=== PATIENT | male | born 1945 | race Caucasian/White ===

== ENCOUNTER 2020-03-20 17:19 | Inpatient (IN) ==
[2020-03-20] MEDS ORDERED: PIPERACILL/TAZOBAC CONSULT ACTIVE PRN (17:46)
[2020-03-20] MEDS ORDERED: PIPERACILLIN/TAZOBACTAM 4.5 GM/120 ML BAG IV ONE (17:46)
[2020-03-20 18:42] LABS: Basophils # (auto) 0.02 K/uL (0-0.2); Basophils % (auto) 0.3 %; Eosinophils # (auto) 0.02 K/uL (0-0.5); Eosinophils % (auto) 0.3 %; Hematocrit (blood only) 30.3 % (42-52); Hemoglobin 10.7 g/dL (14.0-18.0); Immature Granulocytes # (auto) 0.01 K/uL (0.00-0.02); Immature Granulocytes % (auto) 0.1 %; Lymphocytes # (auto) 1.26 K/uL (1.2-3.4); Lymphocytes % (auto) 17.4 %; Mean Corpuscular Hemoglobin 31.7 pg (25-34); Mean Corpuscular Hgb Conc 35.3 g/dL (32-36); Mean Corpuscular Volume 89.6 fL (80-100); Mean Platelet Volume 9.3 fL (7.4-10.4); Monocytes # (auto) 0.83 K/uL (0.11-0.59); Monocytes % (auto) 11.5 %; Neutrophils # (auto) 5.09 K/uL (1.4-6.5); Neutrophils % (auto) 70.4 %; Platelet Count 297 K/uL (130-400); RDW Coefficient of Variation 11.9 % (11.5-14.5); RDW Standard Deviation 38.7 fL (36.4-46.3); Red Blood Count 3.38 M/uL (4.7-6.1); White Blood Count 7.23 K/uL (4.8-10.8)
[2020-03-20 18:47] LABS: Appearance Urine Clear (Clear); Bacteria Urine Automated Negative (Negative); Bilirubin Urine Negative (Negative); Blood Urine 3+ (Negative); Color Urine Dark Yellow; Epithelial Cell Urine Auto 0-5 /lpf (0-5); Glucose Urine UA Negative (Negative); Ketones Urine Trace (Negative); Leukocyte Esterase Urine Trace (Negative); Nitrite Urine Negative (Negative); Protein Urine 3+ (Negative); RBC Urine Automated >30 /hpf (0-4); Specific Gravity Urine 1.029 (1.000-1.030); Urobilinogen Urine Negative (Negative); WBC Urine Automated >30 /hpf (0-5); pH Urine 5.5 (4.5-7.5)
[2020-03-20 19:02] LABS: Alanine Aminotransferase 32 U/L (12-78); Albumin Level 2.9 gm/dl (3.4-5.0); Aspartate Aminotransferase 18 U/L (15-37); BUN Creatinine Ratio 18.5 (10-20); Blood Urea Nitrogen 16 mg/dl (7-18); Calcium 8.4 mg/dl (8.5-10.1); Carbon Dioxide 24 mmol/L (21-32); Chloride 103 mmol/L (98-107); Creatinine Clr Calc Pharmacy 81.6 ml/min; Est GFR (African American) 98.5; Glucose 129 mg/dl (70-99); Magnesium 1.8 mg/dl (1.8-2.4); Potassium 4.2 mmol/L (3.5-5.1); Sodium 136 mmol/L (136-145)
[2020-03-20 19:07] LABS: Albumin Globulin Ratio 0.7 (0.9-2); Alkaline Phosphatase 100 U/L (45-117); Bilirubin,Total 0.4 mg/dl (0.2-1); Globulin 3.9 gm/dl (2.5-4.0); Total Protein 6.8 gm/dl (6.4-8.2); Troponin I < 0.015 ng/ml (0-0.045)
[2020-03-20 19:14] LABS: INR 1.2 (0.9-1.1); Partial Thromboplastin Ratio 1.2; Partial Thromboplastin Time 32.3 Seconds (21.0-31.0); Prothrombin Time 12.3 Seconds (9.0-12.0)
--- NOTE | 2020-03-20 19:30 | XRay Report ---
XR chest 1V portable CLINICAL HISTORY: SEPSIS COMPARISON STUDY: Chest radiograph March 01, 2020. FINDINGS: There are median sternotomy wires and a prosthetic cardiac valve. Cardiomediastinal silhoue tte is stable. There is no pneumothorax or pleural effusion. There is no consolidation or evidence fo r pulmonary edema. Appearance of the chest is unchanged. IMPRESSION: No acute cardiopulmonary findings. ACT 112: Negative or not required by law. Electronically signed by: Luigi Garcia M.D. 03/20/2020 7:28 PM
[2020-03-20 19:52] LABS: Adenovirus PCR Not Detected (NotDetected); Bordetella parapertussis PCR Not Detected (NotDetected); Bordetella pertussis PCR Not Detected (NotDetected); Chlamydia pneumoniae PCR Not Detected (NotDetected); Coronavirus 229E PCR Not Detected (NotDetected); Coronavirus CoV-2 (COVID19)PCR Not Detected (NotDetected); Coronavirus HKU1 PCR Not Detected (NotDetected); Coronavirus NL63 PCR Not Detected (NotDetected); Coronavirus OC43PCR Not Detected (NotDetected); Human Metapneumovirus PCR Not Detected (NotDetected); Influenza A PCR Not Detected (NotDetected); Influenza B PCR Not Detected (NotDetected); Mycoplasma pneumoniae PCR Not Detected (NotDetected); Parainfluenza Virus 1 PCR Not Detected (NotDetected); Parainfluenza Virus 2 PCR Not Detected (NotDetected); Parainfluenza Virus 3 PCR Not Detected (NotDetected); Parainfluenza Virus 4 PCR Not Detected (NotDetected); Respiratory Syncytial VirusPCR Not Detected (NotDetected); Rhinovirus/Enterovirus PCR Not Detected (NotDetected)
[2020-03-20] MEDS ORDERED: ACETAMINOPHEN 325 MG TAB PO STA (20:08)
[2020-03-20] MEDS ORDERED: NICOTINE 14 MG/24 HR PATCH TD STA (22:22)
--- NOTE | 2020-03-20 23:08 | Emergency Department Note ---
History of Present Illness General Chief complaint: Fever Source: patient, EMS, RN notes reviewed and old records reviewed ([facility]) Mode of arrival: ambulatory Limitations: no limitations History of Present Illness Provider complaint: Fever, discharged from [place] yesterday This patient is a 74-year-old male who presents emergency department from [facility] where he is at inpatient rehab. Patient was recently hospitalized for subdural hematoma and was found to have an acute bleed. He was transferred to [facility] where no further intervention was performed. The patient was discharged yesterday back to [facility] for further rehab. Today he was found to have a temperature of 39 degrees. The patient denies any specific symptoms although he does have an indwelling Curtis catheter. He denies any chest pain, shortness of breath, vomiting or diarrhea. Home Medications Home Medications Medication Instructions Recorded Confirmed Type aspirin [Aspir-81] 81 mg PO QAM 11/11/18 03/21/20 History atorvastatin 20 mg PO QAM 11/11/18 03/21/20 History omega 9-wen-ccv-fish oil [Fish Oil] 1 cap PO QAM 11/11/18 03/21/20 History finasteride 5 mg PO QAM 03/01/20 03/21/20 History lisinopril 10 mg PO QAM 03/01/20 03/21/20 History tamsulosin 0.4 mg PO QAM 03/01/20 03/21/20 History cefdinir 300 mg PO BID 10 Days #20 cap 03/20/20 Rx docusate sodium 100 mg PO BID 03/21/20 03/21/20 History levetiracetam 1,000 mg PO Q12H 03/21/20 03/21/20 History sennosides [senna] 8.6 mg PO BID 03/21/20 03/21/20 History sodium chloride 3,000 mg PO TID 03/21/20 03/21/20 History Allergies Allergy/AdvReac Type Severity Reaction Status Date / Time No Known Drug Allergies Allergy Unknown Unknown Verified 03/21/20 00:52 Past Med/Surg History Medical History Anemia Basal cell carcinoma (02/09/19) Left preauricular region: 02/09/2019 Basal cell carcinoma of face removed in office BPH loc w urin obs/LUTS Coronary artery disease Hearing deficit History of rheumatic fever as a child Hypercholesterolemia Hyperlipidemia Hypertension Myocardial Infarction ? pt not sure, but in primary care docs note Osteoarthritis Poor historian Sensorineural hearing loss of both ears Tobacco user Urinary retention Surgical History H/O vasectomy History of colonoscopy with polypectomy History of open heart surgery 15+yrs ago @ [facility] "valve replacement and bypass surgery" History of testicular surgery left History of tooth extraction all teeth Family History Mother Breast cancer Family history of diabetes mellitus Other H/O vasectomy History of open heart surgery Hypercholesterolemia No family history of adverse response to anesthesia Denies family history of Ovarian cancer Prostate cancer Diabetes Coronary heart disease Heart disease Myocardial infarction Lung cancer Colorectal cancer Social History Smoking Status: Former smoker Tobacco Type: Smokeless Tobacco (Dip or Chew) Second Hand Exposure: No; Do You Dip or Chew Tobacco: No; Hx Alcohol Use: Yes Alcohol type: beer Hx Substance Use: No Preferred Language: Syriac Communication Ability: Impaired Visual Impairment: No Limitations Hearing Ability: Normal Social Work Coordinator Required: No Beliefs That Will Affect Care: None marital status: Current Living Situation: Spouse current occupational status: retired Other Information That Helps Us Care for You: No Feels Safe at Home: Yes Safety Concerns: Feels Safe At This Time Childhood Exposure to Second-Hand Smoke: No Dental Care, Regularly: No Physical Activity Frequency: Daily Seatbelt Use: always Sunscreen Use: No Assistive Devices: Denture - Upper, Denture - Lower and Glasses Review of Systems See HPI for pertinent positives & negatives. and A total of 10 systems reviewed and were otherwise negative Physical Exam Vital Signs Vital Signs - 24 hr 03/20/20 17:20 03/20/20 17:31 03/20/20 18:15 Temperature 38.5 C H Temperature Source Oral Pulse Rate 100 H Pulse Rate [Apical] 92 H Respiratory Rate 20 18 Respiratory Effort / Characteristics Non-Labored Blood Pressure 139/76 Blood Pressure [Right Arm] 145/91 H Blood Pressure Mean 97 Blood Pressure Mean [Right Arm] 109 Blood Pressure Position Sitting Pulse Oximetry 98 94 96 Oxygen Delivery Method Room Air Room Air Sepsis Recent Fever Within 48 Hours Yes Sepsis New/Unexplained Change in Mental Status No Sepsis Action Taken by Nursing No Action Required 03/20/20 18:30 03/20/20 18:50 03/20/20 19:30 Temperature Temperature Source Pulse Rate Pulse Rate [Apical] 90 90 Respiratory Rate 17 14 Respiratory Effort / Characteristics Blood Pressure Blood Pressure [Right Arm] 135/87 145/85 H Blood Pressure Mean Blood Pressure Mean [Right Arm] 103 105 Blood Pressure Position Pulse Oximetry 96 95 Oxygen Delivery Method Room Air Sepsis Recent Fever Within 48 Hours Sepsis New/Unexplained Change in Mental Status Sepsis Action Taken by Nursing 03/20/20 20:00 03/20/20 20:30 03/20/20 21:00 Temperature 37.2 C Temperature Source Oral Pulse Rate Pulse Rate [Apical] 73 72 68 Respiratory Rate 17 16 20 Respiratory Effort / Characteristics Blood Pressure Blood Pressure [Right Arm] 130/69 128/94 124/74 Blood Pressure Mean Blood Pressure Mean [Right Arm] 89 105 90 Blood Pressure Position Pulse Oximetry 96 97 96 Oxygen Delivery Method Room Air Room Air Room Air Sepsis Recent Fever Within 48 Hours Sepsis New/Unexplained Change in Mental Status Sepsis Action Taken by Nursing 03/20/20 21:30 Temperature Temperature Source Pulse Rate Pulse Rate [Apical] 73 Respiratory Rate 21 Respiratory Effort / Characteristics Blood Pressure Blood Pressure [Right Arm] 155/82 H Blood Pressure Mean Blood Pressure Mean [Right Arm] 106 Blood Pressure Position Pulse Oximetry 97 Oxygen Delivery Method Room Air Sepsis Recent Fever Within 48 Hours Sepsis New/Unexplained Change in Mental Status Sepsis Action Taken by Nursing Vital signs reviewed. Noted to be febrile General: Chronically ill-appearing 74-year-old male, in no significant distress HEENT: No scleral icterus, PERRLA, neck supple. Atraumatic. Cardiovascular: Regular rate and rhythm, no extra sounds. Pulmonary: Clear to auscultation bilaterally, normal work of breathing. Abdomen: Soft, nontender, nondistended, positive bowel sounds. Musculoskeletal: Atraumatic, no peripheral edema. : Indwelling Curtis catheter, normal external male genitals. Neurologic: Patient awake alert and pleasantly confused but able to follow commands.. Skin: Warm, dry, no rash Course Administered Medications Aspirin (Aspirin 81 Mg Ectab) [facility] [place]: 04/20/20 08:59 Last Admin: 09/29/20 08:23 Dose: 81 mg Documented by: [id number] Admin: 03/21/20 07:59 Dose: 81 mg Documented by: [id number] Atorvastatin Calcium (Atorvastatin 20 Mg Tab) [facility] [place]: 04/20/20 08:59 Last Admin: 03/22/20 08:23 Dose: 20 mg Documented by: [id number] Admin: 03/21/20 07:59 Dose: 20 mg Documented by: [id number] Docusate Sodium (Docusate Sodium 100 Mg Cap) 100 mg PO BID [facility] Stop: 04/20/20 08:59 Last Admin: 03/22/20 08:32 Dose: 100 mg Documented by: [id number] Admin: 03/21/20 21:00 Dose: 100 mg Documented by: [id number] Admin: 03/21/20 07:57 Dose: 100 mg Documented by: [id number] Finasteride (Finasteride 5 Mg Tab) [facility] [place]: 04/20/20 08:59 Last Admin: 03/22/20 08:28 Dose: 5 mg Documented by: [id number] Admin: 03/21/20 07:59 Dose: 5 mg Documented by: [id number] Fish Oil (Sparks-3 (Purified Fish Oil) 1 Gm Cap) 1 gm PO [facility] Stop: 04/20/20 08:59 Last Admin: 03/22/20 08:23 Dose: 1 gm Documented by: [id number] Admin: 03/21/20 07:59 Dose: 1 gm Documented by: [id number] Ceftriaxone Sodium 2,000 mg/ (Dextrose) 70 mls @ 100 mls/hr IV Q24H [facility]; Protocol Stop: 03/31/20 03:59 Last Infusion: 03/22/20 05:34 Dose: 0 mls/hr Documented by: [id number] Admin: 03/22/20 04:52 Dose: 100 mls/hr Documented by: [id number] Infusion: 03/21/20 06:04 Dose: 0 mls/hr Documented by: [id number] Admin: 03/21/20 04:53 Dose: 100 mls/hr Documented by: [id number] Vancomycin HCl 1,000 mg/ (Sodium Chloride) 270 mls @ 125 mls/hr IV Q12@0600,1800 [facility]; Protocol Stop: 03/31/20 17:59 Last Admin: 03/22/20 18:18 Dose: 125 mls/hr Documented by: [id number] Infusion: 03/22/20 08:15 Dose: 0 mls/hr Documented by: [id number] Admin: 03/22/20 05:59 Dose: 125 mls/hr Documented by: [id number] Infusion: 03/21/20 20:18 Dose: 0 mls/hr Documented by: [id number] Admin: 03/21/20 18:08 Dose: 125 mls/hr Documented by: [id number] Levetiracetam (Levetiracetam 500 Mg Tab) 1,000 mg PO Q12H [facility] Stop: 04/20/20 08:59 Last Admin: 03/22/20 08:24 Dose: 1,000 mg Documented by: [id number] Admin: 03/21/20 21:00 Dose: 1,000 mg Documented by: [id number] Admin: 03/21/20 07:59 Dose: 1,000 mg Documented by: [id number] Lidocaine (Lidocaine 5% 1 Patch) 1 patch TD QAM [facility] Stop: 04/21/20 09:44 Last Admin: 03/22/20 10:36 Dose: 1 patch Documented by: [id number] Miscellaneous (Remove Nicoderm Patch) 1 ea N/A DAILY@0859 [facility] Stop: 04/20/20 08:58 Last Admin: 03/22/20 08:28 Dose: 1 ea Documented by: [id number] Admin: 03/21/20 07:56 Dose: 1 ea Documented by: [id number] Nicotine (Nicotine 14 Mg/24 Hr Patch) 14 mg TD QAM [facility] Stop: 04/20/20 08:59 Last Admin: 03/22/20 08:24 Dose: 14 mg Documented by: [id number] Admin: 03/21/20 07:59 Dose: 14 mg Documented by: [id number] Ondansetron HCl (Ondansetron Inj 2 Mg/Ml 2 Ml Vial) 4 mg IV Q6H PRN PRN Reason: Nausea Stop: 04/20/20 03:59 Last Admin: 03/21/20 21:36 Dose: 4 mg Documented by: [id number] Sennosides (Senna 8.6 Mg Tab) 8.6 mg PO BID [facility] Stop: 04/20/20 08:59 Last Admin: 03/22/20 08:23 Dose: 8.6 mg Documented by: [id number] Admin: 03/21/20 21:00 Dose: 8.6 mg Documented by: [id number] Admin: 03/21/20 07:59 Dose: 8.6 mg Documented by: [id number] Sodium Chloride (Sodium Chloride 1 Gm Tablet) 3 gm PO TID [facility] Stop: 04/20/20 08:59 Last Admin: 03/22/20 14:51 Dose: 3 gm Documented by: [id number] Admin: 03/22/20 08:22 Dose: 3 gm Documented by: [id number] Admin: 03/21/20 21:00 Dose: 3 gm Documented by: [id number] Admin: 03/21/20 13:59 Dose: 3 gm Documented by: [id number] Admin: 03/21/20 07:57 Dose: 3 gm Documented by: [id number] Discontinued Medications Acetaminophen (Acetaminophen 325 Mg Tab) 325 mg PO NOW STA Stop: 03/20/20 20:09 Last Admin: 03/20/20 20:17 Dose: Not Given Documented by: [id number] Acetaminophen (Acetaminophen 325 Mg Tab) 650 mg PO Q4H PRN PRN Reason: Pain or Fever Stop: 04/20/20 03:59 Last Admin: 03/22/20 03:18 Dose: 650 mg Documented by: [id number] Admin: 03/21/20 20:59 Dose: 650 mg Documented by: [id number] Admin: 03/21/20 14:01 Dose: 650 mg Documented by: [id number] Piperacillin Sod/Tazobactam Sod (Zosyn) 4.5 gm in 120 mls @ 240 mls/hr IV NOW ONE Stop: 03/20/20 18:15 Last Infusion: 03/20/20 20:07 Dose: 0 mls/hr Documented by: [id number] Admin: 03/20/20 18:53 Dose: 240 mls/hr Documented by: [id number] Acetaminophen (Ofirmev) 1,000 mg in 100 mls @ 400 mls/hr IV NOW STA Stop: 03/21/20 00:25 Last Infusion: 03/21/20 00:44 Dose: 0 mls/hr Documented by: [id number] Admin: 03/21/20 00:20 Dose: 400 mls/hr Documented by: [id number] Levetiracetam 1,000 mg/ Sodium (Chloride) 110 mls @ 440 mls/hr IV NOW STA Stop: 03/21/20 00:26 Last Infusion: 03/21/20 01:04 Dose: 0 mls/hr Documented by: [id number] Admin: 03/21/20 00:44 Dose: 440 mls/hr Documented by: [id number] Vancomycin HCl 2,250 mg/ (Sodium Chloride) 545 mls @ 200 mls/hr IV ONE ONE; Protocol Stop: 03/21/20 07:13 Last Infusion: 03/21/20 07:34 Dose: 0 mls/hr Documented by: [id number] Admin: 03/21/20 04:50 Dose: 200 mls/hr Documented by: [id number] Miscellaneous (Patient's Height And/Or Weight Needed) 1 ea N/A TODAY@0930 ONE Stop: 03/21/20 09:31 Last Admin: 03/21/20 09:35 Dose: 1 ea Documented by: [id number] Nicotine (Nicotine 14 Mg/24 Hr Patch) 14 mg TD NOW STA Stop: 03/20/20 22:23 Last Admin: 03/20/20 22:27 Dose: 14 mg Documented by: [id number] Ondansetron HCl (Ondansetron Inj 2 Mg/Ml 2 Ml Vial) 4 mg IV NOW STA Stop: 03/21/20 00:51 Last Admin: 03/21/20 01:00 Dose: 4 mg Documented by: [id number] Critical Care Time Critical Care Time: Yes Total Critical Care Time: 31 The high probability of a clinically significant, sudden or life threatening deterioration that required my full and direct attention, intervention and personal management. The aggregate critical care time was 31 minutes. This time includes data review, pt assessment, VS monitoring, documentation, medication ordering and management. Medical Decision Making Differential Diagnosis Differential diagnosis: Etiologies such as viral syndrome, otitis, pharyngitis, pneumonia, COVID, influenza, meningitis, urinary tract infection, septic arthritis, soft tissue infectious process, intra-abdominal process, sepsis, bacteremia, as well as others were entertained. Medical Records Attestation: I reviewed the patient's medical records. Home Medications Current Medication List: was personally reviewed by me Laboratory Data Attestation: I reviewed the patient's lab results. Result diagrams: 03/22/20 06:08 03/22/20 06:08 Lab Results 03/20/20 03/20/20 03/20/20 Range/Units 17:33 17:33 17:33 WBC 7.23 (4.8-10.8) K/uL RBC 3.38 L (4.7-6.1) M/uL Hgb 10.7 L (14.0-18.0) g/dL Hct 30.3 L (42-52) % MCV 89.6 (80-100) fL MCH 31.7 (25-34) pg MCHC 35.3 (32-36) g/dL RDW Std Deviation 38.7 (36.4-46.3) fL RDW Coeff of Harmony 11.9 (11.5-14.5) % Plt Count 297 (130-400) K/uL MPV 9.3 (7.4-10.4) fL Immature Gran % (Auto) 0.1 % Neut % (Auto) 70.4 % Lymph % (Auto) 17.4 % [place] % (Auto) 11.5 % Eos % (Auto) 0.3 % Baso % (Auto) 0.3 % Neut # (Auto) 5.09 (1.4-6.5) K/uL Lymph # (Auto) 1.26 (1.2-3.4) K/uL [place] # (Auto) 0.83 H (0.11-0.59) K/uL Eos # (Auto) 0.02 (0-0.5) K/uL Baso # (Auto) 0.02 (0-0.2) K/uL Immature Gran # (Auto) 0.01 (0.00-0.02) K/uL PT Cancelled INR Cancelled APTT Cancelled PTT Ratio Cancelled Sodium 136 (136-145) mmol/L Potassium 4.2 (3.5-5.1) mmol/L Chloride 103 (98-107) mmol/L Carbon Dioxide 24 (21-32) mmol/L Anion Gap 9.0 (3-11) BUN 16 (7-18) mg/dl Creatinine 0.87 (0.6-1.4) mg/dl Est Cr Clr Drug Dosing 81.6 ml/min Est GFR ( Amer) 98.5 Est GFR (Non-Af Amer) 85.0 BUN/Creatinine Ratio 18.5 (10-20) Glucose 129 H (70-99) mg/dl Lactate (0.4-2.0) mmol/L Calcium 8.4 L (8.5-10.1) mg/dl Magnesium 1.8 (1.8-2.4) mg/dl Total Bilirubin 0.4 (0.2-1) mg/dl AST 18 (15-37) U/L ALT 32 (12-78) U/L Alkaline Phosphatase 100 (45-117) U/L Troponin I < 0.015 (0-0.045) ng/ml Total Protein 6.8 (6.4-8.2) gm/dl Albumin 2.9 L (3.4-5.0) gm/dl Globulin 3.9 (2.5-4.0) gm/dl Albumin/Globulin Ratio 0.7 L (0.9-2) Procalcitonin (0-0.5) ng/ml Urine Color Urine Appearance (Clear) Urine pH (4.5-7.5) Ur Specific [place] (1.000-1.030) Urine Protein (Negative) Urine Glucose (UA) (Negative) Urine Ketones (Negative) Urine Blood (Negative) Urine Nitrite (Negative) Urine Bilirubin (Negative) Urine Urobilinogen (Negative) Ur Leukocyte Esterase (Negative) Urine WBC (Auto) (0-5) /hpf Urine RBC (Auto) (0-4) /hpf U Hyaline Cast (Auto) (0-5) /lpf U Epithel Cells (Auto) (0-5) /lpf Urine Bacteria (Auto) (Negative) Adenovirus (PCR) (NotDetected) B. pertussis DNA (PCR) (NotDetected) B.parapertussis DNA PCR (NotDetected) C. pneumoniae DNA (PCR) (NotDetected) Coronavirus OC43 (PCR) (NotDetected) Coronavirus HKU1 (PCR) (NotDetected) Coronavirus 229E (PCR) (NotDetected) COVID-19 PCR (NotDetected) Coronavirus NL63 (PCR) (NotDetected) Human Metapneumovir PCR (NotDetected) Influenza Type A (PCR) (NotDetected) Influenza Type B (PCR) (NotDetected) M. pneumoniae (PCR) (NotDetected) Parainfluenza 1 (PCR) (NotDetected) Parainfluenza 2 (PCR) (NotDetected) Parainfluenza 3 (PCR) (NotDetected) Parainfluenza 4 (PCR) (NotDetected) RSV (PCR) (NotDetected) Entero/Rhino (PCR) (NotDetected) 03/20/20 03/20/20 03/20/20 Range/Units 17:33 17:33 17:33 WBC (4.8-10.8) K/uL RBC (4.7-6.1) M/uL Hgb (14.0-18.0) g/dL Hct (42-52) % MCV (80-100) fL MCH (25-34) pg MCHC (32-36) g/dL RDW Std Deviation (36.4-46.3) fL RDW Coeff of Harmony (11.5-14.5) % Plt Count (130-400) K/uL MPV (7.4-10.4) fL Immature Gran % (Auto) % Neut % (Auto) % Lymph % (Auto) % [place] % (Auto) % Eos % (Auto) % Baso % (Auto) % Neut # (Auto) (1.4-6.5) K/uL Lymph # (Auto) (1.2-3.4) K/uL [place] # (Auto) (0.11-0.59) K/uL Eos # (Auto) (0-0.5) K/uL Baso # (Auto) (0-0.2) K/uL Immature Gran # (Auto) (0.00-0.02) K/uL PT INR APTT PTT Ratio Sodium (136-145) mmol/L Potassium (3.5-5.1) mmol/L Chloride (98-107) mmol/L Carbon Dioxide (21-32) mmol/L Anion Gap (3-11) BUN (7-18) mg/dl Creatinine (0.6-1.4) mg/dl Est Cr Clr Drug Dosing ml/min Est GFR ( Amer) Est GFR (Non-Af Amer) BUN/Creatinine Ratio (10-20) Glucose (70-99) mg/dl Lactate (0.4-2.0) mmol/L Calcium (8.5-10.1) mg/dl Magnesium (1.8-2.4) mg/dl Total Bilirubin (0.2-1) mg/dl AST (15-37) U/L ALT (12-78) U/L Alkaline Phosphatase (45-117) U/L Troponin I (0-0.045) ng/ml Total Protein (6.4-8.2) gm/dl Albumin (3.4-5.0) gm/dl Globulin (2.5-4.0) gm/dl Albumin/Globulin Ratio (0.9-2) Procalcitonin < 0.05 (0-0.5) ng/ml Urine Color Dark Yellow Urine Appearance Clear (Clear) Urine pH 5.5 (4.5-7.5) Ur Specific [place] 1.029 (1.000-1.030) Urine Protein 3+ H (Negative) Urine Glucose (UA) Negative (Negative) Urine Ketones Trace H (Negative) Urine Blood 3+ H (Negative) Urine Nitrite Negative (Negative) Urine Bilirubin Negative (Negative) Urine Urobilinogen Negative (Negative) Ur Leukocyte Esterase Trace H (Negative) Urine WBC (Auto) >30 H (0-5) /hpf Urine RBC (Auto) >30 H (0-4) /hpf U Hyaline Cast (Auto) 10-30 H (0-5) /lpf U Epithel Cells (Auto) 0-5 (0-5) /lpf Urine Bacteria (Auto) Negative (Negative) Adenovirus (PCR) Not Detected (NotDetected) B. pertussis DNA (PCR) Not Detected (NotDetected) B.parapertussis DNA PCR Not Detected (NotDetected) C. pneumoniae DNA (PCR) Not Detected (NotDetected) Coronavirus OC43 (PCR) Not Detected (NotDetected) Coronavirus HKU1 (PCR) Not Detected (NotDetected) Coronavirus 229E (PCR) Not Detected (NotDetected) COVID-19 PCR Not Detected (NotDetected) Coronavirus NL63 (PCR) Not Detected (NotDetected) Human Metapneumovir PCR Not Detected (NotDetected) Influenza Type A (PCR) Not Detected (NotDetected) Influenza Type B (PCR) Not Detected (NotDetected) M. pneumoniae (PCR) Not Detected (NotDetected) Parainfluenza 1 (PCR) Not Detected (NotDetected) Parainfluenza 2 (PCR) Not Detected (NotDetected) Parainfluenza 3 (PCR) Not Detected (NotDetected) Parainfluenza 4 (PCR) Not Detected (NotDetected) RSV (PCR) Not Detected (NotDetected) Entero/Rhino (PCR) Not Detected (NotDetected) 03/20/20 03/20/20 Range/Units 18:45 19:38 WBC (4.8-10.8) K/uL RBC (4.7-6.1) M/uL Hgb (14.0-18.0) g/dL Hct (42-52) % MCV (80-100) fL MCH (25-34) pg MCHC (32-36) g/dL RDW Std Deviation (36.4-46.3) fL RDW Coeff of Harmony (11.5-14.5) % Plt Count (130-400) K/uL MPV (7.4-10.4) fL Immature Gran % (Auto) % Neut % (Auto) % Lymph % (Auto) % [place] % (Auto) % Eos % (Auto) % Baso % (Auto) % Neut # (Auto) (1.4-6.5) K/uL Lymph # (Auto) (1.2-3.4) K/uL [place] # (Auto) (0.11-0.59) K/uL Eos # (Auto) (0-0.5) K/uL Baso # (Auto) (0-0.2) K/uL Immature Gran # (Auto) (0.00-0.02) K/uL PT 12.3 H INR 1.2 H APTT 32.3 H PTT Ratio 1.2 Sodium (136-145) mmol/L Potassium (3.5-5.1) mmol/L Chloride (98-107) mmol/L Carbon Dioxide (21-32) mmol/L Anion Gap (3-11) BUN (7-18) mg/dl Creatinine (0.6-1.4) mg/dl Est Cr Clr Drug Dosing ml/min Est GFR ( Amer) Est GFR (Non-Af Amer) BUN/Creatinine Ratio (10-20) Glucose (70-99) mg/dl Lactate 0.9 (0.4-2.0) mmol/L Calcium (8.5-10.1) mg/dl Magnesium (1.8-2.4) mg/dl Total Bilirubin (0.2-1) mg/dl AST (15-37) U/L ALT (12-78) U/L Alkaline Phosphatase (45-117) U/L Troponin I (0-0.045) ng/ml Total Protein (6.4-8.2) gm/dl Albumin (3.4-5.0) gm/dl Globulin (2.5-4.0) gm/dl Albumin/Globulin Ratio (0.9-2) Procalcitonin (0-0.5) ng/ml Urine Color Urine Appearance (Clear) Urine pH (4.5-7.5) Ur Specific [place] (1.000-1.030) Urine Protein (Negative) Urine Glucose (UA) (Negative) Urine Ketones (Negative) Urine Blood (Negative) Urine Nitrite (Negative) Urine Bilirubin (Negative) Urine Urobilinogen (Negative) Ur Leukocyte Esterase (Negative) Urine WBC (Auto) (0-5) /hpf Urine RBC (Auto) (0-4) /hpf U Hyaline Cast (Auto) (0-5) /lpf U Epithel Cells (Auto) (0-5) /lpf Urine Bacteria (Auto) (Negative) Adenovirus (PCR) (NotDetected) B. pertussis DNA (PCR) (NotDetected) B.parapertussis DNA PCR (NotDetected) C. pneumoniae DNA (PCR) (NotDetected) Coronavirus OC43 (PCR) (NotDetected) Coronavirus HKU1 (PCR) (NotDetected) Coronavirus 229E (PCR) (NotDetected) COVID-19 PCR (NotDetected) Coronavirus NL63 (PCR) (NotDetected) Human Metapneumovir PCR (NotDetected) Influenza Type A (PCR) (NotDetected) Influenza Type B (PCR) (NotDetected) M. pneumoniae (PCR) (NotDetected) Parainfluenza 1 (PCR) (NotDetected) Parainfluenza 2 (PCR) (NotDetected) Parainfluenza 3 (PCR) (NotDetected) Parainfluenza 4 (PCR) (NotDetected) RSV (PCR) (NotDetected) Entero/Rhino (PCR) (NotDetected) Imaging Data Radiologist's Impression: XR chest 1V portable CLINICAL HISTORY: SEPSIS COMPARISON STUDY: Chest radiograph March 01, 2020. FINDINGS: There are median sternotomy wires and a prosthetic cardiac valve. Cardiomediastinal silhouette is stable. There is no pneumothorax or pleural effusion. There is no consolidation or evidence for pulmonary edema. Appearance of the chest is unchanged. IMPRESSION: No acute cardiopulmonary findings. ACT 112: Negative or not required by law. Electronically signed by: Luigi Garcia M.D. 03/20/2020 7:28 PM Dictated: 03/20/201926 Transcribed: 03/20/201926 CT OF THE HEAD WITHOUT CONTRAST CLINICAL HISTORY: seizure, fever, SDH COMPARISON STUDY: Head CT March 15, 2020. CT DOSE: 614.27 mGy.cm TECHNIQUE: Helical axial images of the head were obtained without IV contrast. Automated exposure control was utilized for the study. A dose lowering technique was utilized adhering to the principles of ALARA. FINDINGS: Right sided craniotomy is noted. There are 2 left matilde holes. Small amount of pneumocephalus within the right craniotomy site is slightly decreased. Subjacent intra-axial hemorrhage measuring 2.7 cm has decreased. It previously measured 3.2 cm. Mixed attenuation left subdural hematoma or prior exam, measuring 1.6 cm in thickness. A hypodense right subdural hematoma measuring 1.1 cm in short axis diameter is unchanged. 5 mm of rightward midline shift is unchanged. Ventricular system is stable. Basilar cisterns are patent. There are no findings to suggest acute dural sinus thrombosis or acute territorial infarct. There is no calvarial fracture. Mild right maxillary sinus mucosal thickening is noted. IMPRESSION: Status post right craniotomy and left sided matilde hole placement. Mild interval decrease in extra axial hemorrhage deep to the right craniotomy site since prior exam. No significant change in bilateral subdural hematomas with 5 mm of rightward midline shift. ACT 112: Negative or not required by law. Electronically signed by: Luigi Garcia M.D. 03/21/2020 8:01 AM Dictated: 03/21/20 075 Transcribed: 03/21/20754 Blood Pressure Blood Pressure Findings: Normal blood pressure Blood Pressure Disposition: did not require urgent referral MDM Narrative This patient was evaluated and appeared to be in no significant distress. He is awake and answers questions although is pleasantly confused. Patient follows commands without difficulty. He is noted to be febrile although has no complaints. IV access was obtained and laboratory work was drawn. An order for cardiac monitoring was placed and the patient is noted to be in a sinus rhythm a t 90 bpm. Patient was given 650 mg of Tylenol prior to arrival and his temperature has improved. Blood cultures were obtained. A respiratory panel/bio fire was performed including flu and COVID testing which is negative. Urinalysis indicates infection. Curtis catheter was changed. Patient was m edicated with IV Zosyn 4.5 g. He was hydrated with normal saline solution. Chest x-ray is negative for acute infiltrate. Patient seemed to have significant improvement. His did arrive. I explained my findings and the plan for transfer back to the inpatient rehabilitation facility. I did speak with Dr. Perez. After several hours of waiting for transport, the patient apparently seized upon getting into the wheelchair. He is noted to have a temperature of 38.5 degrees. IV Tylenol 1 g was ordered as well as a head CT. Patient's medication list includes Keppra. Patient was given a 1 g IV load. Head CT reveals chronic changes and no significant changes to SDH from previous. I suspect pt seizure is secondary to fever. Case was d/w Dr Davila of the hospitalist service who has agreed to evaluate the pt for further management. Impression & Plan Acute UTI, Chronic indwelling Curtis catheter, Fever, Seizure Discharge Plan Visit Data Chief Complaint: Fever ED Provider: Cathy Navarro Discharge Problem: Acute UTI, Chronic indwelling Curtis catheter, Fever, Seizure Patient Disposition: Admitted As Inpatient Condition: Fair Discharge Instructions Interventions: ED Discharge Assessment Last Done: 03/21/20 03:14 Discharge Problem: Fever Qualifiers: Fever type: unspecified Qualified Code(s): R50.9 - Fever, unspecified
[2020-03-21] MEDS ORDERED: ACETAMINOPHEN 1,000 MG/100 ML VIAL IV STA (00:11)
[2020-03-21] MEDS ORDERED: levETIRAcetam 1,000 MG in 0.9 % SODIUM CHLORIDE 100 ML IV STA (00:12)
[2020-03-21] MEDS ORDERED: ONDANSETRON INJ 2 MG/ML 2 ML VIAL IV STA (00:50)
--- NOTE | 2020-03-21 01:36 | History & Physical Report ---
Date of Service March 21, 2020 Assessment & Plan (1) Fever: 74-year-old male with past medical history coronary artery disease, hypertension, BPH, status post evacuation of bilateral subdurals acute on chronic on 03/01 at [facility] presents from [facility] rehab with concerns of fever and noted to have a seizure while in ED. Fever Temp 38.5 C on admission. Continue to trend fever curve Likely secondary to UTI from indwelling Curtis. Curtis was changed in ED UA not all that impressive: Negative nitrite, trace LE, >30 WBC, >30 RBC, urine bacteria negative Respiratory panel/bio fire negative including influenza and COVID testing Chest x-ray: No acute cardiopulmonary findings P.o. acetaminophen as needed for fever Urine culture from July 2019 growing coag negative Staphylococcus, sensitivities reviewed IV Vancomycin and Rocephin for antibiotic coverage, can narrow moving forward Blood and urine cultures pending Seizures Likely secondary to lowered seizure threshold in the setting of infection as above and history of recent subdural hematoma. This is patient's second seizure in the last week Patient received IV levetiracetam 1 g in ED. We will continue p.o. 1000 mg every 12 hours Seizure precautions ordered Defer neurology consult at present History of subdural hematoma status post evacuation of bilateral subdurals acute on chronic on 03/01 at [facility] Head CT ([facility]): Comparison 03/15/20. Status post right craniectomy and left craniotomies. Mild interval decrease in size of a focal extra-axial hemorrhage deep to the right craniectomy measuring 2.4 x 1.7 cm. No significant change in the low-density subacute subdural hematoma in the right frontoparietal convexity measuring 8 mm. No significant change in the mixed density left holohemispheric acute/subacute subdural hematoma measuring 9 mm. No change in the right to left midline shift measuring 4 mm. PT/OT ordered to continue therapy while inpatient. Patient coming from [facility] rehab Fall precautions ordered for ongoing left-sided weakness CAD/HTN Hold lisinopril 10 mg given low pressures, continue ASA 81 mg daily BPH Continue finasteride 5 mg. Holding tamsulosin 0.4 mg Tobacco use NicoDerm patch ordered FEN/GI: Regular diet DVT prophylaxis: Chemoprophylaxis deferred. SCDs Full code Dispo: Med telemetry. Patient coming from [facility] rehab History of Present Illness Chief Complaint: Fever, seizure Primary Care Provider: PETEY Gavin 74-year-old male with past medical history coronary artery disease, hypertension, BPH, tobacco abuse, status post evacuation of bilateral subdurals acute on chronic on 03/01 at [facility] after which was eventually discharged to [facility]. Patient is pleasantly confused and history is obtained by who is at bedside. ER visit March 15, 2020 after patient was found to be more confused at rehab and CT head showed acute on subacute as well as chronic subdurals for which patient was transferred back to [facility]. During the second visit at [facility] [place] [place] no further intervention was performed and patient was discharged back to [facility] for further rehab. Today patient was found to have a temperature of 39 degrees. Patient is noted to have an indwelling Curtis catheter. Patient additionally notes some nausea, vomiting, loose stools, but this has been present since last week. Patient otherwise denies any chills, sweats, cough, rhinorrhea, shortness of breath, chest pain, skin changes, known sick contacts or recent travel anywhere outside of hosp ital/rehab visits. Patient with no other acute concerns or complaints. Patient is seen to have significant improvement and plan was to transfer back to inpatient rehab facility, however patient apparently had a seizure while getting into the wheelchair when getting ready for discharge. This is a patient's second history of seizure last one occurring this previous Saturday at [facility] [place] [place]. Patient notes that he believes seizure was caused by turning his head too rapidly. Decision was made to admit patient for further observation. Pertinent labs: Hemoglobin 10.7, otherwise unremarkable CBC CMP. Pro-Ramakrishna negative. Respiratory panel/bio fire negative including influenza and COVID testing. UA: Negative nitrite, trace LE, >30 WBC, >30 RBC, urine bacteria negative Chest x-ray: No acute cardiopulmonary findings. Head CT ([facility]): Comparison 03/15/20. Status post right craniectomy and left craniotomies. Mild interval decrease in size of a focal extra-axial hemorrhage deep to the right craniectomy measuring 2.4 x 1.7 cm. No significant change in the low-density subacute subdural hematoma in the right frontoparietal convexity measuring 8 mm. No significant change in the mixed density left holohemispheric acute/subacute subdural hematoma measuring 9 mm. No change in the right to left midline shift measuring 4 mm. ER course: IV acetaminophen 1000 mg, p.o. acetaminophen 325 mg, IV levetiracetam 1000 g, IV Zofran 4 mg, IV Zosyn 4.5 mg, Curtis catheter changed Allergies Allergy/AdvReac Type Severity Reaction Status Date / Time No Known Drug Allergies Allergy Unknown Unknown Verified 03/21/20 00:52 Home Medications Home Medications Medication Instructions Recorded Confirmed Type aspirin [Aspir-81] 81 mg PO QAM 11/11/18 03/21/20 History atorvastatin 20 mg PO QAM 11/11/18 03/21/20 History omega [id number]-fish oil [Fish Oil] 1 cap PO QAM 11/11/18 03/21/20 History finasteride 5 mg PO QAM 03/01/20 03/21/20 History lisinopril 10 mg PO QAM 03/01/20 03/21/20 History tamsulosin 0.4 mg PO QAM 03/01/20 03/21/20 History cefdinir 300 mg PO BID 10 Days #20 cap 03/20/20 Rx docusate sodium 100 mg PO BID 03/21/20 03/21/20 History levetiracetam 1,000 mg PO Q12H 03/21/20 03/21/20 History sennosides [senna] 8.6 mg PO BID 03/21/20 03/21/20 History sodium chloride 3,000 mg PO TID 03/21/20 03/21/20 History Past Med/Surg History Medical History Anemia Basal cell carcinoma (02/09/19) Left preauricular region: 02/09/2019 Basal cell carcinoma of face removed in office BPH loc w urin obs/LUTS Coronary artery disease Hearing deficit History of rheumatic fever as a child Hypercholesterolemia Hyperlipidemia Hypertension Myocardial Infarction ? pt not sure, but in primary care docs note Osteoarthritis Poor historian Sensorineural hearing loss of both ears Tobacco user Urinary retention Surgical History H/O vasectomy History of colonoscopy with polypectomy History of open heart surgery 15+yrs ago @ [facility] "valve replacement and bypass surgery" History of testicular surgery left History of tooth extraction all teeth Family History Mother Breast cancer Family history of diabetes mellitus Other H/O vasectomy History of open heart surgery Hypercholesterolemia No family history of adverse response to anesthesia Denies family history of Ovarian cancer Prostate cancer Diabetes Coronary heart disease Heart disease Myocardial infarction Lung cancer Colorectal cancer Social History Smoking Status: Former smoker Tobacco Type: Smokeless Tobacco (Dip or Chew) Second Hand Exposure: No; Do You Dip or Chew Tobacco: No; Hx Alcohol Use: Yes Alcohol type: beer Hx Substance Use: No Preferred Language: Hebrew Communication Ability: Impaired Visual Impairment: No Limitations Hearing Ability: Normal Transfer Worker Required: No Beliefs That Will Affect Care: None marital status: Current Living Situation: Spouse current occupational status: retired Other Information That Helps Us Care for You: No Feels Safe at Home: Yes Safety Concerns: Feels Safe At This Time Childhood Exposure to Second-Hand Smoke: No Dental Care, Regularly: No Physical Activity Frequency: Daily Seatbelt Use: always Sunscreen Use: No Assistive Devices: Glasses and Walker Review of Systems Review of Systems: All systems reviewed & are unremarkable except as noted in HPI & below Physical Exam Constitutional: + ill appearing Eyes: Strabismus ENMT: external ear and nose normal, oropharynx normal Respiratory: normal respiratory effort, lungs clear to auscultation Cardiovascular: RRR, no murmur, no edema Gastrointestinal (Abdomen): normal bowel sounds, soft, nontender, no hepatosplenomegaly Skin: no rashes, warm and dry Psychiatric: Pleasantly confused Genitourinary: Curtis catheter in place Results & Data Results & Data ([facility]) Vital Signs (Past 12 Hours) Vital Signs Temp Pulse Pulse Resp BP BP Pulse Ox 03/21/20 01:00 65 16 103/65 95 03/21/20 00:45 67 24 113/70 96 03/21/20 00:11 67 21 145/84 H 95 03/21/20 00:00 38.5 C H 03/20/20 23:30 73 18 133/83 96 03/20/20 21:30 73 21 155/82 H 97 03/20/20 21:00 68 20 124/74 96 03/20/20 20:30 72 16 128/94 97 03/20/20 20:00 37.2 C 73 17 130/69 96 03/20/20 19:30 90 14 145/85 H 95 03/20/20 18:30 90 17 135/87 96 03/20/20 18:15 96 03/20/20 17:31 92 H 18 145/91 H 94 03/20/20 17:20 38.5 C H 100 H 20 139/76 98 Laboratory Results Laboratory Results - last 24 hr 03/20/20 03/20/20 03/20/20 17:33 17:33 17:33 WBC 7.23 RBC 3.38 L Hgb 10.7 L Hct 30.3 L MCV 89.6 MCH 31.7 MCHC 35.3 RDW Std Deviation 38.7 RDW Coeff of Harmony 11.9 Plt Count 297 MPV 9.3 Immature Gran % (Auto) 0.1 Neut % (Auto) 70.4 Lymph % (Auto) 17.4 Gilmer % (Auto) 11.5 Eos % (Auto) 0.3 Baso % (Auto) 0.3 Neut # (Auto) 5.09 Lymph # (Auto) 1.26 Gilmer # (Auto) 0.83 H Eos # (Auto) 0.02 Baso # (Auto) 0.02 Immature Gran # (Auto) 0.01 PT Cancelled INR Cancelled APTT Cancelled PTT Ratio Cancelled Sodium 136 Potassium 4.2 Chloride 103 Carbon Dioxide 24 Anion Gap 9.0 BUN 16 Creatinine 0.87 Est Cr Clr Drug Dosing 81.6 Est GFR ( Amer) 98.5 Est GFR (Non-Af Amer) 85.0 BUN/Creatinine Ratio 18.5 Glucose 129 H Lactate Calcium 8.4 L Magnesium 1.8 Total Bilirubin 0.4 AST 18 ALT 32 Alkaline Phosphatase 100 Troponin I < 0.015 Total Protein 6.8 Albumin 2.9 L Globulin 3.9 Albumin/Globulin Ratio 0.7 L Procalcitonin Urine Color Urine Appearance Urine pH Ur Specific [place] Urine Protein Urine Glucose (UA) Urine Ketones Urine Blood Urine Nitrite Urine Bilirubin Urine Urobilinogen Ur Leukocyte Esterase Urine WBC (Auto) Urine RBC (Auto) U Hyaline Cast (Auto) U Epithel Cells (Auto) Urine Bacteria (Auto) Adenovirus (PCR) B. pertussis DNA (PCR) B.parapertussis DNA PCR C. pneumoniae DNA (PCR) Coronavirus OC43 (PCR) Coronavirus HKU1 (PCR) Coronavirus 229E (PCR) COVID-19 PCR Coronavirus NL63 (PCR) Human Metapneumovir PCR Influenza Type A (PCR) Influenza Type B (PCR) M. pneumoniae (PCR) Parainfluenza 1 (PCR) Parainfluenza 2 (PCR) Parainfluenza 3 (PCR) Parainfluenza 4 (PCR) RSV (PCR) Entero/Rhino (PCR) 03/20/20 03/20/20 03/20/20 17:33 17:33 17:33 WBC RBC Hgb Hct MCV MCH MCHC RDW Std Deviation RDW Coeff of Harmony Plt Count MPV Immature Gran % (Auto) Neut % (Auto) Lymph % (Auto) Gilmer % (Auto) Eos % (Auto) Baso % (Auto) Neut # (Auto) Lymph # (Auto) Gilmer # (Auto) Eos # (Auto) Baso # (Auto) Immature Gran # (Auto) PT INR APTT PTT Ratio Sodium Potassium Chloride Carbon Dioxide Anion Gap BUN Creatinine Est Cr Clr Drug Dosing Est GFR ( Amer) Est GFR (Non-Af Amer) BUN/Creatinine Ratio Glucose Lactate Calcium Magnesium Total Bilirubin AST ALT Alkaline Phosphatase Troponin I Total Protein Albumin Globulin Albumin/Globulin Ratio Procalcitonin < 0.05 Urine Color Dark Yellow Urine Appearance Clear Urine pH 5.5 Ur Specific [place] 1.029 Urine Protein 3+ H Urine Glucose (UA) Negative Urine Ketones Trace H Urine Blood 3+ H Urine Nitrite Negative Urine Bilirubin Negative Urine Urobilinogen Negative Ur Leukocyte Esterase Trace H Urine WBC (Auto) >30 H Urine RBC (Auto) >30 H U Hyaline Cast (Auto) 10-30 H U Epithel Cells (Auto) 0-5 Urine Bacteria (Auto) Negative Adenovirus (PCR) Not Detected B. pertussis DNA (PCR) Not Detected B.parapertussis DNA PCR Not Detected C. pneumoniae DNA (PCR) Not Detected Coronavirus OC43 (PCR) Not Detected Coronavirus HKU1 (PCR) Not Detected Coronavirus 229E (PCR) Not Detected COVID-19 PCR Not Detected Coronavirus NL63 (PCR) Not Detected Human Metapneumovir PCR Not Detected Influenza Type A (PCR) Not Detected Influenza Type B (PCR) Not Detected M. pneumoniae (PCR) Not Detected Parainfluenza 1 (PCR) Not Detected Parainfluenza 2 (PCR) Not Detected Parainfluenza 3 (PCR) Not Detected Parainfluenza 4 (PCR) Not Detected RSV (PCR) Not Detected Entero/Rhino (PCR) Not Detected 03/20/20 03/20/20 18:45 19:38 WBC RBC Hgb Hct MCV MCH MCHC RDW Std Deviation RDW Coeff of Harmony Plt Count MPV Immature Gran % (Auto) Neut % (Auto) Lymph % (Auto) Gilmer % (Auto) Eos % (Auto) Baso % (Auto) Neut # (Auto) Lymph # (Auto) Gilmer # (Auto) Eos # (Auto) Baso # (Auto) Immature Gran # (Auto) PT 12.3 H INR 1.2 H APTT 32.3 H PTT Ratio 1.2 Sodium Potassium Chloride Carbon Dioxide Anion Gap BUN Creatinine Est Cr Clr Drug Dosing Est GFR ( Amer) Est GFR (Non-Af Amer) BUN/Creatinine Ratio Glucose Lactate 0.9 Calcium Magnesium Total Bilirubin AST ALT Alkaline Phosphatase Troponin I Total Protein Albumin Globulin Albumin/Globulin Ratio Procalcitonin Urine Color Urine Appearance Urine pH Ur Specific [place] Urine Protein Urine Glucose (UA) Urine Ketones Urine Blood Urine Nitrite Urine Bilirubin Urine Urobilinogen Ur Leukocyte Esterase Urine WBC (Auto) Urine RBC (Auto) U Hyaline Cast (Auto) U Epithel Cells (Auto) Urine Bacteria (Auto) Adenovirus (PCR) B. pertussis DNA (PCR) B.parapertussis DNA PCR C. pneumoniae DNA (PCR) Coronavirus OC43 (PCR) Coronavirus HKU1 (PCR) Coronavirus 229E (PCR) COVID-19 PCR Coronavirus NL63 (PCR) Human Metapneumovir PCR Influenza Type A (PCR) Influenza Type B (PCR) M. pneumoniae (PCR) Parainfluenza 1 (PCR) Parainfluenza 2 (PCR) Parainfluenza 3 (PCR) Parainfluenza 4 (PCR) RSV (PCR) Entero/Rhino (PCR) Medications Administered Current Inpatient Medications Miscellaneous (Remove Nicoderm Patch) 1 ea N/A [id number] [facility] Stop: 04/20/20 08:58 Miscellaneous Information (Piperacill/Tazobac Consult Active) 1 ea N/A UD PRN PRN Reason: Consult Stop: 04/19/20 17:45 Code Status & VTE Plan Code Status Full Supervising Physician Co-Signing Physician Notes Patient seen and examined, chart reviewed, case discussed with Dr. Lu and I agree with his assessment and plan as documented above Resident Activity Tracking Resident Involvement: Resident Care Provided Care Provided: Adult Hospital Medicine (1) Fever Fever type: unspecified Qualified Code(s): R50.9 - Fever, unspecified
[2020-03-21] MEDS ORDERED: VANCOMYCIN CONSULT ACTIVE PRN (04:00)
[2020-03-21] MEDS ORDERED: ALUMINUM/MAGNESIUM SUSP 30 ML UDC PO PRN (04:00)
[2020-03-21] MEDS ORDERED: ONDANSETRON INJ 2 MG/ML 2 ML VIAL IV PRN (04:00)
[2020-03-21] MEDS ORDERED: VANCOMYCIN HCL 2,250 MG in SODIUM CHLORIDE 0.9% 500 ML IV ONE (04:30)
[2020-03-21] MEDS: cefTRIAXone SODIUM 2,000 MG in DEXTROSE 5% 50 ML IV SCH (04:53)
[2020-03-21 07:02] LABS: Basophils # (auto) 0.02 K/uL (0-0.2); Basophils % (auto) 0.3 %; Eosinophils # (auto) 0.02 K/uL (0-0.5); Eosinophils % (auto) 0.3 %; Hematocrit (blood only) 29.9 % (42-52); Hemoglobin 10.1 g/dL (14.0-18.0); Immature Granulocytes # (auto) 0.01 K/uL (0.00-0.02); Immature Granulocytes % (auto) 0.1 %; Lymphocytes # (auto) 1.75 K/uL (1.2-3.4); Lymphocytes % (auto) 25.6 %; Mean Corpuscular Hemoglobin 30.9 pg (25-34); Mean Corpuscular Hgb Conc 33.8 g/dL (32-36); Mean Corpuscular Volume 91.4 fL (80-100); Mean Platelet Volume 9.1 fL (7.4-10.4); Monocytes # (auto) 0.86 K/uL (0.11-0.59); Monocytes % (auto) 12.6 %; Neutrophils # (auto) 4.17 K/uL (1.4-6.5); Neutrophils % (auto) 61.1 %; Platelet Count 263 K/uL (130-400); Red Blood Count 3.27 M/uL (4.7-6.1); White Blood Count 6.83 K/uL (4.8-10.8)
[2020-03-21 07:38] LABS: BUN Creatinine Ratio 16.7 (10-20); Calcium 8.4 mg/dl (8.5-10.1); Creatinine Clr Calc Pharmacy 69.6 ml/min; Est GFR (Non-African American) 86.3; Potassium 3.9 mmol/L (3.5-5.1)
[2020-03-21] MEDS: SODIUM CHLORIDE 1 GM TABLET PO SCH ×3 (07:57→21:00)
[2020-03-21] MEDS: DOCUSATE SODIUM 100 MG CAP PO SCH ×2 (07:57→21:00)
[2020-03-21] MEDS: FINASTERIDE 5 MG TAB PO SCH (07:59)
[2020-03-21] MEDS: OMEGA-3 (PURIFIED FISH OIL) 1 GM CAP PO SCH (07:59)
[2020-03-21] MEDS: SENNA 8.6 MG TAB PO SCH ×2 (07:59→21:00)
[2020-03-21] MEDS: ATORVASTATIN 20 MG TAB PO SCH (07:59)
[2020-03-21] MEDS: NICOTINE 14 MG/24 HR PATCH TD SCH (07:59)
[2020-03-21] MEDS: ASPIRIN 81 MG ECTAB PO SCH (07:59)
[2020-03-21] MEDS: levETIRAcetam 500 MG TAB PO SCH ×2 (07:59→21:00)
--- NOTE | 2020-03-21 08:02 | CT Scan Report ---
CT OF THE HEAD WITHOUT CONTRAST CLINICAL HISTORY: seizure, fever, SDH COMPARISON STUDY: Head CT March 15, 2020. CT DOSE: 614.27 mGy.cm TECHNIQUE: Helical axial images of the head were obtained without IV contrast. Automated exposure con trol was utilized for the study. A dose lowering technique was utilized adhering to the principles o f ALARA. FINDINGS: Right sided craniotomy is noted. There are 2 left matilde holes. Small amount of pneumocephalu s within the right craniotomy site is slightly decreased. Subjacent intra-axial hemorrhage measuring 2.7 cm has decreased. It previously measured 3.2 cm. Mixed attenuation left subdural hematoma or prio r exam, measuring 1.6 cm in thickness. A hypodense right subdural hematoma measuring 1.1 cm in short axis diameter is unchanged. 5 mm of rightward midline shift is unchanged. Ventricular system is stabl e. Basilar cisterns are patent. There are no findings to suggest acute dural sinus thrombosis or acut e territorial infarct. There is no calvarial fracture. Mild right maxillary sinus mucosal thickening is noted. IMPRESSION: Status post right craniotomy and left sided matilde hole placement. Mild interval decrease in extra axia l hemorrhage deep to the right craniotomy site since prior exam. No significant change in bilateral s ubdural hematomas with 5 mm of rightward midline shift. ACT 112: Negative or not required by law. Electronically signed by: Luigi Garcia M.D. 03/21/2020 8:01 AM
[2020-03-21] MEDS ORDERED: PATIENT'S HEIGHT AND/OR WEIGHT NEEDED ONE (09:30)
--- NOTE | 2020-03-21 10:03 | Pharmacy Report ---
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 Anticiapte ability to de-escalate in the next 24-48 hours Vancomycin * Loading dose of 25 mg/kg administered * Will continue with dosing based on AUC * Of note - weight with ~20 kg discrepancy from initial to repeat weight obtained overnight. Discussed w current RN who repeated weight and updated. Initial weight of of 94.5 kg not likely accurate * Trough prior to 4th overall dose Plan * Vancomycin 1000 mg IV q12h * Trough 03/22 @ 1730 Pharmacy will continue to follow and will adjust dose/frequency as necessary. Thank you.
[2020-03-21] MEDS: ACETAMINOPHEN 325 MG TAB PO PRN ×2 (14:01→20:59)
--- NOTE | 2020-03-21 17:30 | Hospitalist Progress Note ---
Date of Service March 21, 2020 Assessment & Plan (1) Fever: 74-year-old male with past medical history coronary artery disease, hypertension, BPH, status post evacuation of bilateral subdurals acute on chronic on 03/01 at [facility] presents from [facility] rehab with concerns of fever and noted to have a seizure while in ED. Fever Temp 38.5 C on admission. Continue to trend fever curve Likely secondary to UTI from indwelling Curtis. Curtis was changed in ED UA not all that impressive: Negative nitrite, trace LE, >30 WBC, >30 RBC, urine bacteria negative Respiratory panel/bio fire negative including influenza and COVID testing Chest x-ray: No acute cardiopulmonary findings P.o. acetaminophen as needed for fever IV Vancomycin and Rocephin for antibiotic coverage Urine Culture demonstrating streptococcus species speciation pending Blood cultures pending Seizures Likely secondary to lowered seizure threshold in the setting of infection as above and history of recent subdural hematoma. This is patient's second seizure in the last week Patient received IV levetiracetam 1 g in ED. We will continue p.o. 1000 mg every 12 hours Seizure precautions ordered Defer neurology consult at present History of subdural hematoma status post evacuation of bilateral subdurals acute on chronic on 03/01 at [facility] Head CT ([facility]): Comparison 03/15/20. Status post right craniectomy and left craniotomies. Mild interval decrease in size of a focal extra-axial hemorrhage deep to the right craniectomy measuring 2.4 x 1.7 cm. No significant change in the low-density subacute subdural hematoma in the right frontoparietal convexity measuring 8 mm. No significant change in the mixed density left holohemispheric acute/subacute subdural hematoma measuring 9 mm. No change in the right to left midline shift measuring 4 mm. PT/OT ordered to continue therapy while inpatient. Patient coming from [facility] rehab Fall precautions ordered for ongoing left-sided weakness CAD/HTN Hold lisinopril 10 mg given low pressures, continue ASA 81 mg daily BPH Continue finasteride 5 mg. Holding tamsulosin 0.4 mg Tobacco use NicoDerm patch ordered Admission and Anticipated Discharge Date Admission Date: March 21, 2020 Supervising Physician Co-Signing Physician Notes I personally examined the patient and verified all white points of history and exam, discussed case, and agree with decision making with Dr Pinon. hard to really discern any HPI. pt repeatedly wondering when his will be here. vitals noted nad heent nc at mmm cardio reg no r/m/g lungs cta abd soft nd nt fever - most likely viral GE. UTI possible - follow urine. follow blood cultures. serial exams. fortunately nothing appearing DRIVER GUIDE. subdurals - stable per CT. follow neuro exam. hopefully can glean baseline mentation from seizures - from fever and altered brain architecture. currently appearing stable in that regard DVT proph - pharmacologic contraindicated due to subdurals Subjective Patient states that he is feeling much better this morning, and feels like he is back to his normal self. He reported this between two bouts of emesis, and followed the episodes of emesis up by saying that they were from something he ate the other day but is not able to discern what particularly he ate that caused him to vomit today. Review of Systems Review of Systems: Unobtainable due to cognitive status Physical Exam Constitutional: WD/WN, vitals as above Eyes: strabismus of L eye Respiratory: normal respiratory effort, lungs clear to auscultation Cardiovascular: RRR, no murmur, no edema Gastrointestinal (Abdomen): normal bowel sounds, soft, nontender, no hepatosplenomegaly Musculoskeletal: no cyanosis or clubbing, extremities motor strength 5/5 Skin: no rashes, warm and dry Neurologic: patellar DTR's 2+ bilat, sensation intact Psychiatric: Orientation: alert and oriented to person; + not oriented to place and + not oriented to time responds to orientation questions in predetermined order, does not answer appropriately when order is changed Lymphatic: no cervical or axillary lymphadenopathy Results & Data Results & Data ([facility]) Vital Signs (Past 12 Hours) Vital Signs Temp Pulse Pulse Resp BP Pulse Ox 03/21/20 15:14 37.5 C 78 18 134/56 L 96 03/21/20 12:14 37.8 C H 76 123/77 96 03/21/20 09:23 37.1 C 103 H 18 118/79 98 03/21/20 07:54 36.9 C 62 17 120/73 99 03/21/20 07:12 62 Laboratory Results 03/21/20 03/21/20 03/20/20 Range/Units 06:40 06:40 19:38 WBC 6.83 (4.8-10.8) K/uL RBC 3.27 L (4.7-6.1) M/uL Hgb 10.1 L (14.0-18.0) g/dL Hct 29.9 L (42-52) % MCV 91.4 (80-100) fL MCH 30.9 (25-34) pg MCHC 33.8 (32-36) g/dL RDW Std Deviation 40.0 (36.4-46.3) fL RDW Coeff of Harmony 12.0 (11.5-14.5) % Plt Count 263 (130-400) K/uL MPV 9.1 (7.4-10.4) fL Immature Gran % (Auto) 0.1 % Neut % (Auto) 61.1 % Lymph % (Auto) 25.6 % Dixon % (Auto) 12.6 % Eos % (Auto) 0.3 % Baso % (Auto) 0.3 % Neut # (Auto) 4.17 (1.4-6.5) K/uL Lymph # (Auto) 1.75 (1.2-3.4) K/uL Dixon # (Auto) 0.86 H (0.11-0.59) K/uL Eos # (Auto) 0.02 (0-0.5) K/uL Baso # (Auto) 0.02 (0-0.2) K/uL Immature Gran # (Auto) 0.01 (0.00-0.02) K/uL PT (9.0-12.0) Seconds INR (0.9-1.1) APTT (21.0-31.0) Seconds PTT Ratio Sodium 138 (136-145) mmol/L Potassium 3.9 (3.5-5.1) mmol/L Chloride 104 (98-107) mmol/L Carbon Dioxide 26 (21-32) mmol/L Anion Gap 8.0 (3-11) BUN 14 (7-18) mg/dl Creatinine 0.84 (0.6-1.4) mg/dl Est Cr Clr Drug Dosing 69.6 ml/min Est GFR ( Amer) 100.0 Est GFR (Non-Af Amer) 86.3 BUN/Creatinine Ratio 16.7 (10-20) Glucose 117 H (70-99) mg/dl Lactate 0.9 (0.4-2.0) mmol/L Calcium 8.4 L (8.5-10.1) mg/dl Magnesium (1.8-2.4) mg/dl Total Bilirubin (0.2-1) mg/dl AST (15-37) U/L ALT (12-78) U/L Alkaline Phosphatase (45-117) U/L Troponin I (0-0.045) ng/ml Total Protein (6.4-8.2) gm/dl Albumin (3.4-5.0) gm/dl Globulin (2.5-4.0) gm/dl Albumin/Globulin Ratio (0.9-2) Procalcitonin (0-0.5) ng/ml Urine Color Urine Appearance (Clear) Urine pH (4.5-7.5) Ur Specific Liberty (1.000-1.030) Urine Protein (Negative) Urine Glucose (UA) (Negative) Urine Ketones (Negative) Urine Blood (Negative) Urine Nitrite (Negative) Urine Bilirubin (Negative) Urine Urobilinogen (Negative) Ur Leukocyte Esterase (Negative) Urine WBC (Auto) (0-5) /hpf Urine RBC (Auto) (0-4) /hpf U Hyaline Cast (Auto) (0-5) /lpf U Epithel Cells (Auto) (0-5) /lpf Urine Bacteria (Auto) (Negative) Adenovirus (PCR) (NotDetected) B. pertussis DNA (PCR) (NotDetected) B.parapertussis DNA PCR (NotDetected) C. pneumoniae DNA (PCR) (NotDetected) Coronavirus OC43 (PCR) (NotDetected) Coronavirus HKU1 (PCR) (NotDetected) Coronavirus 229E (PCR) (NotDetected) COVID-19 PCR (NotDetected) Coronavirus NL63 (PCR) (NotDetected) Human Metapneumovir PCR (NotDetected) Influenza Type A (PCR) (NotDetected) Influenza Type B (PCR) (NotDetected) M. pneumoniae (PCR) (NotDetected) Parainfluenza 1 (PCR) (NotDetected) Parainfluenza 2 (PCR) (NotDetected) Parainfluenza 3 (PCR) (NotDetected) Parainfluenza 4 (PCR) (NotDetected) RSV (PCR) (NotDetected) Entero/Rhino (PCR) (NotDetected) 03/20/20 03/20/20 03/20/20 Range/Units 18:45 17:33 17:33 WBC (4.8-10.8) K/uL RBC (4.7-6.1) M/uL Hgb (14.0-18.0) g/dL Hct (42-52) % MCV (80-100) fL MCH (25-34) pg MCHC (32-36) g/dL RDW Std Deviation (36.4-46.3) fL RDW Coeff of Harmony (11.5-14.5) % Plt Count (130-400) K/uL MPV (7.4-10.4) fL Immature Gran % (Auto) % Neut % (Auto) % Lymph % (Auto) % Dixon % (Auto) % Eos % (Auto) % Baso % (Auto) % Neut # (Auto) (1.4-6.5) K/uL Lymph # (Auto) (1.2-3.4) K/uL Dixon # (Auto) (0.11-0.59) K/uL Eos # (Auto) (0-0.5) K/uL Baso # (Auto) (0-0.2) K/uL Immature Gran # (Auto) (0.00-0.02) K/uL PT 12.3 H (9.0-12.0) Seconds INR 1.2 H (0.9-1.1) APTT 32.3 H (21.0-31.0) Seconds PTT Ratio 1.2 Sodium (136-145) mmol/L Potassium (3.5-5.1) mmol/L Chloride (98-107) mmol/L Carbon Dioxide (21-32) mmol/L Anion Gap (3-11) BUN (7-18) mg/dl Creatinine (0.6-1.4) mg/dl Est Cr Clr Drug Dosing ml/min Est GFR ( Amer) Est GFR (Non-Af Amer) BUN/Creatinine Ratio (10-20) Glucose (70-99) mg/dl Lactate (0.4-2.0) mmol/L Calcium (8.5-10.1) mg/dl Magnesium (1.8-2.4) mg/dl Total Bilirubin (0.2-1) mg/dl AST (15-37) U/L ALT (12-78) U/L Alkaline Phosphatase (45-117) U/L Troponin I (0-0.045) ng/ml Total Protein (6.4-8.2) gm/dl Albumin (3.4-5.0) gm/dl Globulin (2.5-4.0) gm/dl Albumin/Globulin Ratio (0.9-2) Procalcitonin (0-0.5) ng/ml Urine Color Dark Yellow Urine Appearance Clear (Clear) Urine pH 5.5 (4.5-7.5) Ur Specific Liberty 1.029 (1.000-1.030) Urine Protein 3+ H (Negative) Urine Glucose (UA) Negative (Negative) Urine Ketones Trace H (Negative) Urine Blood 3+ H (Negative) Urine Nitrite Negative (Negative) Urine Bilirubin Negative (Negative) Urine Urobilinogen Negative (Negative) Ur Leukocyte Esterase Trace H (Negative) Urine WBC (Auto) >30 H (0-5) /hpf Urine RBC (Auto) >30 H (0-4) /hpf U Hyaline Cast (Auto) 10-30 H (0-5) /lpf U Epithel Cells (Auto) 0-5 (0-5) /lpf Urine Bacteria (Auto) Negative (Negative) Adenovirus (PCR) Not Detected (NotDetected) B. pertussis DNA (PCR) Not Detected (NotDetected) B.parapertussis DNA PCR Not Detected (NotDetected) C. pneumoniae DNA (PCR) Not Detected (NotDetected) Coronavirus OC43 (PCR) Not Detected (NotDetected) Coronavirus HKU1 (PCR) Not Detected (NotDetected) Coronavirus 229E (PCR) Not Detected (NotDetected) COVID-19 PCR Not Detected (NotDetected) Coronavirus NL63 (PCR) Not Detected (NotDetected) Human Metapneumovir PCR Not Detected (NotDetected) Influenza Type A (PCR) Not Detected (NotDetected) Influenza Type B (PCR) Not Detected (NotDetected) M. pneumoniae (PCR) Not Detected (NotDetected) Parainfluenza 1 (PCR) Not Detected (NotDetected) Parainfluenza 2 (PCR) Not Detected (NotDetected) Parainfluenza 3 (PCR) Not Detected (NotDetected) Parainfluenza 4 (PCR) Not Detected (NotDetected) RSV (PCR) Not Detected (NotDetected) Entero/Rhino (PCR) Not Detected (NotDetected) 03/20/20 03/20/20 Range/Units 17:33 17:33 WBC (4.8-10.8) K/uL RBC (4.7-6.1) M/uL Hgb (14.0-18.0) g/dL Hct (42-52) % MCV (80-100) fL MCH (25-34) pg MCHC (32-36) g/dL RDW Std Deviation (36.4-46.3) fL RDW Coeff of Harmony (11.5-14.5) % Plt Count (130-400) K/uL MPV (7.4-10.4) fL Immature Gran % (Auto) % Neut % (Auto) % Lymph % (Auto) % Dixon % (Auto) % Eos % (Auto) % Baso % (Auto) % Neut # (Auto) (1.4-6.5) K/uL Lymph # (Auto) (1.2-3.4) K/uL Dixon # (Auto) (0.11-0.59) K/uL Eos # (Auto) (0-0.5) K/uL Baso # (Auto) (0-0.2) K/uL Immature Gran # (Auto) (0.00-0.02) K/uL PT (9.0-12.0) Seconds INR (0.9-1.1) APTT (21.0-31.0) Seconds PTT Ratio Sodium 136 (136-145) mmol/L Potassium 4.2 (3.5-5.1) mmol/L Chloride 103 (98-107) mmol/L Carbon Dioxide 24 (21-32) mmol/L Anion Gap 9.0 (3-11) BUN 16 (7-18) mg/dl Creatinine 0.87 (0.6-1.4) mg/dl Est Cr Clr Drug Dosing 81.6 ml/min Est GFR ( Amer) 98.5 Est GFR (Non-Af Amer) 85.0 BUN/Creatinine Ratio 18.5 (10-20) Glucose 129 H (70-99) mg/dl Lactate (0.4-2.0) mmol/L Calcium 8.4 L (8.5-10.1) mg/dl Magnesium 1.8 (1.8-2.4) mg/dl Total Bilirubin 0.4 (0.2-1) mg/dl AST 18 (15-37) U/L ALT 32 (12-78) U/L Alkaline Phosphatase 100 (45-117) U/L Troponin I < 0.015 (0-0.045) ng/ml Total Protein 6.8 (6.4-8.2) gm/dl Albumin 2.9 L (3.4-5.0) gm/dl Globulin 3.9 (2.5-4.0) gm/dl Albumin/Globulin Ratio 0.7 L (0.9-2) Procalcitonin < 0.05 (0-0.5) ng/ml Urine Color Urine Appearance (Clear) Urine pH (4.5-7.5) Ur Specific Liberty (1.000-1.030) Urine Protein (Negative) Urine Glucose (UA) (Negative) Urine Ketones (Negative) Urine Blood (Negative) Urine Nitrite (Negative) Urine Bilirubin (Negative) Urine Urobilinogen (Negative) Ur Leukocyte Esterase (Negative) Urine WBC (Auto) (0-5) /hpf Urine RBC (Auto) (0-4) /hpf U Hyaline Cast (Auto) (0-5) /lpf U Epithel Cells (Auto) (0-5) /lpf Urine Bacteria (Auto) (Negative) Adenovirus (PCR) (NotDetected) B. pertussis DNA (PCR) (NotDetected) B.parapertussis DNA PCR (NotDetected) C. pneumoniae DNA (PCR) (NotDetected) Coronavirus OC43 (PCR) (NotDetected) Coronavirus HKU1 (PCR) (NotDetected) Coronavirus 229E (PCR) (NotDetected) COVID-19 PCR (NotDetected) Coronavirus NL63 (PCR) (NotDetected) Human Metapneumovir PCR (NotDetected) Influenza Type A (PCR) (NotDetected) Influenza Type B (PCR) (NotDetected) M. pneumoniae (PCR) (NotDetected) Parainfluenza 1 (PCR) (NotDetected) Parainfluenza 2 (PCR) (NotDetected) Parainfluenza 3 (PCR) (NotDetected) Parainfluenza 4 (PCR) (NotDetected) RSV (PCR) (NotDetected) Entero/Rhino (PCR) (NotDetected) Medications Administered Current Inpatient Medications Acetaminophen (Acetaminophen 325 Mg Tab) 650 mg PO Q4H PRN PRN Reason: Pain or Fever Stop: 04/20/20 03:59 Last Admin: 03/21/20 14:01 Dose: 650 mg Documented by: Al Hydrox/Mg Hydrox/Simethicone (Aluminum/Magnesium Susp 30 Ml Udc) 15 ml PO Q4H PRN PRN Reason: Dyspepsia Stop: 04/20/20 03:59 Aspirin (Aspirin 81 Mg Ectab) 81 mg PO [facility] Stop: 04/20/20 08:59 Last Admin: 03/21/20 07:59 Dose: 81 mg Documented by: Atorvastatin Calcium (Atorvastatin 20 Mg Tab) 20 mg PO [facility] Stop: 04/20/20 08:59 Last Admin: 03/21/20 07:59 Dose: 20 mg Documented by: Docusate Sodium (Docusate Sodium 100 Mg Cap) 100 mg PO BID [facility] Stop: 04/20/20 08:59 Last Admin: 03/21/20 07:57 Dose: 100 mg Documented by: Finasteride (Finasteride 5 Mg Tab) 5 mg PO [facility] Stop: 04/20/20 08:59 Last Admin: 03/21/20 07:59 Dose: 5 mg Documented by: Fish Oil ([place]-3 (Purified Fish Oil) 1 Gm Cap) [facility] Stop: 04/20/20 08:59 Last Admin: 03/21/20 07:59 Dose: 1 gm Documented by: Ceftriaxone Sodium 2,000 mg/ (Dextrose) 70 mls @ 100 mls/hr IV Q24H [facility]; Protocol Stop: 03/31/20 03:59 Last Infusion: 03/21/20 06:04 Dose: Infused Documented by: Vancomycin HCl 1,000 mg/ (Sodium Chloride) 270 mls @ 125 mls/hr IV Q12@0600,1800 [facility]; Protocol Stop: 03/31/20 17:59 Last Admin: 03/21/20 18:08 Dose: 125 mls/hr Documented by: Levetiracetam (Levetiracetam 500 Mg Tab) 1,000 mg PO Q12H [facility] Stop: 04/20/20 08:59 Last Admin: 03/21/20 07:59 Dose: 1,000 mg Documented by: Miscellaneous (Remove Nicoderm Patch) 1 ea N/A DAILY@0859 [facility] Stop: 04/20/20 08:58 Last Admin: 03/21/20 07:56 Dose: 1 ea Documented by: Miscellaneous Information (Vancomycin Consult Active) 1 ea N/A UD PRN PRN Reason: Consult Stop: 04/20/20 03:59 Nicotine (Nicotine 14 Mg/24 Hr Patch) 14 mg TD QAM [facility] Stop: 04/20/20 08:59 Last Admin: 03/21/20 07:59 Dose: 14 mg Documented by: Ondansetron HCl (Ondansetron Inj 2 Mg/Ml 2 Ml Vial) 4 mg IV Q6H PRN PRN Reason: Nausea Stop: 04/20/20 03:59 Sennosides (Senna 8.6 Mg Tab) 8.6 mg PO BID [facility] Stop: 04/20/20 08:59 Last Admin: 03/21/20 07:59 Dose: 8.6 mg Documented by: Sodium Chloride (Sodium Chloride 1 Gm Tablet) 3 gm PO TID [facility] Stop: 04/20/20 08:59 Last Admin: 03/21/20 13:59 Dose: 3 gm Documented by: Resident Activity Tracking Resident Involvement: Resident Care Provided Care Provided: Adult Hospital Medicine (1) Fever Fever type: unspecified Qualified Code(s): R50.9 - Fever, unspecified
[2020-03-21] MEDS: VANCOMYCIN HCL 1,000 MG in SODIUM CHLORIDE 0.9% 250 ML IV SCH (18:08)
--- NOTE | 2020-03-21 18:35 | Billing Data ---
Date of Service March 21, 2020 Coding Level of Care Code 44191 Subseq Hosp Care Lvl 3
[2020-03-22] MEDS: ACETAMINOPHEN 325 MG TAB PO PRN (03:18)
[2020-03-22] MEDS: cefTRIAXone SODIUM 2,000 MG in DEXTROSE 5% 50 ML IV SCH (04:52)
--- NOTE | 2020-03-22 05:37 | Electrocardiogram Report ---
Test Reason : Blood Pressure : / mmHG Vent. Rate : 101 BPM Atrial Rate : 147 BPM P-R Int : 154 ms QRS Dur : 078 ms QT Int : 366 ms P-R-T Axes : 061 052 050 degrees QTc Int : 474 ms Poor data quality, interpretation may be adversely affected Sinus tachycardia with frequent Premature ventricular complexes Otherwise normal ECG When compared with ECG of 01-MAR-2020 11:42, Premature ventricular complexes are now Present Vent. rate has increased BY 48 BPM Confirmed by Jose Medina ([id number]) on 03/22/2020 5:37:40 AM Referred By: [facility] Confirmed By:Jose Medina
[2020-03-22] MEDS: VANCOMYCIN HCL 1,000 MG in SODIUM CHLORIDE 0.9% 250 ML IV SCH ×2 (05:59→18:18)
[2020-03-22 06:36] LABS: Basophils # (auto) 0.01 K/uL (0-0.2); Basophils % (auto) 0.2 %; Eosinophils # (auto) 0.09 K/uL (0-0.5); Eosinophils % (auto) 1.6 %; Hematocrit (blood only) 27.1 % (42-52); Hemoglobin 9.3 g/dL (14.0-18.0); Lymphocytes % (auto) 30.7 %; Mean Corpuscular Hemoglobin 31.2 pg (25-34); Mean Corpuscular Hgb Conc 34.3 g/dL (32-36); Mean Corpuscular Volume 90.9 fL (80-100); Mean Platelet Volume 9.1 fL (7.4-10.4); Monocytes # (auto) 0.69 K/uL (0.11-0.59); Monocytes % (auto) 12.5 %; Neutrophils # (auto) 3.04 K/uL (1.4-6.5); Platelet Count 228 K/uL (130-400); RDW Standard Deviation 40.1 fL (36.4-46.3); Red Blood Count 2.98 M/uL (4.7-6.1); White Blood Count 5.53 K/uL (4.8-10.8)
[2020-03-22 07:05] LABS: Calcium 8.8 mg/dl (8.5-10.1); Est GFR (African American) 104.7; Est GFR (Non-African American) 90.4; Potassium 3.6 mmol/L (3.5-5.1)
[2020-03-22] MEDS: SODIUM CHLORIDE 1 GM TABLET PO SCH ×3 (08:22→20:12)
[2020-03-22] MEDS: SENNA 8.6 MG TAB PO SCH ×2 (08:23→20:13)
[2020-03-22] MEDS: ATORVASTATIN 20 MG TAB PO SCH (08:23)
[2020-03-22] MEDS: ASPIRIN 81 MG ECTAB PO SCH (08:23)
[2020-03-22] MEDS: OMEGA-3 (PURIFIED FISH OIL) 1 GM CAP PO SCH (08:23)
[2020-03-22] MEDS: NICOTINE 14 MG/24 HR PATCH TD SCH (08:24)
[2020-03-22] MEDS: levETIRAcetam 500 MG TAB PO SCH ×2 (08:24→20:12)
[2020-03-22] MEDS: FINASTERIDE 5 MG TAB PO SCH (08:28)
[2020-03-22] MEDS: DOCUSATE SODIUM 100 MG CAP PO SCH ×2 (08:32→20:12)
[2020-03-22] MEDS: LIDOCAINE 5% 1 PATCH TD SCH (10:36)
--- NOTE | 2020-03-22 12:35 | Medical Student Progress Note ---
Date of Service March 22, 2020 Assessment & Plan (1) Subdural [age]-year-old male with past medical history coronary artery disease, hypertension, BPH, status post evacuation of bilateral subdurals acute on chronic on 03/01 at [facility] presents from [facility] rehab with concerns of fever and noted to have a seizure while in ED. 1) Fever Temp 38.5 C on admission. Cycling fevers with peaks at 37.8 while on acetaminophen. -Hold acetaminophen to further assess fever Likely secondary to UTI from indwelling Curtis. Curtis was changed in ED UA not all that impressive: Negative nitrite, trace LE, >30 WBC, >30 RBC, urine bacteria negative Respiratory panel/bio fire negative including influenza and COVID testing Chest x-ray: No acute cardiopulmonary findings PO acetaminophen as needed for fever Continue IV Vancomycin and Rocephin for antibiotic coverage Urine Culture demonstrating streptococcus, e. Faecalis, pansensitive except tetracycline. Blood cultures pending 2) Seizures Likely secondary to lowered seizure threshold in the setting of infection as above and history of recent subdural hematoma. This is patient's second seizure in the last week Patient received IV levetiracetam 1 g in ED. We will continue p.o. 1000 mg every 12 hours Seizure precautions ordered Defer neurology consult at present 3) History of subdural hematoma status post evacuation of bilateral subdurals acute on chronic on 03/01 at [facility] Head CT ([facility]): Comparison 03/15/20. Status post right craniectomy and left craniotomies. Mild interval decrease in size of a focal extra-axial hemorrhage deep to the right craniectomy measuring 2.4 x 1.7 cm. No significant change in the low-density subacute subdural hematoma in the right frontoparietal convexity measuring 8 mm. No significant change in the mixed density left holohemispheric acute/subacute subdural hematoma measuring 9 mm. No change in the right to left midline shift measuring 4 mm. PT/OT ordered to continue therapy while inpatient. Patient coming from [facility] re[facility] Fall precautions ordered for ongoing left-sided weakness 4) CAD/HTN Hold lisinopril 10 mg given low pressures, continue ASA 81 mg daily 5) BPH Continue finasteride 5 mg. Holding tamsulosin 0.4 mg 6) Tobacco use NicoDerm patch ordered Admission and Anticipated Discharge Date Admission Date: March 21, 2020 Admission and Anticipated Discharge Date Admission Date: March 21, 2020 Supervising Attestation I personally examined the patient and verified all white points of history and exam, discussed case, and agree with decision making with Jono Kennedy MS4 feels ok - still very wandering historian of questionable veracity but denies any and all complaints to me - even notes back pain better thinks that he needed to move around more vitals noted nad heent nc at mmm breathing unlabored no accessory muscles good effort abd soft nd nt no tenderness low back/buttock region fever - ongoing. lack of other sx making viral less likely at this point. UTI still possible, although w nontoxic appearance and still spiking temps - starting to wonder about non-infectious causes (?related to subdurals, atelectasis, etc) - trend procal, conitnue abx for possible UTI, serial exams subdurals - stable per CT. seems to be at baseline mentation seizures - from fever and altered brain architecture. currently appearing stable in that regard - no further seizures DVT proph - pharmacologic contraindicated due to subdurals Subjective States that he feels better this morning. No concerns per nursing overnight. He denies any vomiting this morning. His only concern is lower back pain that he attributes to being in bed. Spoke with who feels he is closer to his baseline. Review of Systems Constitutional: no fever, no chills, no body aches and no weakness Respiratory: no cough, no dyspnea, no hemoptysis and no wheezing Cardiovascular: no chest pain, no orthopnea, no palpitations and no lightheadedness Gastrointestinal: no abdominal pain, no nausea, no vomiting and no change in stools Musculoskeletal: + back pain Physical Exam Eyes: L eye strabismus ENMT: external ear and nose normal, oropharynx normal Respiratory: Lungs clear to auscultation bilaterally, no wheezes, rales or rhonchi. Normal work of breathing Gastrointestinal (Abdomen): BS x4, nontender to palpation, no organomegaly appreciated Skin: no rashes, warm and dry Neurologic: patellar DTR's 2+ bilat, sensation intact Psychiatric: alert and oriented to name, not oriented to location or day. He stated that the day of the week was February. Results & Data ([facility]) Vital Signs (Past 12 Hours) Vital Signs Temp Pulse Resp BP Pulse Ox Pulse Ox 03/22/20 07:49 36.9 C 81 20 117/75 94 03/22/20 04:36 37.8 C H 74 16 137/78 94 03/22/20 04:00 94
[2020-03-22] MEDS ORDERED: VANCOMYCIN TROUGH ONE (17:30)
[2020-03-22] MEDS ORDERED: ACETAMINOPHEN 325 MG TAB PO PRN (18:49)
--- NOTE | 2020-03-22 19:44 | Billing Data ---
Date of Service March 22, 2020 Coding Level of Care Code 24862 Subseq Hosp Care Lvl 3
[2020-03-22] MEDS: AMPICILLIN 1,000 MG in SODIUM CHLOR 0.9% AD-VAN 50 ML IV SCH (20:20)
--- NOTE | 2020-03-22 23:03 | Billing Data ---
Date of Service March 21, 2020 Coding Level of Care Code 02158 Initial Inpt Care Lvl 3
[2020-03-23] MEDS ORDERED: HALOPERIDOL LACTATE 5 MG/ML 1 ML VIAL IM STA (00:55)
[2020-03-23] MEDS: AMPICILLIN 1,000 MG in SODIUM CHLOR 0.9% AD-VAN 50 ML IV SCH ×4 (01:44→20:47)
[2020-03-23 06:54] LABS: Basophils # (auto) 0.01 K/uL (0-0.2); Basophils % (auto) 0.2 %; Immature Granulocytes # (auto) 0.01 K/uL (0.00-0.02); Immature Granulocytes % (auto) 0.2 %; Lymphocytes # (auto) 1.53 K/uL (1.2-3.4); Lymphocytes % (auto) 30.1 %; Mean Corpuscular Hemoglobin 31.6 pg (25-34); Mean Corpuscular Hgb Conc 34.6 g/dL (32-36); Mean Corpuscular Volume 91.2 fL (80-100); Mean Platelet Volume 9.3 fL (7.4-10.4); Monocytes # (auto) 0.63 K/uL (0.11-0.59); Monocytes % (auto) 12.4 %; Neutrophils % (auto) 55.1 %; Platelet Count 204 K/uL (130-400); RDW Standard Deviation 40.8 fL (36.4-46.3); Red Blood Count 2.85 M/uL (4.7-6.1); White Blood Count 5.08 K/uL (4.8-10.8)
[2020-03-23 07:27] LABS: BUN Creatinine Ratio 17.7 (10-20); Calcium 8.2 mg/dl (8.5-10.1); Creatinine Clr Calc Pharmacy 88.6 ml/min; Est GFR (African American) 110.4; Est GFR (Non-African American) 95.2; Potassium 3.5 mmol/L (3.5-5.1)
[2020-03-23] MEDS: FINASTERIDE 5 MG TAB PO SCH (09:08)
[2020-03-23] MEDS: levETIRAcetam 500 MG TAB PO SCH ×2 (09:09→20:50)
[2020-03-23] MEDS: SENNA 8.6 MG TAB PO SCH ×2 (09:09→20:51)
[2020-03-23] MEDS: ASPIRIN 81 MG ECTAB PO SCH (09:10)
[2020-03-23] MEDS: OMEGA-3 (PURIFIED FISH OIL) 1 GM CAP PO SCH (09:10)
[2020-03-23] MEDS: ATORVASTATIN 20 MG TAB PO SCH (09:10)
[2020-03-23] MEDS: SODIUM CHLORIDE 1 GM TABLET PO SCH ×3 (09:11→20:49)
[2020-03-23] MEDS: NICOTINE 14 MG/24 HR PATCH TD SCH (09:13)
[2020-03-23] MEDS: LIDOCAINE 5% 1 PATCH TD SCH (09:14)
--- NOTE | 2020-03-23 11:41 | Medical Student Progress Note ---
Date of Service March 23, 2020 Assessment & Plan (1) Subdural [age]-year-old male with past medical history coronary artery disease, hypertension, BPH, status post evacuation of bilateral subdurals acute on chronic on 03/01 at [facility] presents from [facility] rehab with concerns of fever and noted to have a seizure while in ED. 1) Fever -Has been afebrile today with high of 37.6, continue to monitor for 24 hr afebrile state -Cause secondary to bacteriocidal effect of antibiotics vs drug reaction vs infection -Clinically not showing increased signs of infection w/ low pro-melody Temp 38.5 C on admission w/ cyclical fevers during stay Urine Culture demonstrating streptococcus, e. Faecalis, pansensitive except tetracycline. Treating w/ ampicillin 1000mg IV q6hr Blood cultures show no growth at 48hrs PO acetaminophen as needed for fever Respiratory panel/bio fire negative including influenza and COVID testing Chest x-ray: No acute cardiopulmonary findings 2) Seizures -Stable Likely secondary to lowered seizure threshold in the setting of infection as above and history of recent subdural hematoma. -No repeat seizures since first at presentation. Patient received IV levetiracetam 1 g in ED. We will continue p.o. 1000 mg every 12 hours Seizure precautions ordered Defer neurology consult at present 3) History of subdural hematoma - Stable status post evacuation of bilateral subdurals acute on chronic on 03/01 at [facility] Head CT ([facility]): Comparison 03/15/20. Status post right craniectomy and left craniotomies. Mild interval decrease in size of a focal extra-axial hemorrhage deep to the right craniectomy measuring 2.4 x 1.7 cm. No significant change in the low-density subacute subdural hematoma in the right frontoparietal convexity measuring 8 mm. No significant change in the mixed density left holohemispheric acute/subacute subdural hematoma measuring 9 mm. No change in the right to left midline shift measuring 4 mm. PT/OT ordered to continue therapy while inpatient. Patient coming from [facility] Fall precautions ordered for ongoing left-sided weakness 4) CAD/HTN Hold lisinopril 10 mg given low pressures, continue ASA 81 mg daily 5) BPH Continue finasteride 5 mg. Holding tamsulosin 0.4 mg 6) Tobacco use NicoDerm patch ordered DVT proph - pharmacologic contraindicated due to subdurals Admission and Anticipated Discharge Date Admission Date: March 21, 2020 Supervising Attestation I personally examined the patient and verified all white points of history and exam, discussed case, and agree with decision making with Jono Kennedy MS4. feeling good no new complaints temps improving vitals noted nad heent nc at mmm breathing unlabored no accessory muscles good effort no new focal neuro deficits fever - ongoing. lack of other sx making viral less likely at this point. UTI still possible, although w nontoxic appearance and still spiking temps - starting to wonder about non-infectious causes (?related to subdurals, atelectasis, etc) - but either way ipmroving and no other worrisome features noted. treat UTI w ampicillin; follow - stable for transfer to medical. look towards rehab once 24hrs fever free subdurals - stable per CT. seems to be at baseline mentation seizures - from fever and altered brain architecture. currently appearing stable in that regard - no further seizures DVT proph - pharmacologic contraindicated due to subdurals Subjective Mr. Bruce states that he feels well and has no acute concerns. He stated that his back pain is resolving and improved with using a Lidoderm patch. He states that he isn't nauseous and hasn't had any episodes of vomiting. Overnight there was concern per nursing regarding nocturnal agitation requiring 5mg Hadol. Review of Systems Constitutional: no fever, no chills, no fatigue and no weakness Respiratory: no cough, no chest congestion, no hemoptysis and no wheezing Cardiovascular: no chest pain, no dyspnea, no palpitations and no edema Gastrointestinal: no abdominal pain, no nausea, no vomiting and no diarrhea/loose stools Physical Exam Eyes: L eye strabismus ENMT: external ear and nose normal, oropharynx normal Respiratory: Lungs clear to auscultation bilaterally, no wheezes, rales or rhonchi Cardiovascular: Regular rate and rhythm, 2/6 systolic ejection murmur, no rubs or gallops, no peripheral edema Gastrointestinal (Abdomen): Normoactive bowel sounds x4, nontender abdomen to palpation, no organomegaly appreciated. Skin: no rashes, warm and dry Psychiatric: Alert and oriented to name, state, building, year, month, not day or day of the week. Results & Data ([facility]) Vital Signs (Past 12 Hours) Vital Signs Temp Pulse Pulse Resp BP Pulse Ox 03/23/20 11:35 37.4 C 56 L 16 130/70 96 03/23/20 07:32 37.6 C H 96 H 16 127/53 L 96 03/23/20 03:21 36.8 C 65 20 99/49 L 95
[2020-03-23] MEDS: DOCUSATE SODIUM 100 MG CAP PO SCH ×2 (12:13→21:34)
--- NOTE | 2020-03-23 18:59 | Billing Data ---
Date of Service March 23, 2020 Coding Level of Care Code 47886 Subseq Hosp Care Lvl 3
[2020-03-24] MEDS: AMPICILLIN 1,000 MG in SODIUM CHLOR 0.9% AD-VAN 50 ML IV SCH ×2 (02:04→09:15)
[2020-03-24 08:36] LABS: Basophils # (auto) 0.03 K/uL (0-0.2); Basophils % (auto) 0.6 %; Eosinophils # (auto) 0.15 K/uL (0-0.5); Eosinophils % (auto) 3.1 %; Hematocrit (blood only) 31.4 % (42-52); Hemoglobin 10.5 g/dL (14.0-18.0); Immature Granulocytes # (auto) 0.01 K/uL (0.00-0.02); Immature Granulocytes % (auto) 0.2 %; Lymphocytes # (auto) 1.33 K/uL (1.2-3.4); Lymphocytes % (auto) 27.1 %; Mean Corpuscular Hemoglobin 30.5 pg (25-34); Mean Corpuscular Hgb Conc 33.4 g/dL (32-36); Mean Corpuscular Volume 91.3 fL (80-100); Mean Platelet Volume 9.1 fL (7.4-10.4); Monocytes # (auto) 0.31 K/uL (0.11-0.59); Monocytes % (auto) 6.3 %; Neutrophils # (auto) 3.07 K/uL (1.4-6.5); Neutrophils % (auto) 62.7 %; Platelet Count 232 K/uL (130-400); RDW Coefficient of Variation 12.1 % (11.5-14.5); RDW Standard Deviation 40.5 fL (36.4-46.3); Red Blood Count 3.44 M/uL (4.7-6.1)
[2020-03-24 09:10] LABS: BUN Creatinine Ratio 16.2 (10-20); Creatinine Clr Calc Pharmacy 82.4 ml/min; Est GFR (African American) 107.1; Est GFR (Non-African American) 92.4; Potassium 3.2 mmol/L (3.5-5.1)
[2020-03-24] MEDS: SENNA 8.6 MG TAB PO SCH (09:19)
[2020-03-24] MEDS: ATORVASTATIN 20 MG TAB PO SCH (09:19)
[2020-03-24] MEDS: FINASTERIDE 5 MG TAB PO SCH (09:19)
[2020-03-24] MEDS: levETIRAcetam 500 MG TAB PO SCH (09:19)
[2020-03-24] MEDS: OMEGA-3 (PURIFIED FISH OIL) 1 GM CAP PO SCH (09:19)
[2020-03-24] MEDS: SODIUM CHLORIDE 1 GM TABLET PO SCH (09:20)
[2020-03-24] MEDS: ASPIRIN 81 MG ECTAB PO SCH (09:20)
[2020-03-24] MEDS: LIDOCAINE 5% 1 PATCH TD SCH (09:21)
[2020-03-24] MEDS: DOCUSATE SODIUM 100 MG CAP PO SCH (09:21)
[2020-03-24] MEDS: NICOTINE 14 MG/24 HR PATCH TD SCH (09:21)
[2020-03-24] MEDS ORDERED: POTASSIUM CHLORIDE 20 MEQ TABCR PO STA (09:23)
[2020-03-24] MEDS ORDERED: AMOXICILLIN 500 MG CAP PO SCH (14:00)
--- NOTE | 2020-03-24 16:19 | Discharge Summary ---
Date of Service March 24, 2020 Admission HPI Per Admitting Provider 74-year-old male with past medical history coronary artery disease, hypertension, BPH, tobacco abuse, status post evacuation of bilateral subdurals acute on chronic on 03/01 at [facility] after which was eventually discharged to [facility]. Patient is pleasantly confused and history is obtained by who is at bedside. ER visit March 15, 2020 after patient was found to be more confused at rehab and CT head showed acute on subacute as well as chronic subdurals for which patient was transferred back to [place] [facility]. During the second visit at [facility] [place] no further intervention was perfor med and patient was discharged back to [facility] for further rehab. Today patient was found to have a temperature of 39 degrees. Patient is noted to have an indwelling Curtis catheter. Patient additionally notes some nausea, vomiting, loose stools, but this has been present since last week. Patient otherwise denies any chills, sweats, cough, rhinorrhea, shortness of breath, chest pain, skin changes, known sick contacts or recent travel anywhere outside of hospital/rehab visits. Patient with no other acute concerns or complaints. Patient is seen to have significant improvement and plan was to transfer back to inpatient rehab facility, however patient apparently had a seizure while getting into the wheelchair when getting ready for discharge. This is a patient's second history of seizure last one occurring this previous Saturday at [facility] [place]. Patient notes that he believes seizure was caused by turning his head too rapidly. Decision was made to admit patient for further observation. Pertinent labs: Hemoglobin 10.7, otherwise unremarkable CBC CMP. Pro-Ramakrishna negative. Respiratory panel/bio fire negative including influenza and COVID testing. UA: Negative nitrite, trace LE, >30 WBC, >30 RBC, urine bacteria negative Chest x-ray: No acute cardiopulmonary findings. Head CT ([facility]): Comparison 03/15/20. Status post right craniectomy and left craniotomies. Mild interval decrease in size of a focal extra-axial hemorrhage deep to the right craniectomy measuring 2.4 x 1.7 cm. No significant change in the low-density subacute subdural hematoma in the right frontoparietal convexity measuring 8 mm. No significant change in the mixed density left holohemispheric acute/subacute subdural hematoma measuring 9 mm. No change in the right to left midline shift measuring 4 mm. ER course: IV acetaminophen 1000 mg, p.o. acetaminophen 325 mg, IV levetiracetam 1000 g, IV Zofran 4 mg, IV Zosyn 4.5 mg, Curtis catheter changed Admission Exam Per Admitting Provider Physical Exam Constitutional: + ill appearing Eyes: Strabismus ENMT: external ear and nose normal, oropharynx normal Respiratory: normal respiratory effort, lungs clear to auscultation Cardiovascular: RRR, no murmur, no edema Gastrointestinal (Abdomen): normal bowel sounds, soft, nontender, no hepatosplenomegaly Skin: no rashes, warm and dry Psychiatric: Pleasantly confused Genitourinary: Curtis catheter in place Principal Diagnosis Urinary tract infection, seizure, bilateral subdural hematomas Discharge Exam Constitutional Elderly gentleman appearing stated age, resting comfortably in bed in no acute distress Eyes strabismus of L eye Respiratory Lungs clear to auscultation bilaterally, no wheezes, rales or rhonchi Cardiovascular regular rate and rhythm, 3/6 systolic ejection murmur, no rubs or extra heart sounds Gastrointestinal (Abdomen) normoactive bowel sounds, nontender to palpation throughout, no hepatosplenomegaly noted Skin no rashes, warm and dry Psychiatric Alert and oriented to name, state, building, year, month and day Genitourinary Curtis catheter in place. Discharge Data Allergies Allergy/AdvReac Type Severity Reaction Status Date / Time No Known Drug Allergies Allergy Unknown Unknown Verified 03/21/20 00:52 Consultations 03/21/20 02:40 ED Decision to Admit Stat 03/21/20 04:00 Consult Case Management - Discharge Planning Routine 03/24/20 09:10 Consult Case Management - Discharge Planning Routine Ordered Studies 03/21/20 00:08 CT head/brain wo con Urgent Hospital Course (1) Fever: 74-year-old male with past medical history coronary artery disease, hypertension, BPH, status post evacuation of bilateral subdurals acute on chronic on 03/01 at [facility] who presented from [facility] with concerns of fever, nausea, vomiting and noted to have a seizure while in ED. 1) Fever Temp 38.5 C on admission w/ cyclical fevers during stay, afebrile >24 hrs before discharge Urine Culture demonstrating streptococcus, e. Faecalis, pansensitive. Began treatment with ceftriaxone on 03/21, later narrowed to ampicillin. Blood cultures did not show growth -GI sx of nausea and vomiting resolved - likely secondary to viral illness. Respiratory panel/bio fire negative including influenza and COVID testing Chest x-ray: No acute cardiopulmonary findings -Continue amoxicillin 500mg TID PO for three days 2) Seizures Second known seizure occurred in the ED prior to admission. Patient continued on levetiracetam 1000mg q12 PO and did not seize throughout hospitalization. -Likely secondary to lowered seizure threshold in the setting of infection as above and history of recent subdural hematoma. 3) History of subdural hematoma status post evacuation of bilateral subdurals acute on chronic on 03/01 at [facility] -No significant changes from 03/[address] on admission. -PT/OT were continued in hospital for ongoing left sided weakness. 4) Chronic conditions - CAD/HTN - lisinopril 10 mg held for low pressures but restarted on discharge, continue ASA 81 mg daily -BPH - continue finasteride 5 mg. Hold tamsulosin 0.4 mg until deemed appropriate for Curtis removal Total Time Total Time Spent Total Time Spent (In Minutes): <30 Discharge Plan Discharge Items Patient Disposition: Transfer [facility] Fac Reason For Visit: FEVER, SEIZURE Discharge Diagnosis: UTI Condition on Discharge: Fair Activity: Per Instructions section Non-emergency contact: Primary Care Provider, Surgeon and Neurologist Call non-emergency contact if: you have any medication questions, your symptoms worsen and you have a fever Follow-up/Referrals: Jonathan Altamirano CRNP [Primary Care Provider] - Diet: Regular Addtl Attending Provider Instructions: Emigdio Bruce is a 74y/o M with past medical history significant for coronary artery disease, hypertension, BPH, status post evacuation of bilateral subdurals acute on chronic on 03/01 at [facility] presents from [facility] with concerns of fever and noted to have a seizure while in ED. Being transferred to [facility] following treatment of a UTI with resolution of fevers and a seizure. To be continued on Amoxicillin 500mg three times a day for an additional three days. Pending Studies at Discharge: No Stand-Alone Forms: [facility] Skilled Items Patient informed of condition?: Yes DNR: No Discharge Level of Care: Skilled Communicable Disease: No Discharge Prognosis: Improving Lines: None Urinary Catheter: Yes Medications and DC Order Prescriptions: New amoxicillin 500 mg Capsule 500 mg PO TID 3 Days Qty: 9 RF: 0 Continued aspirin [Aspir-81] 81 mg Tablet,Delayed Release (Dr/Ec) 81 mg PO QAM RF: 0 omega 6-feh-tca-fish oil [Fish Oil] 1,000 mg (120 mg-180 mg) Capsule 1 cap PO QAM RF: 0 atorvastatin 20 mg Tablet 20 mg PO QAM RF: 0 sennosides [senna] 8.6 mg Tablet 8.6 mg PO BID RF: 0 docusate sodium 100 mg Capsule 100 mg PO BID RF: 0 sodium chloride 1 gram Tablet 3,000 mg PO TID RF: 0 levetiracetam 1,000 mg Tablet 1,000 mg PO Q12H RF: 0 tamsulosin 0.4 mg capsule 0.4 mg PO QAM RF: 0 lisinopril 10 mg tablet 10 mg PO QAM RF: 0 finasteride 5 mg tablet 5 mg PO QAM RF: 0 Discharge Orders: Discharge Order (Routine); Ordered 03/24/20 Ordered By: Venancio Pinon Admission Data Admit Date/Time: 03/21/20 02:27 Attending Provider: Arik Boggs Admit Provider: Gary Lu Primary Care Provider: Jonathan Altamirano Other Providers: [facility] ; Dulce Davila Other Interventions: Discharge Summary Assessment (RN) Last Done: 03/24/20 13:12 Supervising Physician Co-Signing Physician Notes I personally examined the patient and verified all white points of history and exam, discussed case, and agree with decision making with Jono Kennedy MS4 and Dr Pinon. feeling good no new complaints notes he's at his current baseline. vitals noted nad heent nc at mmm breathing unlabored no accessory muscles good effort no new focal neuro deficits fever - ongoing. lack of other sx making viral less likely at this point. UTI quite possible, although w nontoxic appearance and still spiking temps -also wonder about non-infectious causes (?related to subdurals, atelectasis, etc) - but either way improving and no other worrisome features noted. finish treatment for UTI w amoxicillin. stable for rehab subdurals - stable per CT. seems to be at baseline mentation seizures - from fever and altered brain architecture. currently appearing stable in that regard - no further seizures DVT proph - pharmacologic contraindicated due to subdurals
--- NOTE | 2020-03-24 19:49 | Billing Data ---
Date of Service March 24, 2020 Coding Level of Care Code D/C Day Management <30 mins
== END 2020-03-24 14:08 | DRG 698 ==
LOC: ED 17:19 → SUATTDRO 03-21 02:27 → 2N 03-21 02:27 → 2S 03-21 09:08

== ENCOUNTER 2020-09-11 20:23 | Inpatient (IN) ==
[2020-09-11] MEDS ORDERED: SODIUM CHLORIDE 0.9% 1000ML 1,000 ML IV SCH (20:45)
[2020-09-11 20:53] LABS: Basophils # (auto) 0.04 K/uL (0-0.2); Basophils % (auto) 0.6 %; Eosinophils # (auto) 0.15 K/uL (0-0.5); Eosinophils % (auto) 2.3 %; Hematocrit (blood only) 36.9 % (42-52); Hemoglobin 12.5 g/dL (14.0-18.0); Immature Granulocytes # (auto) 0.02 K/uL (0.00-0.02); Immature Granulocytes % (auto) 0.3 %; Lymphocytes # (auto) 1.15 K/uL (1.2-3.4); Lymphocytes % (auto) 17.3 %; Mean Corpuscular Hemoglobin 30.4 pg (25-34); Mean Corpuscular Hgb Conc 33.9 g/dL (32-36); Mean Corpuscular Volume 89.8 fL (80-100); Mean Platelet Volume 10.1 fL (7.4-10.4); Monocytes # (auto) 0.68 K/uL (0.11-0.59); Monocytes % (auto) 10.3 %; Neutrophils # (auto) 4.59 K/uL (1.4-6.5); Neutrophils % (auto) 69.2 %; Platelet Count 117 K/uL (130-400); RDW Coefficient of Variation 13.3 % (11.5-14.5); RDW Standard Deviation 43.8 fL (36.4-46.3); Red Blood Count 4.11 M/uL (4.7-6.1); White Blood Count 6.63 K/uL (4.8-10.8)
[2020-09-11 21:01] LABS: INR 1.1 (0.9-1.1); Prothrombin Time 11.1 Seconds (9.0-12.0)
[2020-09-11 21:03] LABS: Albumin Level 3.5 gm/dl (3.4-5.0); BUN Creatinine Ratio 12.6 (10-20); Calcium 8.4 mg/dl (8.5-10.1); Est GFR (African American) 58.6; Est GFR (Non-African American) 50.5; Magnesium 1.9 mg/dl (1.8-2.4)
--- NOTE | 2020-09-11 21:07 | Emergency Department Note ---
History of Present Illness General Chief complaint: Weakness Stated complaint: unable to ambulate Time Seen by Provider: 09/11/20 20:29 Source: patient and EMS Mode of arrival: EMS Limitations: no limitations History of Present Illness Provider complaint: Weakness Onset (ago): day(s) 1 Relieved By: + none Exacerbated By: + movement Associated symptoms: + denies other symptoms Treatments prior to arrival: none This is a 75-year-old male who presents via EMS from home due to concern for persistent weakness. Patient states yesterday he felt weak, had a difficult time standing and had to have his help him. He states today the weakness was persistent and he could not get out of bed. Patient denies any overt pain, trouble breathing, vomiting, diarrhea, or difficulty urinating. He denies any recent illness or known sick contacts. He denies any change in medications. Patient states he has had a similar episode previously which required hospitalization however he does not recall the etiology of his symptoms ultimately. Pt seen during a time of high acuity and national emergency pandemic while wearing PPE. Home Medications Medication Instructions Recorded Confirmed Type atorvastatin 20 mg PO QAM 11/11/18 09/11/20 History omega 0-ujp-zsy-fish oil [Fish Oil] 1 cap PO QAM 11/11/18 09/11/20 History finasteride 5 mg PO QAM 03/01/20 09/11/20 History tamsulosin 0.4 mg PO QAM 03/01/20 09/11/20 History docusate sodium 100 mg PO BID PRN 03/21/20 09/11/20 History aspirin [Aspirin Low Dose] 81 mg PO QAM 04/09/20 09/11/20 History levetiracetam 1,000 mg tablet 2,000 mg PO Q12H tab 04/19/20 09/11/20 History lisinopril 10 mg tablet 10 mg PO QAM #90 tab 05/03/20 09/11/20 Rx Allergies Allergy/AdvReac Type Severity Reaction Status Date / Time No Known Allergies Allergy Verified 09/11/20 21:31 Past Med/Surg History Medical History Anemia Basal cell carcinoma (02/09/19) Left preauricular region: 02/09/2019 BPH loc w urin obs/LUTS Coronary artery disease Generalized tonic-clonic seizure (~03/2020) Hearing deficit History of basal cell carcinoma (BCC) of skin History of rheumatic fever as a child History of subdural hematoma (03/01/20) Hypercholesterolemia Hypertension Mild cognitive impairment Osteoarthritis Sensorineural hearing loss of both ears Tobacco user Urinary retention Surgical History H/O vasectomy History of colonoscopy with polypectomy History of craniotomy (03/01/20) left-sided matilde hole craniotomy and evacuation as well as a right-sided mini craniotomy for subdural evacuation History of open heart surgery (~2006) @ [facility] "valve replacement and bypass surgery" History of testicular surgery left History of tooth extraction all teeth S/P Mohs surgery for basal cell carcinoma Family History Mother Breast cancer Family history of diabetes mellitus Other H/O vasectomy History of open heart surgery Hypercholesterolemia No family history of adverse response to anesthesia Denies family history of Ovarian cancer Prostate cancer Diabetes Coronary heart disease Heart disease Myocardial infarction Lung cancer Colorectal cancer Social History Smoking Status: Former smoker Tobacco Type: Smokeless Tobacco (Dip or Chew) Second Hand Exposure: No; Hx Alcohol Use: No Hx Substance Use: No Preferred Language: Andorran Communication Ability: Effective Visual Impairment: Limited Hearing Ability: Normal Spa Assistant Manager Required: No Beliefs That Will Affect Care: None marital status: Current Living Situation: Spouse Current Living Situation Comment: Homw with current occupational status: retired How many Children do You have: 1 Feels Safe at Home: Yes Childhood Exposure to Second-Hand Smoke: No caffeine: No during the past year weight has: remained stable Dental Care, Regularly: No Physical Activity Frequency: Daily Seatbelt Use: always Sunscreen Use: No Assistive Devices: Glasses Review of Systems See HPI for pertinent positives & negatives. and A total of 10 systems reviewed and were otherwise negative Physical Exam Vital Signs Vital Signs - 24 hr 09/11/20 20:32 09/11/20 20:34 09/11/20 20:40 Temperature 37.4 C Temperature Source Oral Pulse Rate 79 79 73 Pulse Rate [Left Finger] Pulse Rate from SpO2 Sensor 61 Respiratory Rate 24 20 22 Respiratory Effort / Characteristics Blood Pressure 127/63 127/63 Blood Pressure Mean 84 84 Pulse Oximetry 96 96 Oxygen Delivery Method Room Air Sepsis Recent Fever Within 48 Hours No Sepsis New/Unexplained Change in Mental Status No Sepsis Action Taken by Nursing No Action Required 09/11/20 20:53 09/11/20 20:54 09/11/20 21:00 Temperature Temperature Source Pulse Rate 83 86 88 Pulse Rate [Left Finger] Pulse Rate from SpO2 Sensor 61 66 Respiratory Rate Respiratory Effort / Characteristics Blood Pressure 121/84 Blood Pressure Mean 96 Pulse Oximetry 96 96 Oxygen Delivery Method Sepsis Recent Fever Within 48 Hours Sepsis New/Unexplained Change in Mental Status Sepsis Action Taken by Nursing 09/11/20 21:01 09/11/20 21:10 09/11/20 21:20 Temperature Temperature Source Pulse Rate 77 66 77 Pulse Rate [Left Finger] Pulse Rate from SpO2 Sensor 60 57 L 59 L Respiratory Rate 23 18 Respiratory Effort / Characteristics Blood Pressure 134/65 Blood Pressure Mean 88 Pulse Oximetry 97 99 97 Oxygen Delivery Method Sepsis Recent Fever Within 48 Hours Sepsis New/Unexplained Change in Mental Status Sepsis Action Taken by Nursing 09/11/20 21:30 09/11/20 21:40 09/11/20 21:50 Temperature Temperature Source Pulse Rate 56 L 67 73 Pulse Rate [Left Finger] Pulse Rate from SpO2 Sensor 57 L 58 L 55 L Respiratory Rate 24 Respiratory Effort / Characteristics Blood Pressure Blood Pressure Mean Pulse Oximetry 99 98 96 Oxygen Delivery Method Sepsis Recent Fever Within 48 Hours Sepsis New/Unexplained Change in Mental Status Sepsis Action Taken by Nursing 09/11/20 22:00 09/11/20 22:01 09/11/20 22:10 Temperature Temperature Source Pulse Rate 66 65 69 Pulse Rate [Left Finger] Pulse Rate from SpO2 Sensor 59 L 58 L 57 L Respiratory Rate 20 21 Respiratory Effort / Characteristics Blood Pressure 134/54 L Blood Pressure Mean 80 Pulse Oximetry 97 96 96 Oxygen Delivery Method Sepsis Recent Fever Within 48 Hours Sepsis New/Unexplained Change in Mental Status Sepsis Action Taken by Nursing 09/11/20 22:20 09/11/20 23:08 09/12/20 00:01 Temperature Temperature Source Pulse Rate 70 77 64 Pulse Rate [Left Finger] Pulse Rate from SpO2 Sensor 59 L Respiratory Rate 23 24 20 Respiratory Effort / Characteristics Blood Pressure 132/80 126/62 Blood Pressure Mean 97 83 Pulse Oximetry 95 96 94 Oxygen Delivery Method Sepsis Recent Fever Within 48 Hours Sepsis New/Unexplained Change in Mental Status Sepsis Action Taken by Nursing 09/12/20 00:31 09/12/20 00:33 09/12/20 01:02 Temperature Temperature Source Pulse Rate 77 80 Pulse Rate [Left Finger] 72 Pulse Rate from SpO2 Sensor Respiratory Rate 20 20 18 Respiratory Effort / Characteristics Spontaneous Blood Pressure 123/56 L 131/55 L Blood Pressure Mean 78 80 Pulse Oximetry 96 96 95 Oxygen Delivery Method Room Air Sepsis Recent Fever Within 48 Hours Sepsis New/Unexplained Change in Mental Status Sepsis Action Taken by Nursing 09/12/20 01:31 09/12/20 02:00 Temperature Temperature Source Pulse Rate 85 76 Pulse Rate [Left Finger] Pulse Rate from SpO2 Sensor Respiratory Rate 18 16 Respiratory Effort / Characteristics Blood Pressure 129/73 116/78 Blood Pressure Mean 91 90 Pulse Oximetry 94 94 Oxygen Delivery Method Sepsis Recent Fever Within 48 Hours Sepsis New/Unexplained Change in Mental Status Sepsis Action Taken by Nursing GENERAL: alert, well appearing, well nourished, no distress, non-toxic EYE EXAM: normal conjunctiva, PERRL and EOM's grossly intact OROPHARYNX: no exudate, no erythema, lips, buccal mucosa, and tongue normal and mucous membranes are moist NECK: supple, no nuchal rigidity, no adenopathy, non-tender LUNGS: Clear to auscultation. Normal chest wall mechanics, no w/r/r HEART: no murmurs, S1 normal and S2 normal ABDOMEN: abdomen soft, non-tender, normo-active bowel sounds, no masses, no rebound or guarding. BACK: Back is symmetrical on inspection and there is no deformity, no midline tenderness, no CVA tenderness. SKIN: no rashes and no bruising UPPER EXTREMITIES: upper extremities are grossly normal. FROM, nml pulses b/l. LOWER EXTREMITIES: No pitting edema. FROM, nml pulses b/l. NEURO EXAM: Normal sensorium, cranial nerves II-XII grossly intact, normal speech, no gross weakness of arms, no gross weakness of legs. Gross sensation intact. Course Course 2104: not bedside states she was concerned for persistent weakness as well as a coarse cough last evening. She states they both received the first of their 2 coronavirus vaccines a little over a week ago. She states while I have to go to doctors appointments I have not otherwise been around anyone who was sick to their knowledge. also confirms no recent change in his medications otherwise. She is also concerned that perhaps he is dehydrated and states that he does not drink enough water. 0010: Patient updated on all results. 0105: Patient reports feeling improved after neb tx. IVF finished. With nurse, we attempted ambulatory trial at bedside. Patient unsteady even with a walker and states he typically can just use a cane. She states this is a definite departure from his normal strength and ambulatory status 3-4 days ago. 0120: Discussed with Dr. Davila. Administered Medications Albuterol (Albut/Ipratrop 3mg/0.5mg Neb 3 Ml Vial) 3 ml NEB Q4R [facility] Stop: 10/12/20 02:59 Last Admin: 09/14/20 03:16 Dose: 3 ml Documented by: [id number] Admin: 09/13/20 23:06 Dose: 3 ml Documented by: [id number] Admin: 09/13/20 19:21 Dose: 3 ml Documented by: [id number] Admin: 09/13/20 15:13 Dose: 3 ml Documented by: [id number] Admin: 09/13/20 11:16 Dose: 3 ml Documented by: [id number] Admin: 09/13/20 07:47 Dose: 3 ml Documented by: [id number] Admin: 09/13/20 03:40 Dose: 3 ml Documented by: [id number] Admin: 09/12/20 23:07 Dose: 3 ml Documented by: [id number] Admin: 09/12/20 19:26 Dose: 3 ml Documented by: [id number] Admin: 09/12/20 15:29 Dose: 3 ml Documented by: [id number] Admin: 09/12/20 10:54 Dose: 3 ml Documented by: [id number] Admin: 09/12/20 07:19 Dose: 3 ml Documented by: [id number] Admin: 09/12/20 03:10 Dose: 3 ml Documented by: [id number] Aspirin (Aspirin 81 Mg Ectab) [facility] [place]: 10/12/20 08:59 Last Admin: 09/13/20 09:55 Dose: 81 mg Documented by: [id number] Admin: 09/12/20 08:46 Dose: 81 mg Documented by: [id number] Atorvastatin Calcium (Atorvastatin 20 Mg Tab) [facility] [place] Stop: 10/12/20 08:59 Last Admin: 09/13/20 09:55 Dose: 20 mg Documented by: [id number] Admin: 09/12/20 08:46 Dose: 20 mg Documented by: [id number] Finasteride (Finasteride 5 Mg Tab) 5 mg PO QAM [facility] Stop: 10/12/20 08:59 Last Admin: 09/13/20 09:55 Dose: 5 mg Documented by: [id number] Admin: 09/12/20 08:46 Dose: 5 mg Documented by: [id number] Azithromycin 250 mg/ Dextrose 252.5 mls @ 125 mls/hr IV DAILY [facility] Stop: 09/20/20 08:59 Last Infusion: 09/13/20 12:36 Dose: 0 mls/hr Documented by: [id number] Admin: 09/13/20 10:15 Dose: 125 mls/hr Documented by: [id number] Ceftriaxone Sodium 2,000 mg/ (Dextrose) 70 mls @ 140 mls/hr IV DAILY@1230 [facility]; Protocol Stop: 09/20/20 12:29 Last Infusion: 09/13/20 13:10 Dose: 0 mls/hr Documented by: [id number] Infusion: 09/13/20 13:00 Dose: 140 mls/hr Documented by: [id number] Infusion: 09/13/20 13:00 Dose: 0 mls/hr Documented by: [id number] Admin: 09/13/20 12:36 Dose: 140 mls/hr Documented by: [id number] Levetiracetam (Levetiracetam 500 Mg Tab) 2,000 mg PO Q12 [facility] Stop: 10/12/20 02:45 Last Admin: 09/13/20 20:10 Dose: 2,000 mg Documented by: [id number] Admin: 09/13/20 09:54 Dose: 2,000 mg Documented by: [id number] Admin: 09/12/20 21:05 Dose: 2,000 mg Documented by: [id number] Admin: 09/12/20 08:46 Dose: 2,000 mg Documented by: [id number] Admin: 09/12/20 03:25 Dose: 2,000 mg Documented by: [id number] Lisinopril (Lisinopril 10 Mg Tab) 10 mg PO QAM [facility] Stop: 10/12/20 08:59 Last Admin: 09/13/20 09:54 Dose: 10 mg Documented by: [id number] Admin: 09/12/20 08:46 Dose: Not Given Documented by: [id number] Tamsulosin HCl (Tamsulosin Hcl 0.4 Mg Cap) 0.4 mg PO QAM [facility] Stop: 10/12/20 08:59 Last Admin: 09/13/20 09:55 Dose: 0.4 mg Documented by: [id number] Admin: 09/12/20 08:46 Dose: 0.4 mg Documented by: [id number] Discontinued Medications Albuterol (Albut/Ipratrop 3mg/0.5mg Neb 3 Ml Vial) 3 ml NEB NOW STA Stop: 09/12/20 00:14 Last Admin: 09/12/20 00:33 Dose: 3 ml Documented by: [id number] Sodium Chloride (Nss 1000ml) 1,000 mls @ 125 mls/hr IV .Q8H [facility] Stop: 10/11/20 20:44 Last Infusion: 09/12/20 03:35 Dose: 0 mls/hr Documented by: [id number] Admin: 09/11/20 20:55 Dose: 125 mls/hr Documented by: [id number] Azithromycin 500 mg/ Dextrose 255 mls @ 127.5 mls/hr IV NOW STA Stop: 09/12/20 04:45 Last Infusion: 09/12/20 05:50 Dose: 0 mls/hr Documented by: [id number] Admin: 09/12/20 03:26 Dose: 127.5 mls/hr Documented by: [id number] Lactated Ringer's (Lr) 1,000 mls @ 80 mls/hr IV .[id number] [facility] Stop: 09/13/20 03:45 Last Infusion: 09/13/20 01:01 Dose: 0 mls/hr Documented by: [id number] Admin: 09/12/20 15:29 Dose: 80 mls/hr Documented by: [id number] Infusion: 09/12/20 15:29 Dose: 80 mls/hr Documented by: [id number] Admin: 09/12/20 03:05 Dose: 80 mls/hr Documented by: [id number] Ceftriaxone Sodium 2,000 mg/ (Dextrose) 70 mls @ 140 mls/hr IV DAILY [facility]; Protocol Stop: 09/20/20 08:59 Last Admin: 09/13/20 11:55 Dose: Not Given Documented by: [id number] Olanzapine (Olanzapine Zydis 5 Mg Orally Dis. Tab) 5 mg PO NOW ONE Stop: 09/13/20 03:21 Last Admin: 09/13/20 03:51 Dose: 5 mg Documented by: [id number] Medical Decision Making Differential Diagnosis Differential Diagnosis includes but is not limited to dehydration, stroke, anemia, hypoglycemia, hyponatremia, hypernatremia, urinary tract infection, pneumonia, bronchitis, sepsis, gastroenteritis, additional abdominal pathology, metabolic abnormalities and infections. Medical Records Attestation: I reviewed the patient's medical records. Home Medications Current Medication List: was personally reviewed by me Laboratory Data Attestation: I reviewed the patient's lab results. Result diagrams: 09/13/20 06:21 09/13/20 06:21 Lab Results 09/11/20 09/11/20 09/11/20 Range/Units 20:10 20:10 20:10 WBC 6.63 (4.8-10.8) K/uL RBC 4.11 L (4.7-6.1) M/uL Hgb 12.5 L (14.0-18.0) g/dL Hct 36.9 L (42-52) % MCV 89.8 (80-100) fL MCH 30.4 (25-34) pg MCHC 33.9 (32-36) g/dL RDW Std Deviation 43.8 (36.4-46.3) fL RDW Coeff of Harmony 13.3 (11.5-14.5) % Plt Count 117 L (130-400) K/uL MPV 10.1 (7.4-10.4) fL Immature Gran % (Auto) 0.3 % Neut % (Auto) 69.2 % Lymph % (Auto) 17.3 % [place] % (Auto) 10.3 % Eos % (Auto) 2.3 % Baso % (Auto) 0.6 % Neut # (Auto) 4.59 (1.4-6.5) K/uL Lymph # (Auto) 1.15 L (1.2-3.4) K/uL [place] # (Auto) 0.68 H (0.11-0.59) K/uL Eos # (Auto) 0.15 (0-0.5) K/uL Baso # (Auto) 0.04 (0-0.2) K/uL Immature Gran # (Auto) 0.02 (0.00-0.02) K/uL PT 11.1 (9.0-12.0) Seconds INR 1.1 (0.9-1.1) Sodium 141 (136-145) mmol/L Potassium 4.0 (3.5-5.1) mmol/L Chloride 109 H (98-107) mmol/L Carbon Dioxide 24 (21-32) mmol/L Anion Gap 9.0 (3-11) BUN 17 (7-18) mg/dl Creatinine 1.36 (0.6-1.4) mg/dl Est Cr Clr Drug Dosing 50.0 ml/min Est GFR ( Amer) 58.6 Est GFR (Non-Af Amer) 50.5 BUN/Creatinine Ratio 12.6 (10-20) Glucose 102 H (70-99) mg/dl Calcium 8.4 L (8.5-10.1) mg/dl Phosphorus 3.3 (2.5-4.9) mg/dl Magnesium 1.9 (1.8-2.4) mg/dl Total Bilirubin 1.0 (0.2-1) mg/dl AST 13 L (15-37) U/L ALT 17 (12-78) U/L Alkaline Phosphatase 93 (45-117) U/L Troponin I 0.043 (0-0.045) ng/ml NT-Pro-B Natriuret Pep 1201 H (0-900) pg/ml Total Protein 6.8 (6.4-8.2) gm/dl Albumin 3.5 (3.4-5.0) gm/dl Globulin 3.3 (2.5-4.0) gm/dl Albumin/Globulin Ratio 1.1 (0.9-2) Lipase 104 (73-393) U/L TSH 0.478 (0.300-4.500) uIu/ml Urine Color Urine Appearance (Clear) Urine pH (4.5-7.5) Ur Specific Jeffrey (1.000-1.030) Urine Protein (Negative) Urine Glucose (UA) (Negative) Urine Ketones (Negative) Urine Blood (Negative) Urine Nitrite (Negative) Urine Bilirubin (Negative) Urine Urobilinogen (Negative) Ur Leukocyte Esterase (Negative) Urine WBC (Auto) (0-5) /hpf Urine RBC (Auto) (0-4) /hpf U Hyaline Cast (Auto) (0-5) /lpf U Epithel Cells (Auto) (0-5) /lpf Urine Bacteria (Auto) (Negative) Urine Yeast COVID-19 Eval Order SARS-CoV-2 (PCR) (Negative) Influenza Type A (PCR) (Neg) Influenza Type B (PCR) (Neg) RSV (RT-PCR) (Neg) 09/11/20 09/11/20 09/11/20 Range/Units 20:53 22:00 22:00 WBC (4.8-10.8) K/uL RBC (4.7-6.1) M/uL Hgb (14.0-18.0) g/dL Hct (42-52) % MCV (80-100) fL MCH (25-34) pg MCHC (32-36) g/dL RDW Std Deviation (36.4-46.3) fL RDW Coeff of Harmony (11.5-14.5) % Plt Count (130-400) K/uL MPV (7.4-10.4) fL Immature Gran % (Auto) % Neut % (Auto) % Lymph % (Auto) % [place] % (Auto) % Eos % (Auto) % Baso % (Auto) % Neut # (Auto) (1.4-6.5) K/uL Lymph # (Auto) (1.2-3.4) K/uL [place] # (Auto) (0.11-0.59) K/uL Eos # (Auto) (0-0.5) K/uL Baso # (Auto) (0-0.2) K/uL Immature Gran # (Auto) (0.00-0.02) K/uL PT (9.0-12.0) Seconds INR (0.9-1.1) Sodium (136-145) mmol/L Potassium (3.5-5.1) mmol/L Chloride (98-107) mmol/L Carbon Dioxide (21-32) mmol/L Anion Gap (3-11) BUN (7-18) mg/dl Creatinine (0.6-1.4) mg/dl Est Cr Clr Drug Dosing ml/min Est GFR ( Amer) Est GFR (Non-Af Amer) BUN/Creatinine Ratio (10-20) Glucose (70-99) mg/dl Calcium (8.5-10.1) mg/dl Phosphorus (2.5-4.9) mg/dl Magnesium (1.8-2.4) mg/dl Total Bilirubin (0.2-1) mg/dl AST (15-37) U/L ALT (12-78) U/L Alkaline Phosphatase (45-117) U/L Troponin I (0-0.045) ng/ml NT-Pro-B Natriuret Pep (0-900) pg/ml Total Protein (6.4-8.2) gm/dl Albumin (3.4-5.0) gm/dl Globulin (2.5-4.0) gm/dl Albumin/Globulin Ratio (0.9-2) Lipase (73-393) U/L TSH (0.300-4.500) uIu/ml Urine Color Dark Yellow Urine Appearance Clear (Clear) Urine pH 5.5 (4.5-7.5) Ur Specific Jeffrey 1.022 (1.000-1.030) Urine Protein Negative (Negative) Urine Glucose (UA) Negative (Negative) Urine Ketones Trace H (Negative) Urine Blood 3+ H (Negative) Urine Nitrite Negative (Negative) Urine Bilirubin Negative (Negative) Urine Urobilinogen Negative (Negative) Ur Leukocyte Esterase Negative (Negative) Urine WBC (Auto) 1-5 (0-5) /hpf Urine RBC (Auto) 10-30 H (0-4) /hpf U Hyaline Cast (Auto) 1-5 (0-5) /lpf U Epithel Cells (Auto) 5-10 H (0-5) /lpf Urine Bacteria (Auto) Negative (Negative) Urine Yeast Not Reportable COVID-19 Eval Order CovFluRsv at [facility] SARS-CoV-2 (PCR) NEGATIVE (Negative) Influenza Type A (PCR) Negative (Neg) Influenza Type B (PCR) Negative (Neg) RSV (RT-PCR) Negative (Neg) Imaging Data My Impression: X-ray: I interpreted the following studies. Chest: A single view study of the chest was reviewed and was negative for cardiomegaly, focal infiltrate, effusion, pulmonary edema, or wide mediastinum. Radiologist's Impression: CT abdomen and pelvis without contrast: No renal ureteral stones. No grossly evident suspicious renal lesion. Trabeculated bladder with the superior bladder diverticulum. No stones in the bladder inflammatory changes. No acute abnormality along the GI tract. Normal appendix. Remainder of solid organs are unremarkable. No free fluid, fluid collection, or free air. Radiologist: Kartik Ni MD ECG Data Attestation: I personally reviewed and interpreted this ECG as follows: Indication: + weakness Rate (beats per minute): 82 Rhythm: + normal sinus ECG Intervals/blocks: + Normal QRS and + Normal QT ECG [place]: + Normal ECG ST segments: + T-wave inversions (III, V3) ECG Findings: + PVCs MDM Narrative This is a 75-year-old male who presents today increased weakness that began yesterday. does accompany him to bedside and helps provide additional information. Patient does have a complicated past medical history. Patient had no other focal complaints. did note a recent increased cough and patient does have a history of COPD but does not wear home oxygen. Labs are drawn and sent here, chest x-ray performed, Covid test performed. Labs and imaging reassuring. Mild thrombocytopenia noted of unclear etiology. Patient with a nonfocal neuro exam and no acute neurologic symptoms to suggest need for repeat neuroimaging despite patient's prior history of intracranial hemorrhage. Patient takes aspirin no other anticoagulation. Patient denied any recent change in medications and denied any recent seizures despite his seizure h istory. No evidence for evolving infectious etiology. Patient was given a nebulizer treatment and felt his breathing was improved and was able to expectorate additional sputum at bedside. Patient was cautiously hydrated as thought perhaps this was the etiology of his weakness stating that he rarely drinks water and she was concerned for dehydration. Despite all this as well as multiple checks while he was here, when nursing staff and myself attempted to perform an ambulatory trial, patient was markedly unsteady even with a walker which is a distinct departure per the 's description of recent ease of ambulation with just the use of a cane. Due to concern for his ambulatory status and unsafe discharge plan, case discussed with hospitalist for additional evaluation and management. An order was placed for continuous cardiac monitoring. The monitor shows a rate of _66_ with _normal sinus_ rhythm. Impression & Plan Generalized weakness, Ambulatory dysfunction, Thrombocytopenia, Hematuria, Acute dehydration, COPD (chronic obstructive pulmonary disease) Discharge Plan Visit Data Chief Complaint: Weakness Stated Complaint: unable to ambulate ED Provider: Vanessa Hamm Discharge Problem: Generalized weakness, Ambulatory dysfunction, Thrombocytopenia, Hematuria, Acute dehydration, COPD (chronic obstructive pulmonary disease) Patient Disposition: Admitted As Inpatient Discharge Instructions Interventions: ED Discharge Assessment Last Done: 09/12/20 02:33 Discharge Problem: Hematuria Qualifiers: Hematuria type: other microscopic Qualified Code(s): R31.29 - Other microscopic hematuria COPD (chronic obstructive pulmonary disease) Qualifiers: COPD type: unspecified COPD Qualified Code(s): J44.9 - Chronic obstructive pulmonary disease, unspecified
[2020-09-11 21:14] LABS: Albumin Globulin Ratio 1.1 (0.9-2); Globulin 3.3 gm/dl (2.5-4.0); Thyroid Stimulating Hormone 0.478 uIu/ml (0.300-4.500); Total Protein 6.8 gm/dl (6.4-8.2); Troponin I 0.043 ng/ml (0-0.045)
[2020-09-11 21:18] LABS: Appearance Urine Clear (Clear); Bacteria Urine Automated Negative (Negative); Bilirubin Urine Negative (Negative); Blood Urine 3+ (Negative); Color Urine Dark Yellow; Glucose Urine UA Negative (Negative); Ketones Urine Trace (Negative); Leukocyte Esterase Urine Negative (Negative); Nitrite Urine Negative (Negative); Protein Urine Negative (Negative); Specific Gravity Urine 1.022 (1.000-1.030); Urobilinogen Urine Negative (Negative); pH Urine 5.5 (4.5-7.5)
[2020-09-11 23:09] LABS: Influenza A virus by PCR Negative (Neg); Influenza B virus by PCR Negative (Neg); RSV by PCR Negative (Neg); SARS CoV2 RNA(COVID-19) InHosp NEGATIVE (Negative)
[2020-09-12] MEDS ORDERED: ALBUT/IPRATROP 3MG/0.5MG NEB 3 ML VIAL NEB STA (00:13)
--- NOTE | 2020-09-12 02:21 | History & Physical Report ---
Date of Service September 12, 2020 Assessment & Plan (1) Generalized weakness: Etiology unclear. Suspect pulmonary infection. Patient does not carry a diagnosis of COPD, however, he is a former smoker. He has diffuse wheezing as well as purulent sputum. -Admit to medical -DuoNeb q 4 hours -Albuterol q 2 hours -Azithromycin -Check CK, PO4 -PT/OT evaluation -Fall precautions -Gentle IVF -Consider repeat CXR after IVF to assess for consolidation Present on Admission?: Yes (2) Ambulatory dysfunction: As above, patient unable to ambulate while in the ER. 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 Stable. S/p matilde hole evacuation 03/01/20 at [facility] [place]. Patient still follows with them. No focal deficits. MS is at baseline. -Outpatient followup as directed -Continue Keppra 2gm BID Present on Admission?: Yes (4) Hypertension: Blood pressure stable (5) Mild cognitive impairment: Noted. Patient appears to be at baseline mental status -Frequent orientation, ambulation, delirium prevention strategies Present on Admission?: Yes (6) Anemia: Near baseline. No active bleeding -Monitor Present on Admission?: Yes (7) Generalized tonic-clonic seizure: Chronic -Continue Keppra (8) Hypercholesterolemia: Chronic. Stable -Continue Atorvastatin Present on Admission?: Yes (9) Coronary artery disease: Chronic. Stable. -Continue ASA 81mg po daily -Continue Lisinopril 10mg po qAM -Continue Atorvastatin 20mg po qAM Present on Admission?: Yes (10) BPH loc w urin obs/LUTS: Chronic. Stable. Follows with [facility] -Monitor UOP -Continue Flomax 0.4mg po qAM -Continue Finasteride 5mg po q daily F/e/N - LR at 80mL/hr x 2 liters, electrolytes WNL, Heart healthy diet as tolerated Ppx - Low risk - continue ASA Code - DNR/DNI per discussion with at bedside Dispo - Admit to medical Present on Admission?: Yes History of Present Illness Chief Complaint: weakness Primary Care Provider: PETEY Gavin Emigdio Bruce is a 75yo male presenting with weakness and fatigue. Patient was in his usual state of health on 4 days ago. He traveled to [facility] for followup with Neurosurgery, was ambulating without difficulty. He developed a slight cough 3 days ago and also sustained a mechanical fall at home resulting in a left elbow abrasion. He developed worsening cough productive for thick sputum as well as subjective fever two days ago and has had progressive shortness of breath at rest and with ambulation. He is also quite weak and having difficulty getting himself up and ambulating. Poor sleep due to shortness of breath, no PO x 2 days. He denies chest pain/palpitations/nausea/vomiting/diarrhea or constipation. Denies rashes/dysuria/focal numbness/weakness/edema/orthopnea. No sick contacts. No recent travel aside from [place]. He received his first Covid-19 vaccine on 09/06/20 ER Course: ALbuterol neb, NSS Allergies Allergy/AdvReac Type Severity Reaction Status Date / Time No Known Allergies Allergy Verified 09/11/20 21:31 Home Medications Medication Instructions Recorded Confirmed Type atorvastatin 20 mg PO QAM 11/11/18 09/11/20 History omega 3-xxp-mra-fish oil [Fish Oil] 1 cap PO QAM 11/11/18 09/11/20 History finasteride 5 mg PO QAM 03/01/20 09/11/20 History tamsulosin 0.4 mg PO QAM 03/01/20 09/11/20 History docusate sodium 100 mg PO BID PRN 03/21/20 09/11/20 History aspirin [Aspirin Low Dose] 81 mg PO QAM 04/09/20 09/11/20 History levetiracetam 1,000 mg tablet 2,000 mg PO Q12H tab 04/19/20 09/11/20 History lisinopril 10 mg tablet 10 mg PO QAM #90 tab 05/03/20 09/11/20 Rx Past Med/Surg History Medical History Anemia Basal cell carcinoma (02/09/19) Left preauricular region: 02/09/2019 BPH loc w urin obs/LUTS Coronary artery disease Generalized tonic-clonic seizure (~03/2020) Hearing deficit History of basal cell carcinoma (BCC) of skin History of rheumatic fever as a child History of subdural hematoma (03/01/20) Hypercholesterolemia Hypertension Mild cognitive impairment Osteoarthritis Sensorineural hearing loss of both ears Tobacco user Urinary retention Surgical History H/O vasectomy History of colonoscopy with polypectomy History of craniotomy (03/01/20) left-sided matilde hole craniotomy and evacuation as well as a right-sided mini craniotomy for subdural evacuation History of open heart surgery (~2006) @ [facility] "valve replacement and bypass surgery" History of testicular surgery left History of tooth extraction all teeth S/P Mohs surgery for basal cell carcinoma Family History Mother Breast cancer Family history of diabetes mellitus Other H/O vasectomy History of open heart surgery Hypercholesterolemia No family history of adverse response to anesthesia Denies family history of Ovarian cancer Prostate cancer Diabetes Coronary heart disease Heart disease Myocardial infarction Lung cancer Colorectal cancer Social History Smoking Status: Never smoker Tobacco Type: Smokeless Tobacco (Dip or Chew) Second Hand Exposure: No; Hx Alcohol Use: No Hx Substance Use: No Preferred Language: Belarusian Communication Ability: Impaired Visual Impairment: Limited Hearing Ability: Normal Manager Animation Required: No Beliefs That Will Affect Care: None marital status: Current Living Situation: Spouse current occupational status: retired How many Children do You have: 1 Feels Safe at Home: Yes Childhood Exposure to Second-Hand Smoke: No caffeine: No during the past year weight has: remained stable Dental Care, Regularly: No Physical Activity Frequency: Daily Seatbelt Use: always Sunscreen Use: No Assistive Devices: Glasses Review of Systems Review of Systems: All systems reviewed & are unremarkable except as noted in HPI & below Physical Exam Physical Exam: General: elderly male patient resting comfortably, NAD, non- toxic in appearance, pleasantly demented, oriented to self and location Skin: warm, dry, intact, no rashes or lesions HEENT: NC/AT, PERRL, EOMI, anicteric sclera, conjunctiva without injection, external ear normal to inspection and nontender, nares patent, dry mucus membranes, dentition intact, no oropharyngeal lesions, neck supple, trachea midline, no LAD, no thyromegaly, no JVD Heart: +S1/S2, regular, no m/r/g Lungs: equal air entry bilaterally, scattered end-expiratory wheezing in bilateral lung [place], no rhonchi/rales Abd: +BS, soft, NT/ND, no masses/organomegaly/ascites Ext: warm, 2+ pulses in UE/LE bilaterally, no clubbing/cyanosis or edema Neuro: nonfocal, patient AA&O x 2, speech intact, no facial droop, moving all extremities on command with equal strength 5/5 Results & Data Results & Data ([facility]) Vital Signs (Past 12 Hours) Vital Signs Temp Pulse Pulse Resp BP Pulse Ox 09/12/20 01:31 85 18 129/73 94 09/12/20 01:02 80 18 131/55 L 95 09/12/20 00:33 72 20 96 09/12/20 00:31 77 20 123/56 L 96 09/12/20 00:01 64 20 126/62 94 09/11/20 23:08 77 24 132/80 96 09/11/20 22:20 70 23 95 09/11/20 22:10 69 21 96 09/11/20 22:01 65 134/54 L 96 09/11/20 22:00 66 20 97 09/11/20 21:50 73 24 96 09/11/20 21:40 67 98 09/11/20 21:30 56 L 99 09/11/20 21:20 77 18 97 09/11/20 21:10 66 99 09/11/20 21:01 77 23 134/65 97 09/11/20 21:00 88 96 09/11/20 20:54 86 121/84 96 09/11/20 20:53 83 09/11/20 20:40 73 22 96 09/11/20 20:34 37.4 C 79 20 127/63 96 09/11/20 20:32 79 24 127/63 Laboratory Results Lab Results 09/11/20 09/11/20 09/11/20 Range/Units 20:10 20:10 20:10 WBC 6.63 (4.8-10.8) K/uL RBC 4.11 L (4.7-6.1) M/uL Hgb 12.5 L (14.0-18.0) g/dL Hct 36.9 L (42-52) % MCV 89.8 (80-100) fL MCH 30.4 (25-34) pg MCHC 33.9 (32-36) g/dL RDW Std Deviation 43.8 (36.4-46.3) fL RDW Coeff of Harmony 13.3 (11.5-14.5) % Plt Count 117 L (130-400) K/uL MPV 10.1 (7.4-10.4) fL Immature Gran % (Auto) 0.3 % Neut % (Auto) 69.2 % Lymph % (Auto) 17.3 % Dewitt % (Auto) 10.3 % Eos % (Auto) 2.3 % Baso % (Auto) 0.6 % Neut # (Auto) 4.59 (1.4-6.5) K/uL Lymph # (Auto) 1.15 L (1.2-3.4) K/uL Dewitt # (Auto) 0.68 H (0.11-0.59) K/uL Eos # (Auto) 0.15 (0-0.5) K/uL Baso # (Auto) 0.04 (0-0.2) K/uL Immature Gran # (Auto) 0.02 (0.00-0.02) K/uL PT 11.1 (9.0-12.0) Seconds INR 1.1 (0.9-1.1) Sodium 141 (136-145) mmol/L Potassium 4.0 (3.5-5.1) mmol/L Chloride 109 H (98-107) mmol/L Carbon Dioxide 24 (21-32) mmol/L Anion Gap 9.0 (3-11) BUN 17 (7-18) mg/dl Creatinine 1.36 (0.6-1.4) mg/dl Est Cr Clr Drug Dosing 50.0 ml/min Est GFR ( Amer) 58.6 Est GFR (Non-Af Amer) 50.5 BUN/Creatinine Ratio 12.6 (10-20) Glucose 102 H (70-99) mg/dl Calcium 8.4 L (8.5-10.1) mg/dl Magnesium 1.9 (1.8-2.4) mg/dl Total Bilirubin 1.0 (0.2-1) mg/dl AST 13 L (15-37) U/L ALT 17 (12-78) U/L Alkaline Phosphatase 93 (45-117) U/L Troponin I 0.043 (0-0.045) ng/ml NT-Pro-B Natriuret Pep 1201 H (0-900) pg/ml Total Protein 6.8 (6.4-8.2) gm/dl Albumin 3.5 (3.4-5.0) gm/dl Globulin 3.3 (2.5-4.0) gm/dl Albumin/Globulin Ratio 1.1 (0.9-2) Lipase 104 (73-393) U/L TSH 0.478 (0.300-4.500) uIu/ml Urine Color Urine Appearance (Clear) Urine pH (4.5-7.5) Ur Specific [place] (1.000-1.030) Urine Protein (Negative) Urine Glucose (UA) (Negative) Urine Ketones (Negative) Urine Blood (Negative) Urine Nitrite (Negative) Urine Bilirubin (Negative) Urine Urobilinogen (Negative) Ur Leukocyte Esterase (Negative) Urine WBC (Auto) (0-5) /hpf Urine RBC (Auto) (0-4) /hpf U Hyaline Cast (Auto) (0-5) /lpf U Epithel Cells (Auto) (0-5) /lpf Urine Bacteria (Auto) (Negative) Urine Yeast COVID-19 Eval Order SARS-CoV-2 (PCR) (Negative) Influenza Type A (PCR) (Neg) Influenza Type B (PCR) (Neg) RSV (RT-PCR) (Neg) 09/11/20 09/11/20 09/11/20 Range/Units 20:53 22:00 22:00 WBC (4.8-10.8) K/uL RBC (4.7-6.1) M/uL Hgb (14.0-18.0) g/dL Hct (42-52) % MCV (80-100) fL MCH (25-34) pg MCHC (32-36) g/dL RDW Std Deviation (36.4-46.3) fL RDW Coeff of Harmony (11.5-14.5) % Plt Count (130-400) K/uL MPV (7.4-10.4) fL Immature Gran % (Auto) % Neut % (Auto) % Lymph % (Auto) % Dewitt % (Auto) % Eos % (Auto) % Baso % (Auto) % Neut # (Auto) (1.4-6.5) K/uL Lymph # (Auto) (1.2-3.4) K/uL [place]itt # (Auto) (0.11-0.59) K/uL Eos # (Auto) (0-0.5) K/uL Baso # (Auto) (0-0.2) K/uL Immature Gran # (Auto) (0.00-0.02) K/uL PT (9.0-12.0) Seconds INR (0.9-1.1) Sodium (136-145) mmol/L Potassium (3.5-5.1) mmol/L Chloride (98-107) mmol/L Carbon Dioxide (21-32) mmol/L Anion Gap (3-11) BUN (7-18) mg/dl Creatinine (0.6-1.4) mg/dl Est Cr Clr Drug Dosing ml/min Est GFR ( Amer) Est GFR (Non-Af Amer) BUN/Creatinine Ratio (10-20) Glucose (70-99) mg/dl Calcium (8.5-10.1) mg/dl Magnesium (1.8-2.4) mg/dl Total Bilirubin (0.2-1) mg/dl AST (15-37) U/L ALT (12-78) U/L Alkaline Phosphatase (45-117) U/L Troponin I (0-0.045) ng/ml NT-Pro-B Natriuret Pep (0-900) pg/ml Total Protein (6.4-8.2) gm/dl Albumin (3.4-5.0) gm/dl Globulin (2.5-4.0) gm/dl Albumin/Globulin Ratio (0.9-2) Lipase (73-393) U/L TSH (0.300-4.500) uIu/ml Urine Color Dark Yellow Urine Appearance Clear (Clear) Urine pH 5.5 (4.5-7.5) Ur Specific [place] 1.022 (1.000-1.030) Urine Protein Negative (Negative) Urine Glucose (UA) Negative (Negative) Urine Ketones Trace H (Negative) Urine Blood 3+ H (Negative) Urine Nitrite Negative (Negative) Urine Bilirubin Negative (Negative) Urine Urobilinogen Negative (Negative) Ur Leukocyte Esterase Negative (Negative) Urine WBC (Auto) 1-5 (0-5) /hpf Urine RBC (Auto) 10-30 H (0-4) /hpf U Hyaline Cast (Auto) 1-5 (0-5) /lpf U Epithel Cells (Auto) 5-10 H (0-5) /lpf Urine Bacteria (Auto) Negative (Negative) Urine Yeast Not Reportable COVID-19 Eval Order CovFluRsv at [facility] SARS-CoV-2 (PCR) NEGATIVE (Negative) Influenza Type A (PCR) Negative (Neg) Influenza Type B (PCR) Negative (Neg) RSV (RT-PCR) Negative (Neg) Diagnostic Findings CT Abdomen - Per STAT rad: No renal or ureteral stones. No grossly evident suspicious renal lesion. Trabeculated bladder with a superior bladder diverticulum. No stones in the bladder or inflammatory changes. No acute abnormality along the GI tract. Normal appendix. Remainder of the solid organs are unremarkable. No free fluid, fluid collection or free air CXR - by my interpretation - sternotomy wires in place, no acute process, similar to prior imaging PG Care Time/CCT Total # of Minutes Spent Total Time Spent with Patient: Total time spent is greater than 50% in coordination of care (as documented) at patient's floor/unit and/or counseling patient: Coding Level of Care Code 60570 OBS Care - Level 3 Diagnoses Generalized weakness R53.1 Ambulatory dysfunction R26.2 History of subdural hematoma Z86.79 Hypertension I10 Hypertension type: essential hypertension Mild cognitive impairment G31.84 Anemia D64.9 Anemia type: unspecified type Generalized tonic-clonic seizure G40.409 Hypercholesterolemia E78.00 Coronary artery disease I25.10 BPH loc w urin obs/LUTS N40.1 (1) Hypertension Hypertension type: essential hypertension Qualified Code(s): I10 - Essential (primary) hypertension (2) Anemia Anemia type: unspecified type Qualified Code(s): D64.9 - Anemia, unspecified
[2020-09-12] MEDS ORDERED: AZITHROMYCIN 500 MG in DEXTROSE 5% 250 ML IV STA (02:46)
[2020-09-12] MEDS ORDERED: ALBUTEROL 0.5% NEB SOLN 2.5 MG/0.5 ML VIAL NEB PRN (02:46)
[2020-09-12] MEDS ORDERED: DOCUSATE SODIUM 100 MG CAP PO PRN (02:46)
[2020-09-12] MEDS ORDERED: ACETAMINOPHEN 325 MG TAB PO PRN (02:46)
[2020-09-12 02:59] LABS: Phosphorus 3.3 mg/dl (2.5-4.9)
[2020-09-12] MEDS: LACTATED RINGER'S 1,000 ML IV SCH ×2 (03:05→15:29)
[2020-09-12] MEDS: ALBUT/IPRATROP 3MG/0.5MG NEB 3 ML VIAL NEB SCH ×6 (03:10→23:07)
[2020-09-12] MEDS: levETIRAcetam 500 MG TAB PO SCH ×3 (03:25→21:05)
--- NOTE | 2020-09-12 08:04 | CT Scan Report ---
CT OF THE ABDOMEN AND PELVIS WITHOUT CONTRAST CLINICAL HISTORY: hematuria, weakness COMPARISON STUDY: CT of the abdomen and pelvis July 09, 2019. TECHNIQUE: Axial images of the abdomen and pelvis were obtained without IV contrast. Images were revi ewed in the axial, sagittal, and coronal planes. Automated exposure control was utilized for the greg dy. A dose lowering technique was utilized adhering to the principles of ALARA. FINDINGS: Bases are unremarkable. This exam is mildly compromised by motion artifact. No renal, urete ral or bladder calculi are present. There is no hydronephrosis or hydroureter. Water attenuation righ t renal lesion is suboptimally assessed on this unenhanced exam but favors a cyst. The liver, spleen, adrenal glands and pancreas are unremarkable. There is no evidence for a bowel obstruction. The blad trung is mildly distended. Bladder wall irregularity is noted. There is a diverticulum of the superior aspect of the bladder. Smaller bladder diverticula are noted. Bladder wall is mildly trabeculated. No acute fracture or suspicious lesion is identified within visualized skeletal structures. Sensitivity for detection of urothelial lesions is diminished on this unenhanced exam. IMPRESSION: 1. No urinary calculi or hydronephrosis. 2. Mildly distended bladder. Bladder wall trabeculation with multiple bladder diverticula. Decreased sensitivity for detection of urothelial lesions on this unenhanced exam but none identified. 3. No bowel obstruction. ACT 112: Negative or not required by law. Electronically signed by: Luigi Garcia M.D. 09/12/2020 8:03 AM
--- NOTE | 2020-09-12 08:05 | XRay Report ---
XR chest 1V portable CLINICAL HISTORY: weakness COMPARISON STUDY: 03/20/2020 FINDINGS: There are postsurgical changes of midline sternotomy and aortic valve replacement. There is no failure. There is no focal pulmonary consolidation. There are no pleural effusions.[ IMPRESSION: No active disease in the chest. ACT 112: Negative or not required by law. Electronically signed by: Suman Bedolla M.D. 09/12/2020 8:04 AM
[2020-09-12] MEDS: TAMSULOSIN HCL 0.4 MG CAP PO SCH (08:46)
[2020-09-12] MEDS: ATORVASTATIN 20 MG TAB PO SCH (08:46)
[2020-09-12] MEDS: ASPIRIN 81 MG ECTAB PO SCH (08:46)
[2020-09-12] MEDS: FINASTERIDE 5 MG TAB PO SCH (08:46)
[2020-09-12] MEDS: lisinopril 10 MG TAB PO SCH (08:46)
--- NOTE | 2020-09-12 13:04 | Medical Student Progress Note ---
Date of Service September 12, 2020 Assessment & Plan (1) Pneumonia: Mr. Bruce is a 75-year-old man with PMHx of HTN, HLD, CAD, MCI, tobacco use, seizure on Keppra, and chronic subdural hematoma who presented to the ED this morning with weakness and fatigue. He was in his usual state of health un til 4 days ago, when a cough developed alongside subjective fevers. He also fell while reaching from the edge of his bed with a grabbing device, although he states this was not due to weakness or fatigue. Symptomatic history not entirely clear, likely secondary to baseline MCI. Pt minimized his symptoms when talking today relative to his ED note which mentions productive cough and MOY. U/A showed no signs of infection. CXR showed no acute process. CT A/P similarly found no acute process. Covid and flu -. -Etiology of Sx unclear, with pneumonia vs. possible COPD exacerbation being the most likely underlying causes of his cough and possible recent weakness. Pt has not been diagnosed with COPD, but does have a smoking history--of unclear duration likely secondary to baseline MCI. Wheezing on exam but no rales, no cough heard. -Afebrile, WBC 6.63 WNL, eating and drinking PO, ambulatory without weakness, denies respiratory symptoms today aside from a mild, nonproductive cough. CURB65 score of 2 (for hypotension and age). -Continue azithromycin IV Abx for suspicion of PNA. Can transition to PO prior to discharge. -Likely underlying COPD given smoking history and potential occupational exposure at [facility]. Recommend pt pursue outpatient PFTs with PCP in [place] to assess. -Recheck CXR tomorrow to check for consolidation. -Continue Duoneb q4hr. FEN: LR@80/hr x2L, electrolytes WNL, heart healthy diet DVT PPx: low risk, ASA and ambulation as tolerated Code Status: DNR/DNI Disposition: Continue inpatient for Abx and PT/OT, repeat CXR tomorrow, likely D/C tomorrow (2) Generalized weakness: -Likely secondary to pneumonia which is being treated with Abx. -Subjectively weakness is not a concern of pt today, objectively able to walk w ith PT but they recommend continued therapy to increase strength. -Continue PT/OT, fall precautions (3) History of subdural hematoma: History of stable, chronic subdural hematoma 02/2020. S/p left matilde hole craniotomy and evacuation and right mini craniotomy for subdural evacuation. -Continue outpatient followup at [facility] [place]. -Continue Keppra 2g BID (4) Hypertension: BP hypotensive this morning at 100/50, otherwise has been WNL. Given LR 80/hr x 2L. Continue to monitor. Hypertension type: essential hypertension Qualified Code(s): I10 - Essential (primary) hypertension (5) Mild cognitive impairment: -Mentation appears near baseline, oriented to person and place, partially oriented to time and situation. -Delirium precautions including frequent orientation, recommend lights and windows during the day. (6) Anemia: Hbg 12.5 today near baseline Anemia type: unspecified type Qualified Code(s): D64.9 - Anemia, unspecified (7) Generalized tonic-clonic seizure: Chronic concern, continue Keppra 2g BID (8) Hypercholesterolemia: Chronic condition, stable. Continue atorvastatin. (9) Coronary artery disease: Chronic condition, stable. Continue ASA, lisinopril, atorvastatin. (10) BPH loc w urin obs/LUTS: Chronic condition, stable. CT A/P found mildly distended bladder with multiple diverticula and no lesions identified. Pt denies urinary Sx and states he can ambulate to restroom appropriately. Follows with [facility] urology and they can monitor outpatient. Continue tamsulosin and finasteride. Admission and Anticipated Discharge Date Admission Date: September 12, 2020 Supervising Attestation I also saw the patient and performed a history and exam. I reviewed the documentation of the medical student in this note, with my note below. Upon our midmorning exam, the patient is in bed without complaints. He tells us that he feels better than admission, though he is not able to specifically say what is better. He denies cough, fever, chills. He denies abdominal pain. He denies difficulty with urination. 100/50, 61, 18, 36.7, 95% on room air Pleasant alert. No acute distress. Lungs with end expiratory wheezing, left greater than right, but present bilaterally. Heart regular rate and rhythm. Abdomen is soft and nontender. Data White blood cell count 6.63, hemoglobin 12.5, platelet count 117. BUN 17, creatinine 1.36. BNP 1201. Chest x-ray shows no active disease in the chest. CT scan of the abdomen and pelvis shows a mildly distended bladder, otherwise unremarkable. A urine culture shows no growth. IMPRESSION AND PLAN Generalized weakness with amatory dysfunction. Community-acquired pneumonia Continue azithromycin and gentle IV fluids. Continue albuterol. Physical therapy/Occupational Therapy evaluation The patient does not have a previous noted history of obstructive pulmonary disease -it is difficult to pin him down today with regards to [place] [facility] [place] [place] -but it sounds as if he was a smoker in the past and also has occupational exposures (sawmill). He may benefit from outpatient pulmonary function testing. Subjective Mr. Bruce states that he is feeling better this morning, and that he is having no symptoms. We discussed how he had been feeling ill the past few days with weakness, fatigue, productive cough, and MOY, and he says he is currently feeling almost completely better. He does not recall feeling weak or fatigued, and instead says that he fell off the edge of his bed when he was reaching for an object on Saturday, and that he hit his left elbow but was otherwise fine. He states he had mild cough with some clear sputum and his told him he felt warm. He does endorse a mild, nonproductive cough today. He says he has been eating well--including an egg sandwich this morning--drinking water, and sleeping okay. While we were talking he walked around the hallway with PT and said he did not feel short of breath, weak, or dizzy. He says he is a former smoker, although in several conversations today it was unclear if the duration was "a year" or "a few decades." Pt received his first Covid vaccine last Saturday. He says he is feeling well enough to return home and wants to D/C when possible. Review of Systems Review of Systems: All systems reviewed & are unremarkable except as noted in HPI & below Constitutional: no fever, no fatigue, no weakness and no anorexia Respiratory: + cough (mild, nonproductive); no dyspnea, no dyspnea on exertion, no pain on inspiration and no pain with cough Cardiovascular: no chest pain, no dyspnea, no palpitations and no syncope Gastrointestinal: no abdominal pain, no nausea, no vomiting, no dysphagia, no constipation and no diarrhea/loose stools Neurologic: no seizure-like activity, no dizziness, no headache(s) and no confusion Physical Exam Constitutional: WD/WN, vitals as above cooperative and comfortable (walking and sitting up in bed, eating a breakfast sandwich); no acute distress ENMT: external ear and nose normal, oropharynx normal Respiratory: normal respiratory effort; no respiratory distress, does not use accessory muscles and no cough (not heard during visit) Auscultation: + wheezes (diffuse wheezing); no rales and no rhonchi Cardiovascular: RRR, no murmur, no edema Heart Sounds: normal S1 and normal S2; no gallop, no murmur and no cardiac rub Gastrointestinal (Abdomen): normal bowel sounds, soft, nontender, no hepatosplenomegaly Percussion/Palpation: abdomen nontender, no guarding and abdomen not rigid Musculoskeletal: no cyanosis or clubbing, extremities motor strength 5/5 Skin: no rashes, warm and dry Neurologic: CN's II-XI intact bilaterally Psychiatric: Orientation: alert, oriented to person, oriented to place, oriented to time (knew August, thought 2019, then 2009, then unsure) and cooperative Apperance: appropriately dressed and appropriately groomed Eye Contact: good eye contact Results & Data ([facility]) Vital Signs (Past 12 Hours) Vital Signs Temp Pulse Pulse Resp BP BP Pulse Ox 09/12/20 11:38 95 09/12/20 10:54 61 18 97 09/12/20 07:20 52 L 16 96 09/12/20 06:58 36.7 C 55 L 16 100/50 L 93 09/12/20 03:10 56 L 16 94 09/12/20 02:50 37.8 C H 63 18 122/76 94 09/12/20 02:00 76 16 116/78 94 09/12/20 01:31 85 18 129/73 94 09/12/20 01:02 80 18 131/55 L 95 Pulse Ox 09/12/20 11:38 09/12/20 10:54 94 09/12/20 07:20 09/12/20 06:58 09/12/20 03:10 09/12/20 02:50 09/12/20 02:00 09/12/20 01:31 09/12/20 01:02
--- NOTE | 2020-09-12 16:08 | Electrocardiogram Report ---
Test Reason : Blood Pressure : / mmHG Vent. Rate : 082 BPM Atrial Rate : 063 BPM P-R Int : 142 ms QRS Dur : 084 ms QT Int : 350 ms P-R-T Axes : 000 070 -33 degrees QTc Int : 408 ms Sinus rhythm with frequent Premature ventricular complexes Abnormal ECG When compared with ECG of 09-APR-2020 15:38, Premature ventricular complexes are now Present T wave inversion now evident in Inferior leads T wave inversion now evident in Anterolateral leads QT has shortened Confirmed by Yinka Minaya ([id number]) on 09/12/2020 4:07:34 PM Referred By: REFERRED SELF Confirmed By:Remy Minaya
[2020-09-13] MEDS ORDERED: OLANZapine ZYDIS 5 MG ORALLY DIS. TAB PO ONE (03:20)
[2020-09-13] MEDS: ALBUT/IPRATROP 3MG/0.5MG NEB 3 ML VIAL NEB SCH ×6 (03:40→23:06)
[2020-09-13 07:14] LABS: Basophils # (auto) 0.01 K/uL (0-0.2); Basophils % (auto) 0.1 %; Eosinophils # (auto) 0.11 K/uL (0-0.5); Eosinophils % (auto) 1.6 %; Hematocrit (blood only) 33.9 % (42-52); Hemoglobin 12.1 g/dL (14.0-18.0); Immature Granulocytes # (auto) 0.01 K/uL (0.00-0.02); Immature Granulocytes % (auto) 0.1 %; Lymphocytes # (auto) 1.06 K/uL (1.2-3.4); Lymphocytes % (auto) 15.5 %; Mean Corpuscular Hemoglobin 30.9 pg (25-34); Mean Corpuscular Hgb Conc 35.7 g/dL (32-36); Mean Corpuscular Volume 86.7 fL (80-100); Mean Platelet Volume 10.3 fL (7.4-10.4); Monocytes # (auto) 0.99 K/uL (0.11-0.59); Monocytes % (auto) 14.5 %; Neutrophils # (auto) 4.67 K/uL (1.4-6.5); Neutrophils % (auto) 68.2 %; Platelet Count 118 K/uL (130-400); RDW Coefficient of Variation 13.1 % (11.5-14.5); RDW Standard Deviation 41.9 fL (36.4-46.3); Red Blood Count 3.91 M/uL (4.7-6.1); White Blood Count 6.85 K/uL (4.8-10.8)
--- NOTE | 2020-09-13 07:36 | XRay Report ---
XR chest 1V portable CLINICAL HISTORY: worsening mental status COMPARISON STUDY: 09/11/2020 FINDINGS: The heart is borderline enlarged. There is aortic tortuosity/ectasia. There are postsurgica l changes of midline sternotomy. There is aortic valve prosthesis. There is no failure. There are lef t basilar airspace opacities atelectasis versus pneumonia. A small left pleural effusion cannot be ex cluded.[ IMPRESSION: 1. Minor left basilar airspace opacities, atelectatic versus infectious/inflammatory. ACT 112: Negative or not required by law. Electronically signed by: Suman Bedolla M.D. 09/13/2020 7:34 AM
[2020-09-13 07:51] LABS: BUN Creatinine Ratio 15.3 (10-20); Calcium 8.5 mg/dl (8.5-10.1); Creatinine Clr Calc Pharmacy 63.5 ml/min; Est GFR (African American) 79.2; Est GFR (Non-African American) 68.3; Potassium 3.5 mmol/L (3.5-5.1)
[2020-09-13] MEDS: lisinopril 10 MG TAB PO SCH (09:54)
[2020-09-13] MEDS: levETIRAcetam 500 MG TAB PO SCH ×2 (09:54→20:10)
[2020-09-13] MEDS: ASPIRIN 81 MG ECTAB PO SCH (09:55)
[2020-09-13] MEDS: ATORVASTATIN 20 MG TAB PO SCH (09:55)
[2020-09-13] MEDS: TAMSULOSIN HCL 0.4 MG CAP PO SCH (09:55)
[2020-09-13] MEDS: FINASTERIDE 5 MG TAB PO SCH (09:55)
[2020-09-13] MEDS: AZITHROMYCIN 250 MG in DEXTROSE 5% 250 ML IV SCH (10:15)
[2020-09-13] MEDS ORDERED: cefTRIAXone SODIUM 2,000 MG in DEXTROSE 5% 50 ML IV SCH (10:15)
[2020-09-13] MEDS ORDERED: Nursing to Pharmacy Communication SCH ×2 (12:00→14:15)
[2020-09-13] MEDS: cefTRIAXone SODIUM 2,000 MG in DEXTROSE 5% 50 ML IV SCH (12:36)
--- NOTE | 2020-09-13 13:00 | Medical Student Progress Note ---
Date of Service September 13, 2020 Assessment & Plan (1) Pneumonia: Mr. Bruce is a 75-year-old man with PMHx of HTN, HLD, CAD, MCI, tobacco use, seizure on Keppra, and chronic subdural hematoma who presented to the ED Saturday with weakness and fatigue. He was in his usual state of health until 4 days ago, when a cough developed alongside subjective fevers. He also fell while reaching from the edge of his bed with a grabbing device, although he states this was not due to weakness or fatigue. Symptomatic history not entirely clear, likely secondary to baseline MCI. Pt minimized his symptoms relative to his ED note which mentions productive cough and MOY. U/A showed no signs of infection. CXR showed no acute process. CT A/P similarly found no acute process. Covid and flu -. -Repeat CXR today showed minor left basilar airspace opacities, atelectasis vs. inflammation/infection. -Etiology of Sx unclear, with pneumonia vs. possible COPD exacerbation being the most likely underlying causes of his cough and possible recent weakness. Pt has not been diagnosed with COPD, but does have a smoking history--of unclear duration likely secondary to baseline MCI. Wheezing on exam but no rales, no cough heard. -Afebrile, WBC 6.85 WNL, CURB65 score of 2 (for hypotension and age). -Pt fairly delirious this morning, as evidenced by his reaching for air and objects, difficulty communicating, and decreased attention. This is likely secondary to his PNA on top of his chronic MCI. Pt does not complain of SOB, cough, or weakness today, but this is unclear in the context of his delirium. -Continue azithromycin IV alongside ceftriaxone IV for empiric inpatient coverage of suspected PNA. Can transition to PO prior to discharge. -Likely underlying COPD given smoking history and potential occupational exposure at [facility]. Recommend pt pursue outpatient PFTs with PCP in [place] to assess. -Continue Duoneb q4hr. FEN: PO fluids, electrolytes WNL, heart healthy diet DVT PPx: low risk, ASA and ambulation as tolerated Code Status: DNR/DNI Disposition: Continue inpatient for Abx, PT/OT, and monitoring delirium. Case management spoke with pt's and she prefers home discharge vs. [facility] but knows he is not safe to return home yet due to his delirium and weakness. (2) Generalized weakness: -Likely secondary to pneumonia which is being treated with Abx. -Subjectively pt has said weakness improved, objectively able to walk with PT yesterday but they recommend continued therapy to increase strength. PT unable to assess today due to delirium. -Continue PT/OT, fall precautions (3) Delirium: -Pt has baseline MCI with some degree of expressive aphasia, but it was more pronounced today. Pt oriented to person and place, but not time or situation. -Pt fairly delirious this morning, as evidenced by his reaching for air and objects, difficulty communicating, and decreased attention. This is likely secondary to his PNA on top of his chronic MCI. -Delirium precautions, including minimizing sedating medications such as benzodiazepines and frequent reorientation including lights on and windows open during the day. -Pt required olanzapine overnight as well as a 1:1. (4) History of subdural hematoma: -History of stable, chronic subdural hematoma 02/2020. S/p left matilde hole craniotomy and evacuation and right mini craniotomy for subdural evacuation. -Continue outpatient followup at [facility]. -Continue Keppra 2g BID (5) Hypertension: BP stable today, most recently 122/76. Continue to monitor. Hypertension type: essential hypertension Qualified Code(s): I10 - Essential (primary) hypertension (6) Mild cognitive impairment: -Mentation altered today beyond baseline MCI, see delirium above. (7) Anemia: Hbg 12.1 today near baseline Anemia type: unspecified type Qualified Code(s): D64.9 - Anemia, unspecified (8) Generalized tonic-clonic seizure: Chronic concern, continue Keppra 2g BID (9) Hypercholesterolemia: Chronic condition, stable. Continue atorvastatin. (10) Coronary artery disease: Chronic condition, stable. Continue ASA, lisinopril, atorvastatin. (11) BPH loc w urin obs/LUTS: Chronic condition, stable. CT A/P found mildly distended bladder with multiple diverticula and no lesions identified. Pt denies urinary Sx and states he can ambulate to restroom appropriately. Follows with [facility] urology and they can monitor outpatient. Continue tamsulosin and finasteride. Admission and Anticipated Discharge Date Admission Date: September 12, 2020 Supervising Attestation Attending Attestation I also saw the patient with the resident and medical student earlier this morning. I agree with the impression and plan as noted in the documentation with details as noted below. Upon our exam around 9:00 this morning, the patient is quite confused. He was having some difficulty with breakfast (prolonged chewing without swallowing), he was reaching for items (my stethoscope, for example). He was aware that was in the hospital, but disoriented otherwise. Fortunately, he was much more lucid upon reexamination later in the day. Exam 122/76, 90, 20, 36.9, 93% on room air Pleasant awake, disoriented. Really no acute distress appreciated. Lungs with end expiratory wheezing, left greater than right, but present bilaterally. Heart regular rate and rhythm. Abdomen is soft and nontender. Laboratory White blood cell count 6.85, hemoglobin 12.1. BUN 16, creatinine 1.06 Imaging Chest x-ray demonstrates a left basilar airspace opacity. IMPRESSION AND PLAN Generalized weakness with amatory dysfunction. Metabolic encephalopathy Community-acquired pneumonia Continue azithromycin and gentle IV fluids. Continue albuterol. Physical therapy/Occupational Therapy evaluation I suspect there may be some degree of underlying dementia -this exacerbated secondary to acute illness. He did well this morning with support/reorientation. Subjective Mr. Bruce was laying in an sideways position on the bed with his legs hanging when I entered, with hands grasping above him at the air. With help from nursing we were able to situate him back into bed and cover him up. Per nursing, pt was confused overnight and received 5mg olazepine to assist with his agitation and I V pulling. It took several attempts to gather Mr. Bruce's attention this morning and he was able to answer only some of my questions. He stated that he is not experiencing any pain, weakness, cough, or difficulty breathing. Whereas yesterday it was somewhat difficult to comprehend his articulation, today his speech was significantly more slurred and difficult to understand. While we were talking he repeatedly reached for and grabbed my stethoscope. He was able to drink some water from a cup while we talked. He was oriented to person and place (hospital, [place]), but was unsure about time or situation. Review of Systems Review of Systems: All systems reviewed & are unremarkable except as noted in HPI & below Constitutional: no weakness and no anorexia Respiratory: no cough and no dyspnea Cardiovascular: no chest pain, no dyspnea and no palpitations Gastrointestinal: no abdominal pain Neurologic: no dizziness, no headache(s) and no confusion Physical Exam Constitutional: well developed and well nourished; no acute distress smiling, laying sideways in bed with his gown partially off. Repositioned in bed with help of nursing ENMT: external ear and nose normal, oropharynx normal Respiratory: normal respiratory effort and + grunting (audibly loud breathing as he reached for air/stethoscope, but no distress); no respiratory distress, does not use accessory muscles and no cough Auscultation: + wheezes (bilateral L>R); no rales and no rhonchi Cardiovascular: RRR, no murmur, no edema Heart Sounds: normal S1 and normal S2; no gallop, no murmur and no cardiac rub Gastrointestinal (Abdomen): normal bowel sounds, soft, nontender, no hepatosplenomegaly Percussion/Palpation: abdomen nontender, no guarding and abdomen not rigid Skin: no rashes, warm and dry Neurologic: CN's II-XI intact bilaterally Psychiatric: Orientation: oriented to person and oriented to place; + not oriented to time Eye Contact: + fair eye contact Cognition: + attention not intact (decreased attention and concentration) Results & Data ([facility]) Vital Signs (Past 12 Hours) Vital Signs Temp Pulse Resp BP Pulse Ox 09/13/20 11:16 83 20 96 09/13/20 08:28 36.9 C 83 16 122/76 96 09/13/20 07:49 82 20 94 09/13/20 03:42 89 20 92
[2020-09-13] MEDS ORDERED: ARTIFICIAL TEARS OP PRN (14:15)
[2020-09-14] MEDS: ALBUT/IPRATROP 3MG/0.5MG NEB 3 ML VIAL NEB SCH ×3 (03:16→11:31)
[2020-09-14 07:06] LABS: Hematocrit (blood only) 32.7 % (42-52); Hemoglobin 11.2 g/dL (14.0-18.0); Mean Corpuscular Hemoglobin 30.3 pg (25-34); Mean Corpuscular Hgb Conc 34.3 g/dL (32-36); Mean Corpuscular Volume 88.4 fL (80-100); RDW Coefficient of Variation 13.3 % (11.5-14.5); RDW Standard Deviation 42.8 fL (36.4-46.3); White Blood Count 5.16 K/uL (4.8-10.8)
[2020-09-14 07:39] LABS: Basophils # (auto) 0.01 K/uL (0-0.2); Basophils % (auto) 0.2 %; Eosinophils # (auto) 0.17 K/uL (0-0.5); Eosinophils % (auto) 3.3 %; Immature Granulocytes # (auto) 0.01 K/uL (0.00-0.02); Immature Granulocytes % (auto) 0.2 %; Lymphocytes # (auto) 1.18 K/uL (1.2-3.4); Lymphocytes % (auto) 22.9 %; Mean Platelet Volume 9.6 fL (7.4-10.4); Monocytes # (auto) 0.65 K/uL (0.11-0.59); Monocytes % (auto) 12.6 %; Neutrophils # (auto) 3.14 K/uL (1.4-6.5); Neutrophils % (auto) 60.8 %; Platelet Count 99 K/uL (130-400); Platelet Estimate Decreased (Normal)
[2020-09-14 07:43] LABS: BUN Creatinine Ratio 17.9 (10-20); Calcium 8.1 mg/dl (8.5-10.1); Creatinine Clr Calc Pharmacy 67.7 ml/min; Est GFR (Non-African American) 74.2; Potassium 3.3 mmol/L (3.5-5.1)
[2020-09-14] MEDS: levETIRAcetam 500 MG TAB PO SCH (08:33)
[2020-09-14] MEDS: FINASTERIDE 5 MG TAB PO SCH (08:34)
[2020-09-14] MEDS: ATORVASTATIN 20 MG TAB PO SCH (08:34)
[2020-09-14] MEDS: ASPIRIN 81 MG ECTAB PO SCH (08:34)
[2020-09-14] MEDS: lisinopril 10 MG TAB PO SCH (08:35)
[2020-09-14] MEDS: TAMSULOSIN HCL 0.4 MG CAP PO SCH (08:35)
[2020-09-14] MEDS: AZITHROMYCIN 250 MG in DEXTROSE 5% 250 ML IV SCH (09:40)
[2020-09-14] MEDS: cefTRIAXone SODIUM 2,000 MG in DEXTROSE 5% 50 ML IV SCH (12:43)
--- NOTE | 2020-09-14 12:44 | CT Scan Report ---
HEAD CT NONCONTRAST CT DOSE: 1730.28 mGycm HISTORY: Altered mental status. TECHNIQUE: Multiaxial CT images of the head were performed without the use of intravenous contrast. A utomated exposure control was utilized for this study. A dose lowering technique was utilized adheri ng to the principles of ALARA. Comparison: Head CT 04/09/2020. Findings: Mild to moderate mucosal thickening within the paranasal sinuses. This has progressed in th e interval. The mastoid air cells are clear. Prior right frontal craniotomy. There are 2 left-sided b urr holes again noted. No acute calvarial fractures. Mild motion artifact. No mass, midline shift, ac [place] infarct. Atrophy and microvascular ischemic changes are again noted. No acute intracranial hemorr lalo. Mild dural thickening deep to the craniotomy site favors postoperative change. A cavum septum p ellucidum is again noted. Impression: 1. No acute intracranial abnormality. 2. All postoperative changes as described above. ACT 112: Negative or not required by law. Electronically signed by: Andres Lamas M.D. 09/14/2020 12:43 PM
[2020-09-14] MEDS ORDERED: POTASSIUM CHLORIDE 20 MEQ/15 ML UDC PO ONE (13:45)
[2020-09-14] MEDS ORDERED: ALBUTEROL 0.083% NEBU SOLN 3 ML VIAL NEB PRN (14:20)
[2020-09-14] MEDS ORDERED: ALBUTEROL 0.5% NEB SOLN 2.5 MG/0.5 ML VIAL NEB SCH (15:00)
--- NOTE | 2020-09-14 15:46 | Medical Student Progress Note ---
Date of Service September 14, 2020 Assessment & Plan (1) Delirium: Mr. Bruce is a 75-year-old man with PMHx of HTN, HLD, CAD, MCI, tobacco use, seizure on Keppra, and chronic subdural hematoma who presented to the ED 09/12 with weakness and fatigue. He was in his usual state of health until 4 days ago, when a cough developed alongside subjective fevers. He also fell while reaching from the edge of his bed with a grabbing device, although he states this was not due to weakness or fatigue. Symptomatic history not entirely clear, likely secondary to baseline MCI. Pt minimized his symptoms relative to his ED note which mentions productive cough and MOY. U/A showed no signs of infection. CXR showed no acute process. CT A/P similarly found no acute process. Covid and flu -. Repeat CXR today showed minor left basilar airspace opacities, atelectasis vs. inflammation/infection. -Pt has baseline MCI with some degree of expressive aphasia, with some improvement today although still worse than on admission so likely not at baseline. Pt oriented to person and place, but not time or situation. -Pt still waxing and waning, with periods of reaching for air and objects and difficulty communicating, although improved from yesterday. Tested attention with days of week forward and backwards and he could do forward only today after being able to do neither yesterday. -Delirium is likely secondary to his PNA on top of his chronic MCI, with his Keppra as another possible etiology. He was admitted with a home dose of Keppra listed at 2000 BID which we had been continuing, although this is a very high dose and his most recent neurosurgery note 09/08 suggests he was on 1500 BID and was actually weaning off rather than increasing. Unclear whether 2000 BID dose initiated at home or in hospital. This high Keppra dose could explain his weakness and delirium Sx since admission. Keppra level from admission still pending and we bere another today to check for changes. Decreasing his evening dose tonight to 1000mg and tomorrow changing his dose to 1500 BID to slowly wean him off in case that was exacerbating his symptoms. -Delirium precautions, including minimizing sedating medications such as benzodiazepines and frequent reorientation including lights on and windows open during the day. -Required olanzapine overnight two days ago, but not since. FEN: PO fluids, continuing to monitor electrolytes with KCl 40 mEq supplemented today after K 3.3, heart healthy pureed diet DVT PPx: low risk, ASA and ambulation as tolerated Code Status: DNR/DNI Disposition: Continue inpatient for Abx, PT/OT, weaning Keppra dose, and monitoring delirium. Case management planning [facility] rehab upon discharge. (2) Generalized weakness: -Likely secondary to pneumonia which is being treated with Abx. As above, may also be related to high Keppra level. As we wean Keppra, monitor Sx to check for improvement of weakness. -Subjectively pt has said weakness improved, objectively working with PT and walking with difficulty. PT recommends rehab upon discharge and we are planning for him to go to [facility]. -Nursing reported some difficulty with eating, and he is doing better with a pureed diet. Continue heart healthy pureed diet. -Continue PT/OT, fall precautions (3) Pneumonia: -Etiology of Sx unclear, with pneumonia vs. possible COPD exacerbation being the most likely underlying causes of his cough and possible recent weakness. Pt has not been diagnosed with COPD, but does have a smoking history--of unclear duration likely secondary to baseline MCI. Wheezing on exam but no rales, no cough heard. -Afebrile, WBC 6.85 WNL, CURB65 score of 2 (for hypotension and age). -Continue azithromycin IV and ceftriaxone IV for empiric inpatient coverage of suspected PNA. Can transition to PO prior to discharge. -Likely underlying COPD given smoking history and potential occupational exposure at [facility]. Recommend pt pursue outpatient PFTs with PCP in [place] to assess. -Albuterol PRN. -Nursing reports pt having some mucus which may be leading to increased difficulty breathing. Ordered flutter valve for respiratory therapy which may help loosen his secretions (4) History of subdural hematoma: -History of stable, chronic subdural hematoma 02/2020. S/p left matilde hole craniotomy and evacuation and right mini craniotomy for subdural evacuation. -Continue outpatient followup at [facility] neuro[place]. -As above, weaning off his high dose of Keppra as it may be exacerbating his delirium and weakness. Keppra levels pending. (5) Hypertension: BP stable today, most recently 127/74. Continue to monitor. Hypertension type: essential hypertension Qualified Code(s): I10 - Essential (primary) hypertension (6) Mild cognitive impairment: -Mentation altered today beyond baseline MCI, see delirium above. (7) Hypercholesterolemia: Chronic condition, stable. Continue atorvastatin. (8) Coronary artery disease: Chronic condition, stable. Continue ASA, lisinopril, atorvastatin. (9) BPH loc w urin obs/LUTS: Chronic condition, stable. CT A/P found mildly distended bladder with multiple diverticula and no lesions identified. Pt denies urinary Sx and states he can ambulate to restroom appropriately. UCx showed gardnerella-like bacilli, although pt does not complain of urinary Sx so this is likely an asymptomatic bacteriuria in the setting of chronic BPH; no acute management needed. Follows with [facility] urology and they can monitor outpatient. Continue tamsulosin and finasteride. Admission and Anticipated Discharge Date Admission Date: September 12, 2020 Supervising Attestation Attending Attestation I also saw the patient with the resident and medical student earlier this morning. I agree with the impression and plan as noted in the documentation with details as noted below. We saw the patient this morning just as he was completing physical therapy. Discussed with the physical therapist who noted that the patient's ambulatory status has progressively declined since his admission. In speaking to the patient, he is slightly more oriented today compared to yesterday, but from what I can gather he is not at his baseline. His speech is also somewhat thick and is difficult to understand -again, judging from previous notes (neurosurgical outpatient notes and outpatient PCP notes), this is not his baseline. Investigation today raised some question regarding his Keppra dose. According to the last outpatient neurosurgery note, the plan was to begin a taper of his Keppra. He looks to have been at 1500 mg twice daily (three 500 mg tabs twice daily) and at that most recent office visit, the plan was to begin a taper. However, when the patient was admitted through the emergency department, the reported dose was 2000 mg twice daily. What is not clear is if the patient had inadvertently increased his dose prior to his ED presentation (this would explain some of his presenting symptoms), or whether he was taking the appropriate tapering course, and the medication was inadvertently increased upon his admission. A Keppra level was drawn upon his ED presentation, although this is still pending. Exam 116/74, 63, 18, 36.9, 94% on room air Pleasant awake, disoriented. Really no acute distress appreciated. Lungs are generally clear Heart regular rate and rhythm. Abdomen is soft and nontender. Laboratory White blood cell count 5.16, hemoglobin 11.2. Platelet count 99 Potassium 3.3 BUN 18, creatinine 0.[address] of the head showed no acute intracranial abnormality. Postoperative changes were noted. IMPRESSION AND PLAN Generalized weakness with amatory dysfunction. Metabolic encephalopathy (although possibly toxic encephalopathy) secondary to Keppra Community-acquired pneumonia Thrombocytopenia, mild, suspect secondary to Keppra Will reach out to family to see if we can determine what Keppra dose he was taking prior to his emergency department presentation Will decrease tonight's dose to 1000 mg, then resume 1500 mg twice daily, and start the taper as prescribed by neurosurgery. Hopefully the Keppra level drawn upon his presentation will be back tomorrow. Continue physical therapy; I am hopeful the disorientation and amatory dysfunction will improve as we decrease his Keppra. Subjective Mr. Bruce was snoring with his eyes partially open when I came in. It took him a moment to orient himself but he was able to talk to me somewhat more comprehensibly than yesterday, although still noticeably less well than two days ago. He states he is pretty good, with no pain. He says he slept well, that he is drinking water and eating pureed foods, and that he had a BM yesterday. He endorsed a nonproductive cough and denied confusion, SOB, and any pain or weakness. Review of Systems Review of Systems: All systems reviewed & are unremarkable except as noted in HPI & below Constitutional: no fever and no weakness Respiratory: + cough; no dyspnea Cardiovascular: no chest pain, no dyspnea, no palpitations and no lightheadedness Gastrointestinal: no abdominal pain, no nausea, no vomiting, no constipation and no diarrhea/loose stools Neurologic: no headache(s) and no confusion Physical Exam Constitutional: well developed, well nourished, cooperative (agreeable, but decreased attention) and comfortable; no acute distress ENMT: external ear and nose normal, oropharynx normal Respiratory: normal respiratory effort and + audible wheezes; no respiratory distress and no cough Auscultation: + wheezes (bilateral, improving) Cardiovascular: RRR, no murmur, no edema Heart Sounds: normal S1 and normal S2; no gallop, no murmur and no cardiac rub Gastrointestinal (Abdomen): normal bowel sounds, soft, nontender, no hepatosplenomegaly Percussion/Palpation: abdomen nontender, no guarding and abdomen not rigid Skin: no rashes, warm and dry Neurologic: + confused (less than yesterday, able to answer most questions) Speech / Cognition: + abnormal speech (difficult to comprehend, although improving from yesterday) Psychiatric: Orientation: oriented to person, oriented to place and cooperative; + not oriented to time Eye Contact: + fair eye contact Affect: euthymic affect Hallucinations: + visual hallucinations (grabbing at air above him) Results & Data ([facility]) Vital Signs (Past 12 Hours) Vital Signs Temp Pulse Resp BP Pulse Ox 09/14/20 07:52 37.3 C 65 16 127/74 95 09/14/20 07:48 63 20 94
[2020-09-14] MEDS ORDERED: guaiFENesin 600 MG TABCR PO PRN (16:41)
[2020-09-14] MEDS ORDERED: levETIRAcetam 500 MG TAB PO ONE ×2 (17:00→21:00)
[2020-09-15] MEDS ORDERED: OLANZapine ZYDIS 5 MG ORALLY DIS. TAB PO ONE (03:42)
[2020-09-15 07:37] LABS: Basophils # (auto) 0.02 K/uL (0-0.2); Basophils % (auto) 0.3 %; Eosinophils # (auto) 0.26 K/uL (0-0.5); Eosinophils % (auto) 3.9 %; Hematocrit (blood only) 34.4 % (42-52); Hemoglobin 11.8 g/dL (14.0-18.0); Immature Granulocytes # (auto) 0.01 K/uL (0.00-0.02); Immature Granulocytes % (auto) 0.2 %; Lymphocytes # (auto) 1.21 K/uL (1.2-3.4); Lymphocytes % (auto) 18.3 %; Mean Corpuscular Hemoglobin 30.4 pg (25-34); Mean Corpuscular Hgb Conc 34.3 g/dL (32-36); Mean Corpuscular Volume 88.7 fL (80-100); Monocytes # (auto) 0.65 K/uL (0.11-0.59); Monocytes % (auto) 9.8 %; Neutrophils # (auto) 4.47 K/uL (1.4-6.5); Neutrophils % (auto) 67.5 %; Platelet Count 126 K/uL (130-400); RDW Coefficient of Variation 13.1 % (11.5-14.5); RDW Standard Deviation 42.3 fL (36.4-46.3); Red Blood Count 3.88 M/uL (4.7-6.1); White Blood Count 6.62 K/uL (4.8-10.8)
[2020-09-15 08:09] LABS: BUN Creatinine Ratio 16.9 (10-20); Calcium 8.5 mg/dl (8.5-10.1); Creatinine Clr Calc Pharmacy 77.2 ml/min; Est GFR (African American) 98.3; Est GFR (Non-African American) 84.8; Potassium 3.9 mmol/L (3.5-5.1)
[2020-09-15] MEDS: AZITHROMYCIN 250 MG in DEXTROSE 5% 250 ML IV SCH (08:49)
[2020-09-15] MEDS: lisinopril 10 MG TAB PO SCH (08:50)
[2020-09-15] MEDS: ATORVASTATIN 20 MG TAB PO SCH (08:50)
[2020-09-15] MEDS: TAMSULOSIN HCL 0.4 MG CAP PO SCH (08:50)
[2020-09-15] MEDS: FINASTERIDE 5 MG TAB PO SCH (08:51)
[2020-09-15] MEDS: ASPIRIN 81 MG ECTAB PO SCH (08:51)
[2020-09-15] MEDS ORDERED: levETIRAcetam 500 MG TAB PO SCH (09:00)
[2020-09-15] MEDS: cefTRIAXone SODIUM 2,000 MG in DEXTROSE 5% 50 ML IV SCH (12:11)
--- NOTE | 2020-09-15 13:54 | Medical Student Progress Note ---
Date of Service September 15, 2020 Assessment & Plan (1) Delirium: Mr. Bruce is a 75-year-old man with PMHx of HTN, HLD, CAD, MCI, tobacco use, seizure on Keppra, and chronic subdural hematoma who presented to the ED 09/12 with weakness and fatigue. He was in his usual state of health until one w [place] ago, when a cough developed alongside subjective fevers. He also fell while reaching from the edge of his bed with a grabbing device, although he states this was not due to weakness or fatigue. Symptomatic history not entirely clear, likely secondary to baseline MCI. Pt minimized his symptoms relative to his ED note which mentions productive cough and MOY. U/A showed no signs of infection. CXR showed no acute process. CT A/P similarly found no acute process. Covid and flu -. Repeat CXR showed minor left basilar airspace opacities, atelectasis vs. inflammation/infection. -Pt has baseline MCI with some degree of expressive aphasia, still not at baseline and difficult to comprehend. Pt oriented to person, but not place ([place]), time (2004), or situation (headache). -Pt still waxing and waning, with periods of reaching for air and objects and difficulty communicating, as well as a period of uncharacteristic anger yesterday per his . Tested attention with days of week forward and backwards and he could not even attempt today. -Delirium is likely secondary to his PNA on top of his chronic MCI, with his Keppra as another possible etiology. He was admitted with a home dose of Keppra listed at 2000 BID which we had been continuing, although this is a very high dose and his most recent neurosurgery note 09/08 suggests he was on 1500 BID and was actually weaning off rather than increasing. Spoke to pt's who said he was taking 1000 BID prior to admission. This high Keppra dose could explain some of his weakness and delirium Sx since admission. Keppra level from admission 22 WNL and we bere another yesterday to check for changes. Decreasing Keppra to 1000 BID to slowly wean him off in case that was exacerbating his symptoms. -Delirium precautions, including minimizing sedating medications such as benzodiazepines and frequent reorientation including lights on and windows open during the day. -Required olanzapine overnight again last night -Repeating CXR today to check for changes in his PNA given improving lung exam but not Sx -Given his unclear delirium etiology which is not improving, consulting neurology to consider any other possible sources and potential further imaging. Their recommendations appreciated FEN: PO fluids, electrolytes WNL, heart healthy pureed diet DVT PPx: low risk, ASA and ambulation as tolerated Code Status: DNR/DNI Disposition: Continue inpatient for Abx, PT/OT, weaning Keppra dose, and monitoring delirium. Case management planning [facility] upon discharge. (2) Generalized weakness: -Likely secondary to pneumonia which is being treated with Abx. As above, may also be related to high Keppra level. As we wean Keppra, monitor Sx to check for improvement of weakness. -Subjectively pt has said weakness improved, objectively working with PT and walking with difficulty. PT recommends rehab upon discharge and we are planning for him to go to [facility]. -Nursing reported some difficulty with eating, and he is doing better with a pureed diet. Continue heart healthy pureed diet. -Continue PT/OT, fall precautions (3) Pneumonia: -Etiology of Sx unclear, with pneumonia vs. possible COPD exacerbation being the most likely underlying causes of his cough and possible recent weakness. Pt has not been diagnosed with COPD, but does have a smoking history--of unclear duration likely secondary to baseline MCI. Wheezing on exam but no rales, no cough heard. -Afebrile, WBC 6.62 WNL, CURB65 score of 2 (for initial hypotension and age). -Continue azithromycin IV and ceftriaxone IV for empiric inpatient coverage of suspected PNA. Can transition to PO prior to discharge. -Likely underlying COPD given smoking history and potential occupational exposure at [facility]. Recommend pt pursue outpatient PFTs with PCP in [place] to assess. -Albuterol PRN. -pt having some mucus which may be leading to increased difficulty breathing. Guaifenesin PRN and flutter valve given which may help loosen his secretions (4) History of subdural hematoma: -History of stable, chronic subdural hematoma 02/2020. S/p left matilde hole craniotomy and evacuation and right mini craniotomy for subdural evacuation. -[place] [facility] [place] -As above, weaning off his high dose of Keppra as it may be exacerbating his delirium and weakness. Keppra levels WNL, repeat Keppra level pending. (5) BPH loc w urin obs/LUTS: -Chronic condition. CT A/P found mildly distended bladder with multiple diverticula and no lesions identified. -Pt denies urinary Sx but was having urinary retention. Curtis catheter placed. Continue to monitor -UCx showed Gardnerella-like bacilli, although pt does not complain of urinary Sx so this is likely an asymptomatic bacteriuria in the setting of chronic BPH; no acute management needed. His azithromycin should also be treating the Gardnerella. -Follows with [facility] urology and they can monitor outpatient. Continue tamsulosin and finasteride. (6) Hypertension: BP stable today, most recently 103/. Continue to monitor. Hypertension type: essential hypertension Qualified Code(s): I10 - Essential (primary) hypertension (7) Mild cognitive impairment: -Mentation altered today beyond baseline MCI, see delirium above. (8) Hypercholesterolemia: Chronic condition, stable. Continue atorvastatin. (9) Coronary artery disease: Chronic condition, stable. Continue ASA, lisinopril, atorvastatin. (10) Tobacco chew use: Pt's states he uses one can of tobacco at home daily. Started nicotine patch 7 in case withdrawal may explain part of his delirium etiology. Continue to monitor. Admission and Anticipated Discharge Date Admission Date: September 12, 2020 Supervising Attestation Attending Attestation I also saw the patient with the resident and medical student this afternoon. I agree with the impression and plan as noted in the documentation with details as noted below. The patient remains disoriented and confused. He will reach for things in the air; he will follow some commands. His speech is rather " thick." Sometimes very difficult to understand. We did confirm with his that this is much different from his baseline. We also confirmed with his that he had started the Keppra taper as [place] [facility] [place] He was on 1500 mg twice daily tapering down to 1000 mg twice daily. As noted yesterday, that medication reconciliation in the emergency department had 2000 mg twice daily and he received that on Saturday, Saturday, and one dose Saturday AM. Keppra dose drawn upon admission returned today was 22.7. There was some confusion upon his initial presentation, otherwise continually worsened during his hospitalization. Exam 103/, 64, 16, 37.1 C, 94% on room air Pleasant awake, disoriented. Really no acute distress appreciated. Lungs are generally clear Heart regular rate and rhythm. Abdomen is soft and nontender. Laboratory White blood cell 6.62, hemoglobin 11.8. Both essentially stable Platelet count is 126, up from 99 yesterday BMP is rather unremarkable, preserved renal function. Keppra level upon presentation 22.[address] of the head (09/14) showed no acute intracranial abnormality. Postoperative changes were noted. A chest x-ray done today shows slight improvement of the left basilar opacity, a telectasis versus pneumonia. IMPRESSION AND PLAN Generalized weakness with ambulatory dysfunction. Metabolic encephalopathy (infection) versus toxic encephalopathy (Keppra) Community-acquired pneumonia Thrombocytopenia, mild, suspect secondary to Keppra The reason for his abnormal mental status is not clear. His pneumonia is not overly impressive, both in his symptoms (minimal cough, no fever) and labs (normal white count) and imaging (infiltrate versus atelectasis) -so I am not sure if it would explain his mental status. Keppra could be another possibility -although not sure if five higher doses over a 2-1/2-day timeframe would present as such (I would expect more fatigue rather than the disorientation/dysarthria that he now has). CT of the head yesterday was unremarkable; MRI could be considered although I am not sure if he would remain still long enough for the test. Given the uncertainty, agree with neurology consultation. We have lowered his Keppra dose and will follow the wean originally prescribed by neurosurgery. Continue antibiotics for possible pneumonia, although again, I am not convinced that if he has a pneumonia, it would lead to his mental status changes. Subjective Mr. Bruce was again laying sideways with his legs off the bed talking to the empty room when I entered. The nursing team helped to reposition him, which helped with his productive coughing somewhat. Per nursing he was again agitated last night and needed olanzapine 5. This morning he was more agreeable and calm, although still quite confused. He states he is not feeling any pain and is not having shortness of breath, but that he is coughing up mucus. He was able to feed himself pureed foods using a utensil yesterday and this morning unassisted. He fell asleep once while we were talking, and also reached spontaneously at the air twice during our conversation. I spoke to his both yesterday and today and she confirmed that she manages his meds at home and that he had started to taper his Keppra after the 09/08 neurosurg visit and was taking 1000mg BID prior to admission. She states when she visited him yesterday he was confused, agitated, and uncharacteristically angry. She also said he chews 1 can of tobacco daily and was curious if tobacco withdrawal could be part of his agitation. Review of Systems Review of Systems: All systems reviewed & are unremarkable except as noted in HPI & below Constitutional: no fever and no fatigue Respiratory: + cough; no dyspnea Cardiovascular: no chest pain, no dyspnea, no palpitations and no lightheadedness Gastrointestinal: no abdominal pain, no nausea and no vomiting Neurologic: no dizziness, no headache(s) and no confusion Physical Exam Constitutional: well developed and well nourished; no acute distress Laying in bed with legs hanging off, periodically grabbing up at the air, talking to himself prior to my entering Eyes: PERRL, conjunctivae normal, anicteric sclerae ENMT: external ear and nose normal, oropharynx normal Mouth: + audible dysphonia (difficult to comprehend, not at baseline); no lip abnormality and no oropharynx abnormality Respiratory: normal respiratory effort; no respiratory distress Auscultation: + wheezes (faint end-expiratory wheezing L>R); no rales and no rho nchi Cardiovascular: RRR, no murmur, no edema Heart Sounds: normal S1 and normal S2; no gallop, no murmur and no cardiac rub Gastrointestinal (Abdomen): normal bowel sounds, soft, nontender, no hepatosplenomegaly Percussion/Palpation: abdomen nontender, no guarding and abdomen not rigid Skin: no rashes, warm and dry Neurologic: moves all extremities, awake and + confused Speech / Cognition: + abnormal speech Psychiatric: Orientation: oriented to person and cooperative; + not oriented to place and + not oriented to time Eye Contact: good eye contact Affect: euthymic affect Hallucinations: + auditory hallucinations (talking to an empt y room) and + visual hallucinations (reaching up at the air during our conversation) Results & Data ([facility]) Vital Signs (Past 12 Hours) Vital Signs Temp Pulse Resp BP Pulse Ox 09/15/20 06:21 36.6 C 74 16 138/77 93
--- NOTE | 2020-09-15 14:26 | XRay Report ---
XR chest 1V portable CLINICAL HISTORY: pneumonia COMPARISON STUDY: 09/13/2020 FINDINGS: There are postsurgical changes of a midline sternotomy and valvular replacement. There are improving left basilar opacities. There is no failure. There are no pleural effusions. IMPRESSION: Slight improvement in the left basilar opacities, atelectasis versus pneumonia. ACT 112: Negative or not required by law. Electronically signed by: Suman Bedolla M.D. 09/15/2020 2:24 PM
[2020-09-15] MEDS: NICOTINE 7 MG/24 HR TDSY TD SCH (15:35)
[2020-09-15] MEDS: ENOXAPARIN INJ 40 MG/0.4 ML SYR SQ SCH (18:10)
[2020-09-15] MEDS: levETIRAcetam 500 MG TAB PO SCH (20:23)
[2020-09-16 06:24] LABS: Basophils # (auto) 0.03 K/uL (0-0.2); Basophils % (auto) 0.6 %; Eosinophils # (auto) 0.27 K/uL (0-0.5); Eosinophils % (auto) 5.1 %; Hematocrit (blood only) 35.9 % (42-52); Hemoglobin 12.5 g/dL (14.0-18.0); Immature Granulocytes # (auto) 0.01 K/uL (0.00-0.02); Immature Granulocytes % (auto) 0.2 %; Mean Corpuscular Hemoglobin 30.8 pg (25-34); Mean Corpuscular Hgb Conc 34.8 g/dL (32-36); Mean Corpuscular Volume 88.4 fL (80-100); Mean Platelet Volume 10.1 fL (7.4-10.4); Monocytes # (auto) 0.57 K/uL (0.11-0.59); Monocytes % (auto) 10.7 %; Neutrophils # (auto) 2.85 K/uL (1.4-6.5); Neutrophils % (auto) 53.4 %; Platelet Count 136 K/uL (130-400); RDW Coefficient of Variation 12.7 % (11.5-14.5); RDW Standard Deviation 41.2 fL (36.4-46.3); Red Blood Count 4.06 M/uL (4.7-6.1); White Blood Count 5.33 K/uL (4.8-10.8)
[2020-09-16 06:54] LABS: Calcium 8.5 mg/dl (8.5-10.1); Creatinine Clr Calc Pharmacy 74.9 ml/min; Est GFR (African American) 96.9; Est GFR (Non-African American) 83.6; Potassium 3.6 mmol/L (3.5-5.1)
[2020-09-16] MEDS: ASPIRIN 81 MG ECTAB PO SCH (08:40)
[2020-09-16] MEDS: TAMSULOSIN HCL 0.4 MG CAP PO SCH (08:40)
[2020-09-16] MEDS: ATORVASTATIN 20 MG TAB PO SCH (08:40)
[2020-09-16] MEDS: FINASTERIDE 5 MG TAB PO SCH (08:40)
[2020-09-16] MEDS: levETIRAcetam 500 MG TAB PO SCH ×2 (08:41→21:01)
[2020-09-16] MEDS: lisinopril 10 MG TAB PO SCH (08:41)
[2020-09-16] MEDS: NICOTINE 7 MG/24 HR TDSY TD SCH (08:41)
[2020-09-16] MEDS: ENOXAPARIN INJ 40 MG/0.4 ML SYR SQ SCH (08:41)
[2020-09-16] MEDS: AZITHROMYCIN 250 MG in DEXTROSE 5% 250 ML IV SCH (08:56)
[2020-09-16] MEDS: NICOTINE 21 MG/24 HR TDSY TD SCH (12:11)
[2020-09-16 12:17] LABS: Folate (Folic Acid) > 20.00 ng/ml (>5.38); Vitamin B12 544 pg/ml (193-986)
--- NOTE | 2020-09-16 12:46 | Hospitalist Progress Note ---
Date of Service September 16, 2020 Assessment & Plan Admission and Anticipated Discharge Date Admission Date: September 15, 2020 Results & Data Results & Data ([facility]) Vital Signs (Past 12 Hours) Vital Signs Temp Pulse Resp BP Pulse Ox 09/16/20 07:36 36.6 C 81 16 153/88 H 94 CBC Results Results Complete Blood Count Results: RBC 4.06 M/uL (4.7-6.1) L 09/16/20 WBC 5.33 K/uL (4.8-10.8) 09/16/20 Hgb 12.5 g/dL (14.0-18.0) L 09/16/20 Hct 35.9 % (42-52) L 09/16/20 Plt Count 136 K/uL (130-400) 09/16/20 Chemistry (BMP) Results BMP Results: Sodium 142 mmol/L (136-145) 09/16/20 Potassium 3.6 mmol/L (3.5-5.1) 09/16/20 Chloride 110 mmol/L (98-107) H 09/16/20 BUN 17 mg/dl (7-18) 09/16/20 Creatinine 0.89 mg/dl (0.6-1.4) 09/16/20 Glucose 90 mg/dl (70-99) 09/16/20
--- NOTE | 2020-09-16 14:20 | Medical Student Progress Note ---
Date of Service September 16, 2020 Assessment & Plan (1) Delirium: Mr. Bruce is a 75-year-old man with PMHx of HTN, HLD, CAD, MCI, tobacco use, seizure on Keppra, and chronic subdural hematoma who presented to the ED 09/12 with weakness and fatigue. He was in his usual state of health until one w [place] ago, when a cough developed alongside subjective fevers. He also fell at home while reaching from the edge of his bed with a grabbing device, although he states this was not due to weakness or fatigue. Symptomatic history not entirely clear, likely secondary to baseline MCI. Pt minimized his symptoms relative to his ED note which mentions productive cough and MOY. U/A showed no signs of infection. CXR showed no acute process. CT A/P similarly found no acute process. Covid and flu -. Repeat CXR showed minor left basilar airspace opacities, atelectasis vs. inflammation/infection. -Pt has baseline MCI with some degree of dysarthria, still not at baseline and difficult to comprehend. Pt oriented to person and place, but not time or situation. It is difficult to differentiate between confusion and expressive difficulty, but there is an element of both present -Pt still waxing and waning, with periods of reaching for air and objects and difficulty communicating, as well as a period of uncharacteristic anger 09/14 per his . Tested attention with days of week forward and backwards and he could not even attempt today. -Delirium is likely secondary to his PNA on top of his chronic MCI, with his Keppra as another possible etiology. He was admitted with a home dose of Keppra listed at 2000 BID which we had been continuing, although this is a very high dose and his most recent neurosurgery note 09/08 suggests he was on 1500 BID and was actually weaning off rather than increasing. Spoke to pt's who said he was taking 1000 BID prior to admission. This high Keppra dose could explain some of his weakness and delirium Sx since admission. Keppra level from admission 22 WNL and we bere another after we decreased his Keppra dose to check for changes. Decreasing Keppra to 1000 BID to slowly wean him off in case that was exacerbating his symptoms. -Delirium precautions, including minimizing sedating medications such as benzodiazepines and frequent reorientation including lights on and windows open during the day. -After requiring olanzapine 5 twice over the past few days for agitation, required olanzapine 10 overnight. This is helping with the overnight agitation, but could be exacerbating delirium as well -Checking vitamin B12, folate, and ammonia levels as other possible delirium contributors -Given his unclear delirium etiology which is not improving, consulting neurology to consider any other possible sources and potential further imaging. Their recommendations appreciated FEN: PO fluids, electrolytes WNL, heart healthy pureed diet DVT PPx: low risk, ASA and ambulation as tolerated Code Status: DNR/DNI Disposition: Continue inpatient for Abx, PT/OT, weaning Keppra dose, and monitoring delirium. Case management planning [facility] rehab upon discharge. (2) Generalized weakness: -Likely secondary to pneumonia which is being treated with Abx. As above, may also be related to high Keppra level. As we wean Keppra, monitor Sx to check for improvement of weakness. -Subjectively pt has said weakness improved, objectively working with PT and walking with difficulty. PT recommends rehab upon discharge and we are planning for him to go to [facility]. -Nursing reported some difficulty with eating, and he is doing better with a pureed diet. Continue heart healthy pureed diet. -Continue PT/OT, fall precautions (3) Pneumonia: -Etiology of Sx unclear, with pneumonia vs. possible COPD exacerbation being the most likely underlying causes of his cough and possible recent weakness. Pt has not been diagnosed with COPD, but does have a smoking history--of unclear duration likely secondary to baseline MCI. Wheezing on exam but no rales, no cough heard. -Afebrile, WBC 5.33 WNL, CURB65 score of 2 (for initial hypotension and age). -Continue azithromycin IV and ceftriaxone IV for empiric inpatient coverage of suspected PNA. Can transition to PO prior to discharge. -Likely underlying COPD given smoking history and potential occupational exposure at [facility]. Recommend pt pursue outpatient PFTs with PCP in [place] to assess. -Albuterol PRN. -pt having some mucus which may be leading to increased difficulty breathing. Guaifenesin PRN and flutter valve given which may help loosen his secretions -Third CXR yesterday showed improving PNA, lung exam improved, pt still coughing (4) History of subdural hematoma: -History of stable, chronic subdural hematoma 02/2020. S/p left matilde hole craniotomy and evacuation and right mini craniotomy for subdural evacuation. -Continue outpatient followup at [facility] [place] neurosurgery. -As above, weaning off his high dose of Keppra as it may be exacerbating his delirium and weakness. Keppra levels WNL, repeat Keppra level pending. (5) BPH loc w urin obs/LUTS: -Chronic condition. CT A/P found mildly distended bladder with multiple diverticula and no lesions identified. -Pt denies urinary Sx but was having urinary retention. Curtis catheter placed. Continue to monitor -UCx showed Gardnerella-like bacilli, although pt does not complain of urinary Sx so this is likely an asymptomatic bacteriuria in the setting of chronic BPH; no acute management needed. His azithromycin should also be treating the Gardnerella. -Follows with [facility] urology and they can monitor outpatient. Continue tamsulosin and finasteride. (6) Hypertension: BP stable today, most recently 153/88. Continue to monitor. Hypertension type: essential hypertension Qualified Code(s): I10 - Essential (primary) hypertension (7) Mild cognitive impairment: -Mentation altered today beyond baseline MCI, see delirium above. (8) Hypercholesterolemia: Chronic condition, stable. Continue atorvastatin. (9) Coronary artery disease: Chronic condition, stable. Continue ASA, lisinopril, atorvastatin. (10) Tobacco chew use: Pt's states he uses one can of tobacco at home daily. Continue nicotine patch 21 in case withdrawal may explain part of his delirium etiology. Continue to monitor. (11) COPD (chronic obstructive pulmonary disease): -Some smoking history, duration unclear per pt and . Also has occupa tional exposure from [employer] work. -Checking ABG today in case this could partially explain his Sx COPD type: unspecified COPD Qualified Code(s): J44.9 - Chronic obstructive pulmonary disease, unspecified (12) Constipation: -Has not had a BM since 09/12 and has recently been having urinary retention requiring Curtis in the setting of chronic BPH. Potentially related to delirium. -KUB today to further assess -Miralax 17g once now and PRN thereafter Admission and Anticipated Discharge Date Admission Date: September 15, 2020 Supervising Attestation Patient seen and examined with medical student and PGY-1 Dr. Frias. Agree with history, exam findings, assessment and plan of care as outlined. In brief, Mr. Bruce is a 75 year old male with history of HTN, HLD, CAD, tobacco use, seizure, cognitive impairment and chronic subdural hematoma admitted with weakness and fatigue as well as a fall. Since admission, has been having worsening mental status and worsening of his baseline dysarthria. 1. Metabolic encephalopathy secondary to pneumonia vs other infection like UTI vs overmedication with keppra. Work up in progress. Added thiamine. No EEG or MRI needed at this point. Checking UA for signs of new infection. Continue with non-pharmacologic interventions for minimizing delirium. If needed, ok to use Seroquel 25 or 50mg at night. Appreciate neuro recommendations. 2. Pneumonia. Continue azithromycin. D/eamon ceftriaxone. 3. Dysarthria. Worsened from baseline. Likely secondary to encephalopathy. 4. Underlying COPD with smoking hx. Rec outpatient PFTs. Albuterol PRN. 5. Chronic subdural hematoma. Follows with neurosurgery. 6. Seizures. Weaning keppra dose to previously recommended dosage. 7. HTN. Continue 8. CAD. Continue home atorvastatin, ASA, Lisinopril. 9. BPH with LUTS. Urinary retention. Urine culture with Gardnerella. Continue home tamsulosin and finasteride. Subjective Mr. Bruce was laying with his gown exposed, loudly snoring with his eyes open, and periodically speaking to the empty room when I entered. He was more difficult to comprehend today relative to yesterday and still reached up at the air spontaneously several times. In response to him coughing and my asking him if he still had a productive cough he stated, "What do you think?" He said it was frustrating that we are not able to understand him well. He knew his name and birthday, knew that we were in [place], but was not oriented to time (2002) or situation. He denied any pain or SOB. Review of Systems Review of Systems: All systems reviewed & are unremarkable except as noted in HPI & below Constitutional: no fever Respiratory: + cough; no dyspnea Cardiovascular: no chest pain, no dyspnea and no palpitations Gastrointestinal: no abdominal pain Neurologic: + confusion; no dizziness and no headache(s) Physical Exam Constitutional: well developed and well nourished; no acute distress ENMT: external ear and nose normal, oropharynx normal Mouth: + audible dysphonia Respiratory: normal respiratory effort, lungs clear to auscultation + stridor (loud inspiratory snoring-like stridor, not baseline); no respiratory distress and does not use accessory muscles Auscultation: no rales, no rhonchi and no wheezes Cardiovascular: RRR, no murmur, no edema Heart Sounds: normal S1 and normal S2; no gallop, no murmur and no cardiac rub Gastrointestinal (Abdomen): normal bowel sounds, soft, nontender, no hepatosplenomegaly Percussion/Palpation: abdomen nontender, no guarding and abdomen not rigid Skin: no rashes, warm and dry Neurologic: moves all extremities, awake (although spontaneously falls asleep during discussion) and + confused Psychiatric: Orientation: alert, oriented to person and oriented to place; + not oriented to time Eye Contact: + fair eye contact Results & Data ([facility]) Vital Signs (Past 12 Hours) Vital Signs Temp Pulse Resp BP Pulse Ox 09/16/20 07:36 36.6 C 81 16 153/88 H 94
[2020-09-16] MEDS ORDERED: POLYETHYLENE (MIRALAX) 17 GM PACK PO PRN (14:45)
[2020-09-16] MEDS ORDERED: POLYETHYLENE (MIRALAX) 17 GM PACK PO STA (14:46)
[2020-09-16 14:48] LABS: Base Excess ABG 2.1 mEq/L (-9-1.8); HCO3 ABG 25 mmol/L (19-24); PCO2 ABG 35 mmHg (35-46); PO2 ABG 72 mmHg (80-95); pH ABG 7.48 (7.35-7.45)
--- NOTE | 2020-09-16 14:56 | Neurology Consultation ---
Date of Consultation September 16, 2020 Assessment & Plan (1) AMS (altered mental status): Emigdio Bruce is a 75 yo man w/ PMH of HTN, HLD, MCI, h/o SDH in 02/2020 s/p clot evac c/b seizure on keppra, tobacco abuse, hearing loss, anemia, CAD and COPD whom neurology is consulted on for ongoing AMS/delirium. # AMS: suspect delirium in the setting of known MCI. Primary team has done relatively extensive basic workup other than MRI and EEG though these are unlikely to add further diagnostic knowledge. -Add thiamine supplementation (100mg IV daily for 3 days, then 250mg PO thereafter) -Check UA to rule out infection -Delirium precautions, lights on during day/lights off at night, frequent reorientation, out of bed to chair with safety belt, avoid benzos and opiates. Keep hospitalization as short as possible to prevent further worsening of delirium. -If needed for agitation, would do Seroquel 25-50 mg qhs. Thank you for this interesting consult. Plan of care discussed with primary team. Please call or text with questions. (2) Mild cognitive impairment: History of Present Illness Attending Physician: Fany Thakkar DO History of Present Illness Emigdio Bruce is a 75 yo man w/ PMH of HTN, HLD, MCI, h/o SDH in 02/2020 s/p clot evac c/b seizure on keppra, tobacco abuse, hearing loss, anemia, CAD and COPD whom neurology is consulted on for ongoing AMS/delirium. He was initially admitted to the hospital on 09/12/2020 after a 4-day history of generalized weakness and fatigue. He was also noted to have a slight cough, worsening shortness of breath and generalized weakness with ambulatory dysfunction. He was being treated for possible COPD exacerbation or pneumonia with azithromycin and ceftriaxone when he was noted to start having agitated delirium on 09/13/2020 including inattentiveness, hallucinations and issues with verbal communication. Dose of Keppra was decreased to 1000 mg twice daily with Keppra level pending. Delirium precautions initiated. Most recent labs show WBC 5.33, hemoglobin 12.5 with MCV 88.4, platelets 136, BMP unremarkable with BUN 17 and creatinine 0.7, ABG pending, ammonia less than 10, LFTs within normal, B12 544, folate greater than 20, TSH WNL, COVID negative. No recent UA but has been on ceftriaxone for several days. Imaging independently reviewed. CTH shows no hemorrhage or hypodensity, +mild generalized atrophy with mild to moderate SVID noted, with prior right frontal craniotomy site also noted. He has received zyprexa twice for agitation this admission. On examination, he reports that he feels his normal self except for the hoarse voice that he has and ongoing coughing. Does endorse having mild memory problems at baseline but does not feel like they are currently worse than they have been. Allergies Allergy/AdvReac Type Severity Reaction Status Date / Time No Known Allergies Allergy Verified 09/11/20 21:31 Home Medications Medication Instructions Recorded Confirmed Type atorvastatin 20 mg PO QAM 11/11/18 09/11/20 History omega 3-izs-gjb-fish oil [Fish Oil] 1 cap PO QAM 11/11/18 09/11/20 History finasteride 5 mg PO QAM 03/01/20 09/11/20 History tamsulosin 0.4 mg PO QAM 03/01/20 09/11/20 History docusate sodium 100 mg PO BID PRN 03/21/20 09/11/20 History aspirin [Aspirin Low Dose] 81 mg PO QAM 04/09/20 09/11/20 History levetiracetam 1,000 mg tablet 2,000 mg PO Q12H tab 04/19/20 09/11/20 History lisinopril 10 mg tablet 10 mg PO QAM #90 tab 05/03/20 09/11/20 Rx Patient History Medical History Anemia Basal cell carcinoma (02/09/19) Left preauricular region: 02/09/2019 BPH loc w urin obs/LUTS Coronary artery disease Generalized tonic-clonic seizure (~03/2020) Hearing deficit History of basal cell carcinoma (BCC) of skin History of rheumatic fever as a child History of subdural hematoma (03/01/20) Hypercholesterolemia Hypertension Mild cognitive impairment Osteoarthritis Sensorineural hearing loss of both ears Tobacco user Urinary retention Surgical History H/O vasectomy History of colonoscopy with polypectomy History of craniotomy (03/01/20) left-sided matilde hole craniotomy and evacuation as well as a right-sided mini craniotomy for subdural evacuation History of open heart surgery (~2006) @ [facility] "valve replacement and bypass surgery" History of testicular surgery left History of tooth extraction all teeth S/P Mohs surgery for basal cell carcinoma Family History Mother Breast cancer Family history of diabetes mellitus Other H/O vasectomy History of open heart surgery Hypercholesterolemia No family history of adverse response to anesthesia Denies family history of Ovarian cancer Prostate cancer Diabetes Coronary heart disease Heart disease Myocardial infarction Lung cancer Colorectal cancer Social History Smoking Status: Former smoker Tobacco Type: Smokeless Tobacco (Dip or Chew) Second Hand Exposure: No; Hx Alcohol Use: No Hx Substance Use: No Preferred Language: [place] Communication Ability: Effective Visual Impairment: Limited Hearing Ability: Normal Acid Concentrator Required: No Beliefs That Will Affect Care: None marital status: Current Living Situation: Spouse Current Living Situation Comment: Homw with current occupational status: retired How many Children do You have: 1 Feels Safe at Home: Yes Safety Concerns: Feels Safe At This Time Childhood Exposure to Second-Hand Smoke: No caffeine: No during the past year weight has: remained stable Dental Care, Regularly: No Physical Activity Frequency: Daily Seatbelt Use: always Sunscreen Use: No Assistive Devices: Walker Review of Systems Review of Systems: Unobtainable due to cognitive status Exam (Neuro) Physical Exam: General Exam: GEN: NAD, sitting in bed HEENT: No conjunctival injection, no rhinorrhea. CV: RRR, no peripheral edema PULM: Nonlabored respirations on room air. Neuro Exam: MS: Awake and Alert. Oriented to person, place (in hospital but thought it was [facility]), and month/year (not date). Speech fluent and appropriate with dysarthria, without paraphasic errors. Language intact including naming, comprehension, repetition. Cognition and memory mildly impaired. Attention intact. No neglect. CN: Visual tomlinson full. No extinction to double simultaneous stimuli. Unable to visualize fundi on fundoscopic exam. PERRLA OU. EOMI without nystagmus. Facial sensation intact to LT. Facial muscles full and symmetric. Hearing intact to conversation. Shoulder shrug normal. Tongue midline. MOTOR: Normal bulk and tone. No pronator drift. BUE strength 5/5 at deltoids, biceps, triceps, and hand grasp bilaterally. BLE strength 5/5 at iliopsoas, hamstrings, quadriceps, tibialis anterior, and gastrocnemius bilaterally. REFLEXES: 1+ at biceps, triceps, brachioradialis, trace patella and absent Achilles bilaterally. Flexor plantar responses bilaterally. SENSORY: Intact to LT without extinction to double simultaneous stimuli. COORDINATION: No dysmetria or ataxia on [id number]-hypu bilaterally. GAIT: deferred given physical status Results & Data ([facility]) Vital Signs (Past 12 Hours) Vital Signs Temp Pulse Resp BP Pulse Ox 09/16/20 07:36 36.6 C 81 16 153/88 H 94 PG Care Time/CCT Total # of Minutes Spent Total Time Spent with Patient: Total time spent is greater than 50% in coordination of care (as documented) at patient's floor/unit and/or counseling patient: Coding Level of Care Code 70254 Initial Inpt Care Lvl 3 Diagnoses AMS (altered mental status) R41.82 Mild cognitive impairment G31.84
[2020-09-16 15:01] LABS: Allen Test POS (Pos)
--- NOTE | 2020-09-16 15:24 | XRay Report ---
KUB HISTORY: Acute generalized abdominal pain with constipation constipation COMPARISON: CT abdomen and pelvis 09/11/2020 FINDINGS: Prior median sternotomy. Nonobstructive bowel gas pattern. Air-filled loops of large and sm all bowel. Colonic stool and appears to be mild and within normal limits. No renal calculi. No urete ral calculi. No pneumoperitoneum or pneumatosis. No fracture. IMPRESSION: 1. Nonobstructive bowel gas pattern. 2. Colonic stool volume is mild and within normal limits. ACT 112: Negative or not required by law. The above report was generated using voice recognition software. It may contain grammatical, syntax o r spelling errors. Electronically signed by: Chuy Mai M.D. 09/16/2020 3:23 PM
[2020-09-16] MEDS: THIAMINE HCL 100 MG in SYRINGE 9 ML IV SCH (18:19)
[2020-09-17 05:52] LABS: Basophils # (auto) 0.02 K/uL (0-0.2); Basophils % (auto) 0.3 %; Eosinophils # (auto) 0.24 K/uL (0-0.5); Eosinophils % (auto) 3.5 %; Hematocrit (blood only) 38.7 % (42-52); Hemoglobin 13.5 g/dL (14.0-18.0); Immature Granulocytes # (auto) 0.02 K/uL (0.00-0.02); Immature Granulocytes % (auto) 0.3 %; Lymphocytes # (auto) 1.22 K/uL (1.2-3.4); Lymphocytes % (auto) 17.7 %; Mean Corpuscular Hemoglobin 30.5 pg (25-34); Mean Corpuscular Hgb Conc 34.9 g/dL (32-36); Mean Corpuscular Volume 87.4 fL (80-100); Mean Platelet Volume 10.1 fL (7.4-10.4); Monocytes % (auto) 10.1 %; Neutrophils # (auto) 4.71 K/uL (1.4-6.5); Neutrophils % (auto) 68.1 %; Platelet Count 168 K/uL (130-400); RDW Coefficient of Variation 12.4 % (11.5-14.5); RDW Standard Deviation 40.2 fL (36.4-46.3); Red Blood Count 4.43 M/uL (4.7-6.1); White Blood Count 6.91 K/uL (4.8-10.8)
[2020-09-17 06:25] LABS: BUN Creatinine Ratio 25.4 (10-20); Calcium 8.4 mg/dl (8.5-10.1); Est GFR (African American) 96.5; Est GFR (Non-African American) 83.3; Potassium 3.8 mmol/L (3.5-5.1)
[2020-09-17 06:55] LABS: Appearance Urine Clear (Clear); Bacteria Urine Automated Negative (Negative); Bilirubin Urine Negative (Negative); Blood Urine 3+ (Negative); Color Urine Dark Yellow; Epithelial Cell Urine Auto >30 /lpf (0-5); Glucose Urine UA Negative (Negative); Ketones Urine 2+ (Negative); Leukocyte Esterase Urine Negative (Negative); Nitrite Urine Negative (Negative); Protein Urine 3+ (Negative); RBC Urine Automated >30 /hpf (0-4); Specific Gravity Urine 1.029 (1.000-1.030); Urobilinogen Urine Negative (Negative); pH Urine 5.5 (4.5-7.5)
[2020-09-17] MEDS: TAMSULOSIN HCL 0.4 MG CAP PO SCH (08:45)
[2020-09-17] MEDS: ATORVASTATIN 20 MG TAB PO SCH (08:45)
[2020-09-17] MEDS: levETIRAcetam 500 MG TAB PO SCH (08:45)
[2020-09-17] MEDS: ASPIRIN 81 MG ECTAB PO SCH (08:45)
[2020-09-17] MEDS: ENOXAPARIN INJ 40 MG/0.4 ML SYR SQ SCH (08:45)
[2020-09-17] MEDS: lisinopril 10 MG TAB PO SCH (08:45)
[2020-09-17] MEDS: FINASTERIDE 5 MG TAB PO SCH (08:45)
[2020-09-17] MEDS: THIAMINE HCL 100 MG in SYRINGE 9 ML IV SCH (08:46)
[2020-09-17] MEDS: NICOTINE 21 MG/24 HR TDSY TD SCH (08:46)
[2020-09-17] MEDS: AZITHROMYCIN 250 MG in DEXTROSE 5% 250 ML IV SCH (09:05)
--- NOTE | 2020-09-17 11:46 | Discharge Summary ---
Date of Service September 17, 2020 Admission HPI Per Admitting Provider Emigdio Bruce is a 75yo male presenting with weakness and fatigue. Patient was in his usual state of health on 4 days ago. [place] [facility] [place], was ambulating without difficulty. He developed a slight cough 3 days ago and also sustained a mechanical fall at home resulting in a left elbow abrasion. He developed worsening cough productive for thick sputum as well as subjective fever two days ago and has had progressive shortness of breath at rest and with ambulation. He is also quite weak and having difficulty getting himself up and ambulating. Poor sleep due to shortness of breath, no PO x 2 days. He denies chest pain/palpitations/nausea/vomiting/diarrhea or constipation. Denies rashes/dysuria/focal numbness/weakness/edema/orthopnea. No sick contacts. No recent travel aside from [place]. He received his first Covid-19 vaccine on 09/06/20 ER Course: ALbuterol neb, NSS Admission Exam Per Admitting Provider General: elderly male patient resting comfortably, NAD, non-toxic in appearance, pleasantly demented, oriented to self and location Skin: warm, dry, intact, no rashes or lesions HEENT: NC/AT, PERRL, EOMI, anicteric sclera, conjunctiva without injection, external ear normal to inspection and nontender, nares patent, dry mucus membranes, dentition intact, no oropharyngeal lesions, neck supple, trachea midline, no LAD, no thyromegaly, no JVD Heart: +S1/S2, regular, no m/r/g Lungs: equal air entry bilaterally, scattered end-expiratory wheezing in bilateral lung tomlinson, no rhonchi/rales Abd: +BS, soft, NT/ND, no masses/organomegaly/ascites Ext: warm, 2+ pulses in UE/LE bilaterally, no clubbing/cyanosis or edema Neuro: nonfocal, patient AA&O x 2, speech intact, no facial droop, moving all extremities on command with equal strength 5/5 Principal Diagnosis CAP, delirium, deconditioning Discharge Exam Constitutional WD/WN, vitals as above Respiratory normal respiratory effort, lungs clear to auscultation Cardiovascular RRR, no murmur, no edema Gastrointestinal (Abdomen) normal bowel sounds, soft, nontender, no hepatosplenomegaly Skin no rashes, warm and dry Psychiatric Orientation: alert, oriented to person and oriented to place Affect: euthymic affect Discharge Data Allergies Allergy/AdvReac Type Severity Reaction Status Date / Time No Known Allergies Allergy Verified 09/11/20 21:31 Consultations 09/12/20 02:00 ED Decision to Admit Stat 09/15/20 14:17 Consult Neurology Routine Procedures Performed Operation Date: 09/16/20 07:00 <No data on this case meets the specified criteria> Ordered Studies 09/11/20 22:26 CT abd pelvis wo con Urgent 09/14/20 11:05 CT head/brain wo con Urgent Hospital Course (1) Pneumonia: 75 yo M with PMHx of HTN, HLD, CAD, MCI, tobacco use, seizure on Keppra, and chronic subdural hematoma admitted for weakness and fatigue, and developed delirium during his stay. Weakness/Fatigue: - Questionably due to CAP/COPD, was on IV antibiotics for several days and transitioned to azithromycin, course completed today. - Also likely some element of deconditioning, PT/OT reviewed his case and after working with him recommended acute inpatient rehab. - Speech Therapy consult performed this admission due to some difficulty eating, recommended pureed diet moving forward. - Recommend pt pursue outpatient PFTs with PCP in [place] to assess for COPD; has not been diagnosed in the past however patient has smoking history. - Albuterol and guaifenesin as needed for SOB/secretions. - Follow up with PCP in 1 week. Delirium: - During admission noted to have several episodes of confusion, agitation, hallucinations with reaching for things that were not there. - Noted on intake Med Reconciliation to be on Keppra 2000 BID dosing, however confirmed with patient actually on 1000 BID. - Keppra level still pending. Suspect some element of delirium due to increased Keppra dosing. - B12 and Folate levels checked; these were normal. - Neurology consult placed, findings believed to be secondary to delirium as opposed to new CVA or other neurologic process. - In the future can consider Seroquel if has agitation or continued confusion episodes. Dysarthria: - While admitted some dysarthria worsening was noted, CT Head performed without new findings. - Also notable that patient's bottom dentures are not in, which per makes him incredibly difficult to understand. - Pureed diet as above, use dentures for communication. BPH: - History of, with some possible urinary retention this admission. Did have Curtis removed on day of discharge. - UCx earlier this admission showed Gardnerella-like bacteria, however no urinary symptoms on admission. - Follows with [facility] for BPH. - Continue finasteride and tamsulosin. - Can straight cath as needed if having urinary retention. Constipation: - While admitted noted to have BM q3 days, abnormal for patient. - KUB with no significant fecal retention. - Miralax PRN constipation, can titrate dose so patient has one loose formed BM daily. Subdural hematoma: - History of stable, chronic subdural hematoma 02/2020. S/p left matilde hole craniotomy and evacuation and right mini craniotomy for subdural evacuation. - Continue outpatient followup at [facility] [place] for wean of Keppra dosing. Discharged on 1000mg BID. Hypertension: - Continue home lisinopril. Hypercholesterolemia: - Continue atorvastatin. Coronary artery disease: - Continue ASA, lisinopril, atorvastatin. Tobacco chew use: - Pt's states he uses one can of tobacco at home daily. Continue nicotine patch prn. (2) COPD (chronic obstructive pulmonary disease): (3) Delirium: (4) Constipation: (5) Generalized weakness: (6) Ambulatory dysfunction: Total Time Total Time Spent Total Time Spent (In Minutes): see attending attestation Discharge Plan Discharge Items Patient Disposition: Transfer Inpatient Rehab Fac Reason For Visit: SOB Discharge Diagnosis: CAP Activity: Per Instructions section Non-emergency contact: Primary Care Provider Call non-emergency contact if: your symptoms worsen and your temperature is above 101 Follow-up/Referrals: Jonathan Altamirano CRNP [Primary Care Provider] - (1-2 weeks following discharge) Diet: Heart Healthy Diet Texture: Pureed (blended smooth) Addtl Attending Provider Instructions: 75 yo M with PMHx of HTN, HLD, CAD, MCI, tobacco use, seizure on Keppra, and chronic subdural hematoma admitted for weakness and fatigue, and developed delirium during his stay. Weakness/Fatigue: - Questionably due to CAP/COPD, was on IV antibiotics for several days and tr ansitioned to azithromycin, which completed today. - Also likely some element of deconditioning, PT/OT reviewed his case and after working with him recommended acute inpatient rehab. - UA x2 no signs of infection. - Speech Therapy consult performed this admission due to some difficulty eating, recommended pureed diet moving forward. - Recommend pt pursue outpatient PFTs with PCP in [place] to assess for COPD; has not been diagnosed in the past however patient has smoking history. - Albuterol and guaifenesin as needed for SOB/secretions. - FOllow up with PCP in one week. Delirium: - During admission noted to have several episodes of confusion, agitation, hallucinations with reaching for things that were not there. - Noted on intake Med Reconciliation to be on Keppra 2000 BID dosing, however confirmed with patient actually on 1000 BID. - Keppra level still pending. Suspect some element of delirium due to increased Keppra dosing. - B12 and Folate levels checked; these were normal. - Neurology consult placed, findings believed to be secondary to delirium as opposed to new CVA or other neurologic process. - If episodes of agitation on discharge can use Seroquel qHS; avoid Haldol and Zyprexa. Dysarthria: - While admitted some dysarthria worsening noted, CT Head performed without new findings. - Also notable that patient's bottom dentures are not in, which per makes him incredibly difficult to understand. - Pureed diet as above, use dentures for communication. Constipation: - While admitted noted to have BM q3 days, abnormal for patient. - KUB with no significant fecal retention. - Miralax PRN constipation, can titrate dose so patient has one loose formed BM daily. Subdural hematoma: - History of stable, chronic subdural hematoma 02/2020. S/p left matilde hole craniotomy and evacuation and right mini craniotomy for subdural evacuation. - Continue outpatient followup at [facility] [place] for wean of Keppra dosing. Discharged on 1000mg BID. BPH: - History of, with some possible urinary retention this admission. Did have Curtis removed on day of discharge. - UCx earlier this admission showed Gardnerella-like bacteria, however no urinary symptoms on admission. - Follows with [facility] for BPH. - Continue finasteride and tamsulosin. - Can straight cath as needed if having urinary retention. Hypertension: - Continue home lisinopril. Hypercholesterolemia: - Continue atorvastatin. Coronary artery disease: - Continue ASA, lisinopril, atorvastatin. Tobacco chew use: - Pt's states he uses one can of tobacco at home daily. Continue nicotine patch prn. Pending Studies at Discharge: Yes Studies:: Keppra level Stand-Alone Forms: My [facility] Skilled Items Patient informed of condition?: Yes DNR: Yes Discharge Level of Care: Acute rehab Communicable Disease: No Discharge Prognosis: Improving Lines: None Urinary Catheter: No Medications and DC Order Prescriptions: New albuterol sulfate 2.5 mg /3 mL (0.083 %) Solution For Nebulization 2.5 mg NEB Q12H PRN (Reason: shortness of breath or wheezing) 30 Days RF: 0 nicotine [Nicoderm CQ] 21 mg/24 hr Patch 24 Hour 21 mg transdermal QAM 30 Days RF: 0 levetiracetam [Keppra] 500 mg Tablet 1,000 mg PO BID 30 Days Qty: 120 RF: 0 polyethylene glycol 3350 [Miralax] 17 gram Powder In Packet 17 g PO DAILY PRN (Reason: constipation) 30 Days RF: 0 guaifenesin [Mucinex] 600 mg Tablet Extended Release 12hr 600 mg PO Q12 PRN (Reason: congestion) 30 Days RF: 0 Continued lisinopril 10 mg tablet 10 mg PO QAM Qty: 90 RF: 1 omega 8-hbz-iyw-fish oil [Fish Oil] 1,000 mg (120 mg-180 mg) Capsule 1 cap PO QAM RF: 0 atorvastatin 20 mg Tablet 20 mg PO QAM RF: 0 docusate sodium 100 mg Capsule 100 mg PO BID PRN (Reason: Constipation) RF: 0 tamsulosin 0.4 mg capsule 0.4 mg PO QAM RF: 0 finasteride 5 mg tablet 5 mg PO QAM RF: 0 aspirin [Aspirin Low Dose] 81 mg Tablet,Delayed Release (Dr/Ec) 81 mg PO QAM RF: 0 Discontinued levetiracetam 1,000 mg tablet 2,000 mg PO Q12H RF: 0 Discharge Orders: Discharge Order (Routine); Ordered 09/17/20 Ordered By: Maris Reece Admission Data Admit Date/Time: 09/15/20 16:03 Attending Provider: Fany Thakkar Admit Provider: Horacio Diaz Primary Care Provider: Jonathan Altamirano Other Providers: Dulce Davila ; [facility] ; [place] ; Christina Fox Other Interventions: Discharge Summary Assessment (RN) Last Done: 09/17/20 15:36 Supervising Physician Co-Signing Physician Notes Patient seen and examined independently of PGY-2 Dr. Reece. Agree with history, exam findings, assessment and plan of care as outlined. In brief, Mr. Bruce is a 75 year old male with history of HTN, HLD, CAD, tobacco use, seizure, cognitive impairment and chronic subdural hematoma admitted with weakness and fatigue as well as a fall. Feels much better. Does not have his lower dentures in. Did not require Seroquel overnight. Vital signs and nursing notes reviewed. More alert when compared to yesterday. Appropriately answering simple questions. 1. Metabolic encephalopathy secondary to pneumonia vs other infection like UTI vs overmedication with keppra. Improved. Added thiamine. No EEG or MRI needed at this point. UA without signs of infection. . Continue with non-pharmacologic interventions for minimizing delirium. If needed, ok to use Seroquel 25 or 50mg at night. Appreciate neuro recommendations. 2. Pneumonia. Continue azithromycin. D/eamon ceftriaxone. 3. Dysarthria. Improved from yesterday. 4. Underlying COPD with smoking hx. Rec outpatient PFTs. Albuterol PRN. 5. Chronic subdural hematoma. Follows with neurosurgery. 6. Seizures. Weaning keppra dose to previously recommended dosage. Repeat keppra level from 09/14 is still pending. 7. HTN. Continue 8. CAD. Continue home atorvastatin, ASA, Lisinopril. 9. BPH with LUTS. Urinary retention. Urine culture with Gardnerella. Continue home tamsulosin and finasteride. Dispo: discharge to [facility] today. I personally spent 35 minutes discharge planning for this patient. Resident Activity Tracking Resident Involvement: Resident Care Provided Care Provided: Adult Hospital Medicine
--- NOTE | 2020-09-22 12:09 | Coding Query ---
CODING QUERY To promote full compliance with coding requirements relating to patient care, provider participation is requested in all cases of coconut jelly roller uncertainty. Please assist us with the question(s) below: Coding Question(s): The Discharge Summary documents, "Metabolic encephalopathy secondary to pneumonia vs other infection like UTI" and, "UA without signs of infection", and "BPH with LUTS. Urinary retention. Urine culture with Gardnerella". It is not clear if UTI is still possible or has been ruled-out. Please specify below, in your clinical opinion. ( x ) Possible UTI was treated ( ) Possible UTI was Ruled-Out ( ) Other: Please Specify Physician's Response(s): Thank you Josiane Glass Principal Diagnosis: "that condition established after study, to be chiefly responsible for occasioning the admission of the patient to the hospital for care." Co-Existing Principal Diagnosis: "when two or more diagnoses equally meet the criteria for principal diagnosis as determined by the circumstances of admission, diagnostic work up, and/or therapy provided, and the Alphabetic Index, Tabular List, or another coding guideline does not provide sequencing direction, any one of the diagnoses may be sequenced first." "When the physician has documented what appears to be a current diagnosis in the body of the record, but has not included the diagnosis in the final diagnostic statement, the physician should be asked whether the diagnosis should be added." (Source Coding Clinic 2 QTR90. p3-4) CONCEPCION
== END 2020-09-17 16:08 | DRG 193 ==
LOC: ED 20:23 → 3N 20:23 → SUATTDRO 09-12 02:02 → 3N 09-12 02:33 → SUATTDRO 09-15 16:03

== ENCOUNTER 2022-05-20 10:58 | Observation (INO) ==
--- NOTE | 2022-05-20 11:53 | Emergency Department Note ---
Impression & Plan Weakness, Diarrhea, Acute dehydration, Acute electrocardiogram changes ED Provider Note NAME: VEL RODRIGUES AGE: 76 SEX: M : 1945 ARRIVES VIA: Ambulance INFORMANT: Patient, ED PROVIDER(S): Kevin Chavez MD Chief Complaint: Weakness, fall HPI: Patient presents due to concern for weakness and fall. The patient did have a fall yesterday to where he was so weak that he fell forward onto his stomach. Patient denies any head strike or LOC. Patient denies any numbness tingling or focal weakness. No chest pains or shortness of breath. The patient reported he has had some diarrhea. Patient denies any vomiting. Patient has no head neck back or chest pain. Patient feels that his appetite is appropriate. The patient does use a walker at home. The patient does believe that he is able to toilet eating clothe himself at home. Patient lives with his . Patient denies any alcohol or tobacco use ROS: See HPI for pertinent positives and negatives. A total of 10 systems were reviewed and otherwise negative. Past medical history: See below Surgical history: See below Social history: See below Physical Exam: GENERAL: NAD, non-toxic, wearing glasses. EYE EXAM: Normal conjunctiva. PERRL, no anisocoria and EOM's grossly intact w/o pain. Left eye exotropia Head: Normocephalic atraumatic. NECK: Supple, no nuchal rigidity, no adenopathy, non-tender. No signs of meningismus. FROM of the neck with good chin to chest and neck extension. No stridor. No midline or paraspinal C-spine TTP. No anterior neck pain no evidence of trauma. LUNGS: Clear to auscultation. Normal chest wall mechanics. Chest: No pain to palpation. HEART: NSR, no MRG. ABDOMEN: Abdomen soft, non-tender, normo-active bowel sounds, no masses, no rebound or guarding. BACK: No CVA TTP. SKIN: No rashes and no bruising. UPPER EXTREMITIES: Upper extremities are grossly normal. LOWER EXTREMITIES: Grossly normal, no edema. NEURO EXAM: A&O x3, cranial nerves II-XII grossly intact, normal speech, moves all 4 extremities weakly but w/ symmetric weakness, no sensosry deficits Differential diagnoses: Infection, dehydration, metabolic abnormality, hypo/hyperglycemia, electrolyte disturbance, anemia, hypoxia, cardiac sources, intracerebral event, toxicologic, neurologic, as well as other pathologies. Course: Patient was seen and evaluated the bedside. Full history physical exam was performed. EKG interpreted by me Normal sinus rhythm, rate of 61, normal intervals normal axis, T wave inversion in the anterior lateral leads. T wave versions also inferiorly. Patient's T wave inversions do appear new from comparison EKG September 29, 2020. Imaging Studies: See Below Cardiac monitoring: An order was placed for continuous cardiac monitoring. The monitor shows a rate of 66 with sinus rhythm. MDM: Patient presents due to concern for weakness and recent fall. No head strike or pain with fall. The patient has had associated diarrhea. Patient did have blood work completed was given IV fluids. Patient does not take any blood thinning medications. Patient did not take his morning meds. Patient is normal white count H&H and mild thrombocytopenia at 121. Kidney function is unremarkable. Urinalysis does not show evidence of obvious infection. COVID-negative. Patient is unable to sit up from the bed or even walk. Given this weakness concern and I did speak the on-call hospitalist. Patient did have a borderline elevated troponin and does have new T wave inversions. The patient denies any chest pains or shortness of breath. It [place] the on-call hospitalist Dr. Hook. Patient will be admitted to the medicine service. Patient was given strict follow-up, discharge, and return precautions. All questions were answered. Patient was deemed suitable for outpatient follow-up at this time. Patient agreed with the plan of care and was discharged home. Past Med/Surg History Medical History Anemia Basal cell carcinoma (02/09/19) Left preauricular region: 02/09/2019 BPH loc w urin obs/LUTS Chronic back pain COPD (chronic obstructive pulmonary disease) mild. rarely uses inhaler. Coronary artery disease Generalized tonic-clonic seizure (~03/2020) no problems since 03/2020 Generalized weakness Hearing deficit History of rheumatic fever as a child History of subdural hematoma (03/01/20) Hydronephrosis, right Hypercholesterolemia Hypertension hx - no current medications Mild cognitive impairment Alert and Oriented x3 "most times". occasionally will forget names. Osteoarthritis Pneumonia hx ~2019. treated at [facility] Thrombocytopenia Urinary retention Surgical History H/O vasectomy Heart valve replaced bovine valve [facility] History of colonoscopy with polypectomy History of craniotomy (03/01/20) left-sided matilde hole craniotomy and evacuation as well as a right-sided mini craniotomy for subdural evacuation History of open heart surgery (~2006) @ [facility] "valve replacement with cow valve and x1 vessel bypass surgery" History of testicular surgery left History of tooth extraction all teeth S/P Mohs surgery for basal cell carcinoma Family History Mother Breast cancer Family history of diabetes mellitus Other H/O vasectomy History of open heart surgery Hypercholesterolemia No family history of adverse response to anesthesia Denies family history of Ovarian cancer Prostate cancer Diabetes Coronary heart disease Heart disease Myocardial infarction Lung cancer Colorectal cancer Social History Smoking Status: Never smoker Tobacco Type: Smokeless Tobacco (Dip or Chew) Second Hand Exposure: No; Do You Dip or Chew Tobacco: Yes; Tobacco Cessation Education Requested by Patient: No Hx Alcohol Use: No Hx Substance Use: No Preferred Language: Japanese Communication Ability: Effective Visual Impairment: Limited Hearing Ability: Normal Rehabilitation Medicine Physician Required: No Beliefs That Will Affect Care: None marital status: Current Living Situation: Spouse Current Living Situation Comment: Home with current occupational status: retired How many Children do You have: 1 Other Information That Helps Us Care for You: No Feels Safe at Home: Yes Safety Concerns: Feels Safe At This Time Childhood Exposure to Second-Hand Smoke: No caffeine: No during the past year weight has: remained stable Dental Care, Regularly: No Physical Activity Frequency: Daily Seatbelt Use: always Sunscreen Use: No Assistive Devices: Denture - Upper, Denture - Lower and Hearing Aid - Bilateral Allergies Allergies Allergy/AdvReac Type Severity Reaction Status Date / Time No Known Drug Allergies Allergy Verified 02/06/22 11:19 Home Meds Home Medications Medication Instructions Recorded Confirmed acetaminophen 325 mg tablet 650 mg PO Q4 PRN Fever Or Pain 09/29/20 05/20/22 (Tylenol) albuterol sulfate 90 mcg/actuation 2 puff inhalation Q6 PRN 09/29/20 05/20/22 aerosol inhaler asthma/copd aspirin 81 mg tablet,delayed 81 mg PO HS 09/29/20 05/20/22 release cholecalciferol (vitamin D3) 50 50 mcg PO QAM 09/29/20 05/20/22 mcg (2,000 unit) capsule (Vitamin D3) docusate sodium 100 mg capsule 200 mg PO QAM 09/29/20 05/20/22 omega-3 fatty acids 1,000 mg PO HS 06/09/21 05/20/22 Previous Rx's Medication Instructions Recorded atorvastatin 20 mg tablet 20 mg PO HS #90 tabs 11/23/21 finasteride 5 mg tablet 5 mg PO HS #90 tabs 11/23/21 Scooter #1 [id number] 05/03/22 Results & Data (ED) Vital Signs Vital Signs - 24 hr 05/20/22 11:11 05/20/22 11:19 05/20/22 11:05 Temperature 36.8 C Temperature Source Oral Pulse Rate 61 62 Pulse Rate from SpO2 Sensor 61 Pulse Rhythm Regular Pulse Strength Normal Respiratory Rate 20 15 Respiratory Effort / Characteristics Non-Labored Spontaneous Respiratory Depth Normal Respiratory Pattern Regular Blood Pressure 115/74 Blood Pressure Mean 87 Blood Pressure Position Lying Pulse Oximetry 98 98 99 Oxygen Delivery Method Room Air Room Air Oxygen Flow Rate 0 Sepsis Recent Fever Within 48 Hours No Sepsis New/Unexplained Change in Mental Status N/A Sepsis Action Taken by Nursing No Action Required Oxygen Flow Rate - Titration 0 Pulse Oximetry Post Tiitration 98 05/20/22 11:07 05/20/22 11:07 05/20/22 11:30 Temperature Temperature Source Pulse Rate 63 61 Pulse Rate from SpO2 Sensor 62 57 L Pulse Rhythm Pulse Strength Respiratory Rate 15 14 Respiratory Effort / Characteristics Respiratory Depth Respiratory Pattern Blood Pressure 115/74 Blood Pressure Mean 87 Blood Pressure Position Pulse Oximetry 97 95 Oxygen Delivery Method Oxygen Flow Rate Sepsis Recent Fever Within 48 Hours Sepsis New/Unexplained Change in Mental Status Sepsis Action Taken by Nursing Oxygen Flow Rate - Titration Pulse Oximetry Post Tiitration 05/20/22 11:31 05/20/22 11:38 05/20/22 11:38 Temperature Temperature Source Pulse Rate 65 63 Pulse Rate from SpO2 Sensor 63 Pulse Rhythm Pulse Strength Respiratory Rate 22 17 Respiratory Effort / Characteristics Respiratory Depth Respiratory Pattern Blood Pressure 126/65 Blood Pressure Mean 85 Blood Pressure Position Pulse Oximetry 97 Oxygen Delivery Method Oxygen Flow Rate Sepsis Recent Fever Within 48 Hours Sepsis New/Unexplained Change in Mental Status Sepsis Action Taken by Nursing Oxygen Flow Rate - Titration Pulse Oximetry Post Tiitration 05/20/22 12:00 05/20/22 12:00 05/20/22 12:30 Temperature Temperature Source Pulse Rate 59 L Pulse Rate from SpO2 Sensor 59 L Pulse Rhythm Pulse Strength Respiratory Rate 17 Respiratory Effort / Characteristics Respiratory Depth Respiratory Pattern Blood Pressure 120/63 112/64 Blood Pressure Mean 82 80 Blood Pressure Position Pulse Oximetry 98 Oxygen Delivery Method Oxygen Flow Rate Sepsis Recent Fever Within 48 Hours Sepsis New/Unexplained Change in Mental Status Sepsis Action Taken by Nursing Oxygen Flow Rate - Titration Pulse Oximetry Post Tiitration 05/20/22 12:30 05/20/22 13:00 05/20/22 13:00 Temperature Temperature Source Pulse Rate 59 L 56 L Pulse Rate from SpO2 Sensor 59 L 56 L Pulse Rhythm Pulse Strength Respiratory Rate 20 23 Respiratory Effort / Characteristics Respiratory Depth Respiratory Pattern Blood Pressure 113/76 Blood Pressure Mean 88 Blood Pressure Position Pulse Oximetry 98 98 Oxygen Delivery Method Oxygen Flow Rate Sepsis Recent Fever Within 48 Hours Sepsis New/Unexplained Change in Mental Status Sepsis Action Taken by Nursing Oxygen Flow Rate - Titration Pulse Oximetry Post Tiitration Home Medications Current Medication List: was personally reviewed by me Laboratory Data Attestation: I reviewed the patient's lab results. Result diagrams: 05/20/22 11:05 05/20/22 11:05 Lab Results 05/20/22 05/20/22 05/20/22 Range/Units 11:05 11:05 11:05 WBC 5.66 (4.8-10.8) K/ul RBC 4.91 (4.63-6.08) M/uL Hgb 15.6 (14.0-18.0) g/dl Hct 45.0 (40.1-51.0) % MCV 91.6 (80.0-100.0) fL MCH 31.8 (25.0-34.0) pg MCHC 34.7 (32.0-36.0) g/dL RDW Std Deviation 42.4 (36.4-46.3) fL RDW Coeff of Harmony 12.7 (11.5-14.5) % Plt Count 121 L (130-400) K/uL MPV 10.4 (9.4-12.4) fL Immature Gran % (Auto) 0.4 % Neut % (Auto) 82.5 % Lymph % (Auto) 8.3 % Curry % (Auto) 8.1 % Eos % (Auto) 0.0 % Baso % (Auto) 0.7 % Neut # (Auto) 4.67 (1.4-6.5) K/uL Lymph # (Auto) 0.47 L (1.2-3.4) K/uL Curry # (Auto) 0.46 (0.24-0.82) K/uL Eos # (Auto) 0.00 (0-0.50) K/uL Baso # (Auto) 0.04 (0-0.2) K/uL Immature Gran # (Auto) 0.02 (0.00-0.02) K/uL Sodium 135 L (136-145) mmol/L Potassium 4.6 (3.5-5.1) mmol/L Chloride 101 (98-107) mmol/L Carbon Dioxide 25 (21-32) mmol/L Anion Gap 9 (3-11) BUN 21 (6-23) mg/dl Creatinine 1.27 (0.6-1.4) mg/dl Est Cr Clr Drug Dosing 53.8 ml/min Est GFR ( Amer) 63.2 ml/min Est GFR (Non-Af Amer) 54.5 ml/min BUN/Creatinine Ratio 16.5 (10-20) Glucose 120 H (70-99(Fasting)) mg/dl Calcium 9.1 (8.5-10.1) mg/dl Magnesium 1.8 (1.7-2.4) mg/dl Total Bilirubin 0.9 (0.2-1.0) mg/dl AST 17 (13-39) U/L ALT 10 (7-52) U/L Alkaline Phosphatase 72 (34-104) U/L Troponin I High Sens 20.2 H (0-20) pg/ml Total Protein 7.4 (6.0-8.3) gm/dl Albumin 4.5 (3.4-5.0) gm/dl Globulin 2.9 (2.5-4.0) gm/dl Albumin/Globulin Ratio 1.6 (0.9-2) TSH 1.244 (0.300-4.500) uIu/ml SARS-CoV-2, RNA, NAAT (NEGATIVE) 05/20/22 Range/Units 12:34 WBC (4.8-10.8) K/ul RBC (4.63-6.08) M/uL Hgb (14.0-18.0) g/dl Hct (40.1-51.0) % MCV (80.0-100.0) fL MCH (25.0-34.0) pg MCHC (32.0-36.0) g/dL RDW Std Deviation (36.4-46.3) fL RDW Coeff of Harmony (11.5-14.5) % Plt Count (130-400) K/uL MPV (9.4-12.4) fL Immature Gran % (Auto) % Neut % (Auto) % Lymph % (Auto) % Curry % (Auto) % Eos % (Auto) % Baso % (Auto) % Neut # (Auto) (1.4-6.5) K/uL Lymph # (Auto) (1.2-3.4) K/uL Curry # (Auto) (0.24-0.82) K/uL Eos # (Auto) (0-0.50) K/uL Baso # (Auto) (0-0.2) K/uL Immature Gran # (Auto) (0.00-0.02) K/uL Sodium (136-145) mmol/L Potassium (3.5-5.1) mmol/L Chloride (98-107) mmol/L Carbon Dioxide (21-32) mmol/L Anion Gap (3-11) BUN (6-23) mg/dl Creatinine (0.6-1.4) mg/dl Est Cr Clr Drug Dosing ml/min Est GFR ( Amer) ml/min Est GFR (Non-Af Amer) ml/min BUN/Creatinine Ratio (10-20) Glucose (70-99(Fasting)) mg/dl Calcium (8.5-10.1) mg/dl Magnesium (1.7-2.4) mg/dl Total Bilirubin (0.2-1.0) mg/dl AST (13-39) U/L ALT (7-52) U/L Alkaline Phosphatase (34-104) U/L Troponin I High Sens (0-20) pg/ml Total Protein (6.0-8.3) gm/dl Albumin (3.4-5.0) gm/dl Globulin (2.5-4.0) gm/dl Albumin/Globulin Ratio (0.9-2) TSH (0.300-4.500) uIu/ml SARS-CoV-2, RNA, NAAT NEGATIVE (NEGATIVE) Administered Medications Lactated Ringer's (Lr) 1,000 mls @ 125 mls/hr IV .Q8H LING Stop: 05/21/22 00:27 Last Admin: 05/20/22 17:18 Dose: 125 mls/hr Documented By: BAKARI Discontinued Medications Sodium Chloride (Nss 1000ml) 1,000 mls @ 999 mls/hr IV .Q1H1M LING Stop: 05/20/22 13:15 Last Infusion: 05/20/22 16:51 Dose: 0 mls/hr Documented By: Admin: 05/20/22 12:38 Dose: 999 mls/hr Documented By: [id number] Imaging Data Radiologist's Impression: Chest X-Ray 05/20/22 12:07 XR chest 1V portable HISTORY: 76 years-old Male weakness acute weakness COMPARISON: Chest radiograph 09/29/2020, chest CT 06/06/2021 TECHNIQUE: AP view of the chest FINDINGS: Cardiomediastinal and hilar silhouettes are unchanged. Prior median sternotomy with cardiac valvular prosthesis. No pneumothorax, pleural effusion, airspace consolidation or overt pulmonary edema. Degenerative changes of the shoulders and spine. IMPRESSION: No acute process. ACT 112: Negative or not required by law. The above report was generated using voice recognition software. It may contain grammatical, syntax or spelling errors. Electronically signed by: Evan Mai M.D. 05/20/2022 12:49 PM Discharge Plan Visit Data Chief Complaint: Weakness Stated Complaint: WEAKNESS ED Provider: Kevin Chavez Discharge Problem: Weakness, Diarrhea, Acute dehydration, Acute electrocardiogram changes Patient Disposition: Admitted As Inpatient Discharge Instructions Interventions: ED Discharge Assessment Last Done: 05/20/22 15:34
[2022-05-20 12:14] LABS: Basophils # (auto) 0.04 K/uL (0-0.2); Basophils % (auto) 0.7 %; Hemoglobin 15.6 g/dl (14.0-18.0); Immature Granulocytes # (auto) 0.02 K/uL (0.00-0.02); Immature Granulocytes % (auto) 0.4 %; Lymphocytes # (auto) 0.47 K/uL (1.2-3.4); Lymphocytes % (auto) 8.3 %; Mean Corpuscular Hemoglobin 31.8 pg (25.0-34.0); Mean Corpuscular Hgb Conc 34.7 g/dL (32.0-36.0); Mean Corpuscular Volume 91.6 fL (80.0-100.0); Mean Platelet Volume 10.4 fL (9.4-12.4); Monocytes # (auto) 0.46 K/uL (0.24-0.82); Monocytes % (auto) 8.1 %; Neutrophils # (auto) 4.67 K/uL (1.4-6.5); Neutrophils % (auto) 82.5 %; Platelet Count 121 K/uL (130-400); RDW Coefficient of Variation 12.7 % (11.5-14.5); RDW Standard Deviation 42.4 fL (36.4-46.3); Red Blood Count 4.91 M/uL (4.63-6.08); White Blood Count 5.66 K/ul (4.8-10.8)
[2022-05-20] MEDS ORDERED: SODIUM CHLORIDE 0.9% 1000ML 1,000 ML IV SCH (12:15)
[2022-05-20 12:27] LABS: Albumin Globulin Ratio 1.6 (0.9-2); Albumin Level 4.5 gm/dl (3.4-5.0); BUN Creatinine Ratio 16.5 (10-20); Bilirubin,Total 0.9 mg/dl (0.2-1.0); Calcium 9.1 mg/dl (8.5-10.1); Creatinine Clr Calc Pharmacy 53.8 ml/min; Est GFR (African American) 63.2 ml/min; Est GFR (Non-African American) 54.5 ml/min; Globulin 2.9 gm/dl (2.5-4.0); Magnesium 1.8 mg/dl (1.7-2.4); Potassium 4.6 mmol/L (3.5-5.1); Total Protein 7.4 gm/dl (6.0-8.3)
[2022-05-20 12:31] LABS: Troponin I High Sensitivity 20.2 pg/ml (0-20)
--- NOTE | 2022-05-20 12:51 | XRay Report ---
XR chest 1V portable HISTORY: 76 years-old Male weakness acute weakness COMPARISON: Chest radiograph 09/29/2020, chest CT 06/06/2021 TECHNIQUE: AP view of the chest FINDINGS: Cardiomediastinal and hilar silhouettes are unchanged. Prior median sternotomy with cardiac valvular prosthesis. No pneumothorax, pleural effusion, airspace consolidation or overt pulmonary edema. Degen erative changes of the shoulders and spine. IMPRESSION: No acute process. ACT 112: Negative or not required by law. The above report was generated using voice recognition software. It may contain grammatical, syntax o r spelling errors. Electronically signed by: Evan Mai M.D. 05/20/2022 12:49 PM
--- NOTE | 2022-05-20 14:16 | History & Physical Report ---
Date of Service May 20, 2022 Assessment & Plan (1) Generalized weakness: Plan: - Unknown cause at this time but several possibilities including UTi, dehydration secondary to diarrheal illness, or deconditioning/progression of residual weakness leftover from b/l SDH in 2019. - US and stool diarrheal panel pending. - For now, IVF for rehydration, antimotility agents to manage diarrhea (low suspicion for c dif), PT/OT to evaluate patient and possible d/c to rehab. (2) Elevated troponin: Plan: - Very minimally elevated at 20.2, will repeat now and trend overnight given there are some new T wave inversions, but suspect it may be elevated 2/2 illness, dehydration. - given that he just had a dobutamine stress echo in February, will defer on repeat echo here unless troponin becomes increasing elevated and a cardiac etiology becomes more concerning. (3) Diarrhea: Plan: - Stool PCr pending, no abdominal pain, blood or melena, pain with defecation. - May be dehydrating him and the cause of weakness. (4) History of subdural hematoma: Plan: - History of bilateral SDH, February 2020. - S/p left bur hole and right mini craniotomy. - Complicated by seizure, had previously been on Keppra, has since been d/c'd. - Follows with neurosurgery at [place]. - Has chronic mobility/weakness issues secondary to this. (5) Coronary artery disease: Plan: - Had reported to PCP in January some internal episodes with activity that resolves with rest. Referred for dobutamine stress test at that time. - Had a dobutamine stress echo in February: Normal dobutamine echo without definitive evidence of inducible ischemia. Baseline EKG was abnormal, with abnormal EKG response to dobutamine but no wall motion normalities on echo. Frequent atrial ventricular ectopy, normal left ventricular systolic function, normal bioprosthetic aortic valve, left atrium mildly dilated, left ventricle borderline dilated, mild MR. - Continue alfuzosin, statin, baby aspirin. - No beta jose for chronic otilia cardia, recently had lisinopril d/c'd due to low BP readings consistently. (6) Hypercholesterolemia: Plan: - Continue statin. (7) BPH loc w urin obs/LUTS: Plan: - Has a history of UTIs that presents pending. - Patient without any urinary symptoms. - Continue afluzosin and finasteride. (8) Aortic arch aneurysm: Plan: - Routine monitoring, last measured 4.3 cm. - History of smoking, has since quit. History of Present Illness Chief Complaint: general weakness for several days with a fall yesterday Primary Care Provider: PETEY Gavin Emigdio Bruce is a 76-year-old male with past medical history significant for b/l SDH in 2019, CAD, hypertension, hyperlipidemia, and BPH who is presenting today from home with generalized weakness. For 3-4 days patient has been having nonbloody diarrhea/loose stool and becoming progressively weak, with a fall yesterday. Not quite sure how the fall happened, but states his legs felt like Jell-O and gave out from under him and he landed on his buttocks, denies hitting his head or any loss of consciousness. He is not on any blood thinners. He has a history of UTIs and his , who is at bedside, states that with them he does tend to become generally weak as he is presenting today and may or may not have assoicated urinary symptoms. Also has a history of cold sores and with these becomes "sick all over ", with weakness, fatigue, body aches seeming like the typical presentation for him. He did have a lesion that developed on his lower lip Saturday. Has not had any fever/chills, focal weakness, chest pain, palpitations, lightheadedness, dizziness, or shortness of breath, cough. Upon presentation to the ED, he has had episodes of bradycardia to the 50s, which is not appear new for him. Otherwise VS within normal limits, stable. Complex large unrevealing, platelet count slightly decreased at 121, however has history of thrombocytopenia to this degree last year. Initial troponin minimally elevated at 20.2. No leukocytosis or anemia, renal function at his b aseline, no transaminitis, sodium is borderline low at 135, otherwise no electrolyte abnormalities. TSH wnl. COVID-negative. CXR did not reveal acute process. Urine and stool PCR panel pending collection. Allergies Allergy/AdvReac Type Severity Reaction Status Date / Time No Known Drug Allergies Allergy Verified 02/06/22 11:19 Home Medications Medication Instructions Recorded Confirmed Type acetaminophen 325 mg tablet 650 mg PO Q4 PRN Fever Or Pain 09/29/20 05/20/22 History (Tylenol) albuterol sulfate 90 mcg/actuation 2 puff inhalation Q6 PRN 09/29/20 05/20/22 History aerosol inhaler asthma/copd aspirin 81 mg tablet,delayed 81 mg PO HS 09/29/20 05/20/22 History release cholecalciferol (vitamin D3) 50 50 mcg PO QAM 09/29/20 05/20/22 History mcg (2,000 unit) capsule (Vitamin D3) docusate sodium 100 mg capsule 200 mg PO QAM 09/29/20 05/20/22 History omega-3 fatty acids 1,000 mg PO HS 06/09/21 05/20/22 History atorvastatin 20 mg tablet 20 mg PO HS #90 tabs 11/23/21 05/20/22 Rx finasteride 5 mg tablet 5 mg PO HS #90 tabs 11/23/21 05/20/22 Rx Scooter #1 ea 05/03/22 Rx Past Med/Surg History Medical History Anemia Basal cell carcinoma (02/09/19) Left preauricular region: 02/09/2019 BPH loc w urin obs/LUTS Chronic back pain COPD (chronic obstructive pulmonary disease) mild. rarely uses inhaler. Coronary artery disease Generalized tonic-clonic seizure (~03/2020) no problems since 03/2020 Generalized weakness Hearing deficit History of rheumatic fever as a child History of subdural hematoma (03/01/20) Hydronephrosis, right Hypercholesterolemia Hypertension hx - no current medications Mild cognitive impairment Alert and Oriented x3 "most times". occasionally will forget names. Osteoarthritis Pneumonia hx ~2019. treated at [facility] Thrombocytopenia Urinary retention Surgical History H/O vasectomy Heart valve replaced bovine valve [facility] History of colonoscopy with polypectomy History of craniotomy (03/01/20) left-sided matilde hole craniotomy and evacuation as well as a right-sided mini craniotomy for subdural evacuation History of open heart surgery (~2006) @ [facility] "valve replacement with cow valve and x1 vessel bypass surgery" History of testicular surgery left History of tooth extraction all teeth S/P Mohs surgery for basal cell carcinoma Family History Mother Breast cancer Family history of diabetes mellitus Other H/O vasectomy History of open heart surgery Hypercholesterolemia No family history of adverse response to anesthesia Denies family history of Ovarian cancer Prostate cancer Diabetes Coronary heart disease Heart disease Myocardial infarction Lung cancer Colorectal cancer Social History Smoking Status: Never smoker Tobacco Type: Smokeless Tobacco (Dip or Chew) Second Hand Exposure: No; Do You Dip or Chew Tobacco: Yes; Tobacco Cessation Education Requested by Patient: No Hx Alcohol Use: No Hx Substance Use: No Preferred Language: Botswanan Communication Ability: Effective Visual Impairment: Limited Hearing Ability: Normal Medical Laboratory Technicians Required: No Beliefs That Will Affect Care: None marital status: Current Living Situation: Spouse Current Living Situation Comment: Home with current occupational status: retired How many Children do You have: 1 Other Information That Helps Us Care for You: No Feels Safe at Home: Yes Safety Concerns: Feels Safe At This Time Childhood Exposure to Second-Hand Smoke: No caffeine: No during the past year weight has: remained stable Dental Care, Regularly: No Physical Activity Frequency: Daily Seatbelt Use: always Sunscreen Use: No Assistive Devices: Denture - Upper, Denture - Lower and Hearing Aid - Bilateral Review of Systems Review of Systems: Constitutional: Ongoing general weakness for several days; no fever/chills, fatigue, myalgias, anorexia, night sweats Eyes: No diplopia, no worsening or blurred vision ENT: normal hearing, no trouble swallowing Respiratory: No cough, sputum, dyspnea at rest or on exertion Cardiovascular: No chest pain, tightness or palpitations Abdomen: Nonbloody loose stool/diarrhea x2 days; no pain, nausea, vomiting, constipation, melena or hematochezia : Denies dysuria, hematuria, increased urgency/frequency, urinary retention Musculoskeletal: No joint pain, calf pain, swelling Neurologic: No weakness, numbness/tingling, or balance problems Psychiatric: No anxiety or depression Skin: No rash or itch Physical Exam Physical Exam: Physical exam: General: awake, alert, no apparent distress Head: Normocephalic, atraumatic ENT: PERRL, EOMI, no pharyngeal exudate, mucous membranes moist Chest: Clear to auscultation, on room air, no adventitious breath sounds Cardiac: Regular rate and rhythm, no murmur, no JVD, normal peripheral pulses, good capillary refill Abdominal: NABS x 4 quadrants, soft, nontender to palpation, no rebound, guarding or tenderness Extremities: Normal inspection, no peripheral edema or erythema, calfs nontender to palpation Psych: Normal mood and affect Neuro: AAO x 3, strength intact bilaterally and rated 5/5, no motor deficits, speech is clear, no peripheral sensory deficits Skin: no rash or erythema Results & Data Results & Data ([facility]) Vital Signs (Past 12 Hours) Vital Signs Temp Pulse Resp BP Pulse Ox O2 Del Method O2 Flow Rate 05/20/22 13:00 56 L 23 98 05/20/22 13:00 113/76 05/20/22 12:30 59 L 20 98 05/20/22 12:30 112/64 05/20/22 12:00 59 L 17 98 05/20/22 12:00 120/63 05/20/22 11:38 126/65 05/20/22 11:38 63 17 97 05/20/22 11:31 65 22 05/20/22 11:30 61 14 95 05/20/22 11:07 115/74 05/20/22 11:07 63 15 97 05/20/22 11:05 62 15 99 05/20/22 11:19 98 Room Air 0 05/20/22 11:11 36.8 C 61 20 115/74 98 Room Air Laboratory Results Abnormal lab results 05/20/22 05/20/22 Range/Units 11:05 11:05 Plt Count 121 L (130-400) K/uL Lymph # (Auto) 0.47 L (1.2-3.4) K/uL Sodium 135 L (136-145) mmol/L Glucose 120 H (70-99(Fasting)) mg/dl Troponin I High Sens 20.2 H (0-20) pg/ml Diagnostic Findings Chest X-Ray 05/20/22 12:07 XR chest 1V portable HISTORY: 76 years-old Male weakness acute weakness COMPARISON: Chest radiograph 09/29/2020, chest CT 06/06/2021 TECHNIQUE: AP view of the chest FINDINGS: Cardiomediastinal and hilar silhouettes are unchanged. Prior median sternotomy with cardiac valvular prosthesis. No pneumothorax, pleural effusion, airspace co nsolidation or overt pulmonary edema. Degenerative changes of the shoulders and spine. IMPRESSION: No acute process. ACT 112: Negative or not required by law. The above report was generated using voice recognition software. It may contain grammatical, syntax or spelling errors. Electronically signed by: Evan Mai M.D. 05/20/2022 12:49 PM ECG Additional Comments: Normal sinus rhythm ST & T wave abnormality, consider anterolateral ischemia Abnormal ECG When compared with ECG of 29-SEP-2020 13:31, Premature ventricular complexes are no longer Present Nonspecific T wave abnormality now evident in Inferior leads T wave inversion now evident in Anterolateral leads. Code Status & VTE Plan Code Status Full Code. Supervising Physician Co-Signing Physician Notes Patient seen and examined, chart reviewed, case discussed with Jamia Branch and I agree with the assessment and plan as above except as otherwise noted Labs and images reviewed Scott is a 76-year-old male who presents with a fall and weakness. Did not hit his head or lose consciousness. Uses a walker at home normally. Stress echo 02/2022: Normal dobutamine stress echo without inducible ischemia. Abnormal EKG response to dobutamine but no wall motion abnormalities. CXR: No acute process Hemoglobin normal No gross electrolyte derangements, creatinine is with normal baseline Emigdio is here with bedside with his son. Reports that he has been weak for couple of days, has had urinary tract infections with weakness before. Has had some liquid/loose diarrhea without blood for 2 days which is unusual for him. No fevers, chills, sweats, abdominal pain, dysuria, urinary frequency, lightheadedness, dizziness, shortness of breath, cough, or sputum production. Feels globally weak, denies focal weakness. No bleeding. He has not any chest pain/chest pressure, and did not feel syncopal with his fall. Reports had 1 fall to his butt yesterday which was from feeling weak, and did not strike his head or neck and has no head or neck pain. Weakness: Mildly elevated Trope with normal stress echo last month. 2 hour Trop pending. EKG with rate 61, QTc 420, T wave inversions in V3V6 without ST segment changes. Baseline lateral T wave inversions are new compared to cardiac stress report 03/06/2022, although exertional inversions were noted mild hyponatremia but no gross electrolyte derangements, no ROMEO, no obvious infectious/metabolic source. Patient with chronically worsening functional status, suspect progressive deconditioning. PT/OT consulted for placement recommendations. We will continue blood work daily. No antibiotics indicated at this time. Follow blood pressure. Borderline resting bradycardia with appropriate chronotropic response. Orthostatics pending. CAD: Continue aspirin, statin. Trop trended, EKG/stress test reviewed as noted above. LUTS: Continue finasteride. PG Care Time/CCT Total # of Minutes Spent Total Time Spent with Patient: Total time spent is greater than 50% in coordination of care (as documented) at patient's floor/unit and/or counseling patient: Coding Level of Care Code INT OBSERVATION CARE 50M LVL 2 Diagnoses Generalized weakness R53.1 Elevated troponin R77.8 Diarrhea R19.7 History of subdural hematoma Z86.79 Coronary artery disease I25.10 Hypercholesterolemia E78.00 BPH loc w urin obs/LUTS N40.1 Aortic arch aneurysm I71.22
[2022-05-20] MEDS ORDERED: ALUMINUM/MAGNESIUM SUSP 30 ML UDC PO PRN (16:28)
[2022-05-20] MEDS ORDERED: ACETAMINOPHEN 325 MG TAB PO PRN (16:28)
[2022-05-20] MEDS ORDERED: LOPERAMIDE HCL 2 MG CAP PO PRN (16:28)
[2022-05-20] MEDS ORDERED: LACTATED RINGER'S 1,000 ML IV SCH (16:28)
[2022-05-20] MEDS ORDERED: ONDANSETRON INJ 2 MG/ML 2 ML VIAL IV PRN (16:28)
[2022-05-20] MEDS ORDERED: ALBUTEROL HFA 8 GM INHALER INH PRN (16:28)
[2022-05-20] MEDS ORDERED: POLYETHYLENE (MIRALAX) 17 GM PACK PO PRN (16:28)
[2022-05-20 17:43] LABS: Appearance Urine Clear (Clear); Bacteria Urine Automated Negative (Negative); Bilirubin Urine Negative (Negative); Blood Urine 3+ (Negative); Color Urine Dark Yellow; Epithelial Cell Urine Auto 20-30 /lpf (0-5); Glucose Urine UA Negative (Negative); Ketones Urine Trace (Negative); Leukocyte Esterase Urine Negative (Negative); Nitrite Urine Negative (Negative); Protein Urine Negative (Negative); Specific Gravity Urine 1.019 (1.000-1.030); Urobilinogen Urine Negative (Negative); pH Urine 5.5 (4.5-7.5)
--- NOTE | 2022-05-20 17:55 | Electrocardiogram Report ---
Test Reason : Blood Pressure : / mmHG Vent. Rate : 061 BPM Atrial Rate : 061 BPM P-R Int : 150 ms QRS Dur : 078 ms QT Int : 418 ms P-R-T Axes : -16 019 239 degrees QTc Int : 420 ms Poor data quality, interpretation may be adversely affected Normal sinus rhythm Abnormal ECG When compared with ECG of 29-SEP-2020 13:31, Premature ventricular complexes are no longer Present Nonspecific T wave abnormality now evident in Inferior leads T wave inversion now evident in Anterolateral leads Confirmed by Yinka Minaya ([id number]) on 05/20/2022 5:55:00 PM Referred By: Confirmed By:Remy Minaya
--- NOTE | 2022-05-20 18:23 | Urology Consultation ---
Date of Consultation May 20, 2022 Assessment & Plan (1) Urinary retention: Plan 76 yo M with a history of a TURP in June of 2021 who presents to the hospital with weakess and confusion. PVR was 600cc, patient unable to void and nursing unable to place several different catheters. Please note 75 minutes was spent with patient. Procedure: I prepped and draped the patient in sterile fashion. I attempted to place a 16 Cameroonian and a 14 Cameroonian catheter but met resistance just before reaching the prostate. I then attempted to advance a 5 Cam[place]onian open-ended catheter along with a Super Stiff wire beyond this point but was unsuccessful. At this point I opted to scope a catheter in place. Patient was confused and no family members were available so consent was waived as this was deemed emergent. Advanced a flexible cystoscope per urethra. I ran into a false passage in the area just before the prostate. I was able to deflect upwards and then enter the bladder. I passed a Super Stiff wire through the scope and backed the scope out over the wire. I was then able to advance an 18 [place] tip catheter over the wire with return of urine. Balloon was inflated with 10 cc of sterile water and the Super Stiff wire was removed. Catheter was set to gravity dr pruitt. Recommendations: Maintain Curtis catheter. Patient will likely need catheter for 1 to 2 weeks and we will coordinate removal in urology clinic Recommend one-time dose of antibiotics for procedure. P.o. Bactrim or ciprofloxacin is reasonable Follow-up culture and treat accordingly but UA did not appear infected. It is unclear if patient had a stricture at this area or this was simply a false passage from catheter placement. Urology to sign off History of Present Illness Reason for Consultation: 76 yo M with a history of a TURP in June of 2021 who presents to the hospital with weakess and confusion. HD stable with normal labs. Urinalysis showed microscopic hematuria but otherwise normal. Only voided a small amount of urine in the ED. He was admitted to medicine. Bladder scan revealed 600cc and patient was unable to void. Nursing was unable to place three different catheters. Urology consulted. Attending Physician: Gerber Hook MD Allergies Allergy/AdvReac Type Severity Reaction Status Date / Time No Known Drug Allergies Allergy Verified 02/06/22 11:19 Home Medications Medication Instructions Recorded Confirmed Type acetaminophen 325 mg tablet 650 mg PO Q4 PRN Fever Or Pain 09/29/20 05/20/22 History (Tylenol) albuterol sulfate 90 mcg/actuation 2 puff inhalation Q6 PRN 09/29/20 05/20/22 History aerosol inhaler asthma/copd aspirin 81 mg tablet,delayed 81 mg PO HS 09/29/20 05/20/22 History release cholecalciferol (vitamin D3) 50 50 mcg PO QAM 09/29/20 05/20/22 History mcg (2,000 unit) capsule (Vitamin D3) docusate sodium 100 mg capsule 200 mg PO QAM 09/29/20 05/20/22 History omega-3 fatty acids 1,000 mg PO HS 06/09/21 05/20/22 History atorvastatin 20 mg tablet 20 mg PO HS #90 tabs 11/23/21 05/20/22 Rx finasteride 5 mg tablet 5 mg PO HS #90 tabs 11/23/21 05/20/22 Rx Scooter #1 ea 05/03/22 Rx Patient History Medical History Anemia Basal cell carcinoma (02/09/19) Left preauricular region: 02/09/2019 BPH loc w urin obs/LUTS Chronic back pain COPD (chronic obstructive pulmonary disease) mild. rarely uses inhaler. Coronary artery disease Generalized tonic-clonic seizure (~03/2020) no problems since 03/2020 Generalized weakness Hearing deficit History of rheumatic fever as a child History of subdural hematoma (03/01/20) Hydronephrosis, right Hypercholesterolemia Hypertension hx - no current medications Mild cognitive impairment Alert and Oriented x3 "most times". occasionally will forget names. Osteoarthritis Pneumonia hx ~2019. treated at [facility] Thrombocytopenia Urinary retention Surgical History H/O vasectomy Heart valve replaced bovine valve [facility] History of colonoscopy with polypectomy History of craniotomy (03/01/20) left-sided matilde hole craniotomy and evacuation as well as a right-sided mini craniotomy for subdural evacuation History of open heart surgery (~2006) @ [facility] "valve replacement with cow valve and x1 vessel bypass surgery" History of testicular surgery left History of tooth extraction all teeth S/P Mohs surgery for basal cell carcinoma Family History Mother Breast cancer Family history of diabetes mellitus Other H/O vasectomy History of open heart surgery Hypercholesterolemia No family history of adverse response to anesthesia Denies family history of Ovarian cancer Prostate cancer Diabetes Coronary heart disease Heart disease Myocardial infarction Lung cancer Colorectal cancer Social History Smoking Status: Never smoker Tobacco Type: Smokeless Tobacco (Dip or Chew) Second Hand Exposure: No; Do You Dip or Chew Tobacco: Yes; Tobacco Cessation Education Requested by Patient: No Hx Alcohol Use: No Hx Substance Use: No Preferred Language: Tongan Communication Ability: Effective Visual Impairment: Limited Hearing Ability: Normal Customer Consultant Required: No Beliefs That Will Affect Care: None marital status: Current Living Situation: Spouse Current Living Situation Comment: Home with current occupational status: retired How many Children do You have: 1 Other Information That Helps Us Care for You: No Feels Safe at Home: Yes Safety Concerns: Feels Safe At This Time Childhood Exposure to Second-Hand Smoke: No caffeine: No during the past year weight has: remained stable Dental Care, Regularly: No Physical Activity Frequency: Daily Seatbelt Use: always Sunscreen Use: No Assistive Devices: Denture - Upper, Denture - Lower and Hearing Aid - Bilateral Review of Systems Review of Systems: 14 point review of systems negative outside of what is listed above in HPI Physical Exam Physical Exam: General: Alert and oriented, no acute distress HEENT: Normocephalic, mucous membranes moist Pulmonary: Nonlabored respirations Abdomen: Nondistended : Circumcised phallus with orthotopic meatus. Testicles descended bilaterally and palpably normal. Extremities: Moves all 4 spontaneously Neuro: No gross deficits Skin: Warm, dry, no rashes noted Results & Data ([facility]) Vital Signs (Past 12 Hours) Vital Signs Temp Pulse Resp BP BP Pulse Ox O2 Del Method 05/20/22 16:20 36.9 C 16 116/70 96 Room Air 05/20/22 13:00 56 L 23 98 05/20/22 13:00 113/76 05/20/22 12:30 59 L 20 98 05/20/22 12:30 112/64 05/20/22 12:00 59 L 17 98 05/20/22 12:00 120/63 05/20/22 11:38 126/65 05/20/22 11:38 63 17 97 05/20/22 11:31 65 22 05/20/22 11:30 61 14 95 05/20/22 11:07 115/74 05/20/22 11:07 63 15 97 05/20/22 11:05 62 15 99 05/20/22 11:19 98 Room Air 05/20/22 11:11 36.8 C 61 20 115/74 98 Room Air O2 Flow Rate 05/20/22 16:20 05/20/22 13:00 05/20/22 13:00 05/20/22 12:30 05/20/22 12:30 05/20/22 12:00 05/20/22 12:00 05/20/22 11:38 05/20/22 11:38 05/20/22 11:31 05/20/22 11:30 05/20/22 11:07 05/20/22 11:07 05/20/22 11:05 05/20/22 11:19 0 05/20/22 11:11 PG Care Time/CCT Total # of Minutes Spent Total Time Spent with Patient: Total time spent is greater than 50% in coordination of care (as documented) at patient's floor/unit and/or counseling patient: Coding Level of Care Code 19691 Initial Inpt Care Lvl 3 Diagnoses Urinary retention R33.9
[2022-05-20] MEDS ORDERED: CIPROFLOXACIN / D5W 400 MG/200 ML BAG IV STA (19:50)
[2022-05-20] MEDS: FINASTERIDE 5 MG TAB PO SCH (20:17)
[2022-05-20] MEDS: ASPIRIN 81 MG ECTAB PO SCH (20:17)
[2022-05-20] MEDS: ATORVASTATIN 20 MG TAB PO SCH (20:17)
[2022-05-21 07:07] LABS: Hematocrit (blood only) 34.1 % (40.1-51.0); Hemoglobin 11.9 g/dl (14.0-18.0); Mean Corpuscular Hemoglobin 31.5 pg (25.0-34.0); Mean Corpuscular Hgb Conc 34.9 g/dL (32.0-36.0); Mean Corpuscular Volume 90.2 fL (80.0-100.0); Mean Platelet Volume 10.4 fL (9.4-12.4); Platelet Count 91 K/uL (130-400); RDW Coefficient of Variation 12.7 % (11.5-14.5); RDW Standard Deviation 41.5 fL (36.4-46.3); Red Blood Count 3.78 M/uL (4.63-6.08); White Blood Count 5.21 K/ul (4.8-10.8)
[2022-05-21 07:08] LABS: Basophils # (auto) 0.01 K/uL (0-0.2); Basophils % (auto) 0.2 %; Immature Granulocytes # (auto) 0.02 K/uL (0.00-0.02); Immature Granulocytes % (auto) 0.4 %; Lymphocytes # (auto) 0.77 K/uL (1.2-3.4); Lymphocytes % (auto) 14.8 %; Monocytes # (auto) 0.62 K/uL (0.24-0.82); Monocytes % (auto) 11.9 %; Neutrophils # (auto) 3.79 K/uL (1.4-6.5); Neutrophils % (auto) 72.7 %
[2022-05-21 07:11] LABS: BUN Creatinine Ratio 20.2 (10-20); Creatinine Clr Calc Pharmacy 72.1 ml/min; Est GFR (African American) 90.9 ml/min; Est GFR (Non-African American) 78.4 ml/min; Magnesium 1.6 mg/dl (1.7-2.4); Potassium 3.7 mmol/L (3.5-5.1); Troponin I High Sensitivity 38.1 pg/ml (0-20)
--- NOTE | 2022-05-21 07:38 | Hospitalist Progress Note ---
Date of Service May 21, 2022 Assessment & Plan (1) Generalized weakness: Plan: - Differential includes UTI, dehydration secondary to diarrheal illness, or deconditioning/progression of progressive weakness and patient with history of bilateral SDH in 2019. - Stool PCR not completed as patient has not had any further diarrhea. - No evidence of infection on UA. No other localizable source of infection noted. - Received IV fluids with improvement in his weakness, however PT/OT did evaluate patient and recommend inpatient rehab following without any discharge due to concerns for home safety at current functional status. - Case management involved. (2) Elevated troponin: Plan: - Troponin minimally elevated to 20->38->32 overnight in the setting of acute dehydration, no evidence of ACS. - Given that he just had a dobutamine stress echo in February, will defer on repeat echo here unless cardiac etiology becomes more concerning. (3) BPH loc w urin obs/LUTS: Plan: - Has a history of UTIs, without symptoms of such this admission. - Continue alfuzosin and finasteride. - Catheter placed by Urology for acute urinary retention, will have Curtis through discharge for 1-2 weeks until seen by Urology. (4) Diarrhea: Plan: - Resolved. - Stool PCR pending, low likelihood of C diff as patient without diarrhea now for >24 hours. - However, diarrhea may have dehydrated him and exacerbated his weakness. (5) History of subdural hematoma: Plan: - History of bilateral SDH, February 2020. - S/p left burhole and right mini craniotomy. - Complicated by seizure, had previously been on Keppra, has since been d/c'd. - Follows with neurosurgery at [place]. - Has chronic mobility/weakness issues secondary to this. - No acute concerns in this area. (6) Coronary artery disease: Plan: - Had reported to PCP in January some symptoms with activity that resolved with rest. Referred for dobutamine stress test at that time. - Dobutamine stress echo in February: Normal dobutamine echo without definitive evidence of inducible ischemia. Baseline EKG was abnormal, with abnormal EKG response to dobutamine but no wall motion normalities on echo. Frequent atrial ventricular ectopy, normal left ventricular systolic function, normal bioprosthetic aortic valve, left atrium mildly dilated, left ventricle borderline dilated, mild MR. - Continue alfuzosin, statin, baby aspirin. - No beta jose for chronic bradycardia, and recently had lisinopril d/c'ed due to hypotension. (7) Hypercholesterolemia: Plan: - Continue statin. (8) Aortic arch aneurysm: Plan: - Routine monitoring, last measured 4.3 cm. - History of smoking, has since quit. Plan Full code Heart healthy diet Lovenox for DVT prophylaxis Med/Surg Admission and Anticipated Discharge Date Admission Date: May 20, 2022 Subjective No acute events overnight. Reports today that he feels that physical therapy went "well", and is looking forward to going home in the future. He denies chest pain, shortness of breath, abdominal pain. He has catheter in place. He denies any further diarrhea since admission. Review of Systems Review of Systems: All systems reviewed & are unremarkable except as noted in Subjective Physical Exam Constitutional: WD/WN, vitals as above Respiratory: normal respiratory effort, lungs clear to auscultation Cardiovascular: RRR, no murmur, no edema Gastrointestinal (Abdomen): normal bowel sounds, soft, nontender, no hepatosplenomegaly Skin: no rashes, warm and dry Psychiatric: A+Ox3, euthymic affect Results & Data Results & Data ([facility]) Vital Signs (Past 12 Hours) Vital Signs Temp Pulse Pulse Resp BP Pulse Ox O2 Del Method 05/21/22 07:15 55 L 05/21/22 03:08 37.3 C 59 L 20 127/79 94 Room Air 05/20/22 23:37 56 L 20 120/74 95 Room Air 05/20/22 23:33 74 05/20/22 20:01 36.9 C 59 L 20 139/75 95 Room Air PG Care Time/CCT Total # of Minutes Spent Total Time Spent with Patient: Total time spent is greater than 50% in coordination of care (as documented) at patient's floor/unit and/or counseling patient: Coding Level of Care Code 87043 Subseq Obs Care Lvl 2 Diagnoses Generalized weakness R53.1 Elevated troponin R77.8 BPH loc w urin obs/LUTS N40.1 Diarrhea R19.7 History of subdural hematoma Z86.79 Coronary artery disease I25.10 Hypercholesterolemia E78.00 Aortic arch aneurysm I71.22
[2022-05-21] MEDS: CHOLECALCIFEROL 1,000 UNITS 25 MCG TAB PO SCH (07:51)
[2022-05-21] MEDS: DOCUSATE SODIUM 100 MG CAP PO SCH (07:51)
[2022-05-21] MEDS: FINASTERIDE 5 MG TAB PO SCH (20:42)
[2022-05-21] MEDS: ASPIRIN 81 MG ECTAB PO SCH (20:42)
[2022-05-21] MEDS: ATORVASTATIN 20 MG TAB PO SCH (20:42)
--- NOTE | 2022-05-22 08:18 | Hospitalist Progress Note ---
Date of Service May 22, 2022 Assessment & Plan (1) Generalized weakness: Plan: - Differential includes UTI, dehydration secondary to diarrheal illness, or deconditioning/progression of progressive weakness and patient with history of bilateral SDH in 2019. - Stool PCR not completed as patient has not had any further diarrhea. - No evidence of infection on UA. No other localizable source of infection noted. - Received IV fluids with improvement in his weakness, however PT/OT did evaluate patient and recommend inpatient rehab following without any discharge due to concerns for home safety at current functional status. - Case management involved, sending referrals per family request. (2) Elevated troponin: Plan: - Troponin minimally elevated to 20->38->32 overnight in the setting of acute dehydration, no evidence of ACS. - Given that he just had a dobutamine stress echo in February, will defer on repeat echo here unless cardiac etiology becomes more concerning. Not not likely to be ACS at this time. (3) BPH loc w urin obs/LUTS: Plan: - Has a history of UTIs, without symptoms of such this admission. - Continue alfuzosin and finasteride. - Catheter placed by Urology for acute urinary retention, will have Curtis through discharge for 1-2 weeks until seen by Urology. (4) Diarrhea: Plan: - Resolved. - Stool PCR pending, low likelihood of C diff as patient without diarrhea now for >24 hours. - However, diarrhea may have dehydrated him and exacerbated his weakness. Continue to monitor with physical therapy while admitted. (5) History of subdural hematoma: Plan: - History of bilateral SDH, February 2020. - S/p left burhole and right mini craniotomy. - Complicated by seizure, had previously been on Keppra, has since been d/c'd. - Follows with neurosurgery at [place]. - Has chronic mobility/weakness issues secondary to this. - No acute concerns in this area. (6) Coronary artery disease: Plan: - Had reported to PCP in January some symptoms with activity that resolved with rest. Referred for dobutamine stress test at that time. - Dobutamine stress echo in February: Normal dobutamine echo without definitive evidence of inducible ischemia. Baseline EKG was abnormal, with abnormal EKG response to dobutamine but no wall motion normalities on echo. Frequent atrial ventricular ectopy, normal left ventricular systolic function, normal bioprosthetic aortic valve, left atrium mildly dilated, left ventricle borderline dilated, mild MR. - Continue alfuzosin, statin, baby aspirin. - No beta jose for chronic bradycardia, and recently had lisinopril d/c'ed due to hypotension. (7) Hypercholesterolemia: Plan: - Continue statin. (8) Aortic arch aneurysm: Plan: - Routine monitoring, last measured 4.3 cm. - History of smoking, has since quit. Plan Full code Heart healthy diet Lovenox for DVT prophylaxis Med/Surg Admission and Anticipated Discharge Date Admission Date: May 20, 2022 Subjective Patient without any acute events overnight, oriented only to self, reports some shortness of breath with exertion, no other complaints. Review of Systems Review of Systems: All systems reviewed & are unremarkable except as noted in Subjective Physical Exam Constitutional: WD/WN, vitals as above Respiratory: normal respiratory effort, lungs clear to auscultation Some coarse breath sounds in lung bases Saturating normally on room air Cardiovascular: RRR, no murmur, no edema Gastrointestinal (Abdomen): normal bowel sounds, soft, nontender, no hepatosplenomegaly Skin: no rashes, warm and dry Psychiatric: Orientation: alert and oriented to person Results & Data Results & Data ([facility]) Vital Signs (Past 12 Hours) Vital Signs Temp Pulse Pulse Resp BP BP Pulse Ox 05/22/22 07:53 36.4 C L 52 L 20 131/73 97 05/22/22 04:03 36.6 C 53 L 18 157/78 H 97 05/21/22 22:25 58 L 05/22/22 00:13 37.1 C 73 18 152/84 H 92 05/21/22 22:00 O2 Del Method 05/22/22 07:53 Room Air 05/22/22 04:03 Room Air 05/21/22 22:25 05/22/22 00:13 Room Air 05/21/22 22:00 Room Air PG Care Time/CCT Total # of Minutes Spent Total Time Spent with Patient: Total time spent is greater than 50% in coordination of care (as documented) at patient's floor/unit and/or counseling patient: Coding Level of Care Code 75139 Subseq Hosp Care Lvl 2 Diagnoses Generalized weakness R53.1 Elevated troponin R77.8 BPH loc w urin obs/LUTS N40.1 Diarrhea R19.7 History of subdural hematoma Z86.79 Coronary artery disease I25.10 Hypercholesterolemia E78.00 Aortic arch aneurysm I71.22
[2022-05-22] MEDS: ENOXAPARIN INJ 40 MG/0.4 ML SYR SQ SCH (09:05)
[2022-05-22] MEDS: DOCUSATE SODIUM 100 MG CAP PO SCH (09:40)
[2022-05-22] MEDS: CHOLECALCIFEROL 1,000 UNITS 25 MCG TAB PO SCH (09:40)
[2022-05-22] MEDS: ATORVASTATIN 20 MG TAB PO SCH (19:31)
[2022-05-22] MEDS: ASPIRIN 81 MG ECTAB PO SCH (19:31)
[2022-05-22] MEDS: FINASTERIDE 5 MG TAB PO SCH (19:31)
[2022-05-23] MEDS: CHOLECALCIFEROL 1,000 UNITS 25 MCG TAB PO SCH (08:14)
[2022-05-23] MEDS: ENOXAPARIN INJ 40 MG/0.4 ML SYR SQ SCH (08:15)
[2022-05-23] MEDS: DOCUSATE SODIUM 100 MG CAP PO SCH (08:15)
[2022-05-23] MEDS: NICOTINE 14 MG/24 HR PATCH TD SCH (08:16)
[2022-05-23 09:38] LABS: Hematocrit (blood only) 37.3 % (40.1-51.0); Hemoglobin 13.4 g/dl (14.0-18.0); Mean Corpuscular Hemoglobin 31.8 pg (25.0-34.0); Mean Corpuscular Hgb Conc 35.9 g/dL (32.0-36.0); Mean Corpuscular Volume 88.4 fL (80.0-100.0); Mean Platelet Volume 10.7 fL (9.4-12.4); Platelet Count 117 K/uL (130-400); RDW Coefficient of Variation 12.2 % (11.5-14.5); RDW Standard Deviation 39.4 fL (36.4-46.3); Red Blood Count 4.22 M/uL (4.63-6.08)
[2022-05-23 10:00] LABS: BUN Creatinine Ratio 21.6 (10-20); Calcium 8.5 mg/dl (8.5-10.1); Creatinine Clr Calc Pharmacy 70.2 ml/min; Est GFR (African American) 87.5 ml/min; Est GFR (Non-African American) 75.5 ml/min; Potassium 3.6 mmol/L (3.5-5.1)
--- NOTE | 2022-05-23 13:31 | Hospitalist Progress Note ---
Date of Service May 23, 2022 Assessment & Plan (1) Generalized weakness: Plan: - Differential includes UTI, dehydration secondary to diarrheal illness, or deconditioning/progression of progressive weakness and patient with history of bilateral SDH in 2019. - Stool PCR not completed as patient has not had any further diarrhea. - No evidence of infection on UA. No other localizable source of infection noted. - Received IV fluids with improvement in his weakness, however PT/OT did evaluate patient and recommend inpatient rehab following without any discharge due to concerns for home safety at current functional status. - Case management involved, sending referrals per family request. (2) Elevated troponin: Plan: - Troponin minimally elevated to 20->38->32 overnight in the setting of acute dehydration, no evidence of ACS. - Given that he just had a dobutamine stress echo in February, will defer on repeat echo here unless cardiac etiology becomes more concerning. Not likely to be ACS at this time. (3) BPH loc w urin obs/LUTS: Plan: - Has a history of UTIs, without symptoms of such this admission. UCx pending. - Continue alfuzosin and finasteride. - Catheter placed by Urology for acute urinary retention, will have Curtis through discharge for 1-2 weeks until seen by Urology. (4) Diarrhea: Plan: - Resolved. - Stool PCR not collected as diarrhea stopped, low likelihood of C diff as patient without diarrhea now for >24 hours. - However, diarrhea likely dehydrated him and exacerbated his weakness. Continue to monitor with physical therapy while admitted. (5) History of subdural hematoma: Plan: - History of bilateral SDH, February 2020. - S/p left burhole and right mini craniotomy. - Complicated by seizure, had previously been on Keppra, has since been d/c'd. - Follows with neurosurgery at [place]. - Has chronic mobility/weakness issues secondary to this. - No acute concerns in this area. (6) Coronary artery disease: Plan: - Had reported to PCP in January some symptoms with activity that resolved with rest. Referred for dobutamine stress test at that time. - Dobutamine stress echo in February: Normal dobutamine echo without definitive evidence of inducible ischemia. Baseline EKG was abnormal, with abnormal EKG response to dobutamine but no wall motion normalities on echo. Frequent atrial ventricular ectopy, normal left ventricular systolic function, normal bioprosthetic aortic valve, left atrium mildly dilated, left ventricle borderline dilated, mild MR. - Continue alfuzosin, statin, baby aspirin. - No beta jose for chronic bradycardia, and recently had lisinopril d/c'ed due to hypotension. (7) Hypercholesterolemia: Plan: - Continue statin. (8) Aortic arch aneurysm: Plan: - Routine monitoring, last measured 4.3 cm. - History of smoking, has since quit. - Nicotine patches as patient is asking for snuff. Plan Full code Heart healthy diet Lovenox for DVT prophylaxis Med/Surg Admission and Anticipated Discharge Date Admission Date: May 22, 2022 Subjective No acute events overnight, and patient has no complaints today. Denies shortness of breath, chest pain, abdominal pain. Has had no further diarrhea. Today spoke to the over the phone who reported that at baseline, Emigdio is pleasantly confused, will take a few minutes to figure out who you are, and his medications are handled by her. She had some concern for UTI given that he seemed a little bit more confused on his day of admission than is typical for him. He did not have complaints of any dysuria, hematuria prior to admission. Review of Systems Review of Systems: All systems reviewed & are unremarkable except as noted in Subjective Physical Exam Constitutional: WD/WN, vitals as above Respiratory: normal respiratory effort, lungs clear to auscultation Cardiovascular: RRR, no murmur, no edema Gastrointestinal (Abdomen): normal bowel sounds, soft, nontender, no hepatosplenomegaly Skin: no rashes, warm and dry Psychiatric: Orientation: alert and oriented to person Genitourinary: Curtis in place draining clear yellow urine Results & Data Results & Data ([facility]) Vital Signs (Past 12 Hours) Vital Signs Temp Pulse Resp BP BP Pulse Ox O2 Del Method 05/23/22 11:42 36.8 C 62 20 102/69 96 Room Air 05/23/22 11:00 Room Air 05/23/22 07:12 36.5 C 62 14 143/82 H 96 Room Air 05/23/22 04:24 36.6 C 61 18 137/86 96 Room Air PG Care Time/CCT Total # of Minutes Spent Total Time Spent with Patient: Total time spent is greater than 50% in coordination of care (as documented) at patient's floor/unit and/or counseling patient: Coding Level of Care Code 10726 Subseq Hosp Care Lvl 2 Diagnoses Generalized weakness R53.1 Elevated troponin R77.8 BPH loc w urin obs/LUTS N40.1 Diarrhea R19.7 History of subdural hematoma Z86.79 Coronary artery disease I25.10 Hypercholesterolemia E78.00 Aortic arch aneurysm I71.22
[2022-05-23] MEDS: ASPIRIN 81 MG ECTAB PO SCH (19:44)
[2022-05-23] MEDS: FINASTERIDE 5 MG TAB PO SCH (19:44)
[2022-05-23] MEDS: ATORVASTATIN 20 MG TAB PO SCH (19:44)
[2022-05-24] MEDS: CHOLECALCIFEROL 1,000 UNITS 25 MCG TAB PO SCH (08:19)
[2022-05-24] MEDS: DOCUSATE SODIUM 100 MG CAP PO SCH (08:20)
[2022-05-24] MEDS: NICOTINE 14 MG/24 HR PATCH TD SCH (08:20)
[2022-05-24] MEDS: ENOXAPARIN INJ 40 MG/0.4 ML SYR SQ SCH (08:20)
--- NOTE | 2022-05-24 08:45 | Hospitalist Progress Note ---
Date of Service May 24, 2022 Assessment & Plan (1) Generalized weakness: Plan: - Differential includes UTI, dehydration secondary to diarrheal illness, or deconditioning/progression of progressive weakness and patient with history of bilateral SDH in 2019. - Stool PCR not completed as patient has not had any further diarrhea. - No evidence of infection on UA. UCx no growth. No other localizable source of infection noted. - Received IV fluids with improvement in his weakness, however PT/OT did evaluate patient and recommend inpatient rehab following without any discharge due to concerns for home safety at current functional status. - Case management involved, sending referrals per family request. (2) Elevated troponin: Plan: - Troponin minimally elevated to 20->38->32 on admission in the setting of acute dehydration, no evidence of ACS. - Given that he just had a dobutamine stress echo in February, will defer on repeat echo here unless cardiac etiology becomes more concerning. Not likely to be ACS at this time. (3) BPH loc w urin obs/LUTS: Plan: - Has a history of UTIs, without symptoms of such this admission. UCx pending. - Continue alfuzosin and finasteride. - Catheter placed by Urology for acute urinary retention, will have Curtis through discharge for 1-2 weeks until seen by Urology. (4) Diarrhea: Plan: - Resolved. - Stool PCR not collected as diarrhea stopped, low likelihood of C diff as patient without diarrhea now for >24 hours. - However, diarrhea likely dehydrated him and exacerbated his weakness. Continue to monitor with physical therapy while admitted. (5) History of subdural hematoma: Plan: - History of bilateral SDH, February 2020. - S/p left burhole and right mini craniotomy. - Complicated by seizure, had previously been on Keppra, has since been d/c'd. - Follows with neurosurgery at [place]. - Has chronic mobility/weakness issues secondary to this. - No acute concerns in this area. (6) Coronary artery disease: Plan: - Had reported to PCP in January some symptoms with activity that resolved with rest. Referred for dobutamine stress test at that time. - Dobutamine stress echo in February: Normal dobutamine echo without definitive evidence of inducible ischemia. Baseline EKG was abnormal, with abnormal EKG response to dobutamine but no wall motion normalities on echo. Frequent atrial ventricular ectopy, normal left ventricular systolic function, normal bioprosthetic aortic valve, left atrium mildly dilated, left ventricle borderline dilated, mild MR. - Continue alfuzosin, statin, baby aspirin. - No beta jose for chronic bradycardia, and recently had lisinopril d/c'ed due to hypotension. (7) Hypercholesterolemia: Plan: - Continue statin. (8) Aortic arch aneurysm: Plan: - Routine monitoring, last measured 4.3 cm. - History of smoking, has since quit. - Nicotine patches as patient is asking for snuff. Plan Full code Heart healthy diet Lovenox for DVT prophylaxis Med/Surg Admission and Anticipated Discharge Date Admission Date: May 22, 2022 Subjective Overnight: No acute events Sinus bradycardia, asymptomatic UCx no growth Review of Systems Review of Systems: All systems reviewed & are unremarkable except as noted in Subjective Physical Exam Constitutional: WD/WN, vitals as above Respiratory: normal respiratory effort, lungs clear to auscultation Cardiovascular: RRR, no murmur, no edema Gastrointestinal (Abdomen): normal bowel sounds, soft, nontender, no hepatosplenomegaly Skin: no rashes, warm and dry Psychiatric: Orientation: alert and oriented to person Results & Data Results & Data ([facility]) Vital Signs (Past 12 Hours) Vital Signs Temp Pulse Resp BP Pulse Ox O2 Del Method 05/24/22 07:32 36.6 C 57 L 18 153/91 H 96 Room Air 05/23/22 23:30 36.4 C L 59 L 20 98 Room Air PG Care Time/CCT Total # of Minutes Spent Total Time Spent with Patient: Total time spent is greater than 50% in coordination of care (as documented) at patient's floor/unit and/or counseling patient: Coding Level of Care Code 53898 Subseq Hosp Care Lvl 2 Diagnoses Generalized weakness R53.1 Elevated troponin R77.8 BPH loc w urin obs/LUTS N40.1 Diarrhea R19.7 History of subdural hematoma Z86.79 Coronary artery disease I25.10 Hypercholesterolemia E78.00 Aortic arch aneurysm I71.22
[2022-05-24] MEDS: ASPIRIN 81 MG ECTAB PO SCH (20:30)
[2022-05-24] MEDS: ATORVASTATIN 20 MG TAB PO SCH (20:30)
[2022-05-24] MEDS: FINASTERIDE 5 MG TAB PO SCH (20:30)
[2022-05-25] MEDS ORDERED: MELATONIN 3 MG TAB PO STA (02:20)
[2022-05-25] MEDS: NICOTINE 14 MG/24 HR PATCH TD SCH (07:55)
[2022-05-25] MEDS: CHOLECALCIFEROL 1,000 UNITS 25 MCG TAB PO SCH (07:56)
[2022-05-25] MEDS: DOCUSATE SODIUM 100 MG CAP PO SCH (07:56)
[2022-05-25] MEDS: ENOXAPARIN INJ 40 MG/0.4 ML SYR SQ SCH (07:56)
--- NOTE | 2022-05-25 08:47 | Hospitalist Progress Note ---
Date of Service May 25, 2022 Assessment & Plan (1) Generalized weakness: Plan: - Differential includes UTI, dehydration secondary to diarrheal illness, or deconditioning/progression of progressive weakness and patient with history of bilateral SDH in 2019. - Stool PCR not completed as patient has not had any further diarrhea. - No evidence of infection on UA. UCx no growth. No other localizable source of infection noted. - Received IV fluids with improvement in his weakness, however PT/OT did evaluate patient and recommend inpatient rehab following without any discharge due to concerns for home safety at current functional status. - Case management involved, sending referrals per family request. (2) Elevated troponin: Plan: - Troponin minimally elevated to 20->38->32 on admission in the setting of acute dehydration, no evidence of ACS. - Given that he just had a dobutamine stress echo in February, will defer on repeat echo here unless cardiac etiology becomes more concerning. Not likely to be ACS at this time. (3) BPH loc w urin obs/LUTS: Plan: - Has a history of UTIs, without symptoms of such this admission. UCx pending. - Continue alfuzosin and finasteride. - Catheter placed by Urology for acute urinary retention, will have Curtis through discharge for 1-2 weeks until seen by Urology. (4) Diarrhea: Plan: - Resolved. - Stool PCR not collected as diarrhea stopped, low likelihood of C diff as patient without diarrhea now for >24 hours. - However, diarrhea likely dehydrated him and exacerbated his weakness. Continue to monitor with physical therapy while admitted. (5) History of subdural hematoma: Plan: - History of bilateral SDH, February 2020. - S/p left burhole and right mini craniotomy. - Complicated by seizure, had previously been on Keppra, has since been d/c'd. - Follows with neurosurgery at [place]. - Has chronic mobility/weakness issues secondary to this. - No acute concerns in this area. (6) Coronary artery disease: Plan: - Had reported to PCP in January some symptoms with activity that resolved with rest. Referred for dobutamine stress test at that time. - Dobutamine stress echo in February: Normal dobutamine echo without definitive evidence of inducible ischemia. Baseline EKG was abnormal, with abnormal EKG response to dobutamine but no wall motion normalities on echo. Frequent atrial ventricular ectopy, normal left ventricular systolic function, normal bioprosthetic aortic valve, left atrium mildly dilated, left ventricle borderline dilated, mild MR. - Continue alfuzosin, statin, baby aspirin. - No beta jose for chronic bradycardia, and recently had lisinopril d/c'ed due to hypotension. (7) Hypercholesterolemia: Plan: - Continue statin. (8) Aortic arch aneurysm: Plan: - Routine monitoring, last measured 4.3 cm. - History of smoking, has since quit. - Nicotine patches as patient is asking for snuff. Plan Full code Heart healthy diet Lovenox for DVT prophylaxis Med/Surg Admission and Anticipated Discharge Date Admission Date: May 22, 2022 Subjective No overnight events. Patient is comfortable in bed, no complaints today including no chest pain, trouble breathing, abdominal pain. Had BM today. Review of Systems Review of Systems: All systems reviewed & are unremarkable except as noted in Subjective Physical Exam Constitutional: WD/WN, vitals as above Respiratory: normal respiratory effort, lungs clear to auscultation Cardiovascular: RRR, no murmur, no edema Gastrointestinal (Abdomen): normal bowel sounds, soft, nontender, no hepatosplenomegaly Skin: no rashes, warm and dry Psychiatric: Orientation: alert and oriented to person Results & Data Results & Data ([facility]) Vital Signs (Past 12 Hours) Vital Signs Temp Pulse Resp BP BP Pulse Ox O2 Del Method 05/25/22 07:18 36.6 C 59 L 20 129/83 97 Room Air 05/24/22 23:00 36.7 C 67 20 127/74 97 Room Air PG Care Time/CCT Total # of Minutes Spent Total Time Spent with Patient: Total time spent is greater than 50% in coordination of care (as documented) at patient's floor/unit and/or counseling patient: Coding Level of Care Code 83613 Subseq Hosp Care Lvl 2 Diagnoses Generalized weakness R53.1 Elevated troponin R77.8 BPH loc w urin obs/LUTS N40.1 Diarrhea R19.7 History of subdural hematoma Z86.79 Coronary artery disease I25.10 Hypercholesterolemia E78.00 Aortic arch aneurysm I71.22
[2022-05-25] MEDS: ASPIRIN 81 MG ECTAB PO SCH (19:58)
[2022-05-25] MEDS: ATORVASTATIN 20 MG TAB PO SCH (19:58)
[2022-05-25] MEDS: FINASTERIDE 5 MG TAB PO SCH (19:58)
--- NOTE | 2022-05-26 08:12 | Hospitalist Progress Note ---
Date of Service May 26, 2022 Assessment & Plan (1) Generalized weakness: Plan: - Differential includes UTI, dehydration secondary to diarrheal illness, or deconditioning/progression of progressive weakness and patient with history of bilateral SDH in 2019. - Stool PCR not completed as patient has not had any further diarrhea. - No evidence of infection on UA. UCx no growth. No other localizable source of infection noted. - Received IV fluids with improvement in his weakness, however PT/OT did evaluate patient and recommend inpatient rehab following discharge due to concerns for home safety at current functional status. - Case management involved, referrals sent. (2) Elevated troponin: Plan: - Troponin minimally elevated to 20->38->32 on admission in the setting of acute dehydration, no evidence of ACS. - Given that he just had a dobutamine stress echo in February, will defer on repeat echo here unless cardiac etiology becomes more concerning. Not likely to be ACS at this time. (3) BPH loc w urin obs/LUTS: Plan: - Has a history of UTIs, without symptoms of such this admission. UCx <1000 CFU. - Continue finasteride. - Catheter placed by Urology for acute urinary retention, but was pulled by patient on 05/26 without any trauma. Discussed with Urology, will defer replacement at this time unless patient is uncomfortable and/or having large volume bladder scans. (4) Diarrhea: Plan: - Resolved. - Stool PCR not collected as diarrhea stopped, low likelihood of C diff as patient without diarrhea now for >24 hours. - However, diarrhea likely dehydrated him and exacerbated his weakness. Continue to monitor with physical therapy while admitted. (5) History of subdural hematoma: Plan: - History of bilateral SDH, February 2020. - S/p left burhole and right mini craniotomy. - Complicated by seizure, had previously been on Keppra, has since been d/c'd. - Follows with neurosurgery at [place]. - Has chronic mobility/weakness/dementia issues secondary to this. - No acute concerns in this area. (6) Coronary artery disease: Plan: - Had reported to PCP in January some symptoms with activity that resolved with rest. Referred for dobutamine stress test at that time. - Dobutamine stress echo in February: Normal dobutamine echo without definitive evidence of inducible ischemia. Baseline EKG was abnormal, with abnormal EKG response to dobutamine but no wall motion normalities on echo. Frequent atrial ventricular ectopy, normal left ventricular systolic function, normal bioprosthetic aortic valve, left atrium mildly dilated, left ventricle borderline dilated, mild MR. - Continue alfuzosin, statin, baby aspirin. - No beta jose for chronic bradycardia, and had lisinopril d/c'ed previously due to hypotension. (7) Hypercholesterolemia: Plan: - Continue statin. (8) Aortic arch aneurysm: Plan: - Routine monitoring, last measured 4.3 cm. - History of smoking, has since quit. - Nicotine patches as patient is asking for snuff. Plan Full code Heart healthy diet Lovenox for DVT prophylaxis Med/Surg Admission and Anticipated Discharge Date Admission Date: May 22, 2022 Subjective No overnight events. This afternoon, patient tore Palomino tubing and then pulled palomino out. Bulb had deflated before pulling event. Vitals normal, no fevers. A bit confused this morning, conversational and knows his name and that he is in the hospital, but thought he was here (she isn't), and has been throwing his legs out of bed at times. He denies chest pain, SOB, abdominal pain. No wincing with abdominal exam. Review of Systems Review of Systems: All systems reviewed & are unremarkable except as noted in Subjective Physical Exam Constitutional: WD/WN, vitals as above Respiratory: normal respiratory effort, lungs clear to auscultation Cardiovascular: RRR, no murmur, no edema Gastrointestinal (Abdomen): normal bowel sounds, soft, nontender, no hepatosplenomegaly Skin: no rashes, warm and dry Psychiatric: Orientation: alert and oriented to person confused at times but redirectable Results & Data Results & [facility] ([facility]) Vital Signs (Past 12 Hours) Vital Signs Temp Pulse Resp BP Pulse Ox O2 Del Method 05/26/22 08:00 36.8 C 68 18 109/70 97 Room Air 05/26/22 07:17 Room Air 05/25/22 22:12 36.7 C 61 18 126/72 96 Room Air PG Care Time/CCT Total # of Minutes Spent Total Time Spent with Patient: Total time spent is greater than 50% in coordination of care (as documented) at patient's floor/unit and/or counseling patient: Coding Level of Care Code 84486 Subseq Hosp Care Lvl 2 Diagnoses Generalized weakness R53.1 Elevated troponin R77.8 BPH loc w urin obs/LUTS N40.1 Diarrhea R19.7 History of subdural hematoma Z86.79 Coronary artery disease I25.10 Hypercholesterolemia E78.00 Aortic arch aneurysm I71.22
[2022-05-26] MEDS: DOCUSATE SODIUM 100 MG CAP PO SCH (08:28)
[2022-05-26] MEDS: CHOLECALCIFEROL 1,000 UNITS 25 MCG TAB PO SCH (08:28)
[2022-05-26] MEDS: NICOTINE 14 MG/24 HR PATCH TD SCH (08:29)
[2022-05-26] MEDS: ENOXAPARIN INJ 40 MG/0.4 ML SYR SQ SCH (08:30)
[2022-05-26 09:00] LABS: Creatinine Clr Calc Pharmacy 72.5 ml/min; Est GFR (African American) 93.3 ml/min; Est GFR (Non-African American) 80.5 ml/min
[2022-05-26] MEDS: ATORVASTATIN 20 MG TAB PO SCH (21:30)
[2022-05-26] MEDS: FINASTERIDE 5 MG TAB PO SCH (21:30)
[2022-05-26] MEDS: ASPIRIN 81 MG ECTAB PO SCH (21:30)
[2022-05-26] MEDS: MELATONIN 3 MG TAB PO PRN (21:32)
--- NOTE | 2022-05-27 08:11 | Hospitalist Progress Note ---
Date of Service May 27, 2022 Assessment & Plan (1) Generalized weakness: Plan: - Differential includes infection, dehydration secondary to diarrheal illness, or deconditioning/progression of progressive weakness and patient with history of bilateral SDH in 2019. - Stool PCR not completed as patient has not had any further diarrhea. - No evidence of infection on UA. UCx no growth. No other localizable source of infection noted. - Received IV fluids with improvement in his weakness, however PT/OT did evaluate patient and recommend inpatient rehab following discharge due to concerns for home safety at current functional status. - Case management involved, referrals sent. (2) Confusion: Plan: - Yesterday with some increase in confusion, comes and goes, no focal neuro deficits. - Suspect hospital related delirium vs. constipation as cause. - CT Head no acute intracranial pathology. - CXR no pneumonia. - KUB showed moderate fecal retention, continue Senna and will schedule Miralax. (3) Elevated troponin: Plan: - Troponin minimally elevated to 20->38->32 on admission in the setting of acute dehydration, no evidence of ACS. - Given that he just had a dobutamine stress echo in February, will defer on repeat echo here unless cardiac etiology becomes more concerning. Not likely to be ACS at this time. (4) BPH loc w urin obs/LUTS: Plan: - Has a history of UTIs, without symptoms of such this admission. UCx <1000 CFU. - Continue finasteride. - Catheter placed by Urology for acute urinary retention, but was pulled by patient on 05/26 without any trauma. Discussed with Urology, will defer replacement at this time unless patient is uncomfortable and/or having large volume bladder scans. No problems voiding since Curtis removal. Follow up with Urology outpatient. (5) Diarrhea: Plan: - Resolved. - Stool PCR not collected as diarrhea stopped, low likelihood of C diff as patient without diarrhea now for >24 hours. - However, diarrhea likely dehydrated him and exacerbated his weakness. Continue to monitor with physical therapy while admitted. (6) History of subdural hematoma: Plan: - History of bilateral SDH, February 2020. - S/p left burhole and right mini craniotomy. - Complicated by seizure, had previously been on Keppra, has since been d/c'd. - Follows with neurosurgery at [place]. - Has chronic mobility/weakness/dementia issues secondary to this. - No acute concerns in this area. (7) Coronary artery disease: Plan: - Had reported to PCP in January some symptoms with activity that resolved with rest. Referred for dobutamine stress test at that time. - Dobutamine stress echo in February: Normal dobutamine echo without definitive evidence of inducible ischemia. Baseline EKG was abnormal, with abnormal EKG response to dobutamine but no wall motion normalities on echo. Frequent atrial ventricular ectopy, normal left ventricular systolic function, normal bioprosthetic aortic valve, left atrium mildly dilated, left ventricle borderline dilated, mild MR. - Continue alfuzosin, statin, baby aspirin. - No beta jose for chronic bradycardia, and had lisinopril d/c'ed previously due to hypotension. (8) Hypercholesterolemia: Plan: - Continue statin. (9) Aortic arch aneurysm: Plan: - Routine monitoring, last measured 4.3 cm. - History of smoking, has since quit. - Nicotine patches as patient is asking for snuff. Plan Full code Heart healthy diet Lovenox for DVT prophylaxis Med/Surg Admission and Anticipated Discharge Date Admission Date: May 22, 2022 Subjective Overnight continued intermittent confusion. Alert and oriented during my interview this morning. No complaints including no chest pain, shortness of breath, abdominal pain. Feels embarrassed that he pulled his Curtis out, and asked today if he needs a new one or if he is ok leaving it out. Review of Systems Review of Systems: All systems reviewed & are unremarkable except as noted in Subjective Physical Exam Constitutional: WD/WN, vitals as above Respiratory: normal respiratory effort, lungs clear to auscultation Cardiovascular: RRR, no murmur, no edema Gastrointestinal (Abdomen): normal bowel sounds, soft, nontender, no hepatosplenomegaly Skin: no rashes, warm and dry Psychiatric: Orientation: alert and oriented to person Results & Data Results & Data ([facility]) Vital Signs (Past 12 Hours) Vital Signs Temp Pulse Resp BP Pulse Ox O2 Del Method 05/27/22 07:44 36.7 C 62 16 127/82 97 Room Air 05/27/22 07:23 Room Air 05/26/22 22:12 36.5 C 56 L 18 134/65 96 Room Air PG Care Time/CCT Total # of Minutes Spent Total Time Spent with Patient: Total time spent is greater than 50% in coordination of care (as documented) at patient's floor/unit and/or counseling patient: Coding Level of Care Code 11476 Subseq Hosp Care Lvl 2 Diagnoses Generalized weakness R53.1 Confusion R41.0 Elevated troponin R77.8 BPH loc w urin obs/LUTS N40.1 Diarrhea R19.7 History of subdural hematoma Z86.79 Coronary artery disease I25.10 Hypercholesterolemia E78.00 Aortic arch aneurysm I71.22
[2022-05-27] MEDS: DOCUSATE SODIUM 100 MG CAP PO SCH (08:18)
[2022-05-27] MEDS: NICOTINE 14 MG/24 HR PATCH TD SCH (08:18)
[2022-05-27] MEDS: CHOLECALCIFEROL 1,000 UNITS 25 MCG TAB PO SCH (08:18)
[2022-05-27] MEDS: ENOXAPARIN INJ 40 MG/0.4 ML SYR SQ SCH (08:19)
--- NOTE | 2022-05-27 09:40 | XRay Report ---
XR chest 1V portable HISTORY: Altered mental status. Weakness. COMPARISON: Chest 05/20/2022. FINDINGS: A few small bibasilar linear densities favoring subsegmental atelectasis. Otherwise, the álvaro ngs are clear. The heart is normal in size. No pleural effusions. No pneumothorax. Poststernotomy uday nges are noted. IMPRESSION: No acute process. ACT 112: Negative or not required by law. Electronically signed by: Andres Lamas M.D. 05/27/2022 9:39 AM
--- NOTE | 2022-05-27 09:42 | XRay Report ---
KUB HISTORY: ams ?constipation COMPARISON: KUB 09/16/2020. FINDINGS: The bowel gas pattern is unremarkable. There are no dilated loops of small bowel to suggest an obstruction. No renal calculi. No ureteral calculi. No pneumoperitoneum or pneumatosis. Moderate fecal retention. This has progressed in the interval. IMPRESSION: 1. No evidence for bowel obstruction. 2. Progression of the moderate fecal retention. ACT 112: Negative or not required by law. Electronically signed by: Andres Lamas M.D. 05/27/2022 9:41 AM
--- NOTE | 2022-05-27 10:07 | CT Scan Report ---
HEAD CT NONCONTRAST CT DOSE: 614.27 mGy.cm HISTORY: Altered mental status. TECHNIQUE: Multiaxial CT images of the head were performed without the use of intravenous contrast. A utomated exposure control was utilized for this study. A dose lowering technique was utilized adheri ng to the principles of ALARA. Comparison: Head CT 09/29/2020. Findings: The paranasal sinuses and mastoid air cells are clear. The calvarium and skull base are int act. There is no mass, hematoma, midline shift, acute infarct. White matter hypodensity is nonspecifi c but suggestive of microvascular ischemic change. The ventricles and sulci demonstrate mild age-rela joseph involutional changes. Prior right frontal craniotomy and left-sided matilde holes again noted. Impression: No significant change compared to the prior study. No acute intracranial abnormality. ACT 112: Negative or not required by law. Electronically signed by: Andres Lamas M.D. 05/27/2022 10:04 AM
[2022-05-27 17:44] LABS: Appearance Urine Clear (Clear); Bacteria Urine Automated Negative (Negative); Blood Urine 2+ (Negative); Color Urine Dark Yellow; Epithelial Cell Urine Auto 20-30 /lpf (0-5); Glucose Urine UA Negative (Negative); Ketones Urine Trace (Negative); Leukocyte Esterase Urine Trace (Negative); Nitrite Urine Negative (Negative); Protein Urine 1+ (Negative); Specific Gravity Urine 1.026 (1.000-1.030); Urobilinogen Urine Negative (Negative)
[2022-05-27 18:15] LABS: Bilirubin Urine 1+ (Negative)
[2022-05-27] MEDS: MELATONIN 3 MG TAB PO PRN (20:10)
[2022-05-27] MEDS: ASPIRIN 81 MG ECTAB PO SCH (20:10)
[2022-05-27] MEDS: FINASTERIDE 5 MG TAB PO SCH (20:10)
[2022-05-27] MEDS: ATORVASTATIN 20 MG TAB PO SCH (20:10)
[2022-05-28] MEDS: DOCUSATE SODIUM 100 MG CAP PO SCH (07:34)
[2022-05-28] MEDS: ENOXAPARIN INJ 40 MG/0.4 ML SYR SQ SCH (07:34)
[2022-05-28] MEDS: CHOLECALCIFEROL 1,000 UNITS 25 MCG TAB PO SCH (07:34)
[2022-05-28] MEDS: NICOTINE 14 MG/24 HR PATCH TD SCH (07:35)
[2022-05-28] MEDS ORDERED: POLYETHYLENE (MIRALAX) 17 GM PACK PO SCH (09:00)
[2022-05-28 09:26] LABS: Basophils # (auto) 0.05 K/uL (0-0.2); Basophils % (auto) 0.9 %; Eosinophils # (auto) 0.19 K/uL (0-0.50); Eosinophils % (auto) 3.2 %; Hematocrit (blood only) 40.1 % (40.1-51.0); Hemoglobin 14.2 g/dl (14.0-18.0); Immature Granulocytes # (auto) 0.05 K/uL (0.00-0.02); Immature Granulocytes % (auto) 0.9 %; Lymphocytes # (auto) 1.98 K/uL (1.2-3.4); Lymphocytes % (auto) 33.7 %; Mean Corpuscular Hemoglobin 31.6 pg (25.0-34.0); Mean Corpuscular Hgb Conc 35.4 g/dL (32.0-36.0); Mean Corpuscular Volume 89.3 fL (80.0-100.0); Monocytes % (auto) 10.2 %; Neutrophils # (auto) 3.01 K/uL (1.4-6.5); Neutrophils % (auto) 51.1 %; Platelet Count 196 K/uL (130-400); RDW Coefficient of Variation 12.1 % (11.5-14.5); RDW Standard Deviation 39.6 fL (36.4-46.3); Red Blood Count 4.49 M/uL (4.63-6.08); White Blood Count 5.88 K/ul (4.8-10.8)
[2022-05-28 09:55] LABS: Albumin Globulin Ratio 1.5 (0.9-2); Albumin Level 3.8 gm/dl (3.4-5.0); Calcium 8.9 mg/dl (8.5-10.1); Creatinine Clr Calc Pharmacy 64.2 ml/min; Est GFR (African American) 80.5 ml/min; Est GFR (Non-African American) 69.4 ml/min; Globulin 2.5 gm/dl (2.5-4.0); Magnesium 1.9 mg/dl (1.7-2.4); Potassium 3.8 mmol/L (3.5-5.1); Total Protein 6.3 gm/dl (6.0-8.3)
[2022-05-28 10:13] LABS: Ferritin 74.3 ng/ml (8-388)
[2022-05-28 11:05] LABS: Lyme Ab IgG w/WB Rflx Negative (Negative); Lyme Ab IgM w/WB Rflx Negative (Negative)
[2022-05-28] MEDS: CYANOCOBALAMIN (B-12) 500 MCG TABLET PO SCH (13:09)
--- NOTE | 2022-05-28 18:47 | Hospitalist Progress Note ---
Date of Service May 28, 2022 Assessment & Plan (1) Generalized weakness: Plan: - Differential includes infection, dehydration secondary to diarrheal illness initially, or deconditioning/progression of progressive weakness and patient with history of bilateral SDH in 2019. - Stool PCR not completed as patient has not had any further diarrhea and in fact now has been constipated for many days. - No evidence of infection on UA. UCx no growth. No other localizable source of infection noted. - Received IV fluids with improvement in his weakness, however PT/OT did evaluate patient and recommend inpatient rehab following discharge due to concerns for home safety at current functional status. - Case management involved, referrals sent and awaiting insurance authorization for placement (2) Confusion: Plan: With acute encephalopathy related to urinary retention, constipation without focal neuro deficits. Does have underlying dementia -Hospital delirium also playing a role - CT Head no acute intracranial pathology. - CXR no pneumonia. - KUB showed moderate fecal retention-increase bowel regimen to MiraLAX 3 times daily, add on senna/docusate this evening and again in the morning and to be continued daily, continue docusate 200 mg daily On 05/28, seems improved compared to previous descriptions (3) Elevated troponin: Plan: - Troponin minimally elevated to 20->38->32 on admission in the setting of acute dehydration, no evidence of ACS. - Given that he just had a dobutamine stress echo in February, will defer on repeat echo here unless cardiac etiology becomes more concerning. Not likely to be ACS at this time. (4) BPH loc w urin obs/LUTS: Plan: - Has a history of UTIs, without symptoms of such this admission. UCx <1000 CFU. -Has a history of TURP - Catheter placed by Urology during this admission for acute urinary retention; was a difficult placement Curtis catheter was pulled out by patient on 05/26 without any trauma during a period of encephalopathy. Now with urinary retention again on 05/28 -urology recommends replacement of F oley catheter which was performed by the nurse on 05/28 Keep Curtis catheter in place and have patient follow-up with urology as an outpatient He remains on finasteride Primary care records indicate that he is supposed to be on alfuzosin 10 mg daily but I do not see this listed on the home medication reconciliation-will add on 05/29 (5) Diarrhea: Plan: - Resolved. - Stool PCR not collected as diarrhea stopped shortly after admission and now is constipated - However, diarrhea likely dehydrated him and exacerbated his weakness. Continue to monitor with physical therapy while admitted. (6) History of subdural hematoma: Plan: - History of bilateral SDH, February 2020. - S/p left burhole and right mini craniotomy. - Complicated by seizure, had previously been on Keppra, has since been d/c'd. - Follows with neurosurgery at [place]. - Has chronic mobility/weakness/dementia issues secondary to this. - No acute concerns in this area. (7) Coronary artery disease: Plan: - Had reported to PCP in January some symptoms with activity that resolved with rest. Referred for dobutamine stress test at that time. - Dobutamine stress echo in February: Normal dobutamine echo without definitive evidence of inducible ischemia. Baseline EKG was abnormal, with abnormal EKG response to dobutamine but no wall motion normalities on echo. Frequent atrial ventricular ectopy, normal left ventricular systolic function, normal bioprosthetic aortic valve, left atrium mildly dilated, left ventricle borderline dilated, mild MR. - Continue statin, baby aspirin. - No beta jose for chronic bradycardia, and had lisinopril d/c'ed previously due to hypotension. (8) Hypercholesterolemia: Plan: - Continue statin. (9) Aortic arch aneurysm: Plan: - Routine monitoring, last measured 4.3 cm. - History of smoking, has since quit. - Nicotine patches as patient is asking for snuff. Plan DVT prophylaxis-Lovenox Disposition-medically stable for discharge, work on constipation in the meantime while awaiting bed at SNF. Insurance authorization is pending. Of note[facility] and Anticipated Discharge Date Admission Date: May 22, 2022 Subjective Patient has no complaints. He is slightly confused and keeps trying to ask when he will be able to visit with his who is in the hospital but is mixing her name up with his son and his "mom." Denies chest pain shortness of breath, no abdominal pains. He did require replacement of Curtis catheter today for post void residual of almost 700 mL Review of Systems Review of Systems: All systems reviewed & are unremarkable except as noted in HPI & below Physical Exam Constitutional: WD/WN, vitals as above Eyes: + anicteric sclerae Neck: trachea midline, no thyromegaly Respiratory: normal respiratory effort, lungs clear to auscultation Cardiovascular: RRR, no murmur, no edema Chest (Breasts): Chest: normal inspection of chest Gastrointestinal (Abdomen): normal bowel sounds, soft, nontender, no hepatosplenomegaly Musculoskeletal: Extremities: extremities normal to inspection; no cyanosis and no clubbing Skin: no rashes, warm and dry Neurologic: moves all extremities and awake; no focal motor deficits Psychiatric: Orientation: alert, oriented to person, oriented to place and cooperative Genitourinary: Curtis catheter in place draining clear dark yellow urine Lymphatic: no lymphedema Results & Data Results & Data ([facility]) Vital Signs (Past 12 Hours) Vital Signs Temp Pulse Resp BP Pulse Ox O2 Del Method 05/28/22 15:48 36.9 C 79 18 153/97 H 96 Room Air 05/28/22 08:00 36.4 C L 65 16 135/80 95 Room Air 05/28/22 07:06 Room Air Laboratory Results 05/28/22 05/28/22 05/28/22 Range/Units 09:05 09:05 09:05 WBC (4.8-10.8) K/ul RBC (4.63-6.08) M/uL Hgb (14.0-18.0) g/dl Hct (40.1-51.0) % MCV (80.0-100.0) fL MCH (25.0-34.0) pg MCHC (32.0-36.0) g/dL RDW Std Deviation (36.4-46.3) fL RDW Coeff of Harmony (11.5-14.5) % Plt Count (130-400) K/uL MPV (9.4-12.4) fL Immature Gran % (Auto) % Neut % (Auto) % Lymph % (Auto) % [place] % (Auto) % Eos % (Auto) % Baso % (Auto) % Neut # (Auto) (1.4-6.5) K/uL Lymph # (Auto) (1.2-3.4) K/uL [place] # (Auto) (0.24-0.82) K/uL Eos # (Auto) (0-0.50) K/uL Baso # (Auto) (0-0.2) K/uL Immature Gran # (Auto) (0.00-0.02) K/uL Sodium (136-145) mmol/L Potassium (3.5-5.1) mmol/L Chloride (98-107) mmol/L Carbon Dioxide (21-32) mmol/L Anion Gap (3-11) BUN (6-23) mg/dl Creatinine (0.6-1.4) mg/dl Est Cr Clr Drug Dosing ml/min Est GFR ( Amer) ml/min Est GFR (Non-Af Amer) ml/min BUN/Creatinine Ratio (10-20) Glucose (70-99(Fasting)) mg/dl Calcium (8.5-10.1) mg/dl Magnesium (1.7-2.4) mg/dl Iron Cancelled (35-175) mcg/dl TIBC Cancelled (250-450) mcg/dl Unsaturated IBC Cancelled (155-355) mcg/dl Transferrin % Sat Cancelled (20-50) % Ferritin (8-388) ng/ml Total Bilirubin (0.2-1.0) mg/dl AST (13-39) U/L ALT (7-52) U/L Alkaline Phosphatase (34-104) U/L Ammonia (18-72) umol/L Total Protein (6.0-8.3) gm/dl Albumin (3.4-5.0) gm/dl Globulin (2.5-4.0) gm/dl Albumin/Globulin Ratio (0.9-2) Vitamin B12 304 (180-914) pg/ml Folate 17.43 (>5.38) ng/ml Lyme Disease IgG Ab Negative (Negative) Lyme Disease IgM Ab Negative (Negative) 05/28/22 05/28/22 05/28/22 Range/Units 09:05 09:05 09:05 WBC 5.88 (4.8-10.8) K/ul RBC 4.49 L (4.63-6.08) M/uL Hgb 14.2 (14.0-18.0) g/dl Hct 40.1 (40.1-51.0) % MCV 89.3 (80.0-100.0) fL MCH 31.6 (25.0-34.0) pg MCHC 35.4 (32.0-36.0) g/dL RDW Std Deviation 39.6 (36.4-46.3) fL RDW Coeff of Harmony 12.1 (11.5-14.5) % Plt Count 196 (130-400) K/uL MPV 10.0 (9.4-12.4) fL Immature Gran % (Auto) 0.9 % Neut % (Auto) 51.1 % Lymph % (Auto) 33.7 % [place] % (Auto) 10.2 % Eos % (Auto) 3.2 % Baso % (Auto) 0.9 % Neut # (Auto) 3.01 (1.4-6.5) K/uL Lymph # (Auto) 1.98 (1.2-3.4) K/uL [place] # (Auto) 0.60 (0.24-0.82) K/uL Eos # (Auto) 0.19 (0-0.50) K/uL Baso # (Auto) 0.05 (0-0.2) K/uL Immature Gran # (Auto) 0.05 H (0.00-0.02) K/uL Sodium 137 (136-145) mmol/L Potassium 3.8 (3.5-5.1) mmol/L Chloride 102 (98-107) mmol/L Carbon Dioxide 32 (21-32) mmol/L Anion Gap 3 (3-11) BUN 25 H (6-23) mg/dl Creatinine 1.04 (0.6-1.4) mg/dl Est Cr Clr Drug Dosing 64.2 ml/min Est GFR ( Amer) 80.5 ml/min Est GFR (Non-Af Amer) 69.4 ml/min BUN/Creatinine Ratio 24.0 H (10-20) Glucose 101 H (70-99(Fasting)) mg/dl Calcium 8.9 (8.5-10.1) mg/dl Magnesium 1.9 (1.7-2.4) mg/dl Iron 88 (35-175) mcg/dl TIBC 275 (250-450) mcg/dl Unsaturated IBC 187 (155-355) mcg/dl Transferrin % Sat 32 (20-50) % Ferritin 74.3 (8-388) ng/ml Total Bilirubin 1.0 (0.2-1.0) mg/dl AST 18 (13-39) U/L ALT 24 (7-52) U/L Alkaline Phosphatase 61 (34-104) U/L Ammonia 21.0 (18-72) umol/L Total Protein 6.3 (6.0-8.3) gm/dl Albumin 3.8 (3.4-5.0) gm/dl Globulin 2.5 (2.5-4.0) gm/dl Albumin/Globulin Ratio 1.5 (0.9-2) Vitamin B12 (180-914) pg/ml Folate (>5.38) ng/ml Lyme Disease IgG Ab (Negative) Lyme Disease IgM Ab (Negative) PG Care Time/CCT Total # of Minutes Spent Total Time Spent with Patient: Total time spent is greater than 50% in coordination of care (as documented) at patient's floor/unit and/or counseling patient: Coding Level of Care Code 03607 Subseq Hosp Care Lvl 2 Diagnoses Generalized weakness R53.1 Confusion R41.0 Elevated troponin R77.8 BPH loc w urin obs/LUTS N40.1 Diarrhea R19.7 History of subdural hematoma Z86.79 Coronary artery disease I25.10 Hypercholesterolemia E78.00 Aortic arch aneurysm I71.22
[2022-05-28] MEDS: FINASTERIDE 5 MG TAB PO SCH (20:13)
[2022-05-28] MEDS: ATORVASTATIN 20 MG TAB PO SCH (20:13)
[2022-05-28] MEDS: ASPIRIN 81 MG ECTAB PO SCH (20:13)
[2022-05-28] MEDS: DOCUSATE SODIUM/SENNA 50/8.6MG TAB PO SCH (23:34)
[2022-05-29] MEDS: ENOXAPARIN INJ 40 MG/0.4 ML SYR SQ SCH (08:16)
[2022-05-29] MEDS: CYANOCOBALAMIN (B-12) 500 MCG TABLET PO SCH (08:17)
[2022-05-29] MEDS: CHOLECALCIFEROL 1,000 UNITS 25 MCG TAB PO SCH (08:17)
[2022-05-29] MEDS: DOCUSATE SODIUM 100 MG CAP PO SCH (08:17)
[2022-05-29] MEDS: ALFUZOSIN HCL 10 MG TAB PO SCH (08:18)
[2022-05-29] MEDS: POLYETHYLENE (MIRALAX) 17 GM PACK PO SCH ×3 (08:18→20:03)
[2022-05-29] MEDS: DOCUSATE SODIUM/SENNA 50/8.6MG TAB PO SCH (08:18)
[2022-05-29] MEDS: NICOTINE 14 MG/24 HR PATCH TD SCH (08:18)
[2022-05-29] MEDS: ADVANCED PROBIOTIC 1250 MG CAPSULE PO SCH (12:14)
[2022-05-29] MEDS: AMOXICILLIN 500 MG CAP PO SCH ×3 (12:14→20:01)
[2022-05-29] MEDS: ATORVASTATIN 20 MG TAB PO SCH (20:02)
[2022-05-29] MEDS: FINASTERIDE 5 MG TAB PO SCH (20:02)
[2022-05-29] MEDS: ASPIRIN 81 MG ECTAB PO SCH (20:02)
--- NOTE | 2022-05-29 20:34 | Hospitalist Progress Note ---
Date of Service May 29, 2022 Assessment & Plan (1) UTI (urinary tract infection): Plan: 2nd to GBS start amox 500 TID check PSA -- if markedly elevated consider longer course of abx for prostatitis Rx (2) Generalized weakness: Plan: likely multifactorial Rx his UTI cont PT, OT needs rehab post-d/c (3) Confusion: Plan: likely 2nd to UTI, hospital delirium, constipation, etc - all in setting of baseline dementia confusion is pleasant - no agitation would not Rx with antipsychotics, etc thiamine level sent start empiric Rx cont melatonin HS B12 level low-normal - replace oral B12 recent TSH wnl (4) Elevated troponin: Plan: 2nd to myocardial demand ischemia no evidence of ACS had neg stress test earlier this fall (5) BPH loc w urin obs/LUTS: Plan: prior h/o TURP multiple foleys this admission most recent placed 05/28/22 keep palomino at d/c cont finasteride cont alfuzosin f/u urology as outpatient Rx UTI check PSA (6) Diarrhea: Plan: Resolved. 2nd to overflow diarrhea from constipation? cont bowel regimen (7) History of subdural hematoma: Plan: - History of bilateral SDH, February 2020. - S/p left burhole and right mini craniotomy. - Complicated by seizure, had previously been on Keppra, has since been d/c'd. - Follows with neurosurgery at [facility]. - Has chronic mobility/weakness/dementia issues secondary to this. 05/27/[address] stable no new ICH (8) Coronary artery disease: Plan: - Had reported to PCP in January some symptoms with activity that resolved with rest. Referred for dobutamine stress test at that time. - Dobutamine stress echo in February: Normal dobutamine echo without definitive evidence of inducible ischemia. Baseline EKG was abnormal, with abnormal EKG response to dobutamine but no wall motion normalities on echo. Frequent atrial ventricular ectopy, normal left ventricular systolic function, normal bioprosthetic aortic valve, left atrium mildly dilated, left ventricle borderline dilated, mild MR. - Continue statin, baby aspirin. - No beta jose for chronic bradycardia, and had lisinopril d/c'ed previously due to hypotension. (9) Hypercholesterolemia: Plan: - Continue statin. 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 - History of smoking, has since quit. - Nicotine patches as patient is asking for snuff. will need annual surveillance Plan DVT prophylaxis-Lovenox SNF placement - hopefully next 1-2 days Admission and Anticipated Discharge Date Admission Date: May 22, 2022 Subjective patient lying in bed cannot provide any meaningful history or ROS staff report pleasant confusion no agitation eating ok Review of Systems Review of Systems: Unobtainable due to cognitive status Physical Exam Physical Exam: gen - NAD, pleasantly confused mouth - MMM neck - no JVD heart - RRR, s1 s2, no murmur lungs - CTA b/l abd - soft NT ND BS+ ext - no edema, pulses 2+ b/l Results & Data Results & Data ([facility]) Vital Signs (Past 12 Hours) Vital Signs Temp Pulse Resp BP Pulse Ox O2 Del Method 05/29/22 15:16 37.0 C 69 16 123/78 96 Room Air Laboratory Results Laboratory Results - last 24 hr 05/29/22 05/29/22 09:20 15:37 Whole Bld Vitamin B1 Pending SARS-CoV-2, RNA, NAAT NEGATIVE Diagnostic Findings urine culture -- 60,000 CFU GBS PG Care Time/CCT Total # of Minutes Spent Total Time Spent with Patient: Total time spent is greater than 50% in coordination of care (as documented) at patient's floor/unit and/or counseling patient: Coding Level of Care Code 37822 Subseq Hosp Care Lvl 2 Diagnoses UTI (urinary tract infection) N39.0 Generalized weakness R53.1 Confusion R41.0 Elevated troponin R77.8 BPH loc w urin obs/LUTS N40.1 Diarrhea R19.7 History of subdural hematoma Z86.79 Coronary artery disease I25.10 Hypercholesterolemia E78.00 Aortic arch aneurysm I71.22
[2022-05-30] MEDS: CHOLECALCIFEROL 1,000 UNITS 25 MCG TAB PO SCH (08:31)
[2022-05-30] MEDS: CYANOCOBALAMIN (B-12) 500 MCG TABLET PO SCH (08:31)
[2022-05-30] MEDS: AMOXICILLIN 500 MG CAP PO SCH (08:31)
[2022-05-30] MEDS: ADVANCED PROBIOTIC 1250 MG CAPSULE PO SCH (08:32)
[2022-05-30] MEDS: ENOXAPARIN INJ 40 MG/0.4 ML SYR SQ SCH (08:32)
[2022-05-30] MEDS: ALFUZOSIN HCL 10 MG TAB PO SCH (08:32)
[2022-05-30] MEDS: NICOTINE 14 MG/24 HR PATCH TD SCH (08:32)
[2022-05-30] MEDS: DOCUSATE SODIUM 100 MG CAP PO SCH (08:37)
[2022-05-30] MEDS: POLYETHYLENE (MIRALAX) 17 GM PACK PO SCH (08:37)
[2022-05-30] MEDS: DOCUSATE SODIUM/SENNA 50/8.6MG TAB PO SCH (08:37)
[2022-05-30 08:48] LABS: BUN Creatinine Ratio 21.2 (10-20); Calcium 8.9 mg/dl (8.5-10.1); Creatinine Clr Calc Pharmacy 77.7 ml/min; Est GFR (African American) 98.1 ml/min; Est GFR (Non-African American) 84.6 ml/min; Potassium 3.8 mmol/L (3.5-5.1)
[2022-05-30] MEDS ORDERED: THIAMINE HCL 100 MG TAB PO SCH (09:00)
--- NOTE | 2022-05-30 12:10 | Discharge Summary ---
Date of Service May 30, 2022 Admission HPI Per Admitting Provider Emigdio Bruce is a 76-year-old male with past medical history significant for b/l SDH in 2019, CAD, hypertension, hyperlipidemia, and BPH who is presenting today from home with generalized weakness. For 3-4 days patient has been having nonbloody diarrhea/loose stool and becoming progressively weak, with a fall yesterday. Not quite sure how the fall happened, but states his legs felt like Jell-O and gave out from under him and he landed on his buttocks, denies hitting his head or any loss of consciousness. He is not on any blood thinners. He has a history of UTIs and his , who is at bedside, states that with them he does tend to become generally weak as he is presenting today and may or may not have assoicated urinary symptoms. Also has a history of cold sores and with these becomes "sick all over ", with weakness, fatigue, body aches seeming like the typical presentation for him. He did have a lesion that developed on his lower lip Saturday. Has not had any fever/chills, focal weakness, chest pain, palpitations, lightheadedness, dizziness, or shortness of breath, cough. Upon presentation to the ED, he has had episodes of bradycardia to the 50s, which is not appear new for him. Otherwise VS within normal limits, stable. Complex large unrevealing, platelet count slightly decreased at 121, however has history of thrombocytopenia to this degree last year. Initial troponin minimally elevated at 20.2. No leukocytosis or anemia, renal function at his baseline, no transaminitis, sodium is borderline low at 135, otherwise no electrolyte abnormalities. TSH wnl. COVID-negative. CXR did not reveal acute process. Urine and stool PCR panel pending collection. Discharge Exam gen - NAD, pleasantly confused mouth - MMM neck - no JVD heart - RRR, s1 s2, no murmur lungs - CTA b/l abd - soft NT ND BS+ ext - no edema, pulses 2+ b/l Discharge Data Allergies Allergy/AdvReac Type Severity Reaction Status Date / Time No Known Drug Allergies Allergy Verified 02/06/22 11:19 Consultations 05/20/22 13:54 ED Decision to Admit Stat 05/20/22 16:58 Consult Urology Routine Ordered Studies 05/27/22 08:11 CT head/brain wo con Routine Hospital Course (1) UTI (urinary tract infection): 2nd to GBS start amox 500 TID check PSA -- if markedly elevated consider longer course of abx for prostatitis Rx (2) Generalized weakness: likely multifactorial Rx his UTI cont PT, OT needs rehab post-d/c (3) Acute metabolic encephalopathy: likely 2nd to UTI, hospital delirium, constipation, etc - all in setting of baseline dementia confusion is pleasant - no agitation would not Rx with antipsychotics, etc thiamine level sent start empiric Rx cont melatonin HS B12 level low-normal - replace oral B12 recent TSH wn (4) Elevated troponin: 2nd to myocardial demand ischemia no evidence of ACS had neg stress test earlier this fall (5) BPH loc w urin obs/LUTS: prior h/o TURP multiple foleys this admission most recent placed 05/28/22 keep palomino at d/c cont finasteride cont alfuzosin f/u urology as outpatient Rx UTI check PSA (6) Diarrhea: Resolved. 2nd to overflow diarrhea from constipation? cont bowel regimen (7) History of subdural hematoma: - History of bilateral SDH, February 2020. - S/p left burhole and right mini craniotomy. - Complicated by seizure, had previously been on Keppra, has since been d/c'd. - Follows with neurosurgery at [facility]. - Has chronic mobility/weakness/dementia issues secondary to this. 05/27/[address] stable no new ICH (8) Coronary artery disease: - Had reported to PCP in January some symptoms with activity that resolved with rest. Referred for dobutamine stress test at that time. - Dobutamine stress echo in February: Normal dobutamine echo without definitive evidence of inducible ischemia. Baseline EKG was abnormal, with abnormal EKG response to dobutamine but no wall motion normalities on echo. Frequent atrial ventricular ectopy, normal left ventricular systolic function, normal bioprosthetic aortic valve, left atrium mildly dilated, left ventricle borderline dilated, mild MR. - Continue statin, baby aspirin. - No beta jose for chronic bradycardia, and had lisinopril d/c'ed previously due to hypotension. (9) Hypercholesterolemia: - Continue statin. 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 - History of smoking, has since quit. - Nicotine patches as patient is asking for snuff. will need annual surveillance Plan DVT prophylaxis-Lovenox SNF placement - hopefully next 1-2 days Discharge Plan Discharge Items Patient Disposition: Transfer Alf Fac Reason For Visit: GENERALIZED WEAKNESS Discharge Diagnosis: 1. generalized weakness - likely multifactorial 2. urinary tract infection 3. urinary retention due to enlarged prostate (BPH) and UTI - palomino catheter in place since 05/28/22 4. dementia 5. history of subdural hematoma 6. history of coronary artery disease Activity: Resume your previous activity Non-emergency contact: Primary Care Provider Call non-emergency contact if: you have any medication questions Follow-up/Referrals: Jonathan Altamirano CRNP [Primary Care Provider] - (see within 1 week of d/c from [facility] ) Abraham Perry MD [Physician] - (f/u 7-10 days for palomino management and voiding trial ) Diet: Heart Healthy Addtl Attending Provider Instructions: Mr Bruce was hospitalized for generalized weakness. This was likely multifactorial including deconditioning, his dementia, urinary tract infection, etc. He has palomino catheter in place and is being treated for UTI. He was seen by [facility] for his urinary tract issues and will need follow-up with them within 7-10 days of discharge. He has prior history of subdural hematoma requiring surgical evacuation several years ago. He remains a high fall risk. At presentation there was a report of diarrhea. This stopped quickly after admission and in fact he developed significant constipation requiring multiple bowel agents. I suspect that his "diarrhea" may have been "overflow" stooling from constipation. 1. maintain palomino catheter until he is seen by [facility] after discharge; again this was placed on 05/28/22 2. basic metabolic panel in 1 week for stability Pending Studies at Discharge: Yes Studies:: thiamine level Stand-Alone Forms: My [facility] Skilled Items Patient informed of condition?: Yes DNR: No Discharge Level of Care: Skilled Communicable Disease: No Discharge Prognosis: Stable Lines: None Urinary Catheter: Yes Medications and DC Order Prescriptions: New amoxicillin 500 mg Capsule 500 mg PO TID 6 Days Qty: 18 0RF alfuzosin 10 mg Tablet Extended Release 24 Hr 10 mg PO QAM Qty: 30 2RF polyethylene glycol 3350 [Miralax] 17 gram Powder In Packet 17 g PO DAILY Qty: 30 0RF sennosides-docusate sodium [Senokot-S] 8.6-50 mg Tablet 1 tab PO QAM Qty: 30 0RF thiamine HCl (vitamin B1) 100 mg Tablet 200 mg PO BID 30 Days Qty: 120 0RF melatonin 3 mg Tablet 3 mg PO HS Qty: 30 0RF cyanocobalamin (vitamin B-12) 500 mcg Tablet 1,000 mcg PO QAM Qty: 60 5RF nicotine 7 mg/24 hr Patch 24 Hour 14 mg transdermal QAM Qty: 30 0RF Advanced Probiotic 625 mg (10 billion cell) Capsule 2 cap PO DAILY 6 Days Qty: 12 0RF Continued atorvastatin 20 mg tablet 20 mg PO HS Qty: 90 1RF finasteride 5 mg tablet 5 mg PO HS Qty: 90 1RF (DME) Scooter Misc See Rx Instructions .Route Qty: 1 0RF Rx Instructions: Motorized Scooter As directed acetaminophen [Tylenol] 325 mg Tablet 650 mg PO Q4 PRN (Reason: Fever Or Pain) aspirin 81 mg Tablet,Delayed Release (Dr/Ec) 81 mg PO HS albuterol sulfate 90 mcg/actuation Hfa Aerosol Inhaler 2 puff INHALATION Q6 PRN (Reason: asthma/copd) cholecalciferol (vitamin D3) [Vitamin D3] 50 mcg (2,000 unit) Capsule 50 mcg PO QAM omega-3 fatty acids Capsule 1,000 mg PO HS Discontinued docusate sodium 100 mg Capsule 200 mg PO QAM Discharge Orders: Discharge Order (Routine); Ordered 05/30/22 Ordered By: Matteo Liu Admission Data Admit Date/Time: 05/22/22 11:30 Attending Provider: Matteo Liu Admit Provider: Gerber Hook Primary Care Provider: Jonathan Altamirano Other Providers: Gerber Hook ; Abraham Perry ; Skip Jackson Other Interventions: Discharge Summary Assessment (RN) Last Done: 05/30/22 12:17 Coding Diagnoses UTI (urinary tract infection) N39.0 Generalized weakness R53.1 Acute metabolic encephalopathy G93.41 Elevated troponin R77.8 BPH loc w urin obs/LUTS N40.1 Diarrhea R19.7 History of subdural hematoma Z86.79 Coronary artery disease I25.10 Hypercholesterolemia E78.00 Aortic arch aneurysm I71.22
== END 2022-05-30 13:37 ==
LOC: ED 10:58 → 2W 10:58 → SUATTDRO 14:48 → 2W 15:34 → SUATTDRO 05-22 11:30 → 3N 05-29 00:10

== ENCOUNTER 2023-07-15 18:31 | Inpatient (IN) ==
[2023-07-15 19:21] LABS: Basophils # (auto) 0.01 K/uL (0.00-0.20); Basophils % (auto) 0.3 %; Eosinophils # (auto) 0.12 K/uL (0.00-0.50); Eosinophils % (auto) 3.2 %; Hematocrit (blood only) 39.9 % (42.0-52.0); Hemoglobin 13.9 g/dl (14.0-18.0); Immature Granulocytes # (auto) 0.01 K/uL (0.01-0.20); Immature Granulocytes % (auto) 0.3 %; Lymphocytes # (auto) 0.93 K/uL (1.20-3.40); Lymphocytes % (auto) 24.5 %; Mean Corpuscular Hemoglobin 30.9 pg (25.0-34.0); Mean Corpuscular Hgb Conc 34.8 g/dL (32.0-36.0); Mean Corpuscular Volume 88.7 fL (80.0-100.0); Mean Platelet Volume 10.7 fL (9.4-12.4); Monocytes # (auto) 0.54 K/uL (0.11-0.59); Monocytes % (auto) 14.2 %; Neutrophils # (auto) 2.19 K/uL (1.40-6.50); Neutrophils % (auto) 57.5 %; Platelet Count 102 K/uL (130-400); RDW Coefficient of Variation 12.2 % (11.5-14.5); RDW Standard Deviation 39.6 fL (36.4-46.3)
--- NOTE | 2023-07-15 19:34 | Emergency Department Note ---
Impression & Plan AMS (altered mental status), Ambulatory dysfunction, COVID-19, Generalized weakness ED Provider Note HISTORY OF PRESENT ILLNESS: Patient is a 78-year-old male presenting with altered mental status. Son provides history given patient's confusion. Son reports that 5 days ago the patient had presented to the emergency department was diagnosed with COVID-19. He has been living with the patient to help him with his symptoms. Notes that the patient has been tolerating oral liquids fine but has not had much of an appetite for solid foods. States that the patient in the last 24 hours has had a significant decline. Reports that last night the patient started talking to people and things that were not there. Son would go in and check on the patient and he seemed to be sleeping and he just thought that the patient was dreaming. However, the patient slept until noon today and when he woke up he was still talking to people and things that were not there. The son also was unable to get the patient up out of bed around 3 PM secondary to the patient's profound weakness. Reports that he had to call 911 to assist him to get the patient up. On arrival to the ER, the patient has no complaints. He is asking me if I see the birds of the mice that are not there. Son denies the patient having any recent falls. No recent changes in medication. ROS: as above PHYSICAL EXAM: Constitutional: Patient appears in no acute distress. HENT: Head: Normocephalic and atraumatic. Eyes: EOMI, PERRL Mouth/Throat: Mucous membranes moist. Neck: Trachea midline. Neck supple. Cardiovascular: RRR, No murmurs, rubs or gallops. Intact distal pulses. Pulmonary/Chest: No respiratory distress. Breath sounds clear and equal bilaterally. No wheezes or rales. Abdominal: Abdomen soft, no tenderness, rebound or guarding. Musculoskeletal: No edema, tenderness or deformity noted. Skin: Warm and dry. No rash, erythema, pallor or cyanosis Neurological: Alert to self and place but does not know the year. CN II-XII grossly intact, moving all extremities equally and fully. MDM: - Vitals signs stable. - History obtained via patient's son, given patient's confusion. Patient presents with confusion. Patient reportedly has been very weak and confused for the last 24 hours. Son reports that patient is talking to people and seeing things that are not there. He was diagnosed with COVID 5 days ago. Son reports the patient was unable to get up and out of bed on his own today and it required 3 people to get him seated upright secondary to his weakness. No recent changes in medications. No recent falls or head injury. - Chronic conditions affecting care: COPD; thrombocytopenia; hx of SDH; HTN; HLD - Differential diagnoses include, but are not limited to: viral syndrome; UTI; pneumonia; electrolyte abnormality; ACS; intracranial hemorrhage; CVA - Order placed for continuous cardiac monitoring. At this time, monitor showed rate of 72 bpm with normal sinus rhythm, per my interpretation. - External medical records reviewed. EMS run sheet was reviewed. Patient was vitally stable and route. No medications were given prehospital. - EKG interpreted by myself showed normal sinus rhythm. Rate 86 bpm. QTc 437. No acute ischemic changes - Laboratory workup interpreted by myself showed leukopenia (WBC 3.8); stable electrolytes; normal troponin; normal procalcitonin; normal lactate - UA negative for infection - CXR negative for pneumonia, per my interpretation - Patient not overtly septic and no obvious source of infection at this time. Empiric antibiotics were held. Patient is CT head was negative for any evidence of intracranial hemorrhage or stroke. Unclear time of last known well, so TNK was now given as stroke felt to be less likely. - CT head wo contrast negative for acute intracranial pathology. - Blood cultures obtained. - Patient's son expresses concern about his ability to care for the patient at home. Will admit to hospital service given patient's persistent confusion and potential need for placement. - Discussion was had with home care provider about patient's case and need for admission - Hospitalist consulted for admission - [facility] ASSESSMENT AND PLAN: Diagnosis: altered mental status; COVID; ambulatory dysfunction; generalized weakness Plan: Admit Past Med/Surg History Medical History Acute metabolic encephalopathy Aortic arch aneurysm Generalized weakness Chronic back pain Hydronephrosis, right UTI (urinary tract infection) COPD (chronic obstructive pulmonary disease) mild. rarely uses inhaler. Thrombocytopenia Pneumonia hx ~2020. treated at [facility] Generalized weakness History of subdural hematoma (03/01/20) Mild cognitive impairment Alert and Oriented x3 "most times". occasionally will forget names. Generalized tonic-clonic seizure (~03/2020) no problems since 03/2020 Osteoarthritis Anemia Hearing deficit History of rheumatic fever as a child Hypertension hx - no current medications BPH loc w urin obs/LUTS Urinary retention Coronary artery disease Basal cell carcinoma (02/09/19) Left preauricular region: 02/09/2019 Hypercholesterolemia Surgical History Heart valve replaced bovine valve [facility] S/P Mohs surgery for basal cell carcinoma History of craniotomy (03/01/20) left-sided matilde hole craniotomy and evacuation as well as a right-sided mini craniotomy for subdural evacuation History of testicular surgery left History of colonoscopy with polypectomy History of tooth extraction all teeth H/O vasectomy History of open heart surgery (~2006) @ [facility] "valve replacement with cow valve and x1 vessel bypass surgery" Family History Mother Breast cancer Family history of diabetes mellitus Other H/O vasectomy History of open heart surgery Hypercholesterolemia No family history of adverse response to anesthesia Denies family history of Ovarian cancer Prostate cancer Diabetes Coronary heart disease Heart disease Myocardial infarction Lung cancer Colorectal cancer Social History Smoking Status: Unknown if ever smoked Tobacco Type: Smokeless Tobacco (Dip or Chew) Second Hand Exposure: No; Hx Alcohol Use: No Hx Substance Use: No Preferred Language: Peruvian Communication Ability: Effective Visual Impairment: Limited Hearing Ability: Normal Web Communications Specialist Required: No Beliefs That Will Affect Care: None marital status: Current Living Situation: Spouse Current Living Situation Comment: Home with current occupational status: retired How many Children do You have: 1 Feels Safe at Home: Yes Childhood Exposure to Second-Hand Smoke: No Diet: regular caffeine: No during the past year weight has: remained stable Dental Care, Regularly: No Physical Activity Frequency: Daily Seatbelt Use: always Sunscreen Use: No Assistive Devices: Bedside Commode, Cane and Walker Allergies Allergies Allergy/AdvReac Type Severity Reaction Status Date / Time No Known Allergies Allergy Verified 07/15/23 20:13 Home Meds Home Medications Medication Instructions Recorded Confirmed acetaminophen 325 mg tablet 650 mg PO Q4 PRN Fever Or Pain 09/29/20 07/15/23 (Tylenol) albuterol sulfate 90 mcg/actuation 2 puff inhalation Q6 PRN 09/29/20 07/15/23 aerosol inhaler asthma/copd cholecalciferol (vitamin D3) 50 50 mcg PO QAM 03/07/23 07/15/23 mcg (2,000 unit) capsule (Vitamin D3) omega-3 fatty acids 1,000 mg 1,000 mg PO DAILY 07/11/23 07/15/23 capsule Previous Rx's Medication Instructions Recorded sennosides 8.6 mg-docusate sodium 1 tab PO QAM #30 tabs 05/30/22 50 mg tablet (Senokot-S) alfuzosin 10 mg tablet,extended See Rx Instructions .Route 03/07/23 release 24 hr .COMPLEX #90 tabs aspirin 81 mg tablet,delayed 81 mg PO HS #90 tabs 03/07/23 release atorvastatin 20 mg tablet 20 mg PO HS #90 tabs 03/07/23 finasteride 5 mg tablet 5 mg PO HS #90 tabs 03/07/23 lisinopril 10 mg tablet 5 mg (1/2 x 10 mg) PO DAILY #90 03/07/23 tabs Results & Data (ED) Vital Signs Vital Signs - 24 hr 07/15/23 18:46 07/15/23 18:58 07/15/23 18:58 Temperature 36.9 C Temperature Source Oral Pulse Rate 79 71 Respiratory Rate 21 Respiratory Effort / Characteristics Non-Labored Spontaneous Respiratory Depth Normal Respiratory Pattern Regular Blood Pressure 123/78 Blood Pressure Mean 93 Pulse Oximetry 96 96 Oxygen Delivery Method Room Air Room Air Oxygen Flow Rate 0 Sepsis Recent Fever Within 48 Hours No Sepsis New/Unexplained Change in Mental Status Yes Sepsis Action Taken by Nursing Physician Notified 07/15/23 20:00 07/15/23 20:20 07/15/23 21:00 Temperature Temperature Source Pulse Rate 68 66 Respiratory Rate 22 20 Respiratory Effort / Characteristics Respiratory Depth Respiratory Pattern Blood Pressure 134/80 103/70 Blood Pressure Mean 98 81 Pulse Oximetry 94 94 Oxygen Delivery Method Oxygen Flow Rate Sepsis Recent Fever Within 48 Hours Sepsis New/Unexplained Change in Mental Status Sepsis Action Taken by Nursing 07/15/23 21:30 07/15/23 22:02 07/15/23 22:32 Temperature Temperature Source Pulse Rate 61 64 62 Respiratory Rate 18 16 Respiratory Effort / Characteristics Respiratory Depth Respiratory Pattern Blood Pressure 110/67 122/81 Blood Pressure Mean 81 94 Pulse Oximetry 95 94 Oxygen Delivery Method Oxygen Flow Rate Sepsis Recent Fever Within 48 Hours Sepsis New/Unexplained Change in Mental Status Sepsis Action Taken by Nursing 07/15/23 23:02 07/16/23 00:00 Temperature Temperature Source Pulse Rate 58 L 63 Respiratory Rate 16 22 Respiratory Effort / Characteristics Respiratory Depth Respiratory Pattern Blood Pressure 139/65 122/82 Blood Pressure Mean 89 95 Pulse Oximetry 98 98 Oxygen Delivery Method Oxygen Flow Rate Sepsis Recent Fever Within 48 Hours Sepsis New/Unexplained Change in Mental Status Sepsis Action Taken by Nursing Laboratory Data 07/15/23 18:47 07/15/23 18:47 Lab Results 07/15/23 07/15/23 07/15/23 Range/Units 18:47 20:15 Unknown WBC 3.80 L (4.8-10.8) K/ul RBC 4.50 L (4.70-6.10) M/uL Hgb 13.9 L (14.0-18.0) g/dl Hct 39.9 L (42.0-52.0) % MCV 88.7 (80.0-100.0) fL MCH 30.9 (25.0-34.0) pg MCHC 34.8 (32.0-36.0) g/dL RDW Std Deviation 39.6 (36.4-46.3) fL RDW Coeff of Harmony 12.2 (11.5-14.5) % Plt Count 102 L (130-400) K/uL MPV 10.7 (9.4-12.4) fL Immature Gran % (Auto) 0.3 % Neut % (Auto) 57.5 % Lymph % (Auto) 24.5 % [place] % (Auto) 14.2 % Eos % (Auto) 3.2 % Baso % (Auto) 0.3 % Neut # (Auto) 2.19 (1.40-6.50) K/uL Lymph # (Auto) 0.93 L (1.20-3.40) K/uL Deuel # (Auto) 0.54 (0.11-0.59) K/uL Eos # (Auto) 0.12 (0.00-0.50) K/uL Baso # (Auto) 0.01 (0.00-0.20) K/uL Immature Gran # (Auto) 0.01 (0.01-0.20) K/uL PT 11.1 (9.0-12.0) Seconds INR 1.0 (0.9-1.1) APTT 26 (21-31) Seconds PTT Ratio 0.9 Sodium 136 (136-145) mmol/L Potassium 4.6 (3.5-5.1) mmol/L Chloride 105 (98-107) mmol/L Carbon Dioxide 24 (21-32) mmol/L Anion Gap 7 (3-11) BUN 22 (6-23) mg/dl Creatinine 1.11 (0.6-1.4) mg/dl Est Cr Clr Drug Dosing Not Reportable Est GFR ( Amer) 73.3 ml/min Est GFR (Non-Af Amer) 63.3 ml/min BUN/Creatinine Ratio 19.8 (10-20) Glucose 100 H (70-99(Fasting)) mg/dl Lactate 1.1 (0.4-2.0) mmol/L Calcium 8.7 (8.6-10.3) mg/dl Magnesium 1.8 (1.7-2.4) mg/dl Total Bilirubin 0.8 (0.2-1.0) mg/dl AST 35 (13-39) U/L ALT 19 (7-52) U/L Alkaline Phosphatase 57 (34-104) U/L Troponin I High Sens 19.9 (0-20) pg/ml Total Protein 6.8 (6.0-8.3) gm/dl Albumin 4.1 (3.4-5.0) gm/dl Globulin 2.7 (2.5-4.0) gm/dl Albumin/Globulin Ratio 1.5 (0.9-2) Procalcitonin < 0.05 (0-0.5) ng/ml Urine Color Yellow Urine Appearance Clear (Clear) Urine pH 5.5 (4.5-7.5) Ur Specific [place] 1.020 (1.000-1.030) Urine Protein 1+ H (Negative) Urine Glucose (UA) Negative (Negative) Urine Ketones Negative (Negative) Urine Blood 3+ H (Negative) Urine Nitrite Negative (Negative) Urine Bilirubin Negative (Negative) Urine Urobilinogen Negative (Negative) Ur Leukocyte Esterase Trace H (Negative) Urine WBC (Auto) 5-10 H (0-5) /hpf Urine RBC (Auto) 10-30 H (0-4) /hpf U Hyaline Cast (Auto) 1-5 (0-5) /lpf U Epithel Cells (Auto) 10-20 H (0-5) /lpf Urine Bacteria (Auto) Negative (Negative) Urine Yeast Not Reportable Administered Medications Discontinued Medications Sodium Chloride (Nss) 500 mls @ 999 mls/hr IV .Q31M STA Stop: 07/15/23 19:35 Last Infusion: 07/15/23 21:22 Dose: Infused Documented By: Admin: 07/15/23 20:02 Dose: 999 mls/hr Documented By: MARA Imaging Data Radiologist's Impression: Head CT 07/15/23 19:26 Exam(s): CT HEAD Without Contrast EXAM: CT Head Without Intravenous Contrast CLINICAL HISTORY: Reason for exam: altered mental status. TECHNIQUE: Axial computed tomography images of the head/brain without intravenous contrast. CTDI is 37.22 mGy and DLP is 546.36 mGy-cm. Automated exposure control was utilized for the study. A dose lowering technique was utilized adhering to the principles of ALARA. COMPARISON: CT 07/11/2023 FINDINGS: Brain: No intracranial hemorrhage. Global parenchymal atrophy. Chronic microvascular ischemic changes. Ventricles: Unremarkable. Bones/joints: Unremarkable. No fracture. Soft tissues: Unremarkable. Sinuses: No acute sinusitis. Mastoid air cells: Unremarkable as visualized. IMPRESSION: No acute abnormality. Electronically signed by: Kartik Ni MD 07/15/23 21:10 PM Discharge Plan Visit Data Chief Complaint: Altered Mental Status ED Provider: Lala Thurman Discharge Problem: AMS (altered mental status), Ambulatory dysfunction, COVID-19, Generalized weakness Discharge Instructions Interventions: ED Discharge Assessment Last Done: 07/16/23 00:32
[2023-07-15 19:37] LABS: Alanine Aminotransferase 19 U/L (7-52); Albumin Globulin Ratio 1.5 (0.9-2); Albumin Level 4.1 gm/dl (3.4-5.0); Alkaline Phosphatase 57 U/L (34-104); Anion Gap 7 (3-11); Aspartate Aminotransferase 35 U/L (13-39); BUN Creatinine Ratio 19.8 (10-20); Bilirubin,Total 0.8 mg/dl (0.2-1.0); Blood Urea Nitrogen 22 mg/dl (6-23); Calcium 8.7 mg/dl (8.6-10.3); Carbon Dioxide 24 mmol/L (21-32); Chloride 105 mmol/L (98-107); Est GFR (African American) 73.3 ml/min; Est GFR (Non-African American) 63.3 ml/min; Globulin 2.7 gm/dl (2.5-4.0); Glucose 100 mg/dl (70-99(Fasting)); Magnesium 1.8 mg/dl (1.7-2.4); Potassium 4.6 mmol/L (3.5-5.1); Sodium 136 mmol/L (136-145); Total Protein 6.8 gm/dl (6.0-8.3)
[2023-07-15 19:43] LABS: Troponin I High Sensitivity 19.9 pg/ml (0-20)
[2023-07-15 19:44] LABS: Partial Thromboplastin Ratio 0.9; Partial Thromboplastin Time 26 Seconds (21-31); Prothrombin Time 11.1 Seconds (9.0-12.0)
[2023-07-15] MEDS: SODIUM CHLORIDE 0.9% 500 ML IV STA (20:02)
--- NOTE | 2023-07-15 21:10 | CT Scan Report ---
Exam(s): CT HEAD Without Contrast EXAM: CT Head Without Intravenous Contrast CLINICAL HISTORY: Reason for exam: altered mental status. TECHNIQUE: Axial computed tomography images of the head/brain without intravenous contrast. CTDI is 37.22 mGy and DLP is 546.36 mGy-cm. Automated exposure control was utilized for the study. A dose lowering technique was utilized adhering to the principles of ALARA. COMPARISON: CT 07/11/2023 FINDINGS: Brain: No intracranial hemorrhage. Global parenchymal atrophy. Chronic microvascular ischemic changes. Ventricles: Unremarkable. Bones/joints: Unremarkable. No fracture. Soft tissues: Unremarkable. Sinuses: No acute sinusitis. Mastoid air cells: Unremarkable as visualized. IMPRESSION: No acute abnormality. Electronically signed by: Kartik Ni MD 07/15/23 21:10 PM
[2023-07-15 22:14] LABS: Appearance Urine Clear (Clear); Bacteria Urine Automated Negative (Negative); Bilirubin Urine Negative (Negative); Blood Urine 3+ (Negative); Color Urine Yellow; Glucose Urine UA Negative (Negative); Ketones Urine Negative (Negative); Leukocyte Esterase Urine Trace (Negative); Nitrite Urine Negative (Negative); Protein Urine 1+ (Negative); Urobilinogen Urine Negative (Negative); pH Urine 5.5 (4.5-7.5)
--- NOTE | 2023-07-16 00:13 | History & Physical Report ---
Date of Service July 16, 2023 Assessment & Plan (1) Confusion and disorientation: (2) Sepsis: (3) Acute urinary retention: (4) Visual hallucinations: (5) COVID-19: (6) BPH loc w urin obs/LUTS: (7) Mild cognitive impairment: (8) Generalized weakness: (9) COPD (chronic obstructive pulmonary disease): Plan sepsis/confusion and disorientation/visual hallucinations/relative hypotension- Likely combination of urinary tract infection associated with BPH and recent Curtis placement, and a component of COVID-19 stress N.p.o. due to confused state Hold lisinopril Urinary tract infection/BPH with LUTS/urinary retention/Curtis placement on 07-11-2023-- Follow urine culture and sensitivity Empiric ceftriaxone 2 g IV every 24 hours Received NSS 500 mL in the ED Place on NSS at 80 mL/h x 2 L Continue Curtis catheter Consult urology COVID-19 infection/COPD- Patient's symptoms are too far along for antivirals Will hold off on dexamethasone due to concerns regarding urine tract infection and sepsis No signs of hypoxia Albuterol HFA 2 puffs 4 times daily as needed History of Present Illness Chief Complaint: The patient is brought to the emergency department by his son, due to altered mental status, confusion and hallucinations, that began about 4 days ago, but in particular worsened in the past 24 hours Primary Care Provider: PETEY Gavin The patient is a 78-year-old male with a past medical history including history of craniotomy 03-01-20, BPH with urinary obstruction, hypercholesterolemia, COPD, CAD, tobacco use, SNHL bilaterally, mild cognitive impairment, hypertension, anemia and generalized tonic-clonic seizure 04-12. He was seen in the emergency department on 07/11/2023, and diagnosed with COVID-19 infection at that time. He also had urinary retention noted, and had a Curtis catheter placed, which has remained in since that time, and son reports he was making an appointment in the outpatient setting for urology. When he called urology office today, they advised to come to the ED for assessment, and they would see him in the hospital if he were admitted. Allergies Allergy/AdvReac Type Severity Reaction Status Date / Time No Known Allergies Allergy Verified 07/15/23 20:13 Home Medications Medication Instructions Recorded Confirmed Type acetaminophen 325 mg tablet 650 mg PO Q4 PRN Fever Or Pain 09/29/20 07/15/23 History (Tylenol) albuterol sulfate 90 mcg/actuation 2 puff inhalation Q6 PRN 09/29/20 07/15/23 History aerosol inhaler asthma/copd sennosides 8.6 mg-docusate sodium 1 tab PO QAM #30 tabs 05/30/22 07/15/23 Rx 50 mg tablet (Senokot-S) alfuzosin 10 mg tablet,extended See Rx Instructions .Route 03/07/23 07/15/23 Rx release 24 hr .COMPLEX #90 tabs aspirin 81 mg tablet,delayed 81 mg PO HS #90 tabs 03/07/23 07/15/23 Rx release atorvastatin 20 mg tablet 20 mg PO HS #90 tabs 03/07/23 07/15/23 Rx cholecalciferol (vitamin D3) 50 50 mcg PO QAM 03/07/23 07/15/23 History mcg (2,000 unit) capsule (Vitamin D3) finasteride 5 mg tablet 5 mg PO HS #90 tabs 03/07/23 07/15/23 Rx lisinopril 10 mg tablet 5 mg (1/2 x 10 mg) PO DAILY #90 03/07/23 07/15/23 Rx tabs omega-3 fatty acids 1,000 mg 1,000 mg PO DAILY 07/11/23 07/15/23 History capsule Past Med/Surg History Medical History Acute metabolic encephalopathy Aortic arch aneurysm Generalized weakness Chronic back pain Hydronephrosis, right UTI (urinary tract infection) COPD (chronic obstructive pulmonary disease) mild. rarely uses inhaler. Thrombocytopenia Pneumonia hx ~2019. treated at [facility] Generalized weakness History of subdural hematoma (03/01/20) Mild cognitive impairment Alert and Oriented x3 "most times". occasionally will forget names. Generalized tonic-clonic seizure (~03/2020) no problems since 03/2020 Osteoarthritis Anemia Hearing deficit History of rheumatic fever as a child Hypertension hx - no current medications BPH loc w urin obs/LUTS Urinary retention Coronary artery disease Basal cell carcinoma (02/09/19) Left preauricular region: 02/09/2019 Hypercholesterolemia Surgical History Heart valve replaced bovine valve [facility] S/P Mohs surgery for basal cell carcinoma History of craniotomy (03/01/20) left-sided matilde hole craniotomy and evacuation as well as a right-sided mini craniotomy for subdural evacuation History of testicular surgery left History of colonoscopy with polypectomy History of tooth extraction all teeth H/O vasectomy History of open heart surgery (~2006) @ [facility] "valve replacement with cow valve and x1 vessel bypass surgery" Family History Mother Breast cancer Family history of diabetes mellitus Other H/O vasectomy History of open heart surgery Hypercholesterolemia No family history of adverse response to anesthesia Denies family history of Ovarian cancer Prostate cancer Diabetes Coronary heart disease Heart disease Myocardial infarction Lung cancer Colorectal cancer Social History Smoking Status: Unknown if ever smoked Tobacco Type: Smokeless Tobacco (Dip or Chew) Second Hand Exposure: No; Hx Alcohol Use: No Hx Substance Use: No Preferred Language: Bengali Communication Ability: Effective Visual Impairment: Limited Hearing Ability: Normal World Geography Teacher Required: No Beliefs That Will Affect Care: None marital status: Current Living Situation: Spouse Current Living Situation Comment: Home with current occupational status: retired How many Children do You have: 1 Feels Safe at Home: Yes Childhood Exposure to Second-Hand Smoke: No Diet: regular caffeine: No during the past year weight has: remained stable Dental Care, Regularly: No Physical Activity Frequency: Daily Seatbelt Use: always Sunscreen Use: No Assistive Devices: Bedside Commode, Cane and Walker Review of Systems Review of Systems: The patient is unable to contribute to his HPI or ROS due to confusion and hallucinations, and is supplied by his son who is in attendance in the ED. Physical Exam Physical Exam: The patient is confused, disoriented and hallucinating. Normocephalic and atraumatic, lying in bed and in no acute distress. HEENT--PERRL, EOMI, mucous membranes and oropharynx mildly dry. Neck--supple. No JVD. No bruits. Thyroid normal, trachea midline, no adenopa thy. Heart--normal S1 and S2. No murmurs, rubs or gallops. Lungs--clear bilaterally, no respiratory distress, no accessory muscle use. Abdomen--normal bowel sounds and soft. Nontender. Nondistended, no hernias or masses, no organomegaly. Extremities--no cyanosis or clubbing. No edema. Dermatologic--normal skin turgor, normal color, no abnormal lymph nodes, no rash. Neurologic--limited exam Rheumatologic--normal range of motion. Psychiatric- confused and disoriented. Results & Data Results & Data Vital Signs (Past 12 Hours) Vital Signs Temp Pulse Resp BP Pulse Ox O2 Del Method O2 Flow Rate 07/15/23 22:32 62 07/15/23 22:02 64 16 122/81 94 07/15/23 21:30 61 18 110/67 95 07/15/23 21:00 66 20 103/70 94 07/15/23 20:20 94 07/15/23 20:00 68 22 134/80 07/15/23 18:58 96 Room Air 0 07/15/23 18:58 36.9 C 71 21 123/78 96 Room Air 07/15/23 18:46 79 Laboratory Results Laboratory Results WBC 3.80 K/ul (4.8-10.8) L 07/15/23 18:47 RBC 4.50 M/uL (4.70-6.10) L 07/15/23 18:47 Hgb 13.9 g/dl (14.0-18.0) L 07/15/23 18:47 Hct 39.9 % (42.0-52.0) L 07/15/23 18:47 MCV 88.7 fL (80.0-100.0) 07/15/23 18:47 MCH 30.9 pg (25.0-34.0) 07/15/23 18:47 MCHC 34.8 g/dL (32.0-36.0) 07/15/23 18:47 RDW Std Deviation 39.6 fL (36.4-46.3) 07/15/23 18:47 RDW Coeff of Harmony 12.2 % (11.5-14.5) 07/15/23 18:47 Plt Count 102 K/uL (130-400) L 07/15/23 18:47 MPV 10.7 fL (9.4-12.4) 07/15/23 18:47 Immature Gran % (Auto) 0.3 % 07/15/23 18:47 Neut % (Auto) 57.5 % 07/15/23 18:47 Lymph % (Auto) 24.5 % 07/15/23 18:47 [place] % (Auto) 14.2 % 07/15/23 18:47 Eos % (Auto) 3.2 % 07/15/23 18:47 Baso % (Auto) 0.3 % 07/15/23 18:47 Neut # (Auto) 2.19 K/uL (1.40-6.50) 07/15/23 18:47 Lymph # (Auto) 0.93 K/uL (1.20-3.40) L 07/15/23 18:47 [place] # (Auto) 0.54 K/uL (0.11-0.59) 07/15/23 18:47 Eos # (Auto) 0.12 K/uL (0.00-0.50) 07/15/23 18:47 Baso # (Auto) 0.01 K/uL (0.00-0.20) 07/15/23 18:47 Immature Gran # (Auto) 0.01 K/uL (0.01-0.20) 07/15/23 18:47 PT 11.1 Seconds (9.0-12.0) 07/15/23 18:47 INR 1.0 (0.9-1.1) 07/15/23 18:47 APTT 26 Seconds (21-31) 07/15/23 18:47 PTT Ratio 0.9 07/15/23 18:47 Sodium 136 mmol/L (136-145) 07/15/23 18:47 Potassium 4.6 mmol/L (3.5-5.1) 07/15/23 18:47 Chloride 105 mmol/L (98-107) 07/15/23 18:47 Carbon Dioxide 24 mmol/L (21-32) 07/15/23 18:47 Anion Gap 7 (3-11) 07/15/23 18:47 BUN 22 mg/dl (6-23) 07/15/23 18:47 Creatinine 1.11 mg/dl (0.6-1.4) 07/15/23 18:47 Est Cr Clr Drug Dosing Not Reportable 07/15/23 18:47 Est GFR ( Amer) 73.3 ml/min 07/15/23 18:47 Est GFR (Non-Af Amer) 63.3 ml/min 07/15/23 18:47 BUN/Creatinine Ratio 19.8 (10-20) 07/15/23 18:47 Glucose 100 mg/dl (70-99(Fasting)) H 07/15/23 18:47 Lactate 1.1 mmol/L (0.4-2.0) 07/15/23 20:15 Calcium 8.7 mg/dl (8.6-10.3) 07/15/23 18:47 Magnesium 1.8 mg/dl (1.7-2.4) 07/15/23 18:47 Total Bilirubin 0.8 mg/dl (0.2-1.0) 07/15/23 18:47 AST 35 U/L (13-39) 07/15/23 18:47 ALT 19 U/L (7-52) 07/15/23 18:47 Alkaline Phosphatase 57 U/L (34-104) 07/15/23 18:47 Troponin I High Sens 19.9 pg/ml (0-20) 07/15/23 18:47 Total Protein 6.8 gm/dl (6.0-8.3) 07/15/23 18:47 Albumin 4.1 gm/dl (3.4-5.0) 07/15/23 18:47 Globulin 2.7 gm/dl (2.5-4.0) 07/15/23 18:47 Albumin/Globulin Ratio 1.5 (0.9-2) 07/15/23 18:47 Procalcitonin < 0.05 ng/ml (0-0.5) 07/15/23 18:47 Urine Color Yellow 07/15/23 Unknown Urine Appearance Clear (Clear) 07/15/23 Unknown Urine pH 5.5 (4.5-7.5) 07/15/23 Unknown Ur Specific Mclean 1.020 (1.000-1.030) 07/15/23 Unknown Urine Protein 1+ (Negative) H 07/15/23 Unknown Urine Glucose (UA) Negative (Negative) 07/15/23 Unknown Urine Ketones Negative (Negative) 07/15/23 Unknown Urine Blood 3+ (Negative) H 07/15/23 Unknown Urine Nitrite Negative (Negative) 07/15/23 Unknown Urine Bilirubin Negative (Negative) 07/15/23 Unknown Urine Urobilinogen Negative (Negative) 07/15/23 Unknown Ur Leukocyte Esterase Trace (Negative) H 07/15/23 Unknown Urine WBC (Auto) 5-10 /hpf (0-5) H 07/15/23 Unknown Urine RBC (Auto) 10-30 /hpf (0-4) H 07/15/23 Unknown U Hyaline Cast (Auto) 1-5 /lpf (0-5) 07/15/23 Unknown U Epithel Cells (Auto) 10-20 /lpf (0-5) H 07/15/23 Unknown Urine Bacteria (Auto) Negative (Negative) 07/15/23 Unknown Urine Yeast Not Reportable 07/15/[address] 07/15/23 19:26 Exam(s): CT HEAD Without Contrast EXAM: CT Head Without Intravenous Contrast CLINICAL HISTORY: Reason for exam: altered mental status. TECHNIQUE: Axial computed tomography images of the head/brain without intravenous contrast. CTDI is 37.22 mGy and DLP is 546.36 mGy-cm. Automated exposure control was utilized for the study. A dose lowering technique was utilized adhering to the principles of ALARA. COMPARISON: CT 07/11/2023 FINDINGS: Brain: No intracranial hemorrhage. Global parenchymal atrophy. Chronic microvascular ischemic changes. Ventricles: Unremarkable. Bones/joints: Unremarkable. No fracture. Soft tissues: Unremarkable. Sinuses: No acute sinusitis. Mastoid air cells: Unremarkable as visualized. IMPRESSION: No acute abnormality. Electronically signed by: Kartik Ni MD 07/15/23 21:10 PM Code Status & VTE Plan Code Status full code VTE Prophylaxis Plan VTE Prophylaxis will be ordered: Yes PG Care Time/CCT Total # of Minutes Spent Total Time Spent with Patient: Total time spent is greater than 50% in coordination of care (as documented) at patient's floor/unit and/or counseling patient: Coding Level of Care Code 19329 INT INP/OBS CARE 3/75MIN Diagnoses Confusion and disorientation R41.0 Sepsis A41.9 Acute urinary retention R33.8 Visual hallucinations R44.1 COVID-19 U07.1 BPH loc w urin obs/LUTS N40.1 Mild cognitive impairment G31.84 Generalized weakness R53.1 COPD (chronic obstructive pulmonary disease) J44.9 COPD type: unspecified COPD (9) COPD (chronic obstructive pulmonary disease) COPD type: unspecified COPD Qualified Code(s): J44.9 - Chronic obstructive pu lmonary disease, unspecified
[2023-07-16] MEDS ORDERED: ONDANSETRON INJ 2 MG/ML 2 ML VIAL IV PRN (00:32)
[2023-07-16] MEDS ORDERED: ACETAMINOPHEN 1,000 MG/100 ML VIAL IV PRN (00:32)
[2023-07-16] MEDS ORDERED: ALBUTEROL HFA 8 GM INHALER INH PRN (00:32)
[2023-07-16] MEDS: cefTRIAXone SODIUM 2,000 MG in DEXTROSE 5 % MINI-B 50 ML IV SCH (01:35)
[2023-07-16] MEDS: Patient's HEIGHT &/or WEIGHT Needed SCH (01:39)
[2023-07-16] MEDS: SODIUM CHLORIDE 0.9% 1,000 ML IV SCH (04:44)
--- NOTE | 2023-07-16 05:11 | Urology Consultation ---
Date of Consultation July 16, 2023 Assessment & Plan (1) Acute urinary retention: Patient has been admitted on the hospitalist service. Concerning the patient's urinary tension we recommend the following: There is concern the patient has an underlying urinary tract infection She has been started on antibiotics in form of Rocephin and appropriate cultures have been sent. Cultures should be followed and antibiotics be tailored based on these results Would recommend maintaining Curtis catheter for the present time to ensure maximal drainage in the setting of possible urinary tract infection Consideration be given to performing a voiding trial at some point in the future based on patient's clinical progress in the hospital. History of Present Illness Reason for Consultation: Urinary retention Attending Physician: Peng Gallo MD History of Present Illness This a 78-year-old male was seen in the emergency department on 07/11/2023 at which time he was diagnosed with COVID-19 infection. Patient was noted to have urinary retention at that time and had a Curtis catheter placed. Curtis catheter has been in place since that time. Patient was brought to the emergency department by his son today secondary to altered mental status along with confusion and hallucinations. The symptoms apparently began about 4 days ago but have gotten particularly worse over the past day. Due to the patient's urinary retention and Curtis catheter placement he was to see urology but he has not yet been able to see them as an outpatient. We have therefore been asked to see the patient while he is hospitalized at this time. I attempted the question of patient urologic symptoms but due to his underlying confusion he cannot provide any additional information. Since arrival to the hospital the patient has had labs and imaging which independent reviewed. A CT scan of the head showed no acute intracranial abnormalities. CBC revealed white blood cell count was 3.8. Hemoglobin and hematocrit are 13.9 and 39.9. Platelet count was 102,000. Coagulation studies are normal. Chemistry profile showed sodium and potassium along with the BUN and creatinine are normal. Lactic acid level is not elevated. Urinalysis showed trace leukocyte Estrace and 5-10 white blood cells per high-power field. There is no bacteria noted on this study. The specimen was also negative for nitrites. Chest x-ray did not show any pleural effusions. There were some airspace opacities bilaterally. At the time my interview the patient was resting comfortably bed. He appeared to be pleasantly confused and was in no distress. Allergies Allergy/AdvReac Type Severity Reaction Status Date / Time No Known Allergies Allergy Verified 07/15/23 20:13 Home Medications Medication Instructions Recorded Confirmed Type acetaminophen 325 mg tablet 650 mg PO Q4 PRN Fever Or Pain 09/29/20 07/15/23 History (Tylenol) albuterol sulfate 90 mcg/actuation 2 puff inhalation Q6 PRN 09/29/20 07/15/23 H istory aerosol inhaler asthma/copd sennosides 8.6 mg-docusate sodium 1 tab PO QAM #30 tabs 05/30/22 07/15/23 Rx 50 mg tablet (Senokot-S) alfuzosin 10 mg tablet,extended See Rx Instructions .Route 03/07/23 07/15/23 Rx release 24 hr .COMPLEX #90 tabs aspirin 81 mg tablet,delayed 81 mg PO HS #90 tabs 03/07/23 07/15/23 Rx release atorvastatin 20 mg tablet 20 mg PO HS #90 tabs 03/07/23 07/15/23 Rx cholecalciferol (vitamin D3) 50 50 mcg PO QAM 03/07/23 07/15/23 History mcg (2,000 unit) capsule (Vitamin D3) finasteride 5 mg tablet 5 mg PO HS #90 tabs 03/07/23 07/15/23 Rx lisinopril 10 mg tablet 5 mg (1/2 x 10 mg) PO DAILY #90 03/07/23 07/15/23 Rx tabs omega-3 fatty acids 1,000 mg 1,000 mg PO DAILY 07/11/23 07/15/23 History capsule Patient History Medical History Acute metabolic encephalopathy Aortic arch aneurysm Generalized weakness Chronic back pain Hydronephrosis, right UTI (urinary tract infection) COPD (chronic obstructive pulmonary disease) mild. rarely uses inhaler. Thrombocytopenia Pneumonia hx ~2019. treated at [facility] Generalized weakness History of subdural hematoma (03/01/20) Mild cognitive impairment Alert and Oriented x3 "most times". occasionally will forget names. Generalized tonic-clonic seizure (~03/2020) no problems since 03/2020 Osteoarthritis Anemia Hearing deficit History of rheumatic fever as a child Hypertension hx - no current medications BPH loc w urin obs/LUTS Urinary retention Coronary artery disease Basal cell carcinoma (02/09/19) Left preauricular region: 02/09/2019 Hypercholesterolemia Surgical History Heart valve replaced bovine valve [facility] S/P Mohs surgery for basal cell carcinoma History of craniotomy (03/01/20) left-sided matilde hole craniotomy and evacuation as well as a right-sided mini craniotomy for subdural evacuation History of testicular surgery left History of colonoscopy with polypectomy History of tooth extraction all teeth H/O vasectomy History of open heart surgery (~2006) @ [facility] "valve replacement with cow valve and x1 vessel bypass surgery" Family History Mother Breast cancer Family history of diabetes mellitus Other H/O vasectomy History of open heart surgery Hypercholesterolemia No family history of adverse response to anesthesia Denies family history of Ovarian cancer Prostate cancer Diabetes Coronary heart disease Heart disease Myocardial infarction Lung cancer Colorectal cancer Social History Smoking Status: Unknown if ever smoked Tobacco Type: Smokeless Tobacco (Dip or Chew) Second Hand Exposure: No; Hx Alcohol Use: No Hx Substance Use: No Preferred Language: Thai Communication Ability: Effective Visual Impairment: Limited Hearing Ability: Normal Split Leather Mosser Required: No Beliefs That Will Affect Care: None marital status: Current Living Situation: Spouse Current Living Situation Comment: Home with current occupational status: retired How many Children do You have: 1 Feels Safe at Home: Yes Childhood Exposure to Second-Hand Smoke: No Diet: regular caffeine: No during the past year weight has: remained stable Dental Care, Regularly: No Physical Activity Frequency: Daily Seatbelt Use: always Sunscreen Use: No Assistive Devices: Bedside Commode, Cane and Walker Review of Systems Review of Systems: Unobtainable due to cognitive status Physical Exam Constitutional: well developed and well nourished; no acute distress Eyes: no conjunctival abnormality ENMT: Ears: no hearing impairment and no external ear abnormality Mouth: no oropharynx abnormality Neck: trachea midline Respiratory: normal respiratory effort; no respiratory distress and no labored breathing Cardiovascular: Rate/Rhythm: regular rate and regular rhythm Gastrointestinal (Abdomen): Soft and nondistended. There is no pain with palpation Musculoskeletal: No apparent calf tenderness Skin: no rashes Neurologic: Patient is alert only to person. He is confused to place and time. He does move all 4 extremities but does not follow simple commands appropriately Genitourinary: Curtis catheter is in place. It appears patent draining clear yellow urine Results & Data Vital Signs (Past 12 Hours) Vital Signs Temp Pulse Resp BP Pulse Ox Pulse Ox O2 Del Method 07/16/23 04:00 58 L 19 90 Room Air 07/16/23 02:00 57 L 16 128/73 93 Room Air 07/16/23 01:33 61 07/16/23 01:22 98 07/16/23 00:32 Room Air 07/16/23 00:00 63 22 122/82 98 07/15/23 23:02 58 L 16 139/65 98 07/15/23 22:32 62 07/15/23 22:02 64 16 122/81 94 07/15/23 21:30 61 18 110/67 95 07/15/23 21:00 66 20 103/70 94 07/15/23 20:20 94 07/15/23 20:00 68 22 134/80 07/15/23 18:58 96 Room Air 07/15/23 18:58 36.9 C 71 21 123/78 96 Room Air 07/15/23 18:46 79 O2 Del Method O2 Flow Rate 07/16/23 04:00 07/16/23 02:00 07/16/23 01:33 07/16/23 01:22 Room Air 07/16/23 00:32 0 07/16/23 00:00 07/15/23 23:02 07/15/23 22:32 07/15/23 22:02 07/15/23 21:30 07/15/23 21:00 07/15/23 20:20 07/15/23 20:00 07/15/23 18:58 0 07/15/23 18:58 07/15/23 18:46 PG Care Time/CCT Total # of Minutes Spent Total Time Spent with Patient: Total time spent is greater than 50% in coordination of care (as documented) at patient's floor/unit and/or counseling patient: Coding Level of Care Code 76520 INT INP/OBS CARE 3/75MIN Diagnoses Acute urinary retention R33.8
[2023-07-16] MEDS: ENOXAPARIN INJ 40 MG/0.4 ML SYR SQ SCH (05:31)
--- NOTE | 2023-07-16 07:24 | XRay Report ---
XR chest 1V not portable CLINICAL HISTORY: Sepsis. COMPARISON STUDY: Chest CT June 06, 2021. Chest radiograph July 11, 2023. FINDINGS: There is no pneumothorax or pleural effusion. There are median sternotomy wires and prosthe tic aortic valve. Cardiomediastinal silhouette is stable. There is no evidence for pulmonary edema. T here is probable 3 cm left midlung airspace opacity, new since prior chest radiograph. IMPRESSION: Probable 3 cm left midlung airspace opacity, new since prior chest radiograph. This may reflect a focus of pneumonia. Radiographic follow-up to ensure resolution is recommended. This findin g will be called/faxed to the ordering provider at time of dictation. ACT 112: Negative or not required by law. Electronically signed by: Luigi Garcia M.D. 07/16/2023 7:22 AM
[2023-07-16 07:40] LABS: Basophils # (auto) 0.01 K/uL (0.00-0.20); Basophils % (auto) 0.3 %; Eosinophils % (auto) 2.9 %; Hematocrit (blood only) 35.6 % (42.0-52.0); Hemoglobin 12.3 g/dl (14.0-18.0); Lymphocytes # (auto) 1.43 K/uL (1.20-3.40); Lymphocytes % (auto) 41.9 %; Mean Corpuscular Hemoglobin 30.8 pg (25.0-34.0); Mean Corpuscular Hgb Conc 34.6 g/dL (32.0-36.0); Mean Corpuscular Volume 89.2 fL (80.0-100.0); Mean Platelet Volume 10.3 fL (9.4-12.4); Monocytes # (auto) 0.58 K/uL (0.11-0.59); Neutrophils # (auto) 1.29 K/uL (1.40-6.50); Neutrophils % (auto) 37.9 %; Platelet Count 92 K/uL (130-400); RDW Coefficient of Variation 12.2 % (11.5-14.5); Red Blood Count 3.99 M/uL (4.70-6.10); White Blood Count 3.41 K/ul (4.8-10.8)
[2023-07-16 07:54] LABS: Albumin Level 3.8 gm/dl (3.4-5.0); Calcium 8.5 mg/dl (8.6-10.3); Creatinine Clr Calc Pharmacy 62.9 ml/min; Est GFR (African American) 83.2 ml/min; Est GFR (Non-African American) 71.8 ml/min; Potassium 3.7 mmol/L (3.5-5.1)
--- NOTE | 2023-07-16 12:15 | Electrocardiogram Report ---
Test Reason : Blood Pressure : / mmHG Vent. Rate : 086 BPM Atrial Rate : 073 BPM P-R Int : 162 ms QRS Dur : 070 ms QT Int : 366 ms P-R-T Axes : 001 029 050 degrees QTc Int : 437 ms Sinus rhythm with Premature ventricular complexes Nonspecific ST and T wave abnormality Abnormal ECG When compared with ECG of 11-JUL-2023 17:56, Aberrant conduction is now Present Nonspecific T wave abnormality, improved in Inferior leads T wave inversion no longer evident in Lateral leads Confirmed by Yinka Minaya ([id number]) on 07/16/2023 12:14:36 PM Referred By: REFERRED SELF Confirmed By:Remy Minaya
--- NOTE | 2023-07-16 13:34 | Communication Note ---
Date of Service: July 16, 2023 Please refer to the H&P dictated by Dr. Gallo earlier this morning for details of presentation on admission. In brief, this is a patient with a history of craniotomy in 2019, mild cognitive impairment, who presented with altered mental status that began 4 days ago and has been getting worse. He was seen in the ER 5 days ago and was diagnosed with COVID-19 and urinary retention. Curtis catheter was placed and the patient was discharged from the emergency. His urinalysis is suggestive of a UTI. He was started on ceftriaxone. Chest x-ray showed a left middle lobe infiltrate. Azithromycin has been added to the regimen. He is not hypoxic, no shortness of breath or cough. For his urinary retention, a Curtis catheter will be maintained. Urology is on board.
--- NOTE | 2023-07-16 14:59 | Urology Progress Note ---
Date of Service July 16, 2023 Assessment & Plan (1) Acute urinary retention: (2) Acute UTI: (3) AMS (altered mental status): Plan 78yo/M admitted with AMS, Covid-19, and suspected UTI. Afebrile and hemodynamically stable. Labs reviewed-WBC 3.41, creatinine 1.0. Urine and blood cultures pending. Curtis catheter draining appropriately-urine is clear yellow. Continue to monitor. No acute intervention warranted. Continue supportive care. Continue antibiotic therapy and tailor as culture data comes available. Maintain Curtis catheter. Can consider addition of alpha-jose. Will arrange outpatient follow-up with our service for continued care and vo iding trial. Urology will follow peripherally. Please call with any additional questions/concerns. Admission and Anticipated Discharge Date Admission Date: July 16, 2023 Subjective Pt examined at bedside in the ED. Awake,resting in bed on arrival. No acute distress. Curtis draining clear yellow urine. Review of Systems Review of Systems: Unobtainable due to cognitive status Physical Exam Constitutional: no acute distress Respiratory: no respiratory distress and no labored breathing Gastrointestinal (Abdomen): Soft and nondistended. There is no pain with palpation Neurologic: Patient is alert only to person. He is confused to place and time. He does move all 4 extremities. Genitourinary: Curtis catheter is in place. It appears patent draining clear yellow urine Results & Data Vital Signs (Past 12 Hours) Vital Signs Pulse Resp BP Pulse Ox O2 Del Method 07/16/23 11:08 48 L 18 128/66 94 07/16/23 07:10 61 07/16/23 06:00 68 17 93 Room Air 07/16/23 05:33 66 15 125/71 96 Room Air 07/16/23 04:00 58 L 19 90 Room Air PG Care Time/CCT Total # of Minutes Spent Total Time Spent with Patient: Total time spent is greater than 50% in coordination of care (as documented) at patient's floor/unit and/or counseling patient: Coding Level of Care Code None Diagnoses Acute urinary retention R33.8 Acute UTI N39.0 AMS (altered mental status) R41.82
[2023-07-16] MEDS: AZITHROMYCIN 500 MG in DEXTROSE 5% 250 ML IV SCH (15:57)
[2023-07-17 07:43] LABS: Basophils # (auto) 0.02 K/uL (0.00-0.20); Basophils % (auto) 0.6 %; Eosinophils # (auto) 0.13 K/uL (0.00-0.50); Hematocrit (blood only) 36.1 % (42.0-52.0); Hemoglobin 12.7 g/dl (14.0-18.0); Immature Granulocytes # (auto) 0.01 K/uL (0.01-0.20); Immature Granulocytes % (auto) 0.3 %; Lymphocytes # (auto) 1.31 K/uL (1.20-3.40); Lymphocytes % (auto) 40.3 %; Mean Corpuscular Hemoglobin 30.8 pg (25.0-34.0); Mean Corpuscular Hgb Conc 35.2 g/dL (32.0-36.0); Mean Corpuscular Volume 87.6 fL (80.0-100.0); Mean Platelet Volume 10.2 fL (9.4-12.4); Monocytes % (auto) 15.4 %; Neutrophils # (auto) 1.28 K/uL (1.40-6.50); Neutrophils % (auto) 39.4 %; Platelet Count 98 K/uL (130-400); RDW Coefficient of Variation 11.9 % (11.5-14.5); RDW Standard Deviation 38.5 fL (36.4-46.3); Red Blood Count 4.12 M/uL (4.70-6.10); White Blood Count 3.25 K/ul (4.8-10.8)
[2023-07-17 08:15] LABS: Albumin Level 3.7 gm/dl (3.4-5.0); Calcium 8.3 mg/dl (8.6-10.3); Magnesium 1.7 mg/dl (1.7-2.4); Potassium 4.3 mmol/L (3.5-5.1)
[2023-07-17 08:21] LABS: BUN Creatinine Ratio 21.4 (10-20); Creatinine Clr Calc Pharmacy 74.8 ml/min; Est GFR (African American) 97.2 ml/min; Est GFR (Non-African American) 83.9 ml/min
[2023-07-17 09:13] LABS: Phosphorus 2.9 mg/dl (2.5-4.9)
--- NOTE | 2023-07-17 12:28 | Urology Progress Note ---
Date of Service July 17, 2023 Assessment & Plan (1) Acute urinary retention: (2) Acute UTI: (3) AMS (altered mental status): Plan 78yo/M admitted with AMS, Covid-19, and suspected UTI. Afebrile and hemodynamically stable. Labs reviewed- WBC 3.25, creatinine 0.84. Urine culture negative. Blood culture prelim no growth. On ceftriaxone and azithromycin for pneumonia. Palomino catheter draining appropriately-urine is clear yellow. Continue to monitor. No acute intervention warranted. Continue supportive care and antibiotic therapy. Maintain Palomino catheter. Can consider addition of alpha-jose. Will arrange outpatient follow-up with our service for continued care and voiding trial. Urology will follow peripherally. Please call with any additional questions/concerns. Admission and Anticipated Discharge Date Admission Date: July 16, 2023 Subjective Pt examined at bedside. Awake, resting in bed on arrival. No acute distress. Oriented to person. BL soft mits intact as he attempts to pull out palomino and IV per nursing. Palomino draining clear yellow urine. Review of Systems Review of Systems: Unobtainable due to cognitive status Physical Exam Constitutional: no acute distress Respiratory: no respiratory distress and no labored breathing Gastrointestinal (Abdomen): Soft and nondistended. There is no pain with palpation Neurologic: moves all extremities and awake Psychiatric: Orientation: alert, oriented to person and cooperative Genitourinary: Palomino catheter draining clear yellow urine Results & Data Vital Signs (Past 12 Hours) Vital Signs Temp Pulse Resp BP Pulse Ox O2 Del Method O2 Del Method 07/17/23 08:06 36.4 C L 59 L 16 117/68 100 07/17/23 07:47 59 L 07/17/23 07:43 Room Air 07/17/23 01:00 Room Air PG Care Time/CCT Total # of Minutes Spent Total Time Spent with Patient: Total time spent is greater than 50% in coordination of care (as documented) at patient's floor/unit and/or counseling patient: Coding Level of Care Code 12222 SUB INP/OBS CARE 07/18MIN Diagnoses Acute urinary retention R33.8 Acute UTI N39.0 AMS (altered mental status) R41.82
--- NOTE | 2023-07-17 13:33 | Hospitalist Progress Note ---
Date of Service July 17, 2023 Assessment & Plan (1) Confusion and disorientation: (2) Sepsis: (3) Acute urinary retention: (4) Visual hallucinations: (5) COVID-19: (6) BPH loc w urin obs/LUTS: (7) Mild cognitive impairment: (8) Generalized weakness: (9) COPD (chronic obstructive pulmonary disease): Plan Metabolic encephalopathy Per son, the patient has a poor baseline cognitive status but he was obviously worse with visual hallucinations and incoordination Head CT was negative Could have been secondary to infection (urinary or pulmonary source) The patient is hard of hearing and does not have his hearing aids in the hospital which could be contributing to his confusion Asked the son to come visit the patient to tell me if he is getting better and closer to his baseline. Possible UTI The patient was recently discharged with a Curtis catheter in place because of BPH and urinary retention Urinalysis was suggestive but urine culture is negative Will empirically treat with ceftriaxone Curtis catheter will stay in place Urology on board, will follow-up outpatient Community-acquired left middle lobe pneumonia Patient is not hypoxic No shortness of breath or cough Chest x-ray showed a left middle lobe infiltrate Already on ceftriaxone to treat UTI Added azithromycin COVID-19 infection/COPD No hypoxia or shortness of breath or cough Conservative treatment Continue inhalers Hypertension Lisinopril held Monitor blood pressure DVT prophylaxis: Lovenox Full code Admission and Anticipated Discharge Date Admission Date: July 16, 2023 Subjective Patient remains confused. Spoke to son in detail on the phone. Per the son, the patient only has fourth grade level education. 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 He is also being worked up for dementia. From a mental status standpoint, he does not have a very good baseline and he is often confused. But on the day of the admission, he was hallucinating which was new. He also was having a hard time coordinating his movements and seem to be very weak. The son has not seen him in the hospital or spoken to him on the phone since he got admitted to the hospital. Review of Systems Review of Systems: Unobtainable due to cognitive status Physical Exam Physical Exam: General: Awake, confused but pleasantly so. Not agitated. Has mitts on. He is AO x 2. He was able to tell me his name and the fact that he is at the [facility] Heart: S1, S2/regular rate and rhythm, no murmur rubs or gallops Lungs: Clear to auscultation bilaterally. Normal effort Abdomen: Soft/nontender/nondistended. No hepatosplenomegaly Extremities: No clubbing/cyanosis. No edema Behavior: Appropriate, cooperative Results & Data Results & Data Vital Signs (Past 12 Hours) Vital Signs Temp Pulse Resp BP Pulse Ox O2 Del Method 07/17/23 12:54 37.1 C 54 L 16 134/74 97 07/17/23 08:06 36.4 C L 59 L 16 117/68 100 07/17/23 07:47 59 L 07/17/23 07:43 Room Air Laboratory Results Abnormal lab results 07/17/23 Range/Units 07:01 WBC 3.25 L (4.8-10.8) K/ul RBC 4.12 L (4.70-6.10) M/uL Hgb 12.7 L (14.0-18.0) g/dl Hct 36.1 L (42.0-52.0) % Plt Count 98 L (130-400) K/uL Neut # (Auto) 1.28 L (1.40-6.50) K/uL Chloride 108 H (98-107) mmol/L BUN/Creatinine Ratio 21.4 H (10-20) Calcium 8.3 L (8.6-10.3) mg/dl PG Care Time/CCT Total # of Minutes Spent Total Time Spent with Patient: Total time spent is greater than 50% in coordination of care (as documented) at patient's floor/unit and/or counseling patient: Coding Level of Care Code 50429 SUB INP/OBS CARE 2/35MIN Diagnoses Confusion and disorientation R41.0 Sepsis A41.9 Acute urinary retention R33.8 Visual hallucinations R44.1 COVID-19 U07.1 BPH loc w urin obs/LUTS N40.1 Mild cognitive impairment G31.84 Generalized weakness R53.1 COPD (chronic obstructive pulmonary disease) J44.9 COPD type: unspecified COPD (9) COPD (chronic obstructive pulmonary disease) COPD type: unspecified COPD Qualified Code(s): J44.9 - Chronic obstructive pulmonary disease, unspecified
[2023-07-18 08:05] LABS: Basophils # (auto) 0.02 K/uL (0.00-0.20); Basophils % (auto) 0.5 %; Eosinophils # (auto) 0.16 K/uL (0.00-0.50); Hematocrit (blood only) 37.1 % (42.0-52.0); Hemoglobin 13.3 g/dl (14.0-18.0); Immature Granulocytes # (auto) 0.01 K/uL (0.01-0.20); Immature Granulocytes % (auto) 0.3 %; Lymphocytes # (auto) 1.72 K/uL (1.20-3.40); Lymphocytes % (auto) 43.3 %; Mean Corpuscular Hgb Conc 35.8 g/dL (32.0-36.0); Mean Corpuscular Volume 86.5 fL (80.0-100.0); Mean Platelet Volume 10.4 fL (9.4-12.4); Monocytes # (auto) 0.54 K/uL (0.11-0.59); Monocytes % (auto) 13.6 %; Neutrophils # (auto) 1.52 K/uL (1.40-6.50); Neutrophils % (auto) 38.3 %; Platelet Count 111 K/uL (130-400); RDW Standard Deviation 38.2 fL (36.4-46.3); Red Blood Count 4.29 M/uL (4.70-6.10); White Blood Count 3.97 K/ul (4.8-10.8)
[2023-07-18 08:35] LABS: Albumin Level 3.7 gm/dl (3.4-5.0); BUN Creatinine Ratio 20.8 (10-20); Calcium 8.5 mg/dl (8.6-10.3); Creatinine Clr Calc Pharmacy 81.6 ml/min; Est GFR (African American) 100.7 ml/min; Est GFR (Non-African American) 86.9 ml/min; Magnesium 1.7 mg/dl (1.7-2.4); Phosphorus 2.8 mg/dl (2.5-4.9); Potassium 3.7 mmol/L (3.5-5.1)
--- NOTE | 2023-07-18 15:18 | Hospitalist Progress Note ---
Date of Service July 18, 2023 Assessment & Plan (1) Confusion and disorientation: (2) Sepsis: (3) Acute urinary retention: (4) Visual hallucinations: (5) COVID-19: (6) BPH loc w urin obs/LUTS: (7) Mild cognitive impairment: (8) Generalized weakness: (9) COPD (chronic obstructive pulmonary disease): Plan Metabolic encephalopathy Per son, the patient has a poor baseline cognitive status but he was obviously worse with visual hallucinations and incoordination Head CT was negative Could have been secondary to infection (urinary or pulmonary source) or due to COVID The patient is hard of hearing and does not have his hearing aids in the hospital which could be contributing to his confusion Asked the son to come visit the patient to tell me if he is getting better and closer to his baseline. His recently went to a senior living which could have contributed to his decline Possible UTI The patient was recently discharged with a Curtis catheter in place because of BPH and urinary retention Urinalysis was suggestive but urine culture is negative Will empirically treat with ceftriaxone Curtis catheter will stay in place Urology on board, will follow-up outpatient Community-acquired left middle lobe pneumonia Patient is not hypoxic No shortness of breath or cough Chest x-ray showed a left middle lobe infiltrate Already on ceftriaxone to treat UTI Added azithromycin COVID-19 infection/COPD No hypoxia or shortness of breath or cough Conservative treatment Continue inhalers Hypertension Resume lisinopril Monitor blood pressure DVT prophylaxis: Lovenox Full code Admission and Anticipated Discharge Date Admission Date: July 16, 2023 Subjective Patient remains confused. Per son, he is not back to his usual baseline Review of Systems Review of Systems: Unobtainable due to cognitive status Physical Exam Physical Exam: General: Awake, confused but pleasantly so. Not agitated. Has mitts on. He is AO x 2. He was able to tell me his name and the fact that he is at the [facility] Heart: S1, S2/regular rate and rhythm, no murmur rubs or gallops Lungs: Clear to auscultation bilaterally. Normal effort Abdomen: Soft/nontender/nondistended. No hepatosplenomegaly Extremities: No clubbing/cyanosis. No edema Behavior: Appropriate, cooperative Results & Data Results & Data Vital Signs (Past 12 Hours) Vital Signs Temp Pulse Pulse Resp BP BP Pulse Ox 07/18/23 11:15 36.6 C 53 L 18 138/78 97 07/18/23 07:57 59 L 07/18/23 07:48 36.7 C 60 16 136/75 97 07/18/23 07:43 07/18/23 03:57 36.6 C 74 20 156/65 H 95 O2 Del Method 07/18/23 11:15 Room Air 07/18/23 07:57 07/18/23 07:48 Room Air 07/18/23 07:43 Room Air 07/18/23 03:57 Laboratory Results Abnormal lab results 07/18/23 Range/Units 07:21 WBC 3.97 L (4.8-10.8) K/ul RBC 4.29 L (4.70-6.10) M/uL Hgb 13.3 L (14.0-18.0) g/dl Hct 37.1 L (42.0-52.0) % Plt Count 111 L (130-400) K/uL Chloride 109 H (98-107) mmol/L BUN/Creatinine Ratio 20.8 H (10-20) Calcium 8.5 L (8.6-10.3) mg/dl PG Care Time/CCT Total # of Minutes Spent Total Time Spent with Patient: Total time spent is greater than 50% in coordination of care (as documented) at patient's floor/unit and/or counseling patient: Coding Level of Care Code 14367 SUB INP/OBS CARE 2/35MIN Diagnoses Confusion and disorientation R41.0 Sepsis A41.9 Acute urinary retention R33.8 Visual hallucinations R44.1 COVID-19 U07.1 BPH loc w urin obs/LUTS N40.1 Mild cognitive impairment G31.84 Generalized weakness R53.1 COPD (chronic obstructive pulmonary disease) J44.9 COPD type: unspecified COPD (9) COPD (chronic obstructive pulmonary disease) COPD type: unspecified COPD Qualified Code(s): J44.9 - Chronic obstructive pulmonary disease, unspecified
[2023-07-18] MEDS: lisinopril 5 MG TAB PO SCH (20:26)
[2023-07-19 07:53] LABS: Creatinine Clr Calc Pharmacy 82.7 ml/min; Est GFR (African American) 101.3 ml/min; Est GFR (Non-African American) 87.4 ml/min; Magnesium 1.7 mg/dl (1.7-2.4)
--- NOTE | 2023-07-19 16:29 | Hospitalist Progress Note ---
Date of Service July 19, 2023 Assessment & Plan (1) Confusion and disorientation: (2) Sepsis: (3) Acute urinary retention: (4) Visual hallucinations: (5) COVID-19: (6) BPH loc w urin obs/LUTS: (7) Mild cognitive impairment: (8) Generalized weakness: (9) COPD (chronic obstructive pulmonary disease): Plan Metabolic encephalopathy/delirium Per son, the patient has a poor baseline cognitive status but he was obviously worse with visual hallucinations and incoordination Head CT was negative Could have been secondary to infection (urinary or pulmonary source) or due to COVID Per son, he does not seem much improved compared to when he first came to the hospital other than the fact that he is more alert. He still seems to be hallucinating His recently went to a retirement which could have contributed to his decline. Added Seroquel for healthy sleep-wake cycle Added nicotine patch in case nicotine withdrawal could be contributing Consulted PT and OT as patient will likely need placement Possible UTI The patient was recently discharged with a Curtis catheter in place because of BPH and urinary retention Urinalysis was suggestive but urine culture is negative Will empirically treat with ceftriaxone Curtis catheter will stay in place Urology on board, will follow-up outpatient Community-acquired left middle lobe pneumonia Patient is not hypoxic No shortness of breath or cough Chest x-ray showed a left middle lobe infiltrate Already on ceftriaxone to treat UTI Added azithromycin COVID-19 infection/COPD No hypoxia or shortness of breath or cough Conservative treatment Continue inhalers Hypertension Resume lisinopril Monitor blood pressure DVT prophylaxis: Lovenox Full code Admission and Anticipated Discharge Date Admission Date: July 16, 2023 Subjective Patient remains confused, per nurse. She was able to take off the mitts and he has not been pulling on his IV. I personally spoke to the son on the phone and he does not think that the patient is too much better than when he first came to the hospital. He is still confused. Per the son he is more alert but still seems to be hallucinating. Review of Systems Review of Systems: All systems reviewed & are unremarkable except as noted in Subjective Physical Exam Physical Exam: General: Awake, confused but pleasantly so. Not agitated. Mitts have been removed. Heart: S1, S2/regular rate and rhythm, no murmur rubs or gallops Lungs: Clear to auscultation bilaterally. Normal effort Abdomen: Soft/nontender/nondistended. No hepatosplenomegaly Extremities: No clubbing/cyanosis. No edema Behavior: Appropriate, cooperative Results & Data Results & Data Vital Signs (Past 12 Hours) Vital Signs Temp Pulse Pulse Resp BP Pulse Ox O2 Del Method 07/19/23 15:35 36.7 C 60 20 122/71 99 Room Air 07/19/23 14:42 63 07/19/23 12:54 59 L 17 124/74 98 Room Air 07/19/23 10:52 Room Air 07/19/23 10:30 58 L PG Care Time/CCT Total # of Minutes Spent Total Time Spent with Patient: Total time spent is greater than 50% in coordination of care (as documented) at patient's floor/unit and/or counseling patient: Coding Level of Care Code 65088 SUB INP/OBS CARE 2/35MIN Diagnoses Confusion and disorientation R41.0 Sepsis A41.9 Acute urinary retention R33.8 Visual hallucinations R44.1 COVID-19 U07.1 BPH loc w urin obs/LUTS N40.1 Mild cognitive impairment G31.84 Generalized weakness R53.1 COPD (chronic obstructive pulmonary disease) J44.9 COPD type: unspecified COPD (9) COPD (chronic obstructive pulmonary disease) COPD type: unspecified COPD Qualified Code(s): J44.9 - Chronic obstructive pulmonary disease, unspecified
[2023-07-19] MEDS: NICOTINE 14 MG/24 HR PATCH TD SCH (18:15)
[2023-07-19] MEDS: QUEtiapine FUMARATE 25 MG TABLET PO SCH (20:17)
--- NOTE | 2023-07-20 13:48 | Hospitalist Progress Note ---
Date of Service July 20, 2023 Assessment & Plan (1) Confusion and disorientation: (2) Sepsis: (3) Acute urinary retention: (4) Visual hallucinations: (5) COVID-19: (6) BPH loc w urin obs/LUTS: (7) Mild cognitive impairment: (8) Generalized weakness: (9) COPD (chronic obstructive pulmonary disease): Plan Metabolic encephalopathy/delirium Per son, the patient has a poor baseline cognitive status but he was obviously worse with visual hallucinations and incoordination Head CT was negative Could have been secondary to infection (urinary or pulmonary source) or due to COVID Per son, he does not seem much improved compared to when he first came to the hospital other than the fact that he is more alert. He still seems to be hallucinating But today the patient appears improved. He is more alert. He is not hallucinating. He slept well overnight after Seroquel His recently went to a senior care which could have contributed to his decline. Continue Seroquel for healthy sleep-wake cycle Added nicotine patch in case nicotine withdrawal could be contributing Awaiting PT and OT as patient will likely need placement Possible UTI The patient was recently discharged with a Curtis catheter in place because of BPH and urinary retention Urinalysis was suggestive but urine culture is negative Will empirically treat with ceftriaxone Curtis catheter will stay in place Urology on board, will follow-up outpatient Community-acquired left middle lobe pneumonia Patient is not hypoxic No shortness of breath or cough Chest x-ray showed a left middle lobe infiltrate Already on ceftriaxone to treat UTI Added azithromycin COVID-19 infection/COPD No hypoxia or shortness of breath or cough Conservative treatment Continue inhalers Hypertension Resume lisinopril Monitor blood pressure DVT prophylaxis: Lovenox Full code Admission and Anticipated Discharge Date Admission Date: July 16, 2023 Subjective Per nurse, patient slept well through the night Mitts were taken off of him He is not hallucinating today Appears to be less confused. Review of Systems Review of Systems: All systems reviewed & are unremarkable except as noted in Subjective Physical Exam Physical Exam: General: Awake, Not agitated. Mitts have been removed. Heart: S1, S2/regular rate and rhythm, no murmur rubs or gallops Lungs: Clear to auscultation bilaterally. Normal effort Abdomen: Soft/nontender/nondistended. No hepatosplenomegaly Extremities: No clubbing/cyanosis. No edema Behavior: Appropriate, cooperative Results & Data Results & Data Vital Signs (Past 12 Hours) Vital Signs Temp Pulse Pulse Resp BP Pulse Ox O2 Del Method 07/20/23 11:22 36.7 C 64 18 106/64 97 Room Air 07/20/23 08:45 36.6 C 64 17 107/70 96 Room Air 07/20/23 07:30 53 L 07/20/23 03:06 60 PG Care Time/CCT Total # of Minutes Spent Total Time Spent with Patient: Total time spent is greater than 50% in coordination of care (as documented) at patient's floor/unit and/or counseling patient: Coding Level of Care Code 75662 SUB INP/OBS CARE 2/35MIN Diagnoses Confusion and disorientation R41.0 Sepsis A41.9 Acute urinary retention R33.8 Visual hallucinations R44.1 COVID-19 U07.1 BPH loc w urin obs/LUTS N40.1 Mild cognitive impairment G31.84 Generalized weakness R53.1 COPD (chronic obstructive pulmonary disease) J44.9 COPD type: unspecified COPD (9) COPD (chronic obstructive pulmonary disease) COPD type: unspecified COPD Qualified Code(s): J44.9 - Chronic obstructive pulmonary disease, unspecified
--- NOTE | 2023-07-21 14:01 | Hospitalist Progress Note ---
Date of Service July 21, 2023 Assessment & Plan (1) Confusion and disorientation: (2) Sepsis: (3) Acute urinary retention: (4) Visual hallucinations: (5) COVID-19: (6) BPH loc w urin obs/LUTS: (7) Mild cognitive impairment: (8) Generalized weakness: (9) COPD (chronic obstructive pulmonary disease): Plan Metabolic encephalopathy/delirium Per son, the patient has a poor baseline cognitive status but he was obviously worse with visual hallucinations and incoordination Head CT was negative Could have been secondary to infection (urinary or pulmonary source) or due to COVID Per son who visited him 3 days ago in the hospital, he did not seem much improved compared to when he first came to the hospital other than the fact that he is more alert. He still seemed to be hallucinating But since then the patient appears improved. He is more alert. He is not hallucinating. He slept well overnight after Seroquel His recently went to a correction which could have contributed to his decline. Continue Seroquel for healthy sleep-wake cycle Added nicotine patch in case nicotine withdrawal could be contributing Awaiting PT and OT as patient will likely need placement Possible UTI The patient was recently discharged with a Curtis catheter in place because of BPH and urinary retention Urinalysis was suggestive but urine culture is negative Will empirically treat with ceftriaxone to complete the course Curtis catheter will stay in place Urology on board, will follow-up outpatient Community-acquired left middle lobe pneumonia Patient is not hypoxic No shortness of breath or cough Chest x-ray showed a left middle lobe infiltrate Already on ceftriaxone to treat UTI versus pneumonia. Will continue ceftriaxone to complete the course. Discontinued azithromycin after 5 days COVID-19 infection/COPD No hypoxia or shortness of breath or cough Conservative treatment Continue inhalers Hypertension Resume lisinopril Monitor blood pressure DVT prophylaxis: Lovenox Full code Admission and Anticipated Discharge Date Admission Date: July 16, 2023 Subjective Patient still remains confused. Seems to be the same compared to yesterday Review of Systems Review of Systems: Unobtainable due to cognitive status Physical Exam Physical Exam: General: Awake, Not agitated. Heart: S1, S2/regular rate and rhythm, no murmur rubs or gallops Lungs: Clear to auscultation bilaterally. Normal effort Abdomen: Soft/nontender/nondistended. No hepatosplenomegaly Extremities: No clubbing/cyanosis. No edema Behavior: Appropriate, cooperative Results & Data Results & Data Vital Signs (Past 12 Hours) Vital Signs Temp Pulse Pulse Resp BP Pulse Ox O2 Del Method 07/21/23 08:52 36.6 C 63 18 139/79 99 Room Air 07/21/23 07:05 77 PG Care Time/CCT Total # of Minutes Spent Total Time Spent with Patient: Total time spent is greater than 50% in coordination of care (as documented) at patient's floor/unit and/or counseling patient: Coding Level of Care Code 33986 SUB INP/OBS CARE 2/35MIN Diagnoses Confusion and disorientation R41.0 Sepsis A41.9 Acute urinary retention R33.8 Visual hallucinations R44.1 COVID-19 U07.1 BPH loc w urin obs/LUTS N40.1 Mild cognitive impairment G31.84 Generalized weakness R53.1 COPD (chronic obstructive pulmonary disease) J44.9 COPD type: unspecified COPD (9) COPD (chronic obstructive pulmonary disease) COPD type: unspecified COPD Qualified Code(s): J44.9 - Chronic obstructive pulmonary disease, unspecified
[2023-07-22 08:03] LABS: Hematocrit (blood only) 39.4 % (42.0-52.0); Mean Corpuscular Hemoglobin 30.8 pg (25.0-34.0); Mean Corpuscular Hgb Conc 35.5 g/dL (32.0-36.0); Mean Corpuscular Volume 86.6 fL (80.0-100.0); Mean Platelet Volume 9.6 fL (9.4-12.4); Platelet Count 180 K/uL (130-400); RDW Coefficient of Variation 11.9 % (11.5-14.5); Red Blood Count 4.55 M/uL (4.70-6.10); White Blood Count 4.72 K/ul (4.8-10.8)
[2023-07-22 08:18] LABS: BUN Creatinine Ratio 24.4 (10-20); Calcium 9.1 mg/dl (8.6-10.3); Creatinine Clr Calc Pharmacy 80.6 ml/min; Est GFR (African American) 100.2 ml/min; Est GFR (Non-African American) 86.5 ml/min; Potassium 3.4 mmol/L (3.5-5.1)
--- NOTE | 2023-07-22 15:23 | Hospitalist Progress Note ---
Date of Service July 22, 2023 Assessment & Plan (1) Confusion and disorientation: (2) Sepsis: (3) Acute urinary retention: (4) Visual hallucinations: (5) COVID-19: (6) BPH loc w urin obs/LUTS: (7) Mild cognitive impairment: (8) Generalized weakness: (9) COPD (chronic obstructive pulmonary disease): Plan Metabolic encephalopathy/delirium Per son, the patient has a poor baseline cognitive status but he was obviously worse with visual hallucinations and incoordination Head CT was negative Could have been secondary to infection (urinary or pulmonary source) or due to COVID Still pretty much confused today His recently went to a senior living which could have contributed to his decline. Continue Seroquel for healthy sleep-wake cycle Added nicotine patch in case nicotine withdrawal could be contributing Awaiting PT and OT as patient will likely need placement Possible UTI The patient was recently discharged with a Curtis catheter in place because of BPH and urinary retention Urinalysis was suggestive but urine culture is negative Will empirically treat with ceftriaxone to complete the course Curtis catheter will stay in place Urology on board, will follow-up outpatient Community-acquired left middle lobe pneumonia Patient is not hypoxic No shortness of breath or cough Chest x-ray showed a left middle lobe infiltrate Already on ceftriaxone to treat UTI versus pneumonia. Will continue ceftriaxone to complete the course. Discontinued azithromycin after 5 days COVID-19 infection/COPD No hypoxia or shortness of breath or cough Conservative treatment Continue inhalers Will discontinue isolation Hypertension Resume lisinopril Monitor blood pressure DVT prophylaxis: Lovenox Full code Hopefully discharge to SNF when accepted Admission and Anticipated Discharge Date Admission Date: July 16, 2023 Subjective Patient seen and examined, still very confused I was unable to get any coherent information or history from him Review of Systems Review of Systems: Unreliable due to confusion Physical Exam Physical Exam: The patient is awake, alert confused HEENT--PERRL, EOMI, mucous membranes and oropharynx mildly dry Neck--supple. No JVD. No bruits. Thyroid normal, trachea midline, no adenopathy. Heart--normal S1 and S2. No murmurs, rubs or gallops. Lungs--clear bilaterally, no respiratory distress, no accessory muscle use. Abdomen--normal bowel sounds and soft. Mild epigastric and left sided abdominal pain Extremities--no cyanosis or clubbing. No edema. Dermatologic--normal skin turgor, normal color, no abnormal lymph nodes, no rash. Neurologic--cranial nerves II through XII grossly intact. Rheumatologic--normal range of motion. Psychiatric--normal affect. Results & Data Results & Data Vital Signs (Past 12 Hours) Vital Signs Temp Pulse Pulse Resp BP Pulse Ox O2 Del Method 07/22/23 08:27 97.5 F L 62 18 117/74 98 Room Air 07/22/23 07:10 65 PG Care Time/CCT Total # of Minutes Spent Total Time Spent with Patient: Total time spent is greater than 50% in coordination of care (as documented) at patient's floor/unit and/or counseling patient: Coding Level of Care Code 95739 SUB INP/OBS CARE 2/35MIN Diagnoses Confusion and disorientation R41.0 Sepsis A41.9 Acute urinary retention R33.8 Visual hallucinations R44.1 COVID-19 U07.1 BPH loc w urin obs/LUTS N40.1 Mild cognitive impairment G31.84 Generalized weakness R53.1 COPD (chronic obstructive pulmonary disease) J44.9 COPD type: unspecified COPD Time Spent (min) 35 (9) COPD (chronic obstructive pulmonary disease) COPD type: unspecified COPD Qualified Code(s): J44.9 - Chronic obstructive pulmonary disease, unspecified
[2023-07-23 08:01] LABS: BUN Creatinine Ratio 27.5 (10-20); Calcium 9.1 mg/dl (8.6-10.3); Creatinine Clr Calc Pharmacy 78.6 ml/min; Est GFR (African American) 99.2 ml/min; Est GFR (Non-African American) 85.6 ml/min; Potassium 3.6 mmol/L (3.5-5.1)
[2023-07-23] MEDS: ACETAMINOPHEN 325 MG TAB PO PRN (11:18)
--- NOTE | 2023-07-23 12:06 | Hospitalist Progress Note ---
Date of Service July 23, 2023 Assessment & Plan (1) Confusion and disorientation: (2) Sepsis: (3) Acute urinary retention: (4) Visual hallucinations: (5) COVID-19: (6) BPH loc w urin obs/LUTS: (7) Mild cognitive impairment: (8) Generalized weakness: (9) COPD (chronic obstructive pulmonary disease): Plan Metabolic encephalopathy/delirium Per son, the patient has a poor baseline cognitive status but he was obviously worse with visual hallucinations and incoordination Head CT was negative Could have been secondary to infection (urinary or pulmonary source) or due to COVID Still pretty much confused today His [facility] a [facility] which could have contributed to his decline. Continue Seroquel for healthy sleep-wake cycle Added nicotine patch in case nicotine withdrawal could be contributing Has been evaluated by PT OT, recommend rehab Awaiting rehab placement Possible UTI The patient was recently discharged with a Curtis catheter in place because of BPH and urinary retention Urinalysis was suggestive but urine culture is negative Will empirically treat with ceftriaxone to complete the course Curtis catheter will stay in place Urology on board, will follow-up outpatient Community-acquired left middle lobe pneumonia Patient is not hypoxic No shortness of breath or cough Chest x-ray showed a left middle lobe infiltrate Already on ceftriaxone to treat UTI versus pneumonia. Will continue ceftriaxone to complete the course. Discontinued azithromycin after 5 days COVID-19 infection/COPD No hypoxia or shortness of breath or cough Conservative treatment Continue inhalers Will discontinue isolation Hypertension Resume lisinopril Monitor blood pressure DVT prophylaxis: Lovenox Full code Hopefully discharge to SNF when accepted Admission and Anticipated Discharge Date Admission Date: July 16, 2023 Subjective Patient seen and examined, he was a little bit more coherent today, said he had toast for breakfast of scrambled eggs although still seems a little bit confused. Review of Systems Review of Systems: Unreliable due to confusion Physical Exam Physical Exam: The patient is awake, alert confused HEENT--PERRL, EOMI, mucous membranes and oropharynx mildly dry Neck--supple. No JVD. No bruits. Thyroid normal, trachea midline, no adenopathy. Heart--normal S1 and S2. No murmurs, rubs or gallops. Lungs--clear bilaterally, no respiratory distress, no accessory muscle use. Abdomen--normal bowel sounds and soft. Mild epigastric and left sided abdominal pain Extremities--no cyanosis or clubbing. No edema. Dermatologic--normal skin turgor, normal color, no abnormal lymph nodes, no rash. Neurologic--cranial nerves II through XII grossly intact. Rheumatologic--normal range of motion. Psychiatric--normal affect. Results & Data Results & Data Vital Signs (Past 12 Hours) Vital Signs Temp Resp BP Pulse Ox O2 Del Method 07/23/23 07:56 96.4 F L 18 117/79 98 Room Air PG Care Time/CCT Total # of Minutes Spent Total Time Spent with Patient: Total time spent is greater than 50% in coordination of care (as documented) at patient's floor/unit and/or counseling patient: Coding Level of Care Code 31018 SUB INP/OBS CARE 2/35MIN Diagnoses Confusion and disorientation R41.0 Sepsis A41.9 Acute urinary retention R33.8 Visual hallucinations R44.1 COVID-19 U07.1 BPH loc w urin obs/LUTS N40.1 Mild cognitive impairment G31.84 Generalized weakness R53.1 COPD (chronic obstructive pulmonary disease) J44.9 COPD type: unspecified COPD Time Spent (min) 35 (9) COPD (chronic obstructive pulmonary disease) COPD type: unspecified COPD Qualified Code(s): J44.9 - Chronic obstructive pulmonary disease, unspecified
--- NOTE | 2023-07-24 11:55 | Hospitalist Progress Note ---
Date of Service July 24, 2023 Assessment & Plan (1) Confusion and disorientation: (2) Sepsis: (3) Acute urinary retention: (4) Visual hallucinations: (5) COVID-19: (6) BPH loc w urin obs/LUTS: (7) Mild cognitive impairment: (8) Generalized weakness: (9) COPD (chronic obstructive pulmonary disease): Plan Metabolic encephalopathy/delirium Per son, the patient has a poor baseline cognitive status but he was obviously worse with visual hallucinations and incoordination Head CT was negative Could have been secondary to infection (urinary or pulmonary source) or due to COVID Still pretty much confused today His recently went to a group home which could have contributed to his decline. Continue Seroquel for healthy sleep-wake cycle Added nicotine patch in case nicotine withdrawal could be contributing Has been evaluated by PT OT, recommend rehab Awaiting rehab placement Possible UTI The patient was recently discharged with a Curtis catheter in place because of BPH and urinary retention Urinalysis was suggestive but urine culture is negative Will empirically treat with ceftriaxone to complete the course Curtis catheter will stay in place Urology on board, will follow-up outpatient Community-acquired left middle lobe pneumonia Patient is not hypoxic No shortness of breath or cough Chest x-ray showed a left middle lobe infiltrate Already on ceftriaxone to treat UTI versus pneumonia. Will continue ceftriaxone to complete the course. Discontinued azithromycin after 5 days COVID-19 infection/COPD No hypoxia or shortness of breath or cough Conservative treatment Continue inhalers Will discontinue isolation Hypertension Resume lisinopril Monitor blood pressure DVT prophylaxis: Lovenox Full code Hopefully discharge to SNF when accepted Admission and Anticipated Discharge Date Admission Date: July 16, 2023 Subjective Patient seen and examined, he was a little bit more coherent today, tolerating diet Review of Systems Review of Systems: Unreliable due to confusion Physical Exam Physical Exam: The patient is awake, alert confused HEENT--PERRL, EOMI, mucous membranes and oropharynx mildly dry Neck--supple. No JVD. No bruits. Thyroid normal, trachea midline, no adenopathy. Heart--normal S1 and S2. No murmurs, rubs or gallops. Lungs--clear bilaterally, no respiratory distress, no accessory muscle use. Abdomen--normal bowel sounds and soft. Mild epigastric and left sided abdominal pain Extremities--no cyanosis or clubbing. No edema. Dermatologic--normal skin turgor, normal color, no abnormal lymph nodes, no rose h. Neurologic--cranial nerves II through XII grossly intact. Rheumatologic--normal range of motion. Psychiatric--normal affect. Results & Data Results & Data Vital Signs (Past 12 Hours) Vital Signs Temp Pulse Resp BP Pulse Ox O2 Del Method 07/24/23 08:20 97.5 F L 64 16 151/76 H 99 Room Air PG Care Time/CCT Total # of Minutes Spent Total Time Spent with Patient: Total time spent is greater than 50% in coordination of care (as documented) at patient's floor/unit and/or counseling patient: Coding Level of Care Code 16928 SUB INP/OBS CARE 2/35MIN Diagnoses Confusion and disorientation R41.0 Sepsis A41.9 Acute urinary retention R33.8 Visual hallucinations R44.1 COVID-19 U07.1 BPH loc w urin obs/LUTS N40.1 Mild cognitive impairment G31.84 Generalized weakness R53.1 COPD (chronic obstructive pulmonary disease) J44.9 COPD type: unspecified COPD Time Spent (min) 35 (9) COPD (chronic obstructive pulmonary disease) COPD type: unspecified COPD Qualified Code(s): J44.9 - Chronic obstructive pulmonary disease, unspecified
[2023-07-25 07:29] LABS: Creatinine Clr Calc Pharmacy 69.8 ml/min; Est GFR (African American) 94.5 ml/min; Est GFR (Non-African American) 81.5 ml/min
--- NOTE | 2023-07-25 10:42 | Hospitalist Progress Note ---
Date of Service July 25, 2023 Assessment & Plan (1) Confusion and disorientation: (2) Sepsis: (3) Acute urinary retention: (4) Visual hallucinations: (5) COVID-19: (6) BPH loc w urin obs/LUTS: (7) Mild cognitive impairment: (8) Generalized weakness: (9) COPD (chronic obstructive pulmonary disease): Plan Metabolic encephalopathy/delirium Resolved, patient probably not back to baseline Per son, the patient has a poor baseline cognitive status but he was obviously worse with visual hallucinations and incoordination Head CT was negative Could have been secondary to infection (urinary or pulmonary source) or due to COVID Still pretty much confused today His recently went to a [facility] which could have contributed to his decline. Continue Seroquel for healthy sleep-wake cycle Added nicotine patch in case nicotine withdrawal could be contributing Has been evaluated by PT OT, recommend rehab Awaiting rehab placement Possible UTI The patient was recently discharged with a Curtis catheter in place because of BPH and urinary retention Urinalysis was suggestive but urine culture is negative Will empirically treat with ceftriaxone to complete the course Curtis catheter will stay in place Urology on board, will follow-up outpatient Community-acquired left middle lobe pneumonia Patient is not hypoxic No shortness of breath or cough Chest x-ray showed a left middle lobe infiltrate Already on ceftriaxone to treat UTI versus pneumonia. Will continue ceftriaxone to complete the course. Completed a course of azithromycin COVID-19 infection/COPD No hypoxia or shortness of breath or cough Conservative treatment Continue inhalers Will discontinue isolation Hypertension Resume lisinopril Monitor blood pressure DVT prophylaxis: Lovenox Full code Hopefully discharge to SNF when accepted Admission and Anticipated Discharge Date Admission Date: July 16, 2023 Subjective Patient seen and examined, he is now awake and alert, said he had scrambled eggs for breakfast denies any new complaints. Review of Systems Review of Systems: All systems reviewed are negative, apart from the ones contained in the history. Physical Exam Physical Exam: The patient is awake, alert HEENT--PERRL, EOMI, mucous membranes and oropharynx mildly dry Neck--supple. No JVD. No bruits. Thyroid normal, trachea midline, no adenopathy. Heart--normal S1 and S2. No murmurs, rubs or gallops. Lungs--clear bilaterally, no respiratory distress, no accessory muscle use. Abdomen--normal bowel sounds and soft. Mild epigastric and left sided abdominal pain Extremities--no cyanosis or clubbing. No edema. Dermatologic--normal skin turgor, normal color, no abnormal lymph nodes, no rash. Neurologic--cranial nerves II through XII grossly intact. Rheumatologic--normal range of motion. Psychiatric--normal affect. Results & Data Results & Data Vital Signs (Past 12 Hours) Vital Signs Temp Pulse Resp BP Pulse Ox O2 Del Method 07/25/23 07:26 97.9 F 55 L 16 117/74 96 Room Air PG Care Time/CCT Total # of Minutes Spent Total Time Spent with Patient: Total time spent is greater than 50% in coordination of care (as documented) at patient's floor/unit and/or counseling patient: Coding Level of Care Code 85768 SUB INP/OBS CARE 2/35MIN Diagnoses Confusion and disorientation R41.0 Sepsis A41.9 Acute urinary retention R33.8 Visual hallucinations R44.1 COVID-19 U07.1 BPH loc w urin obs/LUTS N40.1 Mild cognitive impairment G31.84 Generalized weakness R53.1 COPD (chronic obstructive pulmonary disease) J44.9 COPD type: unspecified COPD Time Spent (min) 35 (9) COPD (chronic obstructive pulmonary disease) COPD type: unspecified COPD Qualified Code(s): J44.9 - Chronic obstructive pulmonary disease, unspecified
[2023-07-25] MEDS: POLYETHYLENE (MIRALAX) 17 GM PACK PO SCH (11:26)
[2023-07-26 09:27] LABS: Anion Gap 3 (3-11); BUN Creatinine Ratio 27.3 (10-20); Blood Urea Nitrogen 24 mg/dl (6-23); Calcium 8.8 mg/dl (8.6-10.3); Carbon Dioxide 29 mmol/L (21-32); Chloride 105 mmol/L (98-107); Creatinine Clr Calc Pharmacy 71.4 ml/min; Est GFR (African American) 95.4 ml/min; Est GFR (Non-African American) 82.3 ml/min; Glucose 89 mg/dl (70-99(Fasting)); Sodium 137 mmol/L (136-145)
--- NOTE | 2023-07-26 10:34 | Hospitalist Progress Note ---
Date of Service July 26, 2023 Assessment & Plan (1) Confusion and disorientation: (2) Sepsis: (3) Acute urinary retention: (4) Visual hallucinations: (5) COVID-19: (6) BPH loc w urin obs/LUTS: (7) Mild cognitive impairment: (8) Generalized weakness: (9) COPD (chronic obstructive pulmonary disease): Plan Metabolic encephalopathy/delirium Resolved, patient probably not back to baseline Head CT was negative Could have been secondary to infection (urinary or pulmonary source) or due to COVID His recently went to a [facility] which could have contributed to his decline. Continue Seroquel for healthy sleep-wake cycle Added nicotine patch in case nicotine withdrawal could be contributing Has been evaluated by PT OT, recommend rehab Awaiting rehab placement Possible UTI Completed a course of IV ceftriaxone Curtis catheter will stay in place Urology on board, will follow-up outpatient Community-acquired left middle lobe pneumonia Patient is not hypoxic No shortness of breath or cough Chest x-ray showed a left middle lobe infiltrate Completed course of IV ceftriaxone and azithromycin COVID-19 infection/COPD No hypoxia or shortness of breath or cough Conservative treatment Continue inhalers Will discontinue isolation Hypertension Resume lisinopril Monitor blood pressure DVT prophylaxis: Lovenox Full code Hopefully discharge to SNF when accepted Admission and Anticipated Discharge Date Admission Date: July 16, 2023 Subjective Patient seen and examined, he is now awake and alert, tolerating diet, vital signs stable Review of Systems Review of Systems: All systems reviewed are negative, apart from the ones contained in the history. Physical Exam Physical Exam: The patient is awake, alert HEENT--PERRL, EOMI, mucous membranes and oropharynx mildly dry Neck--supple. No JVD. No bruits. Thyroid normal, trachea midline, no adenopathy. Heart--normal S1 and S2. No murmurs, rubs or gallops. Lungs--clear bilaterally, no respiratory distress, no accessory muscle use. Abdomen--normal bowel sounds and soft. Mild epigastric and left sided abdominal pain Extremities--no cyanosis or clubbing. No edema. Dermatologic--normal skin turgor, normal color, no abnormal lymph nodes, no rash. Neurologic--cranial nerves II through XII grossly intact. Rheumatologic--normal range of motion. Psychiatric--normal affect. Results & Data Results & Data Vital Signs (Past 12 Hours) Vital Signs Temp Pulse Resp BP Pulse Ox O2 Del Method 07/26/23 07:47 Room Air 07/26/23 07:31 97.9 F 64 16 124/77 97 Room Air PG Care Time/CCT Total # of Minutes Spent Total Time Spent with Patient: Total time spent is greater than 50% in coordination of care (as documented) at patient's floor/unit and/or counseling patient: Coding Level of Care Code 20620 SUB INP/OBS CARE 2/35MIN Diagnoses Confusion and disorientation R41.0 Sepsis A41.9 Acute urinary retention R33.8 Visual hallucinations R44.1 COVID-19 U07.1 BPH loc w urin obs/LUTS N40.1 Mild cognitive impairment G31.84 Generalized weakness R53.1 COPD (chronic obstructive pulmonary disease) J44.9 COPD type: unspecified COPD Time Spent (min) 35 (9) COPD (chronic obstructive pulmonary disease) COPD type: unspecified COPD Qualified Code(s): J44.9 - Chronic obstructive pulmonary disease, unspecified
--- NOTE | 2023-07-27 09:11 | Hospitalist Progress Note ---
Date of Service July 27, 2023 Assessment & Plan (1) Confusion and disorientation: (2) Sepsis: (3) Acute urinary retention: (4) Visual hallucinations: (5) COVID-19: (6) BPH loc w urin obs/LUTS: (7) Mild cognitive impairment: (8) Generalized weakness: (9) COPD (chronic obstructive pulmonary disease): (10) Hypertension: Plan Metabolic encephalopathy/delirium Now Resolved, patient probably not back to baseline Vital signs stable Head CT was negative Could have been secondary to infection (urinary or pulmonary source) or due to COVID His recently went to a shelter which could have contributed to his decline. Continue Seroquel for healthy sleep-wake cycle Added nicotine patch in case nicotine withdrawal could be contributing Has been evaluated by PT OT, recommend rehab Awaiting rehab placement Possible UTI Completed a course of IV ceftriaxone Curtis catheter will stay in place Urology on board, will follow-up outpatient Community-acquired left middle lobe pneumonia Patient is not hypoxic No shortness of breath or cough Chest x-ray showed a left middle lobe infiltrate Completed course of IV ceftriaxone and azithromycin COVID-19 infection/COPD No hypoxia or shortness of breath or cough Conservative treatment Continue inhalers Will discontinue isolation Hypertension Blood pressure is under good control Continue lisinopril Monitor blood pressure DVT prophylaxis: Lovenox Full code Hopefully discharge to SNF when accepted Admission and Anticipated Discharge Date Admission Date: July 16, 2023 Subjective Patient seen and examined, he is now awake and alert, tolerating diet, vital signs stable Review of Systems Review of Systems: All systems reviewed are negative, apart from the ones contained in the history. Physical Exam Physical Exam: The patient is awake, alert HEENT--PERRL, EOMI, mucous membranes and oropharynx mildly dry Neck--supple. No JVD. No bruits. Thyroid normal, trachea midline, no adenopathy. Heart--normal S1 and S2. No murmurs, rubs or gallops. Lungs--clear bilaterally, no respiratory distress, no accessory muscle use. Abdomen--normal bowel sounds and soft. Mild epigastric and left sided abdominal pain Extremities--no cyanosis or clubbing. No edema. Dermatologic--normal skin turgor, normal color, no abnormal lymph nodes, no rash. Neurologic--cranial nerves II through XII grossly intact. Rheumatologic--normal range of motion. Psychiatric--normal affect. Results & Data Results & Data Vital Signs (Past 12 Hours) Vital Signs Temp Pulse Resp BP Pulse Ox O2 Del Method 07/27/23 08:15 97.9 F 57 L 16 151/87 H 99 Room Air 07/27/23 01:13 Room Air PG Care Time/CCT Total # of Minutes Spent Total Time Spent with Patient: Total time spent is greater than 50% in coordination of care (as documented) at patient's floor/unit and/or counseling patient: Coding Level of Care Code 20932 SUB INP/OBS CARE 2/35MIN Diagnoses Confusion and disorientation R41.0 Sepsis A41.9 Acute urinary retention R33.8 Visual hallucinations R44.1 COVID-19 U07.1 BPH loc w urin obs/LUTS N40.1 Mild cognitive impairment G31.84 Generalized weakness R53.1 COPD (chronic obstructive pulmonary disease) J44.9 COPD type: unspecified COPD Essential hypertension I10 Hypertension type: essential hypertension Time Spent (min) 35 (9) COPD (chronic obstructive pulmonary disease) COPD type: unspecified COPD Qualified Code(s): J44.9 - Chronic obstructive pulmonary disease, unspecified (10) Hypertension Hypertension type: essential hypertension Qualified Code(s): I10 - Essential (primary) hypertension
[2023-07-28 06:26] LABS: BUN Creatinine Ratio 29.5 (10-20); Calcium 9.1 mg/dl (8.6-10.3); Creatinine Clr Calc Pharmacy 71.4 ml/min; Est GFR (African American) 95.4 ml/min; Est GFR (Non-African American) 82.3 ml/min; Potassium 4.2 mmol/L (3.5-5.1)
--- NOTE | 2023-07-28 09:56 | Hospitalist Progress Note ---
Date of Service July 28, 2023 Assessment & Plan (1) Confusion and disorientation: (2) Sepsis: (3) Acute urinary retention: (4) Visual hallucinations: (5) COVID-19: (6) BPH loc w urin obs/LUTS: (7) Mild cognitive impairment: (8) Generalized weakness: (9) COPD (chronic obstructive pulmonary disease): (10) Hypertension: Plan Metabolic encephalopathy/delirium Now Resolved, patient probably not back to baseline Vital signs stable Head CT was negative Could have been secondary to infection (urinary or pulmonary source) or due to COVID His recently went to a residential which could have contributed to his decline. Continue Seroquel for healthy sleep-wake cycle Added nicotine patch in case nicotine withdrawal could be contributing Has been evaluated by PT OT, recommend rehab Rehab placement was refused by insurance Plan should be for SNF placement Possible UTI Completed a course of IV ceftriaxone Curtis catheter will stay in place Urology on board, will follow-up outpatient Community-acquired left middle lobe pneumonia Patient is not hypoxic No shortness of breath or cough Chest x-ray showed a left middle lobe infiltrate Completed course of IV ceftriaxone and azithromycin COVID-19 infection/COPD No hypoxia or shortness of breath or cough Conservative treatment Continue inhalers Will discontinue isolation Hypertension Blood pressure is under good control Continue lisinopril Monitor blood pressure DVT prophylaxis: Lovenox Full code Request for acute rehab was rejected Plan should be to look for SNF placement Admission and Anticipated Discharge Date Admission Date: July 16, 2023 Subjective Patient seen and examined, he is now awake and alert, tolerating diet, vital signs stable Review of Systems Review of Systems: All systems reviewed are negative, apart from the ones contained in the history. Physical Exam Physical Exam: The patient is awake, alert HEENT--PERRL, EOMI, mucous membranes and oropharynx mildly dry Neck--supple. No JVD. No bruits. Thyroid normal, trachea midline, no adenopathy. Heart--normal S1 and S2. No murmurs, rubs or gallops. Lungs--clear bilaterally, no respiratory distress, no accessory muscle use. Abdomen--normal bowel sounds and soft. Mild epigastric and left sided abdominal pain Extremities--no cyanosis or clubbing. No edema. Dermatologic--normal skin turgor, normal color, no abnormal lymph nodes, no rash. Neurologic--cranial nerves II through XII grossly intact. Rheumatologic--normal range of motion. Psychiatric--normal affect. Results & Data Results & Data Vital Signs (Past 12 Hours) Vital Signs Temp Pulse Resp BP Pulse Ox O2 Del Method 07/28/23 07:37 97.9 F 61 18 123/68 100 Room Air PG Care Time/CCT Total # of Minutes Spent Total Time Spent with Patient: Total time spent is greater than 50% in coordination of care (as documented) at patient's floor/unit and/or counseling patient: Coding Level of Care Code 70227 SUB INP/OBS CARE 2/35MIN Diagnoses Confusion and disorientation R41.0 Sepsis A41.9 Acute urinary retention R33.8 Visual hallucinations R44.1 COVID-19 U07.1 BPH loc w urin obs/LUTS N40.1 Mild cognitive impairment G31.84 Generalized weakness R53.1 COPD (chronic obstructive pulmonary disease) J44.9 COPD type: unspecified COPD Essential hypertension I10 Hypertension type: essential hypertension Time Spent (min) 35 (9) COPD (chronic obstructive pulmonary disease) COPD type: unspecified COPD Qualified Code(s): J44.9 - Chronic obstructive pulmonary disease, unspecified (10) Hypertension Hypertension type: essential hypertension Qualified Code(s): I10 - Essential (primary) hypertension
--- NOTE | 2023-07-29 15:01 | Hospitalist Progress Note ---
Date of Service July 29, 2023 Assessment & Plan (1) Confusion and disorientation: Plan: Metabolic encephalopathy/delirium - improving, unclear patient baseline - hx of mild congnitive impairment Head CT was negative Could have been secondary to infection (urinary or pulmonary source) or due to COVID His recently went to a skilled nursing which could have contributed to his decline. Continue Seroquel for healthy sleep-wake cycle Added nicotine patch in case nicotine withdrawal could be contributing Has been evaluated by PT OT, recommend rehab - Rehab placement was refused by insurance, looking for SNF placement - CM following - was looking into [facility] as that is where his is placed currently. [facility] could offer bed 08/03. Spoke with today and she reports she is going to be discharged 08/01 (2) Sepsis: Plan: present on arrival likely related to UTI finished course of ceftriaxone (3) Acute urinary retention: Plan: Palomino placed on - hx of BPH with LUTS - completed course of ceftriaxone - urology consulted - keep palomino in place - will follow up outpatient for voiding trial - consider addition of alpha jose -- patient has alfuzosin on home med list, will resume (4) Pneumonia: Plan: Community-acquired left middle lobe pneumonia Chest x-ray showed a left middle lobe infiltrate Completed course of IV ceftriaxone and azithromycin Now stable on Room air (5) COVID-19: Plan: COVID-19 infection - dx 07/11/2023 Conservative treatment Now out of isolation (6) COPD (chronic obstructive pulmonary disease): Plan: albuterol prn (7) Hypertension: Plan: continue lisinopril (8) Coronary artery disease: Plan: -Statin and ASA restarted on 07/29 Plan DVT prophylaxis: Lovenox Dispo: continued inpatient stay, pending placement updated by phone Admission and Anticipated Discharge Date Admission Date: July 16, 2023 Subjective patient sleeping when I enter the room, easily arousable. Denies any acute concerns. Does able to answer all my questions. Reports good appetite Review of Systems Review of Systems: All systems reviewed & are unremarkable except as noted in HPI & below Physical Exam Physical Exam: General: NAD, VS as above Resp: normal respiratory effort, lungs clear to auscultation CV: RRR, no murmur, Abd: normal bowel sounds, non tender, no hepatosplenomegaly Extremities: Moves all extremities, no edema Results & Data Results & Data Vital Signs (Past 12 Hours) Vital Signs Temp Pulse Resp BP BP Pulse Ox O2 Del Method 07/29/23 12:11 36.6 C 66 15 136/66 99 Room Air 07/29/23 07:59 36.9 C 63 15 152/86 H 99 Room Air 07/29/23 07:20 Room Air PG Care Time/CCT Total # of Minutes Spent Total Time Spent with Patient: Total time spent is greater than 50% in coordination of care (as documented) at patient's floor/unit and/or counseling patient: Coding Level of Care Code 43424 SUB INP/OBS CARE 2/35MIN Diagnoses Confusion and disorientation R41.0 Sepsis A41.9 Acute urinary retention R33.8 Pneumonia J18.9 COVID-19 U07.1 COPD (chronic obstructive pulmonary disease) J44.9 COPD type: unspecified COPD Essential hypertension I10 Hypertension type: essential hypertension Coronary artery disease I25.10 (6) COPD (chronic obstructive pulmonary disease) COPD type: unspecified COPD Qualified Code(s): J44.9 - Chronic obstructive pulmonary disease, unspecified (7) Hypertension Hypertension type: essential hypertension Qualified Code(s): I10 - Essential (primary) hypertension
[2023-07-29] MEDS: TAMSULOSIN HCL 0.4 MG CAP PO SCH (16:33)
[2023-07-29] MEDS: ASPIRIN 81 MG ECTAB PO SCH (20:29)
[2023-07-29] MEDS: ATORVASTATIN 20 MG TAB PO SCH (20:29)
--- NOTE | 2023-07-30 08:46 | Hospitalist Progress Note ---
Date of Service July 30, 2023 Assessment & Plan (1) Confusion and disorientation: Plan: Metabolic encephalopathy/delirium - improving, unclear patient baseline - hx of mild congnitive impairment Head CT was negative Could have been secondary to infection (urinary or pulmonary source) or due to COVID His recently went to a residential which could have contributed to his decline. Continue Seroquel for healthy sleep-wake cycle Added nicotine patch in case nicotine withdrawal could be contributing Has been evaluated by PT OT, recommend rehab - Rehab placement was refused by insurance, looking for SNF placement - CM following - was looking into [facility] as that is where his is placed currently. [facility] could offer bed 08/03. Spoke with today and she reports she is going to be discharged 08/01 07/30 - Patient evaluated, encouraged PO intake (does well when offered fluids) - Added labs for eval BMP for BUN/Cr but added NSS @ 500cc/hr for now - BP borderline and lisinopril held this AM but will monitor. Flomax continued but can hold this AM given palomino and continued palmoino at dc. ALfusozin at dc to be resumed - Messaged CM about update regarding placement- most recent note about possible auth submit tomorrow and [facility] on Saturday unless [facility] w/ bed sooner ( to be dc 08/01) - Checking B12 w/ AM labs as prior level appears low normal. (2) Sepsis: Plan: present on arrival likely related to UTI finished course of ceftriaxone Repeat labs ordered for eval for today (3) Acute urinary retention: Plan: Palomino placed on - hx of BPH with LUTS - completed course of ceftriaxone - urology consulted - keep palomino in place - will follow up outpatient for voiding trial - consider addition of alpha jose -- patient has alfuzosin on home med list, will resume (flomax resumed here as alfuzosin nonformulary) (4) Pneumonia: Plan: Community-acquired left middle lobe pneumonia Chest x-ray showed a left middle lobe infiltrate Completed course of IV ceftriaxone and azithromycin No SOB/cough during exam 07/30, 96% on RA (5) COVID-19: Plan: COVID-19 infection - dx 07/11/2023 Conservative treatment Now out of isolation , on room air (6) COPD (chronic obstructive pulmonary disease): Plan: albuterol prn (7) Hypertension: Plan: continue lisinopril (held AM 07/30 for BP 93/53, improved following therapy) monitor (8) Coronary artery disease: Plan: -Statin and ASA restarted on 07/29 Plan DVT prophylaxis: Lovenox Dispo: continued inpatient stay, pending placement updated by phone prior. Contacted 07/30 for update regarding placement Admission and Anticipated Discharge Date Admission Date: July 16, 2023 Subjective Eval this morning, urine in palomino slightly darkened. Encouraged PO fluid intake, great when offered. Labs to be drawn but will provide 500cc NSS and monitor. He is wondering if coming to visit. Discussed still in rehab but I believe will be getting out in next couple of days but will discuss w/ CM. He notes they have treated her good over there and he is anticipating going there when able. No fever/chills, chest pain, shortness of breath. Questions/concerns addressed at this time. Physical Exam Physical Exam: General: chronically ill appearing male, sitting up in bed, just got done wo rking with therapy, NAD Head atraumatic, normocephalic, MM DRY, trachea midline Resp: even/unlabored, no w/c/r, on room air CV: RRR, no significant mrg, no pitting edema/calf tenderness GI: +BS, soft/NT : palomino draining concentrated urine MSK/Neuro/Psych: nonfocal, answering questions appropriately, knows in [facility], pleasant/cooperative but +confusion at times (?baseline) Results & Data Results & Data Vital Signs (Past 12 Hours) Vital Signs Temp Pulse Resp BP Pulse Ox O2 Del Method 07/30/23 08:18 36.6 C 75 18 103/57 L 96 Room Air PG Care Time/CCT Total # of Minutes Spent Total Time Spent with Patient: Total time spent is greater than 50% in coordination of care (as documented) at patient's floor/unit and/or counseling patient: Coding Level of Care Code 58400 SUB INP/OBS CARE 2/35MIN Diagnoses Confusion and disorientation R41.0 Sepsis A41.9 Acute urinary retention R33.8 Pneumonia J18.9 COVID-19 U07.1 COPD (chronic obstructive pulmonary disease) J44.9 COPD type: unspecified COPD Essential hypertension I10 Hypertension type: essential hypertension Coronary artery disease I25.10 (6) COPD (chronic obstructive pulmonary disease) COPD type: unspecified COPD Qualified Code(s): J44.9 - Chronic obstructive pulmonary disease, unspecified (7) Hypertension Hypertension type: essential hypertension Qualified Code(s): I10 - Essential (primary) hypertension
[2023-07-30] MEDS: SODIUM CHLORIDE 0.9% 500 ML IV SCH (10:25)
[2023-07-30 10:30] LABS: Basophils # (auto) 0.04 K/uL (0.00-0.20); Basophils % (auto) 0.7 %; Eosinophils # (auto) 0.13 K/uL (0.00-0.50); Eosinophils % (auto) 2.4 %; Hemoglobin 13.4 g/dl (14.0-18.0); Immature Granulocytes # (auto) 0.03 K/uL (0.01-0.20); Immature Granulocytes % (auto) 0.5 %; Lymphocytes # (auto) 1.44 K/uL (1.20-3.40); Lymphocytes % (auto) 26.4 %; Mean Corpuscular Hemoglobin 30.9 pg (25.0-34.0); Mean Corpuscular Hgb Conc 34.4 g/dL (32.0-36.0); Mean Corpuscular Volume 90.1 fL (80.0-100.0); Mean Platelet Volume 10.2 fL (9.4-12.4); Monocytes # (auto) 0.68 K/uL (0.11-0.59); Monocytes % (auto) 12.5 %; Neutrophils # (auto) 3.14 K/uL (1.40-6.50); Neutrophils % (auto) 57.5 %; Platelet Count 158 K/uL (130-400); RDW Coefficient of Variation 12.4 % (11.5-14.5); RDW Standard Deviation 40.2 fL (36.4-46.3); Red Blood Count 4.33 M/uL (4.70-6.10); White Blood Count 5.46 K/ul (4.8-10.8)
[2023-07-30 10:42] LABS: BUN Creatinine Ratio 33.6 (10-20); Calcium 8.8 mg/dl (8.6-10.3); Creatinine Clr Calc Pharmacy 57.1 ml/min; Est GFR (African American) 74.1 ml/min; Magnesium 1.9 mg/dl (1.7-2.4); Potassium 4.1 mmol/L (3.5-5.1)
[2023-07-31 07:29] LABS: Calcium 8.8 mg/dl (8.6-10.3); Potassium 4.2 mmol/L (3.5-5.1)
[2023-07-31 07:35] LABS: BUN Creatinine Ratio 27.1 (10-20); Creatinine Clr Calc Pharmacy 65.5 ml/min; Est GFR (African American) 87.4 ml/min; Est GFR (Non-African American) 75.4 ml/min
--- NOTE | 2023-07-31 08:01 | Hospitalist Progress Note ---
Date of Service July 31, 2023 Assessment & Plan (1) Confusion and disorientation: Plan: Metabolic encephalopathy/delirium - improving, unclear patient baseline - hx of mild congnitive impairment Head CT was negative Could have been secondary to infection (urinary or pulmonary source) or due to COVID His recently went to a care home which could have contributed to his decline. Continue Seroquel for healthy sleep-wake cycle Added nicotine patch in case nicotine withdrawal could be contributing Has been evaluated by PT OT, recommend rehab - Rehab placement was refused by insurance, looking for SNF placement - CM following - was looking into [facility] as that is where his is placed currently. [facility] could offer bed 08/03. Spoke with today and she reports she is going to be discharged 08/01 07/30 - Patient evaluated, encouraged PO intake (does well when offered fluids) - Added labs for eval BMP for BUN/Cr but added NSS @ 500cc/hr for now - BP borderline and lisinopril held this AM but will monitor. Flomax continued but can hold this AM given palomino and continued palomino at dc. ALfusozin at dc to be resumed - Messaged CM about update regarding placement- most recent note about possible auth submit tomorrow and [facility] on Saturday unless [facility] w/ bed sooner ( to be dc 08/01) - Checking B12 w/ AM labs as prior level appears low normal. (2) Sepsis: Plan: present on arrival likely related to UTI finished course of ceftriaxone Repeat labs ordered for eval for today (3) Acute urinary retention: Plan: Palomino placed on - hx of BPH with LUTS - completed course of ceftriaxone - urology consulted - keep palomino in place - will follow up outpatient for voiding trial - consider addition of alpha jose -- patient has alfuzosin on home med list, will resume (flomax resumed here as alfuzosin nonformulary) (4) Pneumonia: Plan: Community-acquired left middle lobe pneumonia Chest x-ray showed a left middle lobe infiltrate Completed course of IV ceftriaxone and azithromycin No SOB/cough during exam 07/30, 96% on RA (5) COVID-19: Plan: COVID-19 infection - dx 07/11/2023 Conservative treatment Now out of isolation , on room air (6) COPD (chronic obstructive pulmonary disease): Plan: albuterol prn (7) Hypertension: Plan: continue lisinopril (held AM 07/30 for BP 93/53, improved following therapy) monitor (8) Coronary artery disease: Plan: -Statin and ASA restarted on 07/29 Plan DVT prophylaxis: Lovenox Dispo: continued inpatient stay, pending placement updated by phone prior. Contacted 07/30 for update regarding placement Admission and Anticipated Discharge Date Admission Date: July 16, 2023 Results & Data Results & Data Vital Signs (Past 12 Hours) Vital Signs Temp Pulse Resp BP Pulse Ox O2 Del Method 07/30/23 21:17 36.7 C 61 19 155/79 H 99 Room Air 07/30/23 21:15 Room Air PG Care Time/CCT Total # of Minutes Spent Total Time Spent with Patient: Total time spent is greater than 50% in coordination of care (as documented) at patient's floor/unit and/or counseling patient: Coding Diagnoses Confusion and disorientation R41.0 Sepsis A41.9 Acute urinary retention R33.8 Pneumonia J18.9 COVID-19 U07.1 COPD (chronic obstructive pulmonary disease) J44.9 COPD type: unspecified COPD Essential hypertension I10 Hypertension type: essential hypertension Coronary artery disease I25.10 (6) COPD (chronic obstructive pulmonary disease) COPD type: unspecified COPD Qualified Code(s): J44.9 - Chronic obstructive pulmonary disease, unspecified (7) Hypertension Hypertension type: essential hypertension Qualified Code(s): I10 - Essential (primary) hypertension
--- NOTE | 2023-07-31 08:19 | Discharge Summary ---
Date of Service July 31, 2023 Admission HPI Per Admitting Provider The patient is a 78-year-old male with a past medical history including history of craniotomy 03-01-20, BPH with urinary obstruction, hypercholesterolemia, COPD, CAD, tobacco use, SNHL bilaterally, mild cognitive impairment, hypertension, anemia and generalized tonic-clonic seizure 04-12. He was seen in the emergency department on 07/11/2023, and diagnosed with COVID-19 infection at that time. He also had urinary retention noted, and had a Palomino catheter placed, which has remained in since that time, and son reports he was making an appointment in the outpatient setting for urology. When he called urology office today, they advised to come to the ED for assessment, and they would see him in the hospital if he were admitted. Admission Exam Per Admitting Provider The patient is confused, disoriented and hallucinating. Normocephalic and atraumatic, lying in bed and in no acute distress. HEENT--PERRL, EOMI, mucous membranes and oropharynx mildly dry. Neck--supple. No JVD. No bruits. Thyroid normal, trachea midline, no adenopathy. Heart--normal S1 and S2. No murmurs, rubs or gallops. Lungs--clear bilaterally, no respiratory distress, no accessory muscle use. Abdomen--normal bowel sounds and soft. Nontender. Nondistended, no hernias or masses, no organomegaly. Extremities--no cyanosis or clubbing. No edema. Dermatologic--normal skin turgor, normal color, no abnormal lymph nodes, no rash. Neurologic--limited exam Rheumatologic--normal range of motion. Psychiatric- confused and disoriented. Principal Diagnosis UTI, Pneumonia, COVID-19, Confusion Discharge Exam General: chronically ill appearing male, sitting up in bed, NAD Head atraumatic, normocephalic, MM IMPROVED, trachea midline Resp: even/unlabored, no w/c/r, on room air CV: RRR, no significant mrg, no pitting edema/calf tenderness GI: +BS, soft/NT : palomino draining CLEARER YELLOW URINE TODAY MSK/Neuro/Psych: nonfocal, answering questions appropriately, knows in [facility], pleasant/cooperative but +confusion at times (?baseline) Discharge Data Allergies Allergy/AdvReac Type Severity Reaction Status Date / Time No Known Allergies Allergy Verified 07/15/23 20:13 Consultations 07/15/23 23:25 ED Decision to Admit Stat 07/16/23 04:26 Consult Urology Routine Ordered Studies Chest X-Ray 07/15/23 19:05 XR chest 1V not portable CLINICAL HISTORY: Sepsis. COMPARISON STUDY: Chest CT June 06, 2021. Chest radiograph July 11, 2023. FINDINGS: There is no pneumothorax or pleural effusion. There are median sternotomy wires and prosthetic aortic valve. Cardiomediastinal silhouette is stable. There is no evidence for pulmonary edema. There is probable 3 cm left midlung airspace opacity, new since prior chest radiograph. IMPRESSION: Probable 3 cm left midlung airspace opacity, new since prior chest radiograph. This may reflect a focus of pneumonia. Radiographic follow-up to ensure resolution is recommended. This finding will be called/faxed to the ordering provider at time of dictation. ACT 112: Negative or not required by law. Electronically signed by: Luigi Garcia M.D. 07/16/2023 7:[address] 07/15/23 19:26 Exam(s): CT HEAD Without Contrast EXAM: CT Head Without Intravenous Contrast CLINICAL HISTORY: Reason for exam: altered mental status. TECHNIQUE: Axial computed tomography images of the head/brain without intravenous contrast. CTDI is 37.22 mGy and DLP is 546.36 mGy-cm. Automated exposure control was utilized for the study. A dose lowering technique was utilized adhering to the principles of ALARA. COMPARISON: CT 07/11/2023 FINDINGS: Brain: No intracranial hemorrhage. Global parenchymal atrophy. Chronic microvascular ischemic changes. Ventricles: Unremarkable. Bones/joints: Unremarkable. No fracture. Soft tissues: Unremarkable. Sinuses: No acute sinusitis. Mastoid air cells: Unremarkable as visualized. IMPRESSION: No acute abnormality. Electronically signed by: Kartik Ni MD 07/15/23 21:10 PM Hospital Course (1) Confusion and disorientation: 78 yo male presented with Sepsis/Confusion/Metabolic encephalopathy/delirium with disorientation and visual hallucinations/relative hypotension on admission, suspected multifactorial in setting of UTI w/ BPH and recent palomino placement, COVID-19 stress and possible pneumonia. Head CT negative on admission He was treated with IV Ceftriaxone/Azithroymcin to complete course while inpatient for possible UTI/LML PNA. Was not hypoxic or required treatment for his COVID-19 infection Placed on seroquel 25mg PO daily to help with sleep/wake schedules and mood -- continued at dc Nicotrine patch provided PT/OT evals undertaken and arrangements made for [place]. PO intake encouraged. Of note, patient does well when offered. Did check some labs 2/ for darkened urine/poor PO intake w/ elevation in BUN/Cr and provided IVF x 1 w/ improvement in urine and PO intake/imrpovement in labs Palomino continued at dc and will need urology f/u at discharge for voiding trial. To continue finasteride/alfuzosin at dc as previously taking (was given flomax in place of alfuzosin while inpatient/non-formulary) (2) Sepsis: RESOLVED present on arrival , suspected 2nd to UTI vs pulm. Completed course IV ceftriaxone/azithromycin while inpatient WBC normalized on repeat, afebrile (3) Acute urinary retention: Palomino placed on 07/11/23 in patient w/ hx BPH. Completed course ceftriaxone however urine cx negative. Abx coverage for possible PNA as well, on room air/no SOB F/u urology at dc, palomino remaining in place Continued alfuzosin/finasteride at dc (4) Pneumonia: Community-acquired left middle lobe pneumonia on CXR w/ LML infiltrate. s/p IV abx as above, no SOB/cough during exam and remained stable on RA Pulmonary toilet w/ incentive spirometer (5) COVID-19: COVID-19 infection - dx 07/11/2023 , conservative treatment/supportive care and now out of isolation. On room air, 98% (6) COPD (chronic obstructive pulmonary disease): albuterol prn , 98% on RA, lungs clear on exam (7) Hypertension: continued lisinopril (held AM 2 for BP 93/53, improved following therapy) and bp 111/70 prior to dc and received his lisinopril this AM (8) Coronary artery disease: Statin and ASA restarted on 07/29 Plan DVT prophylaxis: Lovenox SQ while inpatient Dc to [place] when arrangements made for transportation by case management F/u urology Total Time Total Time Spent Total Time Spent (In Minutes): 45 Discharge Plan Discharge Items Patient Disposition: Transfer Inpatient Rehab Fac Reason For Visit: CONFUSION Discharge Diagnosis: COVID-19, UTI/Pneumonia Goals: You have been hospitalized for an acute medical problem. During your stay at [facility], we have made an effort to correct the problem that brought you to the hospital while keeping you as comfortable as possible. Medications were used to bring your condition under control and your discharge instructions will include directions for any medications you should take after leaving the hospital. Please make sure you see your Primary Care Provider as part of your follow up plan. Activity: As commented below Non-emergency contact: Primary Care Provider and Urologist Call non-emergency contact if: you have any medication questions, your symptoms worsen, your pain is not controlled, your pain is concerning for you and you have a fever Follow-up/Referrals: Jonathan Altamirano CRNP [Primary Care Provider] - Abraham Perry MD [Physician] - Diet: Heart Healthy Addtl Attending Provider Instructions: You have been hospitalized for altered mental status and found to be positive for COVID-19 as well as a possible urinary tract infection and pneumonia. You were treated with IV antibiotics and completed these while in the hospital. You have a palomino in place and are to follow up with Urology at discharge for a voiding trial. You should continue your finasteride and alfuzosin in the meantime. Therapy evaluations were undertaken and arrangements have been made for rehab at care home facility. We have started low dose seroquel 25mg at night to help with mood and sleep schedule to help prevent confusion and this was continued during your hospitalization and is being continued at discharge. Please follow up with primary care in the next 7-10 days to monitor your status since hospitalization. Please return to the ER with any fevers/chills, chest pain, shortness of breath, inability to keep up with oral hydration or for any other symptoms concerning for you. Take care! Pending Studies at Discharge: No Stand-Alone Forms: My [facility] Skilled Items Patient informed of condition?: Yes DNR: No Discharge Level of Care: Skilled Communicable Disease: No Discharge Prognosis: Improving Lines: None Urinary Catheter: Yes Medications and DC Order Prescriptions: New quetiapine 25 mg Tablet 25 mg PO HS Qty: 30 0RF Continued aspirin 81 mg tablet,delayed release (DR/EC) 81 mg PO HS Qty: 90 1RF alfuzosin 10 mg tablet extended release 24 hr See Rx Instructions .ROUTE .COMPLEX Qty: 90 0RF Dose Instruction: TAKE ONE TABLET BY MOUTH EVERY DAY after the same meal each day Rx Instructions: TAKE ONE TABLET BY MOUTH EVERY DAY after the same meal each day atorvastatin 20 mg tablet 20 mg PO HS Qty: 90 1RF cholecalciferol (vitamin D3) [Vitamin D3] 50 mcg (2,000 unit) capsule 50 mcg PO QAM finasteride 5 mg tablet 5 mg PO HS Qty: 90 1RF lisinopril 10 mg tablet 5 mg PO DAILY Qty: 90 1RF acetaminophen [Tylenol] 325 mg Tablet 650 mg PO Q4 PRN (Reason: Fever Or Pain) albuterol sulfate 90 mcg/actuation Hfa Aerosol Inhaler 2 puff INHALATION Q6 PRN (Reason: asthma/copd) sennosides-docusate sodium [Senokot-S] 8.6-50 mg Tablet 1 tab PO QAM Qty: 30 0RF omega-3 fatty acids 1,000 mg Capsule 1,000 mg PO DAILY Discharge Orders: Discharge Order (Routine); Ordered 07/31/23 Ordered By: Lana Singh Admission Data Admit Date/Time: 07/16/23 00:13 Attending Provider: Timo Vaughn Admit Provider: Peng Gallo Primary Care Provider: Jonathan Altamirano Other Providers: Peng Gallo; [facility]; [facility]; [facility]; [place] Coding Level of Care Code 60798 INP/OBS DISCH >30 MIN Diagnoses Confusion and disorientation R41.0 Sepsis A41.9 Acute urinary retention R33.8 Pneumonia J18.9 COVID-19 U07.1 COPD (chronic obstructive pulmonary disease) J44.9 COPD type: unspecified COPD Essential hypertension I10 Hypertension type: essential hypertension Coronary artery disease I25.10
== END 2023-07-31 14:00 | DRG 871 ==
LOC: ED 18:31 → EDINP 07-16 00:13 → SUATTDRO 07-16 00:13 → 2N 07-16 00:32 → 3W 07-22 16:47

== ENCOUNTER 2023-08-24 15:40 | Inpatient (IN) ==
[2023-08-24] MEDS: SODIUM CHLORIDE 0.9% 1,000 ML IV SCH (16:11)
[2023-08-24 16:25] LABS: Basophils # (auto) 0.04 K/uL (0.00-0.20); Basophils % (auto) 0.4 %; Eosinophils # (auto) 0.09 K/uL (0.00-0.50); Eosinophils % (auto) 0.9 %; Hematocrit (blood only) 36.7 % (42.0-52.0); Hemoglobin 12.4 g/dl (14.0-18.0); Immature Granulocytes # (auto) 0.04 K/uL (0.01-0.20); Immature Granulocytes % (auto) 0.4 %; Lymphocytes # (auto) 1.34 K/uL (1.20-3.40); Lymphocytes % (auto) 13.9 %; Mean Corpuscular Hemoglobin 30.8 pg (25.0-34.0); Mean Corpuscular Hgb Conc 33.8 g/dL (32.0-36.0); Mean Corpuscular Volume 91.1 fL (80.0-100.0); Mean Platelet Volume 10.2 fL (9.4-12.4); Monocytes # (auto) 0.54 K/uL (0.11-0.59); Monocytes % (auto) 5.6 %; Neutrophils # (auto) 7.56 K/uL (1.40-6.50); Neutrophils % (auto) 78.8 %; Platelet Count 138 K/uL (130-400); RDW Coefficient of Variation 13.2 % (11.5-14.5); RDW Standard Deviation 43.8 fL (36.4-46.3); Red Blood Count 4.03 M/uL (4.70-6.10); White Blood Count 9.61 K/ul (4.8-10.8)
[2023-08-24 16:39] LABS: Alanine Aminotransferase 12 U/L (7-52); Albumin Globulin Ratio 1.6 (0.9-2); Albumin Level 4.1 gm/dl (3.4-5.0); Alkaline Phosphatase 66 U/L (34-104); Anion Gap 9 (3-11); Aspartate Aminotransferase 15 U/L (13-39); BUN Creatinine Ratio 20.9 (10-20); Bilirubin,Total 0.7 mg/dl (0.2-1.0); Blood Urea Nitrogen 28 mg/dl (6-23); Calcium 8.8 mg/dl (8.6-10.3); Carbon Dioxide 23 mmol/L (21-32); Chloride 105 mmol/L (98-107); Est GFR (African American) 58.4 ml/min; Est GFR (Non-African American) 50.4 ml/min; Globulin 2.6 gm/dl (2.5-4.0); Glucose 96 mg/dl (70-99(Fasting)); Magnesium 1.8 mg/dl (1.7-2.4); Potassium 4.3 mmol/L (3.5-5.1); Sodium 137 mmol/L (136-145); Total Protein 6.7 gm/dl (6.0-8.3)
[2023-08-24 16:58] LABS: Appearance Urine Turbid (Clear); Bacteria Urine Automated 1+ (Negative); Bilirubin Urine Negative (Negative); Blood Urine 2+ (Negative); Color Urine Yellow; Epithelial Cell Urine Auto 0-5 /lpf (0-5); Glucose Urine UA Negative (Negative); Ketones Urine Negative (Negative); Leukocyte Esterase Urine 3+ (Negative); Nitrite Urine Negative (Negative); Protein Urine Trace (Negative); Specific Gravity Urine 1.015 (1.000-1.030); Urobilinogen Urine Negative (Negative); WBC Urine Automated >30 /hpf (0-5)
[2023-08-24] MEDS: cefTRIAXone SODIUM 2,000 MG/50 ML BAG IV STA (18:41)
--- NOTE | 2023-08-24 18:54 | XRay Report ---
XR chest 1V portable HISTORY: 78 years-old Male weakness acute weakness COMPARISON: 07/15/2023 TECHNIQUE: AP view the chest FINDINGS: Cardiac silhouette is enlarged. Median sternotomy with cardiac valvular prosthesis. No pneumothorax, pleural effusion, airspace consolidation or pulmonary edema. The bones appear grossly intact. IMPRESSION: No acute process. ACT 112: Negative or not required by law. The above report was generated using voice recognition software. It may contain grammatical, syntax o r spelling errors. Electronically signed by: Evan Mai M.D. 08/24/2023 6:53 PM
--- NOTE | 2023-08-24 19:22 | CT Scan Report ---
CT head/brain wo con CLINICAL HISTORY: 78 years-old Male with AMS. Acutely altered mental status with confusion TECHNIQUE: Multiple axial CT images of the head were obtained without contrast. A dose lowering tech nique was utilized adhering to the principles of ALARA. CT DOSE: 547.75 mGy.cm COMPARISON: 07/15/2023. FINDINGS: No acute intracranial hemorrhage, midline shift, intracranial mass, acute territorial ischemia or abn ormal extra-axial collection. Cavum septum pellucidum and vergae. Involutional changes with chronic m icrovascular ischemic disease. There is unchanged ventriculomegaly No acute calvarial fracture. Prior right-sided craniotomy with left calvarial matilde holes. Disconjugat e gaze. The paranasal sinuses, mastoid air cells, and middle ear cavities are clear. IMPRESSION: 1. No acute intracranial abnormality. 2. Involutional changes with chronic microvascular ischemic disease. 3. Unchanged ventriculomegaly, likely on an ex vacuo basis. Normal pressure hydrocephalus considered less likely. 4. Prior right-sided craniotomy. ACT 112: Negative or not required by law. The above report was generated using voice recognition software. It may contain grammatical, syntax o r spelling errors. Electronically signed by: Evan Mai M.D. 08/24/2023 7:20 PM
--- NOTE | 2023-08-24 19:43 | Emergency Department Note ---
ED Provider Note CHIEF COMPLAINT: Altered mental status HISTORY OF PRESENT ILLNESS: This 78-year-old male pt past medical history of coronary artery disease, COPD, aortic arch aneurysm, history of craniotomy, seizure, recent UTI and mild cognitive impairment who presents to the ED with his complaining of altered mental status. his states this started this morning. He was recently admitted to the hospital with a UTI and transition to a nursing facility for rehabilitation services. He came home about a week ago. Today the patient has been asking about his mother and where she is, his states that his mother several years ago. REVIEW OF SYSTEMS: A review of systems was performed with positives and pertinent negatives listed in the history of present illness. 10 systems were reviewed and are otherwise negative. ALLERGIES: see below MEDICATIONS: see below PMH: see below SOCIAL HISTORY: see below DDx: Intracranial hemorrhage, stroke, intracranial mass, postictal, infectious etiology, metabolic encephalopathy, medication effect among others PHYSICAL EXAM: Vital signs reviewed. General: Chronically ill-appearing 78-year-old male, in no significant distress HEENT: No scleral icterus, disconjugate gaze at baseline, PERRLA, neck supple. Atraumatic. Cardiovascular: Regular rate and rhythm, no extra sounds. Pulmonary: Clear to auscultation bilaterally, normal work of breathing. Abdomen: Soft, nontender, nondistended, positive bowel sounds. Musculoskeletal: Atraumatic, no peripheral edema. Neurologic: Patient awake alert and oriented x 3, speech is clear Skin: Warm, dry, no rash EMERGENCY DEPARTMENT COURSE/MDM: [] MONITORING: An order for cardiac monitoring was placed and the patient is noted to be in a normal sinus rhythm 67 beats per minute. RADIOLOGY: chest x-ray to my interpretation reveals no evidence of focal lung consolidation or failure, otherwise defer to radiology is over read. Head CT to my interpretation and radiology is over read reveals no evidence of acute intracranial abnormality. See rad read below. EKG: to my interpretation reveals a sinus rhythm with premature atrial complexes at [address] segments. QTc is 435. DISPOSITION: Home Past Med/Surg History Medical History Pneumonia hx ~2020. treated at [facility] Acute metabolic encephalopathy Aortic arch aneurysm Generalized weakness Chronic back pain Hydronephrosis, right UTI (urinary tract infection) COPD (chronic obstructive pulmonary disease) mild. rarely uses inhaler. Thrombocytopenia Generalized weakness History of subdural hematoma (03/01/20) Mild cognitive impairment Alert and Oriented x3 "most times". occasionally will forget names. Generalized tonic-clonic seizure (~03/2020) no problems since 03/2020 Osteoarthritis Anemia Hearing deficit History of rheumatic fever as a child Hypertension hx - no current medications BPH loc w urin obs/LUTS Urinary retention Coronary artery disease Basal cell carcinoma (02/09/19) Left preauricular region: 02/09/2019 Hypercholesterolemia Surgical History Heart valve replaced bovine valve [facility] S/P Mohs surgery for basal cell carcinoma History of craniotomy (03/01/20) left-sided matilde hole craniotomy and evacuation as well as a right-sided mini craniotomy for subdural evacuation History of testicular surgery left History of colonoscopy with polypectomy History of tooth extraction all teeth H/O vasectomy History of open heart surgery (~2006) @ [facility] "valve replacement with cow valve and x1 vessel bypass surgery" Family History Mother Breast cancer Family history of diabetes mellitus Other H/O vasectomy History of open heart surgery Hypercholesterolemia No family history of adverse response to anesthesia Denies family history of Ovarian cancer Prostate cancer Diabetes Coronary heart disease Heart disease Myocardial infarction Lung cancer Colorectal cancer Social History Smoking Status: Unknown if ever smoked Tobacco Type: Smokeless Tobacco (Dip or Chew) Second Hand Exposure: No; Hx Alcohol Use: No Hx Substance Use: No Preferred Language: Latvian Communication Ability: Effective Visual Impairment: Limited Hearing Ability: Normal Rental Manager Required: No Beliefs That Will Affect Care: None marital status: Current Living Situation: Spouse Current Living Situation Comment: Home with current occupational status: retired How many Children do You have: 1 Feels Safe at Home: Yes Childhood Exposure to Second-Hand Smoke: No Diet: regular caffeine: No during the past year weight has: remained stable Dental Care, Regularly: No Physical Activity Frequency: Daily Seatbelt Use: always Sunscreen Use: No Assistive Devices: Cane and Walker Allergies Allergies Allergy/AdvReac Type Severity Reaction Status Date / Time No Known Allergies Allergy Verified 07/15/23 20:13 Home Meds Home Medications Medication Instructions Recorded Confirmed acetaminophen 325 mg tablet 650 mg PO Q4 PRN Fever Or Pain 09/29/20 08/24/23 (Tylenol) albuterol sulfate 90 mcg/actuation 2 puff inhalation Q6 PRN 09/29/20 08/24/23 aerosol inhaler asthma/copd cholecalciferol (vitamin D3) 50 50 mcg PO QAM 03/07/23 08/24/23 mcg (2,000 unit) capsule (Vitamin D3) omega-3 fatty acids 1,000 mg 1,000 mg PO DAILY 07/11/23 08/24/23 capsule Previous Rx's Medication Instructions Recorded sennosides 8.6 mg-docusate sodium 1 tab PO QAM #30 tabs 05/30/22 50 mg tablet (Senokot-S) alfuzosin 10 mg tablet,extended See Rx Instructions .Route 03/07/23 release 24 hr .COMPLEX #90 tabs aspirin 81 mg tablet,delayed 81 mg PO HS #90 tabs 03/07/23 release atorvastatin 20 mg tablet 20 mg PO HS #90 tabs 03/07/23 finasteride 5 mg tablet 5 mg PO HS #90 tabs 03/07/23 lisinopril 10 mg tablet 5 mg (1/2 x 10 mg) PO DAILY #90 03/07/23 tabs quetiapine 25 mg tablet 25 mg PO HS #30 tabs 07/31/23 Results & Data (ED) Vital Signs Vital Signs - 24 hr 08/24/23 15:46 08/24/23 16:12 08/24/23 16:17 Temperature 36.8 C Temperature Source Temporal Artery Scan Pulse Rate 70 81 73 Pulse Rate [Apical] Pulse Rhythm Regular Pulse Rhythm [Apical] Pulse Strength [Apical] Respiratory Rate 20 16 Respiratory Effort / Characteristics Spontaneous Respiratory Depth Normal Respiratory Pattern Regular Blood Pressure 116/69 Blood Pressure [Right Arm] Blood Pressure Mean 84 Blood Pressure Mean [Right Arm] Blood Pressure Position [Right Arm] Pulse Oximetry 100 99 Oxygen Delivery Method Room Air Room Air Sepsis Recent Fever Within 48 Hours No Sepsis New/Unexplained Change in Mental Status No Sepsis Action Taken by Nursing No Action Required 08/24/23 17:24 08/24/23 19:00 Temperature Temperature Source Pulse Rate Pulse Rate [Apical] 74 67 Pulse Rhythm Pulse Rhythm [Apical] Regular Pulse Strength [Apical] Normal Respiratory Rate 17 18 Respiratory Effort / Characteristics Non-Labored Spontaneous Non-Labored Spontaneous Respiratory Depth Normal Normal Respiratory Pattern Regular Regular Blood Pressure Blood Pressure [Right Arm] 109/62 Blood Pressure Mean Blood Pressure Mean [Right Arm] 77 Blood Pressure Position [Right Arm] Lying Pulse Oximetry 98 97 Oxygen Delivery Method Room Air Room Air Sepsis Recent Fever Within 48 Hours Sepsis New/Unexplained Change in Mental Status Sepsis Action Taken by Long Term Medications Current Medication List: was personally reviewed by me Laboratory Data Attestation: I reviewed the patient's lab results. 08/24/23 16:08 08/24/23 16:08 Lab Results 08/24/23 08/24/23 Range/Units 16:08 16:46 WBC 9.61 (4.8-10.8) K/ul RBC 4.03 L (4.70-6.10) M/uL Hgb 12.4 L (14.0-18.0) g/dl Hct 36.7 L (42.0-52.0) % MCV 91.1 (80.0-100.0) fL MCH 30.8 (25.0-34.0) pg MCHC 33.8 (32.0-36.0) g/dL RDW Std Deviation 43.8 (36.4-46.3) fL RDW Coeff of [place]ony 13.2 (11.5-14.5) % Plt Count 138 (130-400) K/uL MPV 10.2 (9.4-12.4) fL Immature Gran % (Auto) 0.4 % Neut % (Auto) 78.8 % Lymph % (Auto) 13.9 % [place] % (Auto) 5.6 % Eos % (Auto) 0.9 % Baso % (Auto) 0.4 % Neut # (Auto) 7.56 H (1.40-6.50) K/uL Lymph # (Auto) 1.34 (1.20-3.40) K/uL [place] # (Auto) 0.54 (0.11-0.59) K/uL Eos # (Auto) 0.09 (0.00-0.50) K/uL Baso # (Auto) 0.04 (0.00-0.20) K/uL Immature Gran # (Auto) 0.04 (0.01-0.20) K/uL Sodium 137 (136-145) mmol/L Potassium 4.3 (3.5-5.1) mmol/L Chloride 105 (98-107) mmol/L Carbon Dioxide 23 (21-32) mmol/L Anion Gap 9 (3-11) BUN 28 H (6-23) mg/dl Creatinine 1.34 (0.6-1.4) mg/dl Est Cr Clr Drug Dosing Not Reportable Est GFR ( Amer) 58.4 ml/min Est GFR (Non-Af Amer) 50.4 ml/min BUN/Creatinine Ratio 20.9 H (10-20) Glucose 96 (70-99(Fasting)) mg/dl Calcium 8.8 (8.6-10.3) mg/dl Magnesium 1.8 (1.7-2.4) mg/dl Total Bilirubin 0.7 (0.2-1.0) mg/dl AST 15 (13-39) U/L ALT 12 (7-52) U/L Alkaline Phosphatase 66 (34-104) U/L Total Protein 6.7 (6.0-8.3) gm/dl Albumin 4.1 (3.4-5.0) gm/dl Globulin 2.6 (2.5-4.0) gm/dl Albumin/Globulin Ratio 1.6 (0.9-2) TSH 1.560 (0.300-4.500) uIu/ml Urine Color Yellow Urine Appearance Turbid A (Clear) Urine pH 6.0 (4.5-7.5) Ur Specific [place] 1.015 (1.000-1.030) Urine Protein Trace H (Negative) Urine Glucose (UA) Negative (Negative) Urine Ketones Negative (Negative) Urine Blood 2+ H (Negative) Urine Nitrite Negative (Negative) Urine Bilirubin Negative (Negative) Urine Urobilinogen Negative (Negative) Ur Leukocyte Esterase 3+ H (Negative) Urine WBC (Auto) >30 H (0-5) /hpf Urine RBC (Auto) 5-10 H (0-4) /hpf U Hyaline Cast (Auto) 1-5 (0-5) /lpf U Epithel Cells (Auto) 0-5 (0-5) /lpf Urine Bacteria (Auto) 1+ H (Negative) Administered Medications Sodium Chloride (Nss) 1,000 mls @ 125 mls/hr IV .Q8H LING Stop: 08/25/23 00:14 Last Admin: 08/24/23 16:11 Dose: 125 mls/hr Documented By: JESUS Discontinued Medications Ceftriaxone Sodium (Rocephin) 2,000 mg in 50 mls @ 100 mls/hr IV NOW STA Stop: 08/24/23 18:50 Last Infusion: 08/24/23 19:11 Dose: Infused Documented By: Admin: 08/24/23 18:41 Dose: 100 mls/hr Documented By: JESUS Imaging Data Radiologist's Impression: Chest X-Ray 08/24/23 16:08 XR chest 1V portable HISTORY: 78 years-old Male weakness acute weakness COMPARISON: 07/15/2023 TECHNIQUE: AP view the chest FINDINGS: Cardiac silhouette is enlarged. Median sternotomy with cardiac valvular prosthesis. No pneumothorax, pleural effusion, airspace consolidation or pulmonary edema. The bones appear grossly intact. IMPRESSION: No acute process. ACT 112: Negative or not required by law. The above report was generated using voice recognition software. It may contain grammatical, syntax or spelling errors. Electronically signed by: Evan Mai M.D. 08/24/2023 6:[address] 08/24/23 18:18 CT head/brain wo con CLINICAL HISTORY: 78 years-old Male with AMS. Acutely altered mental status with confusion TECHNIQUE: Multiple axial CT images of the head were obtained without contrast. A dose lowering technique was utilized adhering to the principles of ALARA. CT DOSE: 547.75 mGy.cm COMPARISON: 07/15/2023. FINDINGS: No acute intracranial hemorrhage, midline shift, intracranial mass, acute territorial ischemia or abnormal extra-axial collection. Cavum septum pellucidum and vergae. Involutional changes with chronic microvascular ischemic disease. There is unchanged ventriculomegaly No acute calvarial fracture. Prior right-sided craniotomy with left calvarial matilde holes. Disconjugate gaze. The paranasal sinuses, mastoid air cells, and middle ear cavities are clear. IMPRESSION: 1. No acute intracranial abnormality. 2. Involutional changes with chronic microvascular ischemic disease. 3. Unchanged ventriculomegaly, likely on an ex vacuo basis. Normal pressure hydrocephalus considered less likely. 4. Prior right-sided craniotomy. ACT 112: Negative or not required by law. The above report was generated using voice recognition software. It may contain grammatical, syntax or spelling errors. Electronically signed by: Evan Mai M.D. 08/24/2023 7:20 PM Discharge Plan Visit Data Chief Complaint: Confusion Stated Complaint: CONFUSION, POSSIBLE UTI ED Provider: Cathy Navarro Forms Stand Alone Forms: [facility] Prescriptions Prescriptions: No Action aspirin 81 mg tablet,delayed release (DR/EC) 81 mg PO HS Qty: 90 1RF alfuzosin 10 mg tablet extended release 24 hr See Rx Instructions .ROUTE .COMPLEX Qty: 90 0RF Dose Instruction: TAKE ONE TABLET BY MOUTH EVERY DAY after the same meal each day Rx Instructions: TAKE ONE TABLET BY MOUTH EVERY DAY after the same meal each day atorvastatin 20 mg tablet 20 mg PO HS Qty: 90 1RF cholecalciferol (vitamin D3) [Vitamin D3] 50 mcg (2,000 unit) capsule 50 mcg PO QAM finasteride 5 mg tablet 5 mg PO HS Qty: 90 1RF lisinopril 10 mg tablet 5 mg PO DAILY Qty: 90 1RF acetaminophen [Tylenol] 325 mg Tablet 650 mg PO Q4 PRN (Reason: Fever Or Pain) albuterol sulfate 90 mcg/actuation Hfa Aerosol Inhaler 2 puff INHALATION Q6 PRN (Reason: asthma/copd) sennosides-docusate sodium [Senokot-S] 8.6-50 mg Tablet 1 tab PO QAM Qty: 30 0RF omega-3 fatty acids 1,000 mg Capsule 1,000 mg PO DAILY quetiapine 25 mg Tablet 25 mg PO HS Qty: 30 0RF Referrals Referrals: Jonathan Altamirano CRNP [Primary Care Provider] -
--- NOTE | 2023-08-24 20:00 | History & Physical Report ---
Date of Service August 24, 2023 Assessment & Plan (1) Acute UTI: Plan: Confusion the morning of 08/23 Hx of recent [place] hospitalization for acute urine retention/UTI/sepsis in June 2023 No leukocytosis; afebrile UA positive on arrival Follow UCx Curtis catheter Daily Curtis care Continue finasteride 5 mg p.o. HS Tamsulosin 0.4 mg p.o. QAM Rocephin 2000 mg IV daily Urine culture on 07/07/2021 grew coag negative Staphylococcus Will add on daptomycin 4mg/kg IV q24h A.m. CBC, BMP (2) ROMEO (acute kidney injury): Plan: Mild; BUN 28, creatinine 1.34 (baseline 0.88) and EGFR 50.4 on arrival May be secondary to hypoperfusion of the kidney d/t dehydration; BUN/Cr elevated Avoid nephrotoxic agents where possible Continue IV fluid resuscitation with Plasma-Lyte at 80mL/hr Follow-up daily BMP (3) Confusion and disorientation: Plan: Likely secondary to UTI Head CT revealed no acute intracranial abnormality; noted chronic changes, such as unchanged ventriculomegaly Hx of right-sided craniotomy Fall precautions Plan Disposition: Obs -admit to [facility] Full code AHA diet VTE PPx: SCDs History of Present Illness Chief Complaint: Confusion, UTI Primary Care Provider: PETEY Gavin Emigdio is a 78-year-old male with PMH of generalized tonic-clonic seizure, nonoperative impairment, HTN, OA, CAD, COPD, and visual hallucinations. He presented for confusion upon waking at 7:30 AM the morning of 08/23. Patient was reportedly asking for his mother. He was recently discharged from [facility]. Patient's is at the bedside and provides additional history. She notes that he had a UTI in June 2023 and required [facility] hospital admission for confusion/acute urinary retention/sepsis. Hx of confusion with UTIs, for this reason she brought him in. Hx of right-sided craniotomy for brain bleed. Patient's denies any strokelike symptoms this morning (no slurred speech, facial droop, or unilateral deficits). Patient ambulates with a walker and cane at baseline. No sick contacts. Patient took all of his regular morning medications, which are managed by a home health nurse. Patient denies alcohol, smoking tobacco, but endorses using chewing tobacco. Patient is mildly hypotensive at 109/51 at time of admission; vitals otherwise stable. ED course: NSS at 125mL/hr Ceftriaxone 2000 g IV ROS: Patient endorses confusion, cold intolerance, constipation, R-shoulder ache, and urinary retention. Patient denies fever, chills, nightsweats, body aches, dizziness, lightheadedness, MAE, change in vision/hearing, facial droop, slurred speech, recent falls, chest pain, SOB, cough, abdominal pain, N/V/D, burning with urination, blood in urine or stool, or numbness/tingling in arms or legs. Allergies Allergy/AdvReac Type Severity Reaction Status Date / Time No Known Allergies Allergy Verified 07/15/23 20:13 Home Medications Medication Instructions Recorded Confirmed Type acetaminophen 325 mg tablet 650 mg PO Q4 PRN Fever Or Pain 09/29/20 08/24/23 History (Tylenol) albuterol sulfate 90 mcg/actuation 2 puff inhalation Q6 PRN 09/29/20 08/24/23 History aerosol inhaler asthma/copd sennosides 8.6 mg-docusate sodium 1 tab PO QAM #30 tabs 05/30/22 08/24/23 Rx 50 mg tablet (Senokot-S) alfuzosin 10 mg tablet,extended See Rx Instructions .Route 03/07/23 08/24/23 Rx release 24 hr .COMPLEX #90 tabs aspirin 81 mg tablet,delayed 81 mg PO HS #90 tabs 03/07/23 08/24/23 Rx release atorvastatin 20 mg tablet 20 mg PO HS #90 tabs 03/07/23 08/24/23 Rx cholecalciferol (vitamin D3) 50 50 mcg PO QAM 03/07/23 08/24/23 History mcg (2,000 unit) capsule (Vitamin D3) finasteride 5 mg tablet 5 mg PO HS #90 tabs 03/07/23 08/24/23 Rx lisinopril 10 mg tablet 5 mg (1/2 x 10 mg) PO DAILY #90 03/07/23 08/24/23 Rx tabs omega-3 fatty acids 1,000 mg 1,000 mg PO DAILY 07/11/23 08/24/23 History capsule quetiapine 25 mg tablet 25 mg PO HS #30 tabs 07/31/23 08/24/23 Rx Past Med/Surg History Medical History (Updated 08/25/23 @ 12:08 by Luiza Hastings PA-C) Pneumonia hx ~2019. treated at [facility] Acute metabolic encephalopathy Aortic arch aneurysm Generalized weakness Chronic back pain Hydronephrosis, right UTI (urinary tract infection) COPD (chronic obstructive pulmonary disease) mild. rarely uses inhaler. Thrombocytopenia Generalized weakness History of subdural hematoma (03/01/20) Mild cognitive impairment Alert and Oriented x3 "most times". occasionally will forget names. Generalized tonic-clonic seizure (~03/2020) no problems since 03/2020 Osteoarthritis Anemia Hearing deficit History of rheumatic fever as a child Hypertension hx - no current medications BPH loc w urin obs/LUTS Urinary retention Coronary artery disease Basal cell carcinoma (02/09/19) Left preauricular region: 02/09/2019 Hypercholesterolemia Surgical History Heart valve replaced bovine valve [facility] S/P Mohs surgery for basal cell carcinoma History of craniotomy (03/01/20) left-sided matilde hole craniotomy and evacuation as well as a right-sided mini craniotomy for subdural evacuation History of testicular surgery left History of colonoscopy with polypectomy History of tooth extraction all teeth H/O vasectomy History of open heart surgery (~2006) @ [facility] "valve replacement with cow valve and x1 vessel bypass surgery" Family History Mother Breast cancer Family history of diabetes mellitus Other H/O vasectomy History of open heart surgery Hypercholesterolemia No family history of adverse response to anesthesia Denies family history of Ovarian cancer Prostate cancer Diabetes Coronary heart disease Heart disease Myocardial infarction Lung cancer Colorectal cancer Social History Smoking Status: Former smoker Tobacco Type: Smokeless Tobacco (Dip or Chew) Second Hand Exposure: No; Hx Alcohol Use: No Hx Substance Use: No Preferred Language: Gabonese Communication Ability: Effective Visual Impairment: Limited Hearing Ability: Normal Kitchen Worker Required: No Beliefs That Will Affect Care: None marital status: Current Living Situation: Spouse Current Living Situation Comment: Home with current occupational status: retired How many Children do You have: 1 Other Information That Helps Us Care for You: No Feels Safe at Home: Yes Safety Concerns: Feels Safe At This Time Childhood Exposure to Second-Hand Smoke: No Diet: regular caffeine: No during the past year weight has: remained stable Dental Care, Regularly: No Physical Activity Frequency: Daily Seatbelt Use: always Sunscreen Use: No Assistive Devices: Cane and Walker Review of Systems Review of Systems: See HPI above Physical Exam Physical Exam: General: no acute distress; pleasant affect; non-toxic appearing; cooperative HEENT: normocephalic, atraumatic; no scleral icterus; PERRLA w/ left eye deviation; dry mucus membrane; hard of hearing Neck: supple; no lymphadenopathy; trachea midline Skin: warm, dry without signs of tenting; no cyanosis; no bruising, lesions, or erythema noted CV: chest wall NTP; RRR; S1/S2 normal; no murmurs/rubs/gallops; pulses intact and symmetric at radial, DP, and PT Lungs: no acute respiratory distress; symmetrical chest wall expansion; clear breath sounds across all lung tomlinson w/o adventitious sounds; no wheezing ABD: Soft, NTP; BS present; no rebound/guarding; no ascites; no distention; negative CVA tenderness Curtis catheter in place draining clear yellow urine MSK: no tics or fasciculations; no edema noted in the LEs b/l, nonerythematous; dry skin and rash noted on the LEs bilaterally Neuro: A&Ox3; some confusion with today's events; slow to respond to some quest ioning; fluent speech; no facial droop; sensation grossly intact in the LEs b/l Results & Data Results & Data Vital Signs (Past 12 Hours) Vital Signs Temp Pulse Pulse Resp BP BP Pulse Ox 08/24/23 19:00 67 18 97 08/24/23 17:24 74 17 109/62 98 08/24/23 16:17 73 08/24/23 16:12 81 16 99 08/24/23 15:46 36.8 C 70 20 116/69 100 O2 Del Method 08/24/23 19:00 Room Air 08/24/23 17:24 Room Air 08/24/23 16:17 08/24/23 16:12 Room Air 08/24/23 15:46 Room Air Laboratory Results Abnormal lab results 08/24/23 08/24/23 Range/Units 16:08 16:46 RBC 4.03 L (4.70-6.10) M/uL Hgb 12.4 L (14.0-18.0) g/dl Hct 36.7 L (42.0-52.0) % Neut # (Auto) 7.56 H (1.40-6.50) K/uL BUN 28 H (6-23) mg/dl BUN/Creatinine Ratio 20.9 H (10-20) Urine Appearance Turbid A (Clear) Urine Protein Trace H (Negative) Urine Blood 2+ H (Negative) Ur Leukocyte Esterase 3+ H (Negative) Urine WBC (Auto) >30 H (0-5) /hpf Urine RBC (Auto) 5-10 H (0-4) /hpf Urine Bacteria (Auto) 1+ H (Negative) Diagnostic Findings Chest X-Ray 08/24/23 16:08 XR chest 1V portable HISTORY: 78 years-old Male weakness acute weakness COMPARISON: 07/15/2023 TECHNIQUE: AP view the chest FINDINGS: Cardiac silhouette is enlarged. Median sternotomy with cardiac valvular prosthesis. No pneumothorax, pleural effusion, airspace consolidation or pulmonary edema. The bones appear grossly intact. IMPRESSION: No acute process. ACT 112: Negative or not required by law. The above report was generated using voice recognition software. It may contain grammatical, syntax or spelling errors. Electronically signed by: Evan Mai M.D. 08/24/2023 6:[address] 08/24/23 18:18 CT head/brain wo con CLINICAL HISTORY: 78 years-old Male with AMS. Acutely altered mental status with confusion TECHNIQUE: Multiple axial CT images of the head were obtained without contrast. A dose lowering technique was utilized adhering to the principles of ALARA. CT DOSE: 547.75 mGy.cm COMPARISON: 07/15/2023. FINDINGS: No acute intracranial hemorrhage, midline shift, intracranial mass, acute territorial ischemia or abnormal extra-axial collection. Cavum septum pellucidum and vergae. Involutional changes with chronic microvascular ischemic disease. There is unchanged ventriculomegaly No acute calvarial fracture. Prior right-sided craniotomy with left calvarial matilde holes. Disconjugate gaze. The paranasal sinuses, mastoid air cells, and middle ear cavities are clear. IMPRESSION: 1. No acute intracranial abnormality. 2. Involutional changes with chronic microvascular ischemic disease. 3. Unchanged ventriculomegaly, likely on an ex vacuo basis. Normal pressure hydrocephalus considered less likely. 4. Prior right-sided craniotomy. ACT 112: Negative or not required by law. The above report was generated using voice recognition software. It may contain grammatical, syntax or spelling errors. Electronically signed by: Evan Mai M.D. 08/24/2023 7:20 PM Code Status & VTE Plan Code Status Full code VTE Prophylaxis Plan VTE Prophylaxis will be ordered: Yes Supervising Physician Co-Signing Physician Notes Attending addendum: I have physically seen this patient, have supervised the KORY's activities, and agree with the H&P unless as otherwise noted. Assessment and Plan: Urinary tract infection/confusion- Most recent [facility] admission 07/16-07/31/2023 for sepsis due to UTI and urinary retention Follow urine culture and sensitivity Curtis catheter placed in the ED Continue finasteride 5 mg p.o. bedtime Add tamsulosin 0.4 mg p.o. daily Ceftriaxone 2 g IV daily Add daptomycin IV due to history of resistant coag negative staph ROMEO- Creatinine 1.34 with baseline 0.88 Repeat after rehydration and IV antibiotics Plasma-Lyte at 80 mL/h PG Care Time/CCT Total # of Minutes Spent Total Time Spent with Patient: Total time spent is greater than 50% in coordination of care (as documented) at patient's floor/unit and/or counseling patient: Coding [place] [address] INT INP/OBS CARE 1/40MIN Patient Type Established Medical Decision Making Low Complexity Diagnoses Acute UTI N39.0 ROMEO (acute kidney injury) N17.9 Confusion and disorientation R41.0
[2023-08-24] MEDS: TAMSULOSIN HCL 0.4 MG CAP PO ONE (21:31)
[2023-08-24] MEDS: PLASMA-LYTE A 1,000 ML IV SCH (21:31)
[2023-08-24] MEDS ORDERED: NON-FORMULARY MEDICATION (Alfuzosin 10 mg tablet extended release 24 hr) SCH (22:24)
[2023-08-24] MEDS ORDERED: ONDANSETRON INJ 2 MG/ML 2 ML VIAL IV PRN (22:24)
[2023-08-24] MEDS ORDERED: ALBUTEROL HFA 8 GM INHALER INH PRN (22:24)
[2023-08-24] MEDS ORDERED: ACETAMINOPHEN 325 MG TAB PO PRN (22:24)
[2023-08-24] MEDS: DAPTOmycin 275 MG in SYRINGE 0 ML IV SCH (23:38)
[2023-08-24] MEDS: QUEtiapine FUMARATE 25 MG TABLET PO SCH (23:38)
[2023-08-24] MEDS: FINASTERIDE 5 MG TAB PO SCH (23:38)
[2023-08-24] MEDS: ASPIRIN 81 MG ECTAB PO SCH (23:38)
[2023-08-25 08:03] LABS: Basophils # (auto) 0.04 K/uL (0.00-0.20); Basophils % (auto) 0.7 %; Eosinophils % (auto) 3.3 %; Hematocrit (blood only) 30.1 % (42.0-52.0); Hemoglobin 10.4 g/dl (14.0-18.0); Immature Granulocytes # (auto) 0.02 K/uL (0.01-0.20); Immature Granulocytes % (auto) 0.3 %; Lymphocytes # (auto) 1.53 K/uL (1.20-3.40); Lymphocytes % (auto) 25.3 %; Mean Corpuscular Hemoglobin 30.9 pg (25.0-34.0); Mean Corpuscular Hgb Conc 34.6 g/dL (32.0-36.0); Mean Corpuscular Volume 89.3 fL (80.0-100.0); Mean Platelet Volume 10.4 fL (9.4-12.4); Monocytes # (auto) 0.58 K/uL (0.11-0.59); Monocytes % (auto) 9.6 %; Neutrophils # (auto) 3.67 K/uL (1.40-6.50); Neutrophils % (auto) 60.8 %; Platelet Count 113 K/uL (130-400); RDW Coefficient of Variation 13.2 % (11.5-14.5); RDW Standard Deviation 42.9 fL (36.4-46.3); Red Blood Count 3.37 M/uL (4.70-6.10); White Blood Count 6.04 K/ul (4.8-10.8)
[2023-08-25 08:12] LABS: BUN Creatinine Ratio 20.9 (10-20); Calcium 7.9 mg/dl (8.6-10.3); Creatinine Clr Calc Pharmacy 69.7 ml/min; Est GFR (African American) 93.2 ml/min; Est GFR (Non-African American) 80.4 ml/min; Magnesium 1.8 mg/dl (1.7-2.4)
--- NOTE | 2023-08-25 08:49 | Electrocardiogram Report ---
Test Reason : Blood Pressure : / mmHG Vent. Rate : 078 BPM Atrial Rate : 078 BPM P-R Int : 150 ms QRS Dur : 080 ms QT Int : 382 ms P-R-T Axes : 001 033 052 degrees QTc Int : 435 ms Sinus rhythm with interpolated PVC Otherwise normal ECG When compared with ECG of 15-JUL-2023 18:42, No significant change Confirmed by Bridger Davidson ([id number]) on 08/25/2023 8:48:34 AM Referred By: REFERRED SELF Confirmed By:Bridger Davidson
[2023-08-25] MEDS: DOCUSATE SODIUM/SENNA 50/8.6MG TAB PO SCH (09:25)
[2023-08-25] MEDS: lisinopril 5 MG TAB PO SCH (09:25)
--- NOTE | 2023-08-25 11:45 | Hospitalist Progress Note ---
Date of Service August 25, 2023 Assessment & Plan (1) Acute UTI: Plan: Confusion the morning of 08/23 Hx of recent [place] hospitalization for acute urine retention/UTI/sepsis in June 2023 Urine Culture: Staph Species - Will downgrade abx to just dapto q24 (first day 08/23) - CTX discontinued Curtis catheter inserted in ED Continue finasteride 5 mg p.o. HS Tamsulosin 0.4 mg p.o. QAM PT/OT (2) ROMEO (acute kidney injury): Plan: Mild; BUN 28, creatinine 1.34 (baseline 0.88) and EGFR 50.4 on arrival May be secondary to hypoperfusion of the kidney d/t dehydration; BUN/Cr elevated Avoid nephrotoxic agents where possible 3/3 Received IVF overnight, am Cr 0.91, good PO intake --> IVF discontinued Follow-up AM BMP (3) Thrombocytopenia: Plan: Platelets on admission 138, now 113 - likely due to acute infection, platelets dropped last hospitalization with UTI/sepsis - no evidence of bleeding AM CBC (4) Confusion and disorientation: Plan: Likely secondary to UTI Head CT: no acute intracranial abnormality; noted chronic changes - unchanged ventriculomegaly Hx of right-sided craniotomy Fall precautions does report increased confusion over the last couple weeks, questioning dementia Plan Disposition: continue inpatient stay VTE PPx: switch to lovenox with improved kidney function updated by phone. Admission and Anticipated Discharge Date Admission Date: August 24, 2023 Subjective Patient resting in bed, knows that he is in the hospital in [place] but tells me the year is 2039. Knows that he is here for urine but unsure how that happened. Denies pain currently. RN reports good appetite Review of Systems Review of Systems: All systems reviewed & are unremarkable except as noted in Subjective Physical Exam Physical Exam: General: NAD, pleasant but [place] VS as above Resp: normal respiratory effort, lungs clear to auscultation, on room air CV: RRR, no murmur, Abd: normal bowel sounds, non tender, no hepatosplenomegaly Extremities: Moves all extremities, no edema Neuro: A&O to self and place. Skin: intact, no lesions noted Results & Data Results & Data Vital Signs (Past 12 Hours) Vital Signs Temp Pulse Resp BP Pulse Ox O2 Del Method 08/25/23 07:42 36.9 C 51 L 16 114/67 96 Room Air Laboratory Results CBC, chemistry and mag reviewed BC and UC reviewed PG Care Time/CCT Total # of Minutes Spent Total Time Spent with Patient: Total time spent is greater than 50% in coordination of care (as documented) at patient's floor/unit and/or counseling patient: Coding Level of Care Code 15614 SUB INP/OBS CARE 3/50MIN Diagnoses Acute UTI N39.0 ROMEO (acute kidney injury) N17.9 Thrombocytopenia D69.6 Confusion and disorientation R41.0
[2023-08-25] MEDS: TAMSULOSIN HCL 0.4 MG CAP PO SCH (12:34)
[2023-08-25] MEDS ORDERED: cefTRIAXone SODIUM 2,000 MG in DEXTROSE 5 % MINI-B 50 ML IV SCH (18:30)
[2023-08-25] MEDS: MELATONIN 3 MG TAB PO PRN (22:55)
[2023-08-26 07:18] LABS: Basophils # (auto) 0.04 K/uL (0.00-0.20); Basophils % (auto) 0.7 %; Eosinophils # (auto) 0.28 K/uL (0.00-0.50); Eosinophils % (auto) 4.9 %; Hematocrit (blood only) 32.6 % (42.0-52.0); Immature Granulocytes # (auto) 0.01 K/uL (0.01-0.20); Immature Granulocytes % (auto) 0.2 %; Lymphocytes # (auto) 1.71 K/uL (1.20-3.40); Lymphocytes % (auto) 29.7 %; Mean Corpuscular Hemoglobin 30.7 pg (25.0-34.0); Mean Corpuscular Hgb Conc 33.7 g/dL (32.0-36.0); Mean Corpuscular Volume 91.1 fL (80.0-100.0); Mean Platelet Volume 10.6 fL (9.4-12.4); Monocytes % (auto) 10.4 %; Neutrophils # (auto) 3.11 K/uL (1.40-6.50); Neutrophils % (auto) 54.1 %; Platelet Count 121 K/uL (130-400); RDW Coefficient of Variation 13.1 % (11.5-14.5); RDW Standard Deviation 42.8 fL (36.4-46.3); Red Blood Count 3.58 M/uL (4.70-6.10); White Blood Count 5.75 K/ul (4.8-10.8)
[2023-08-26] MEDS: ENOXAPARIN INJ 40 MG/0.4 ML SYR SQ SCH (07:28)
[2023-08-26 07:46] LABS: BUN Creatinine Ratio 18.6 (10-20); Calcium 8.2 mg/dl (8.6-10.3); Creatinine Clr Calc Pharmacy 73.8 ml/min; Est GFR (African American) 96.3 ml/min; Est GFR (Non-African American) 83.1 ml/min; Potassium 3.7 mmol/L (3.5-5.1)
--- NOTE | 2023-08-26 11:51 | Hospitalist Progress Note ---
Date of Service August 26, 2023 Assessment & Plan (1) Acute UTI: Plan: Confusion the morning of 3/2 Hx of recent [place] for acute [place] retention/UTI/sepsis in June 2023 Urine Culture: Staph Species - Will downgrade abx to just dapto q24 (first day 08/23) - CTX discontinued Curtis catheter inserted in ED Continue finasteride 5 mg p.o. HS Tamsulosin 0.4 mg p.o. QAM PT/OT - PT recommended HH vs rehab - OT recommending HH (2) ROMEO (acute kidney injury): Plan: Mild; BUN 28, creatinine 1.34 (baseline 0.88) and EGFR 50.4 on arrival May be secondary to hypoperfusion of the kidney d/t dehydration; BUN/Cr elevated 08/24 Received IVF overnight, am Cr 0.91, good PO intake --> IVF discontinued 08/25 Creatinine 0.86 Resolved. (3) Confusion and disorientation: Plan: Likely secondary to UTI Head CT: no acute intracranial abnormality; noted chronic changes - unchanged ventriculomegaly Hx of right-sided craniotomy Fall precautions does report increased confusion over the last couple weeks, questioning dementia (4) Thrombocytopenia: Plan: Platelets on admission 138, now 113 - likely due to acute infection, platelets dropped last hospitalization with UTI/sepsis - no evidence of bleeding - 08/24 platelets improving to 121 AM CBC Plan Disposition: continue inpatient stay, hopeful for discharge to home tomorrow with HH VTE PPx: switch to lovenox with improved kidney function update by phone Admission and Anticipated Discharge Date Admission Date: August 26, 2023 Supervising Physician Co-Signing Physician Notes Attending Attestation - Chart reviewed, care plan d/w CHON Hastings. I agree w/ the white components of her documentation. Matteo Liu MD Subjective patient seen sitting in the chair. Much more alert today, is able to tell me where in [place] and that it is 2023. He is very concerned about his blinds not being able to work and not being able to see outside. RN notified and work order placed. Reports good appetite Review of Systems Review of Systems: All systems reviewed & are unremarkable except as noted in Subjective Physical Exam Physical Exam: General: NAD, pleasant but [place] VS as above Resp: normal respiratory effort, lungs clear to auscultation, on room air CV: RRR, no murmur, Abd: normal bowel sounds, non tender, no hepatosplenomegaly Extremities: Moves all extremities, no edema Neuro: A&O to self, place and time Skin: intact, no lesions noted Results & Data Results & Data Vital Signs (Past 12 Hours) Vital Signs Temp Pulse Resp BP Pulse Ox O2 Del Method 08/26/23 07:23 36.8 C 53 L 16 96/59 L 95 Room Air Laboratory Results CBC and chemistry reviewed PG Care Time/CCT Total # of Minutes Spent Total Time Spent with Patient: Total time spent is greater than 50% in coordination of care (as documented) at patient's floor/unit and/or counseling patient: Coding Level of Care Code 82220 SUB INP/OBS CARE 2/35MIN Diagnoses Acute UTI N39.0 ROMEO (acute kidney injury) N17.9 Confusion and disorientation R41.0 Thrombocytopenia D69.6
[2023-08-27 07:39] LABS: Basophils # (auto) 0.05 K/uL (0.00-0.20); Basophils % (auto) 0.9 %; Eosinophils # (auto) 0.25 K/uL (0.00-0.50); Eosinophils % (auto) 4.6 %; Hemoglobin 11.2 g/dl (14.0-18.0); Immature Granulocytes # (auto) 0.02 K/uL (0.01-0.20); Immature Granulocytes % (auto) 0.4 %; Lymphocytes # (auto) 1.84 K/uL (1.20-3.40); Lymphocytes % (auto) 33.9 %; Mean Corpuscular Hemoglobin 30.4 pg (25.0-34.0); Mean Corpuscular Hgb Conc 33.9 g/dL (32.0-36.0); Mean Corpuscular Volume 89.7 fL (80.0-100.0); Mean Platelet Volume 10.3 fL (9.4-12.4); Monocytes # (auto) 0.58 K/uL (0.11-0.59); Monocytes % (auto) 10.7 %; Neutrophils # (auto) 2.69 K/uL (1.40-6.50); Neutrophils % (auto) 49.5 %; Platelet Count 123 K/uL (130-400); RDW Standard Deviation 42.4 fL (36.4-46.3); Red Blood Count 3.68 M/uL (4.70-6.10); White Blood Count 5.43 K/ul (4.8-10.8)
--- NOTE | 2023-08-27 09:28 | Hospitalist Progress Note ---
Date of Service August 27, 2023 Assessment & Plan (1) Acute UTI: Plan: Confusion the morning of 3/2 Hx of recent [place] for acute [place] retention/UTI/sepsis in June 2023 -- of note, dc in July w/ palomino in place for urinary retention and had been replaced multiple times during that inpatient stay Placed on Ceftriaxone/Dapto on admission Urine cx w/ veronique species on preliminary --> continues on Dapto IV alone for now (day4 of therapy on 08/26) No blood cultures on admission Palomino inserted in ER, continue for now (did have voiding trial outpatient w/ urology at dc to note -- however suspect needing to remain in place) Remains on flomax daily, finasteride 5mg HS (on alfuzosin outpatient) WBC wnl, afebrile PT/OT consulted and rec HH vs rehab, CM to follow (2) ROMEO (acute kidney injury): Plan: BUN/Cr 28/1.34 on admission . Baseline Cr <1 ?2nd to hypoperfusion of kidney vs obstructive process in setting of UTI as well given prior retention last admission Given IVF overnight 08/24, Cr improved to 0.91 and stable at 0.86 on repeat w/ improvement in PO intake reported Renal dose meds/avoid nephrotoxins as above Palomino to remain in place for now BMp in AM (3) Confusion and disorientation: Plan: Likely secondary to UTI, although some baseline cognitive deficits (B12 borderline last admit, added supplementation) Head CT: no acute intracranial abnormality; noted chronic changes - unchanged ventriculomegaly Hx of right-sided craniotomy Fall precautions does report increased confusion over the last couple weeks, questioning dementia (4) Thrombocytopenia: Plan: Platelets on admission 138, down to 113--> 123 at present - likely due to acute infection, platelets dropped last hospitalization with UTI/sepsis - no evidence of bleeding Monitor CBC/bleeding Plan Disposition: continue inpatient stay, therapy evals recommending HHPT vs rehab. CM to follow VTE PPx:heparin switched to lovenox with improved kidney function Admission and Anticipated Discharge Date Admission Date: August 26, 2023 Supervising Physician Co-Signing Physician Notes The patient was not seen by me. The chart was reviewed. Case discussed with CHON Santana. Agree with assessment and plan Subjective Eval this morning, resting in bed. KNows in hospital, not correct on year. Remains with palomino in place, slightly concentrated urine. He is inquiring if this should be removed. Reports does not have catheter at baseline. Will discuss w/ nursing -- does appear seen by urology office 08/08 w/ successful voiding trial. Denies chest pain, shortness of breath, abdominal pain, nausea, vomiting. Rehab planned at discharge. Did ask to go and visit/play with his grandson apparently overnight. Questions/concerns addressed at this time. Physical Exam Physical Exam: General: chronically ill appearing male, sitting up in bed,resting in bed, NAD, appears improved from last admission Head atraumatic, normocephalic, MM DRY, trachea midline Resp: even/unlabored, no w/c/r, on room air CV: RRR, no significant mrg, no pitting edema/calf tenderness GI: +BS, soft/NT : palomino draining concentrated yellow urine MSK/Neuro/Psych: nonfocal, answering questions appropriately, knows in [facility], pleasant/cooperative but +confusion at times (?baseline) Results & Data Results & Data Vital Signs (Past 12 Hours) Vital Signs Temp Pulse Resp BP Pulse Ox O2 Del Method 08/27/23 07:33 36.7 C 55 L 16 102/61 95 Room Air Laboratory Results 08/27/23 Range/Units 07:10 WBC 5.43 (4.8-10.8) K/ul RBC 3.68 L (4.70-6.10) M/uL Hgb 11.2 L (14.0-18.0) g/dl Hct 33.0 L (42.0-52.0) % MCV 89.7 (80.0-100.0) fL MCH 30.4 (25.0-34.0) pg MCHC 33.9 (32.0-36.0) g/dL RDW Std Deviation 42.4 (36.4-46.3) fL RDW Coeff of Harmony 13.0 (11.5-14.5) % Plt Count 123 L (130-400) K/uL MPV 10.3 (9.4-12.4) fL Immature Gran % (Auto) 0.4 % Neut % (Auto) 49.5 % Lymph % (Auto) 33.9 % [place] % (Auto) 10.7 % Eos % (Auto) 4.6 % Baso % (Auto) 0.9 % Neut # (Auto) 2.69 (1.40-6.50) K/uL Lymph # (Auto) 1.84 (1.20-3.40) K/uL [place] # (Auto) 0.58 (0.11-0.59) K/uL Eos # (Auto) 0.25 (0.00-0.50) K/uL Baso # (Auto) 0.05 (0.00-0.20) K/uL Immature Gran # (Auto) 0.02 (0.01-0.20) K/uL PG Care Time/CCT Total # of Minutes Spent Total Time Spent with Patient: Total time spent is greater than 50% in coordination of care (as documented) at patient's floor/unit and/or counseling patient: Coding Level of Care Code 11416 SUB INP/OBS CARE 2/35MIN Diagnoses Acute UTI N39.0 ROMEO (acute kidney injury) N17.9 Confusion and disorientation R41.0 Thrombocytopenia D69.6
[2023-08-27] MEDS: CYANOCOBALAMIN (B-12) 500 MCG TABLET PO SCH (10:45)
[2023-08-27] MEDS: QUEtiapine FUMARATE 25 MG TABLET PO PRN (17:10)
--- NOTE | 2023-08-28 07:35 | Hospitalist Progress Note ---
Date of Service August 28, 2023 Assessment & Plan (1) Acute UTI: Plan: MEtabolic encephalopathy, present on admission, 2nd to UTI - improving w/ treatment but suspected delirium on top of patient w/ mild cognitive impairment * Reports of confusion the morning of 08/23 in patient w/ hx of recent [place] hospitalization for acute urine retention/UTI/sepsis in June 2023 -- of note, dc in July w/ palomino in place for urinary retention and had been replaced multiple times during that inpatient stay Placed on Ceftriaxone/Dapto on admission Urine cx w/ veronique species on preliminary --> continues on Dapto IV --> Urine cx w/ coag negative staph on final, resistant to oxaci llin/tetracycline, sensitive to dapto/nitro/bactrim/vanco - can consider switching to bactrim to complete course 08/28 No blood cultures on admission Palomino inserted in ER, continue for now (did have voiding trial outpatient w/ urology at [facility] to note -- however suspect needing to remain in place) Remains on flomax daily, finasteride 5mg HS (on alfuzosin outpatient) WBC wnl, afebrile PT/OT consulted and rec HH vs rehab, CM to follow 08/27 --> Switching to Bactrim for this evening (day 5 of therapy on 08/27) --> plan for 7 day course given palomino in place/retention and continuing palomino at [facility]. Demondus sed w/ Lana Scott and she sent message to office to arrange for voiding trial as outpatient. _Would have patient hold his lisinopril and monitor BPs at home as has been on lower side and prior issues w/ borderline to prevent any hypotension/issues. (2) ROMEO (acute kidney injury): Plan: BUN/Cr 28/1.34 on admission . Baseline Cr <1 ?2nd to hypoperfusion of kidney vs obstructive process in setting of UTI as well given prior retention last admission Given IVF overnight 08/24, Cr improved to 0.91 and stable at 0.86 on repeat w/ improvement in PO intake reported Renal dose meds/avoid nephrotoxins as above Palomino to remain in place for now BMp in AM (3) Confusion and disorientation: Plan: Likely secondary to UTI, although some baseline cognitive deficits (B12 borderline last admit, added supplementation) Head CT: no acute intracranial abnormality; noted chronic changes - unchanged ventriculomegaly Hx of right-sided craniotomy Fall precautions does report increased confusion over the last couple weeks, questioning dementia (4) Thrombocytopenia: Plan: Platelets on admission 138, down to 113--> 123 at present - likely due to acute infection, platelets dropped last hospitalization with UTI/sepsis - no evidence of bleeding Monitor CBC/bleeding Plan Disposition: continue inpatient stay, therapy evals recommending HHPT vs rehab. CM to follow VTE PPx:heparin switched to lovenox with improved kidney function Admission and Anticipated Discharge Date Admission Date: August 26, 2023 PG Care Time/CCT Total # of Minutes Spent Total Time Spent with Patient: Total time spent is greater than 50% in coordination of care (as documented) at patient's floor/unit and/or counseling patient: Coding Diagnoses Acute UTI N39.0 ROMEO (acute kidney injury) N17.9 Confusion and disorientation R41.0 Thrombocytopenia D69.6
[2023-08-28 09:14] LABS: Hematocrit (blood only) 35.7 % (42.0-52.0); Mean Corpuscular Hemoglobin 30.7 pg (25.0-34.0); Mean Corpuscular Hgb Conc 33.6 g/dL (32.0-36.0); Mean Corpuscular Volume 91.3 fL (80.0-100.0); Mean Platelet Volume 10.3 fL (9.4-12.4); Platelet Count 133 K/uL (130-400); RDW Coefficient of Variation 13.1 % (11.5-14.5); RDW Standard Deviation 42.8 fL (36.4-46.3); Red Blood Count 3.91 M/uL (4.70-6.10); White Blood Count 5.42 K/ul (4.8-10.8)
[2023-08-28 09:32] LABS: BUN Creatinine Ratio 17.6 (10-20); Calcium 8.6 mg/dl (8.6-10.3); Creatinine Clr Calc Pharmacy 69.7 ml/min; Est GFR (African American) 93.2 ml/min; Est GFR (Non-African American) 80.4 ml/min; Magnesium 1.9 mg/dl (1.7-2.4); Potassium 4.2 mmol/L (3.5-5.1)
--- NOTE | 2023-08-28 11:11 | Discharge Summary ---
Date of Service August 28, 2023 Admission HPI Per Admitting Provider Emigdio is a 78-year-old male with PMH of generalized tonic-clonic seizure, nonoperative impairment, HTN, OA, CAD, COPD, and visual hallucinations. He presented for confusion upon waking at 7:30 AM the morning of 08/23. Patient was reportedly asking for his mother. He was recently discharged from [facility]. Patient's is at the bedside and provides additional history. She notes that he had a UTI in June 2023 and required [facility] hospital admission for confusion/acute urinary retention/sepsis. Hx of confusion with UTIs, for this reason she brought him in. Hx of right-sided craniotomy for brain bleed. Patient's denies any strokelike symptoms this morning (no slurred speech, facial droop, or unilateral deficits). Patient ambulates with a walker and cane at baseline. No sick contacts. Patient took all of his regular morning medications, which are managed by a home health nurse. Patient denies alcohol, smoking tobacco, but endorses using chewing tobacco. Patient is mildly hypotensive at 109/51 at time of admission; vitals otherwise stable. ED course: NSS at 125mL/hr Ceftriaxone 2000 g IV ROS: Patient endorses confusion, cold intolerance, constipation, R-shoulder ache, and urinary retention. Patient denies fever, chills, nightsweats, body aches, dizziness, lightheadedness, MAE, change in vision/hearing, facial droop, slurred speech, recent falls, chest pain, SOB, cough, abdominal pain, N/V/D, burning with urination, blood in urine or stool, or numbness/tingling in arms or legs. Admission Exam Per Admitting Provider General: no acute distress; pleasant affect; non-toxic appearing; cooperative HEENT: normocephalic, atraumatic; no scleral icterus; PERRLA w/ left eye deviation; dry mucus membrane; hard of hearing Neck: supple; no lymphadenopathy; trachea midline Skin: warm, dry without signs of tenting; no cyanosis; no bruising, lesions, or erythema noted CV: chest wall NTP; RRR; S1/S2 normal; no murmurs/rubs/gallops; pulses intact and symmetric at radial, DP, and PT Lungs: no acute respiratory distress; symmetrical chest wall expansion; clear breath sounds across all lung tomlinson w/o adventitious sounds; no wheezing ABD: Soft, NTP; BS present; no rebound/guarding; no ascites; no distention; negative CVA tenderness Benítez catheter in place draining clear yellow urine MSK: no tics or fasciculations; no edema noted in the LEs b/l, nonerythematous; dry skin and rash noted on the LEs bilaterally Neuro: A&Ox3; some confusion with today's events; slow to respond to some questioning; fluent speech; no facial droop; sensation grossly intact in the LEs b/l Principal Diagnosis Acute UTI, Urinary Retention Discharge Exam General: chronically ill appearing male, sitting up in bed,resting in bed, NAD, appears improved from last admission and wanting to go home Head atraumatic, normocephalic, MM DRY, trachea midline Resp: even/unlabored, no w/c/r, on room air CV: RRR, no significant mrg, no pitting edema/calf tenderness GI: +BS, soft/NT : benítez draining clear yellow urine MSK/Neuro/Psych: nonfocal, answering questions appropriately, knows in [facility], pleasant/cooperative but +confusion at times (?baseline mild cognitive impairment) Discharge Data Allergies Allergy/AdvReac Type Severity Reaction Status Date / Time No Known Allergies Allergy Verified 07/15/23 20:13 Consultations 08/24/23 19:26 ED Decision to Admit Stat Ordered Studies Chest X-Ray 08/24/23 16:08 XR chest 1V portable HISTORY: 78 years-old Male weakness acute weakness COMPARISON: 07/15/2023 TECHNIQUE: AP view the chest FINDINGS: Cardiac silhouette is enlarged. Median sternotomy with cardiac valvular prosthesis. No pneumothorax, pleural effusion, airspace consolidation or pulmonary edema. The bones appear grossly intact. IMPRESSION: No acute process. ACT 112: Negative or not required by law. The above report was generated using voice recognition software. It may contain grammatical, syntax or spelling errors. Electronically signed by: Evan Mai M.D. 08/24/2023 6:[address] 08/24/23 18:18 CT head/brain wo con CLINICAL HISTORY: 78 years-old Male with AMS. Acutely altered mental status with confusion TECHNIQUE: Multiple axial CT images of the head were obtained without contrast. A dose lowering technique was utilized adhering to the principles of ALARA. CT DOSE: 547.75 mGy.cm COMPARISON: 07/15/2023. FINDINGS: No acute intracranial hemorrhage, midline shift, intracranial mass, acute territorial ischemia or abnormal extra-axial collection. Cavum septum pellucidum and vergae. Involutional changes with chronic microvascular ischemic disease. There is unchanged ventriculomegaly No acute calvarial fracture. Prior right-sided craniotomy with left calvarial matilde holes. Disconjugate gaze. The paranasal sinuses, mastoid air cells, and middle ear cavities are clear. IMPRESSION: 1. No acute intracranial abnormality. 2. Involutional changes with chronic microvascular ischemic disease. 3. Unchanged ventriculomegaly, likely on an ex vacuo basis. Normal pressure hydrocephalus considered less likely. 4. Prior right-sided craniotomy. ACT 112: Negative or not required by law. The above report was generated using voice recognition software. It may contain grammatical, syntax or spelling errors. Electronically signed by: Evan Mai M.D. 08/24/2023 7:20 PM Hospital Course (1) Acute UTI: MEtabolic encephalopathy, present on admission, 2nd to UTI - improving w/ treatment but suspected delirium on top of patient w/ mild cognitive impairment * Reports of confusion the morning of 08/23 in patient w/ hx of recent [place] hospitalization for acute urine retention/UTI/sepsis in June 2023 -- of note, dc in July w/ benítez in place for urinary retention and had been replaced multiple times during that inpatient stay Placed on Ceftriaxone/Dapto on admission UA/culture resulted with coag negative staph on final, resistant to oxacillin/tetracycline, sensitive to dapto/nitro/bactrim/vanco Continued on Dapto IV alone initially until culture sensitivities resulted and planned to switch to Bactrim PO BID to complete 7 day course Benítez had been placed in ER, remained on flomax/finasteride (on alfuzosin as outpatient, substituted flomax while inpatient) and discussed given his prior admission w/ repeat urinary retention and benítez placement and discharged with benítez and did have suscessful voiding trial in office with urology but given such, was discussed with Lana Scott who contacted office for follow up appointment and recommended to continue the benítez at discharge. They will arrange for cysto/further eval, but possible patient may need some kind of intervention in the future WBC wnl on repeat, remained afebrile Therapy evaluations undertaken and CM arranging for HHPT at [place] [facility] Updated on plan at discharge, antibiotics and discussed to have patient hold his lisinopril at dc given borderline BPs to prevent hypotension as has been well controlled off of this and was last admission as well placed on hold by myself Reports her son will be able to come and package pick up Emigdio today. (2) ROMEO (acute kidney injury): BUN/Cr 28/1.34 on admission with baseline Cr <1 Suspected 2nd to hypoperfusion to kidney vs obstructive process in setting of UTI as well given prior retention last admission and requirement of benítez several times/sent w/ at discharge and voiding trial as above s/p IVF and improvement in PO intake. Lisinpril placed on hold and BPs better/stable and 102/63 without lightheaded/dizziness reported Discussed to HOLD his lisinopril at discharge and monitor BPs and follow up with PCP for discussions on when/if to resume and if resuming to consider lowering dose to 2.5mg daily Benítez continued at discharge as above and will need urology follow up as outlined (3) Confusion and disorientation: Likely secondary to UTI, although some baseline cognitive deficits (B12 borderline last admit, added supplementation and continued at discharge) Head CT: no acute intracranial abnormality; noted chronic changes - unchanged ventriculomegaly Hx of right-sided craniotomy Fall precautions does report increased confusion over the last couple weeks, questioning dementia but cognition does appear improved w/ treatment although is forgetful at baseline (4) Thrombocytopenia: Platelets on admission 138, down to 113--> 133 and stable on repeat - likely due to acute infection, platelets dropped last hospitalization with UTI/sepsis - no evidence of bleeding VTE PPx:heparin switched to lovenox with improved kidney function and was utilized while inpatient (5) B12 deficiency: borderline 340 last admission (prior in 200s), added PO supplementation and continued at dc given baseline mild cognitive impairment/neuropathy Plan Discharged home on Bactrim PO to complete course, benítez and urology follow up. HHPT to be arranged by case management Total Time Total Time Spent Total Time Spent (In Minutes): 40 Discharge Plan Discharge Items Patient Disposition: Home - Home Health Services Reason For Visit: UTI Discharge Diagnosis: UTI, urinary retention Goals: You have been hospitalized for an acute medical problem. During your stay at [facility], we have made an effort to correct the problem that brought you to the hospital while keeping you as comfortable as possible. Medications were used to bring your condition under control and your discharge instructions will include directions for any medications you should take after leaving the hospital. Please make sure you see your Primary Care Provider as part of your follow up plan. Activity: Resume your previous activity Weightbearing: Full weightbearing Non-emergency contact: Primary Care Provider Call non-emergency contact if: you have any medication questions, your symptoms worsen, you have a fever and your temperature is above 101 Follow-up/Referrals: Jonathan Altamirano CRNP [Primary Care Provider] - 09/03/23 4:20 pm Yinka Howell MD [Physician] - (Offiice will call patient with a follow up appointment) Diet: Heart Healthy Addtl Attending Provider Instructions: Mr. Bruce You were hospitalized after having periods of increased confusion. We preformed a head CT that showed no acute changes. You were diagnosed with a urinary tract infections and treated with IV antibiotics. At discharge you will be sent home with antibiotics as outlined below to complete course for your urinary tract infection. Be sure to take the whole course of medication, even if you start to feel better. You will also have home health aides coming to help in your home. Your urinary retention was discussed with urology and you are to KEEP THE BENÍTEZ CATHETER in place and urology office will contact you to arrange for follow up to attempt a voiding trial. There may be a chance you need intervention or ongoing catheter that can be discussed in follow up. Medications: Your medication list has been reviewed and reconciled upon discharge to ensure accuracy and continuity of care. An updated list of all your medications is included with your hospital discharge paperwork. Please review this list closely, and make note of any changes. We sent a new medication called BACTRIM for UTI. This is to be taken twice daily by mouth for another 2 days to complete the course. Next dose is due this evening. Take your medications as instructed; do not skip a dose of your medicines. Make sure all of your doctors know every medicine you are taking (including [id number] medicines, vitamins, and supplements). Call your primary care provider before taking any new medicines (including over- the-counter medicines, vitamins, and supplements), because some of these may interact with your current medications, or may make your symptoms worse. Tell your primary care provider if you cannot afford your medications. We have HELD you lisinopril as taking for blood pressure and you should monitor your blood pressures at home and discuss with primary care about resuming this, maybe at a lower dose. You have been stable with this being HELD at this present time. Activity: You can do normal everyday activities as your body allows. Take rest breaks if you feel tired. Do not overexert. Stop activity if you have pain, shortness of breath or feel dizzy. Follow-up appointments: Make an appointment with your primary care physician within one week of discharge. A copy of this summary will be sent to them. Every time you see your primary care physician, or any other doctor, bring your medication list, and a list of questions. CONTACT YOUR PRIMARY CARE PROVIDER if you experience any of the following: Shortness of breath or difficulty breathing Fevers or chills Feeling tired with normal activity or experiencing dizziness or fainting Difficulty following your treatment plan, or difficulty taking medications CALL 911 OR GO TO THE EMERGENCY DEPARTMENT if you experience any of the following: Severe abdominal pain or nausea/vomiting Severe chest pain, or chest pain that radiates (moves) to your jaw or arm Sudden, severe shortness of breath or difficulty breathing Thank you for allowing us to participate in your care. Pending Studies at Discharge: No Stand-Alone Forms: My [facility] LAVEGO, Smoking Cessation Medications and DC Order Prescriptions: New sulfamethoxazole-trimethoprim [Bactrim DS] 800-160 mg Tablet 1 tab PO Q12 Qty: 4 0RF cyanocobalamin (vitamin B-12) 500 mcg Tablet 1,000 mcg PO QAM Qty: 30 0RF Continued aspirin 81 mg tablet,delayed release (DR/EC) 81 mg PO HS Qty: 90 1RF alfuzosin 10 mg tablet extended release 24 hr See Rx Instructions .ROUTE .COMPLEX Qty: 90 0RF Dose Instruction: TAKE ONE TABLET BY MOUTH EVERY DAY after the same meal each day Rx Instructions: TAKE ONE TABLET BY MOUTH EVERY DAY after the same meal each day atorvastatin 20 mg tablet 20 mg PO HS Qty: 90 1RF cholecalciferol (vitamin D3) [Vitamin D3] 50 mcg (2,000 unit) capsule 50 mcg PO QAM finasteride 5 mg tablet 5 mg PO HS Qty: 90 1RF acetaminophen [Tylenol] 325 mg Tablet 650 mg PO Q4 PRN (Reason: Fever Or Pain) albuterol sulfate 90 mcg/actuation Hfa Aerosol Inhaler 2 puff INHALATION Q6 PRN (Reason: asthma/copd) sennosides-docusate sodium [Senokot-S] 8.6-50 mg Tablet 1 tab PO QAM Qty: 30 0RF omega-3 fatty acids 1,000 mg Capsule 1,000 mg PO DAILY quetiapine 25 mg Tablet 25 mg PO HS Qty: 30 0RF Held lisinopril 10 mg tablet 5 mg PO DAILY Qty: 90 1RF Hold Instructions: Resume on 09/04/23. Discharge Orders: Discharge Order (Routine); Ordered 08/28/23 Ordered By: Lana Ford/Other Patient Handouts: Urinary Tract Infections in Men, Leg Bag Care Dc Admission Data Admit Date/Time: 08/26/23 09:55 Attending Provider: Krzysztof Ortiz Admit Provider: Peng Gallo Primary Care Provider: Jonathan Altamirano Other Providers: Peng Gallo; Kevin Victor [facility] Other Interventions: Discharge Summary Assessment (RN) Last Done: 08/28/23 13:07 Supervising Physician Co-Signing Physician Notes The patient was not seen by me. The chart was reviewed. Case discussed with CHON Santana. Agree with assessment and plan. He is medically stable for discharge today, August 27 Coding Level of Care Code 64922 INP/OBS DISCH >30 MIN Diagnoses Acute UTI N39.0 ROMEO (acute kidney injury) N17.9 Confusion and disorientation R41.0 Thrombocytopenia D69.6 B12 deficiency E53.8
[2023-08-28] MEDS ORDERED: SULFAMETHOXAZOLE/TRIMETHOPRIM DS 800/160MG TAB PO SCH (21:00)
== END 2023-08-28 17:17 | disposition home health service (06) | DRG 689 ==
LOC: 3N 15:40 → ED 15:40 → SUATTDRO 20:54 → 3N 21:50 → SUATTDRO 08-26 09:55 → 3N 08-27 10:37

== ENCOUNTER 2025-04-05 13:39 | Observation (INO) ==
--- NOTE | 2025-04-05 13:52 | Emergency Department Note ---
Impression & Plan Acute alteration in mental status, Contusion of face, Fall, Accidental drug ingestion ED Provider Note NAME: VEL RODRIGUES AGE: 79 SEX: M : 1945 ARRIVES VIA: Ambulance INFORMANT: Patient, EMS personnel ED PROVIDER(S): Jose De Jesus Packer DO CHIEF COMPLAINT: Injury alert HPI: The patient is a 79-year-old male who presented to the emergency department by ambulance as an injury alert. The patient took his 's medications last evening at 9 PM. He then had a fall early this morning. His thought he was not acting appropriately and called 911 around 1 PM. The patient arrives via ambulance. According to the prehospital personnel the patient took his 's medications at 9 PM. This would include an allergy medication 2 tablets 10 mg. He also took 2 tablets of amlodipine 5 mg. He took 2 pills of baby aspirin 81 mg. He took carvedilol 6.25 mg. He took 2 tablets. Duloxetine 60 mg tablets he took 2 these tablets. Eliquis 5 mg he took 2 tablets. Fish oil 2 tablets. Omeprazole 40 mg 2 tablets. Pregabalin 150 mg 2 tablets. Gemtesa 75 mg. He took 2 tablets. The patient was found to be bradycardic prior to arrival. He was given atropine. ROS: See above HPI for pertinent positives & negatives. A total of 10 systems reviewed and were otherwise negative. PAST MEDICAL HISTORY: See Below PAST SURGICAL HISTORY: See Below FAMILY HISTORY: See Below SOCIAL HISTORY: See Below HOME MEDICATIONS: See Below ALLERGIES: See Below VITALS: See Below PHYSICAL EXAMINATION: Primary Survey Airway: Intact Breathing: Normal, breath sounds equal bilaterally Circulation: Skin warm, distal pulses 2+, capillary refill less than 2 seconds Disability Pupils: Equal and reactive to light, 2mm, brisk GCS: 14, E = 4 V= 4 M= 6 motor Function: Moves all extremities. Sensory: No deficits Secondary Survey GEN: Well developed and well-nourished HEAD: Normal cephalic atraumatic EYES: Pupils round reactive to light, conjunctiva clear, extraocular movements intact, no raccoons eyes. The patient has esotropia noted with the left eye. ENT: The patient has upper dentures. There was a laceration in the inner upper lip. No active bleeding was noted. NECK: No JVD, midline trachea, no cervical spine tenderness HEART: Regular rate and rhythm LUNGS: Clear to auscultation bilaterally. CHEST: Chest wall non-tender, no bruising/deformity ABD: Abdomen was mildly distended. There was no guarding rigidity noted. BACK: No step offs or deformities, T-L spine non tender EXT: 2+ global pulses, moving all extremities well, the patient's strength was symmetric. NEURO: The patient is awake and alert. He is oriented to person only. Strength was symmetric. There was no facial droop. MEDICAL DECISION MAKING: The patient is a 79-year-old male who presented to the emergency department by ambulance for an evaluation. The patient has a history of dementia. The history was obtained from the EMS personnel. The patient had an episode of bradycardia on the way to the emergency department. This did require atropine. The patient took his 's medications last evening around 9 PM. It sounds that he may have taken this because he has underlying dementia and was confused. The patient's bradycardia could be related to the medications that his takes. His takes blood thinners. He took his 's blood thinners and was made a trauma activation prior to arrival because of the fall. The patient was reevaluated multiple times. The patient ultimately was felt to be cervical spine cleared as he is moving his neck freely and radiographically he is cleared. At 1630 he was evaluated 1 final time and this was needed at time of final cervical spine clearance although the patient did not tolerate a cervical collar. I discussed his condition with the on-call [facility] hospitalist. Given the alteration in mental status and the medication overdose I do feel he warrants inpatient treatment. Triage Nursing notes reviewed. Prior medical records reviewed Vital Signs: reviewed and remarkable for bradycardia Differential diagnosis: Fracture, dislocation, contusion, intra-abdominal, pneumothorax, intrathoracic, intracranial, neurologic, compartment syndrome, rhabdomyolysis, as well as other pathologies. ER treatment provided: See below Diagnostics interpreted by me: ECG: EKG was obtained in the emergency department. My interpretation is sinus bradycardia at 59 bpm. There were no PVCs noted. Nonspecific T wave flattening was appreciated. QTc was 435 ms. Cardiac Monitoring: An order was placed for continuous cardiac monitoring. The monitor shows a rate of 58 bpm with sinus bradycardia. Laboratory studies: As stated above and show below. Imaging studies: See below. Radiographic imaging was reviewed by myself Consultation(s): I discussed this case with Dr. Gordon who is on-call for the [facility] hospitalist group. Past Med/Surg History Problem List (Updated 04/05/25 @ 17:00 by Jose De Jesus Packer DO) Accidental drug ingestion (Acute) Fall (Acute) Contusion of face (Acute) Acute alteration in mental status (Acute) Skin lesion of neck Restless legs Anxiety and depression Pulmonary nodules Incomplete bladder emptying B12 deficiency Sepsis Generalized weakness (Acute) COVID-19 (Acute) Ambulatory dysfunction (Acute) Aortic arch aneurysm BPH loc w urin obs/LUTS Hypercholesterolemia COPD (chronic obstructive pulmonary disease) mild. rarely uses inhaler. Coronary artery disease Microscopic hematuria Sensorineural hearing loss of both ears History of basal cell carcinoma (BCC) of skin Ambulatory dysfunction (Acute) Tobacco chew use (Acute) Constipation (Acute) Abnormal CT scan, lung Hydronephrosis, right Osteoarthritis Hypertension hx - no current medications Mild cognitive impairment Alert and Oriented x3 "most times". occasionally will forget names. Anemia Medical History Generalized tonic-clonic seizure (~03/2020) no problems since 03/2020 Tobacco user former tobacco use 20s-30s 1 ppd (does not recall exactly) Visual hallucinations Bilateral subdural hematomas Pneumonia hx ~2019. treated at [facility] Acute metabolic encephalopathy Generalized weakness Chronic back pain UTI (urinary tract infection) Thrombocytopenia Generalized weakness History of subdural hematoma (03/01/20) Hearing deficit History of rheumatic fever as a child Urinary retention Basal cell carcinoma (02/09/19) Left preauricular region: 02/09/2019 Surgical History History of craniotomy (03/01/20) left-sided matilde hole craniotomy and evacuation as well as a right-sided mini craniotomy for subdural evacuation Heart valve replaced bovine valve [facility] S/P Mohs surgery for basal cell carcinoma History of testicular surgery left History of colonoscopy with polypectomy History of tooth extraction all teeth H/O vasectomy History of open heart surgery (~2006) @ [facility] "valve replacement with cow valve and x1 vessel bypass surgery" Family History Mother Breast cancer Family history of diabetes mellitus Other H/O vasectomy History of open heart surgery Hypercholesterolemia No family history of adverse response to anesthesia Denies family history of Ovarian cancer Prostate cancer Diabetes Coronary heart disease Heart disease Myocardial infarction Lung cancer Colorectal cancer Social History Smoking Status: Former smoker Tobacco Type: Cigarettes and Smokeless Tobacco (Dip or Chew) Age Started Using Tobacco: 20; Age Quit Using Tobacco: 35; packs per day: 1; Second Hand Exposure: No; Do You Dip or Chew Tobacco: Yes; Hx Alcohol Use: No Hx Substance Use: No Preferred Language: [place] Communication Ability: Effective Visual Impairment: Limited Hearing Ability: Normal Bias Cutter Required: No Beliefs That Will Affect Care: None marital status: Current Living Situation: Spouse Current Living Situation Comment: Home with current occupational status: retired How many Children do You have: 1 Feels Safe at Home: Yes Childhood Exposure to Second-Hand Smoke: No Diet: regular caffeine: No during the past year weight has: remained stable Dental Care, Regularly: No Physical Activity Frequency: Daily Seatbelt Use: always Sunscreen Use: No Assistive Devices: Cane and Walker Allergies Allergies Allergy/AdvReac Type Severity Reaction Status Date / Time No Known Allergies Allergy Verified 02/03/25 16:36 Home Meds Home Medications Medication Instructions Recorded Confirmed acetaminophen 325 mg tablet 650 mg PO Q4 PRN Fever Or Pain 09/29/20 04/05/25 (Tylenol) cholecalciferol (vitamin D3) 50 0 mcg PO QAM 03/07/23 04/05/25 mcg (2,000 unit) capsule (Vitamin D3) aspirin 81 mg tablet,delayed 81 mg PO HS 01/22/25 04/05/25 release quetiapine 25 mg tablet 25 mg PO HS 01/22/25 04/05/25 sennosides 8.6 mg-docusate sodium 0 tab PO QAM 01/22/25 04/05/25 50 mg tablet (Senokot-S) Previous Rx's Medication Instructions Recorded albuterol sulfate 90 mcg/actuation 2 puff inhalation Q6 PRN 10/03/23 aerosol inhaler asthma/copd #1 inhaler alfuzosin 10 mg tablet,extended 10 mg PO QDB #90 tabs 06/04/24 release 24 hr atorvastatin 20 mg tablet 20 mg PO HS #100 tabs 09/22/24 finasteride 5 mg tablet 5 mg PO HS #100 tabs 09/22/24 omega 5-rtr-rke-fish oil 1,000 mg 1 cap PO QAM #100 caps 09/22/24 (120 mg-180 mg) capsule Results & Data (ED) Vital Signs Vital Signs - 24 hr 04/05/25 13:45 04/05/25 13:45 04/05/25 13:45 Temperature 36.7 C 36.7 C 36.7 C Temperature Source Oral Oral Pulse Rate 61 61 Pulse Rate [Apical] Respiratory Rate 16 12 12 Respiratory Effort / Characteristics Non-Labored Spontaneous Respiratory Depth Respiratory Pattern Blood Pressure 122/80 122/80 Blood Pressure [Right Arm] Blood Pressure Mean 94 Blood Pressure Mean [Right Arm] Pulse Oximetry 95 95 95 Oxygen Delivery Method Room Air Room Air Room Air Oxygen Flow Rate 0 Sepsis New/Unexplained Change in Mental Status No Sepsis Action Taken by Nursing No Action Required 04/05/25 14:45 04/05/25 15:36 04/05/25 15:45 Temperature Temperature Source Pulse Rate Pulse Rate [Apical] 55 L 58 L Respiratory Rate 16 21 Respiratory Effort / Characteristics Non-Labored Spontaneous Non-Labored Spontaneous Respiratory Depth Normal Normal Respiratory Pattern Regular Blood Pressure Blood Pressure [Right Arm] 143/89 H 125/103 H Blood Pressure Mean Blood Pressure Mean [Right Arm] 107 110 Pulse Oximetry 97 97 94 Oxygen Delivery Method Room Air Room Air Room Air Oxygen Flow Rate Sepsis New/Unexplained Change in Mental Status Sepsis Action Taken by Intermediate Medications Current Medication List: was personally reviewed by me Laboratory Data Attestation: I reviewed the patient's lab results. 04/05/25 13:53 04/05/25 13:53 Lab Results 04/05/25 04/05/25 04/05/25 Range/Units 13:53 13:58 14:03 WBC 5.25 (4.8-10.8) K/ul RBC 4.14 L (4.70-6.10) M/uL Hgb 12.6 L (14.0-18.0) g/dl POC Hgb 12.2 L (14.0-18.0) g/dl Hct 37.2 L (42.0-52.0) % POC Hct 36 L (42-52) % MCV 89.9 (80.0-100.0) fL MCH 30.4 (25.0-34.0) pg MCHC 33.9 (32.0-36.0) g/dL RDW Std Deviation 39.3 (36.4-46.3) fL RDW Coeff of Harmony 12.0 (11.5-14.5) % Plt Count 121 L (130-400) K/uL MPV 9.9 (9.4-12.4) fL Immature Gran % (Auto) 0.4 % Neut % (Auto) 58.2 % Lymph % (Auto) 28.8 % Vermilion % (Auto) 8.2 % Eos % (Auto) 3.4 % Baso % (Auto) 1.0 % Neut # (Auto) 3.06 (1.40-6.50) K/uL Lymph # (Auto) 1.51 (1.20-3.40) K/uL Vermilion # (Auto) 0.43 (0.11-0.59) K/uL Eos # (Auto) 0.18 (0.00-0.50) K/uL Baso # (Auto) 0.05 (0.00-0.20) K/uL Immature Gran # (Auto) 0.02 (0.01-0.20) K/uL PT 11.6 (9.0-12.0) Seconds INR 1.1 (0.9-1.1) APTT 27 (21-31) Seconds PTT Ratio 1.0 POC Sodium 142 (135-144) mmol/L Sodium 141 (136-145) mmol/L POC Potassium 4.2 (3.3-5.0) mmol/L Potassium 4.3 (3.5-5.1) mmol/L POC Chloride 106 (101-112) mmol/L Chloride 107 (98-107) mmol/L Carbon Dioxide 29 (21-32) mmol/L POC Total CO2 27 (24-31) mmol/L Anion Gap 5 (3-11) POC Anion Gap 15.0 L (16-25) mmol/L POC BUN 25 H (7-18) mg/dl BUN 24 H (6-23) mg/dl Creatinine 1.07 (0.6-1.4) mg/dl POC Creatinine 1.1 (0.6-1.3) mg/dl Est Cr Clr Drug Dosing Not Reportable eGFR 70.59 BUN/Creatinine Ratio 22.4 H (10-20) Glucose 106 H (70-99(Fasting)) mg/dl POC Glucose (other) 103 H (70-99) mg/dl Calcium 8.7 (8.6-10.3) mg/dl POC Ioniz Calcium Hernandez 1.14 (1.12-1.32) mmol/l Magnesium 1.9 (1.7-2.4) mg/dl Total Bilirubin 0.8 (0.2-1.0) mg/dl AST 15 (13-39) U/L ALT 11 (7-52) U/L Alkaline Phosphatase 72 (34-104) U/L Total Creatine Kinase 61 (30-223) U/L Troponin I High Sens 8.0 (0-20) pg/ml Total Protein 6.4 (6.0-8.3) gm/dl Albumin 3.8 (3.4-5.0) gm/dl Globulin 2.6 (2.5-4.0) gm/dl Albumin/Globulin Ratio 1.5 (0.9-2) Lipase 25 (11-82) U/L Salicylates < 3.0 L (3.0-30) mg/dl Acetaminophen < 3 L (10-30) ug/ml Blood Type A Positive Antibody Screen NEGATIVE Administered Medications Discontinued Medications Ioversol (Optiray 320 100ml) 90 ml IV ONCE ONE Stop: 04/05/25 14:19 Last Admin: 04/05/25 14:20 Dose: 90 ml Documented By: AMY Imaging Data Attestation: I personally reviewed and interpreted this imaging study as follows: My Impression: 1 view chest x-ray was obtained in the emergency department. My interpretation is no free air or definite infiltrate, final report below. Radiologist's Impression: Chest X-Ray 04/05/25 13:46 XR chest 1V portable CLINICAL HISTORY: Trauma COMPARISON STUDY: 01/22/2025 FINDINGS: Stable cardiac valve repair. Inspiration is very shallow which limits the exam. There is mild cardiomegaly without pulmonary vascular congestion. There is stranding opacity at the left base. No other consolidation or pleural effusion seen. No pneumothorax. IMPRESSION: Atelectasis versus pneumonia left lung base. ACT 112: Negative or not required by law. Electronically signed by: Dmitry Cortez M.D. 04/05/2025 2:15 PM Abdomen/Pelvis CT 04/05/25 13:47 CT SCAN OF THE CHEST, ABDOMEN, AND PELVIS WITH IV CONTRAST CLINICAL HISTORY: Trauma. COMPARISON STUDY: Chest CT dated 06/06/2021. Chest x-ray dated 04/05/2025. Abdominal CT dated 09/11/2020. TECHNIQUE: Following the IV administration of 90 of Optiray 320, CT scan of the chest, abdomen, and pelvis was performed from the thoracic inlet to the proximal femora. Images are reviewed in the axial, sagittal, and coronal planes. IV contrast was administered without complication. A dose lowering technique was utilized adhering to the principles of ALARA. The examinations are degraded by streak artifact from the arms which could not be elevated of the chest or abdomen. There is also motion artifact. FINDINGS: CHEST: Thyroid: Imaged portions of the thyroid gland are normal in size and attenuation. Thoracic aorta: There is atherosclerotic calcification of the thoracic aorta, which is normal in caliber and demonstrates 4-vessel variant arch anatomy. No dissection is seen. Pulmonary vasculature: The pulmonary trunk is normal in caliber. There are no filling defects identified in the central pulmonary vessels to indicate pulmonary embolus. Note that this examination was not protocoled for evaluation of the pulmonary arteries. Heart: The patient is status post midline sternotomy an aortic valve surgery. The heart is enlarged and without pericardial effusion. The coronary arteries are densely calcified. Lungs and pleural spaces: Evaluation of the lung parenchyma is degraded by motion artifact. No airspace consolidation or pneumothorax is seen. There are trace pleural effusions with dependent atelectasis. The trachea and central airways are clear. Tiny pulmonary nodules seen previously are not well assessed due to motion artifact. Mediastinum: There is no mediastinal hematoma or lymphadenopathy. Mira: Clear. Axillae: There is no axillary lymphadenopathy. Bony thorax: The skeletal structures are osteopenic. The bony thorax appears intact. No lytic or blastic lesions are identified. ABDOMEN AND PELVIS: Liver: The contrast-enhanced liver is normal in size, contour, and attenuation. There is no intrahepatic biliary ductal dilatation. The hepatic veins and portal veins are patent. Gallbladder: Unremarkable. Spleen: Normal in size and attenuation. Pancreas: Atrophic and grossly unremarkable. Adrenal glands: Unremarkable. Kidneys: The contrast enhanced kidneys demonstrate cortical atrophy and are without hydronephrosis. The kidneys enhance symmetrically. Small renal cysts measure up to 1.6 cm. Additional subcentimeter cortical hypodensities also likely represent cysts but are too small for definitive characterization. Abdominal vasculature: The abdominal aorta is normal in course and caliber noting moderate atherosclerotic calcification. Stomach and bowel: There is a small hiatal hernia. There is mild colonic fecal retention. No bowel obstruction is seen. The appendix is normal as visualized. Peritoneum: There is no intraperitoneal free air or abdominal ascites. There is a fat-containing umbilical hernia. Lymphadenopathy: None. Pelvic viscera: The prostate gland is enlarged and heterogeneous. The bladder is markedly distended, and the wall is thickened/trabeculated indicating chronic outlet obstruction. A 3.2 cm bladder diverticulum is seen on the left. There is a fat-containing left groin hernia. Skeletal structures: The skeletal structures are osteopenic. The lumbosacral spine, bony pelvis, and proximal femora appear intact. There is mild to moderate lumbosacral spondylosis. Degenerative change is noted in the sacroiliac joints. No lytic or blastic lesions are seen. IMPRESSION: 1. No acute posttraumatic intrathoracic abnormality is identified. 2. Cardiomegaly noting trace pleural effusions. 3. There is no airspace consolidation or pneumothorax. 4. There is no evidence of solid organ injury in the abdomen or pelvis. 5. Marked bladder distention with evidence of chronic outlet obstruction. 6. Additional findings as detailed above. ACT 112: Negative or not required by law. Electronically signed by: Lamonte Hunter M.D. 04/05/2025 2:[address] 04/05/25 13:47 CT SCAN OF THE CERVICAL SPINE CLINICAL HISTORY: Trauma. COMPARISON STUDY: Cervical spine CT March 01, 2020. TECHNIQUE: CT scan of the cervical spine is performed from the skull base to the upper thoracic spine. Images are reviewed in the axial, sagittal, and coronal planes. IV contrast was not administered for this examination. A dose lowering technique was utilized adhering to the principles of ALARA. CT DOSE: 6176.74 mGy.cm FINDINGS: Skeletal structures: There is no evidence of fracture or subluxation involving the cervical spine. Vertebral body height and alignment are maintained. The odontoid process and lateral masses are intact. The atlantoaxial articulation is preserved. The spinous processes appear intact. There is moderate multilevel facet arthrosis and disc space narrowing with endplate osteophytosis within the cervical spine. Soft tissues: The prevertebral and paraspinous soft tissues are within normal limits. Calvarium: The visualized calvarium at the skull base appears intact. Brain parenchyma: Partially visualized brain parenchyma at the skull base is within normal limits. Lung apices: Clear as visualized. IMPRESSION: No acute cervical spine fracture or subluxation. ACT 112: Negative or not required by law. Electronically signed by: Luigi Garcia M.D. 04/05/2025 2:[address] 04/05/25 13:47 CT SCAN OF THE CHEST, ABDOMEN, AND PELVIS WITH IV CONTRAST CLINICAL HISTORY: Trauma. COMPARISON STUDY: Chest CT dated 06/06/2021. Chest x-ray dated 04/05/2025. Abdominal CT dated 09/11/2020. TECHNIQUE: Following the IV administration of 90 of Optiray 320, CT scan of the chest, abdomen, and pelvis was performed from the thoracic inlet to the proximal femora. Images are reviewed in the axial, sagittal, and coronal planes. IV contrast was administered without complication. A dose lowering technique was utilized adhering to the principles of ALARA. The examinations are degraded by streak artifact from the arms which could not be elevated of the chest or abdomen. There is also motion artifact. FINDINGS: CHEST: Thyroid: Imaged portions of the thyroid gland are normal in size and attenuation. Thoracic aorta: There is atherosclerotic calcification of the thoracic aorta, which is normal in caliber and demonstrates 4-vessel variant arch anatomy. No dissection is seen. Pulmonary vasculature: The pulmonary trunk is normal in caliber. There are no filling defects identified in the central pulmonary vessels to indicate pulmonary embolus. Note that this examination was not protocoled for evaluation of the pulmonary arteries. Heart: The patient is status post midline sternotomy an aortic valve surgery. The heart is enlarged and without pericardial effusion. The coronary arteries are densely calcified. Lungs and pleural spaces: Evaluation of the lung parenchyma is degraded by motion artifact. No airspace consolidation or pneumothorax is seen. There are trace pleural effusions with dependent atelectasis. The trachea and central airways are clear. Tiny pulmonary nodules seen previously are not well assessed due to motion artifact. Mediastinum: There is no mediastinal hematoma or lymphadenopathy. Mira: Clear. Axillae: There is no axillary lymphadenopathy. Bony thorax: The skeletal structures are osteopenic. The bony thorax appears intact. No lytic or blastic lesions are identified. ABDOMEN AND PELVIS: Liver: The contrast-enhanced liver is normal in size, contour, and attenuation. There is no intrahepatic biliary ductal dilatation. The hepatic veins and portal veins are patent. Gallbladder: Unremarkable. Spleen: Normal in size and attenuation. Pancreas: Atrophic and grossly unremarkable. Adrenal glands: Unremarkable. Kidneys: The contrast enhanced kidneys demonstrate cortical atrophy and are without hydronephrosis. The kidneys enhance symmetrically. Small renal cysts measure up to 1.6 cm. Additional subcentimeter cortical hypodensities also likely represent cysts but are too small for definitive characterization. Abdominal vasculature: The abdominal aorta is normal in course and caliber noting moderate atherosclerotic calcification. Stomach and bowel: There is a small hiatal hernia. There is mild colonic fecal retention. No bowel obstruction is seen. The appendix is normal as visualized. Peritoneum: There is no intraperitoneal free air or abdominal ascites. There is a fat-containing umbilical hernia. Lymphadenopathy: None. Pelvic viscera: The prostate gland is enlarged and heterogeneous. The bladder is markedly distended, and the wall is thickened/trabeculated indicating chronic outlet obstruction. A 3.2 cm bladder diverticulum is seen on the left. There is a fat-containing left groin hernia. Skeletal structures: The skeletal structures are osteopenic. The lumbosacral spine, bony pelvis, and proximal femora appear intact. There is mild to moderate lumbosacral spondylosis. Degenerative change is noted in the sacroiliac joints. No lytic or blastic lesions are seen. IMPRESSION: 1. No acute posttraumatic intrathoracic abnormality is identified. 2. Cardiomegaly noting trace pleural effusions. 3. There is no airspace consolidation or pneumothorax. 4. There is no evidence of solid organ injury in the abdomen or pelvis. 5. Marked bladder distention with evidence of chronic outlet obstruction. 6. Additional findings as detailed above. ACT 112: Negative or not required by law. Electronically signed by: Lamonte Hunter M.D. 04/05/2025 2:[address] 04/05/25 13:47 CT SCAN OF THE FACIAL BONES WITHOUT IV CONTRAST CLINICAL HISTORY: Trauma COMPARISON STUDY: CT of the brain dated 05/20/2024 TECHNIQUE: High-resolution CT scan of the facial bones is performed. Images are reviewed in the axial, sagittal, and coronal planes. IV contrast was not administered for this examination. A dose lowering technique was utilized adhering to the principles of ALARA. The examination is degraded by motion artifact. FINDINGS: The skeletal structures are osteopenic. There is no evidence of facial bone fracture. The bony orbits are intact and the orbital contents are within normal limits. The zygomatic arches, nasal bones, and pterygoid plates are preserved. The maxilla and mandible are intact. The patient is edentulous. There are no layering blood products within the paranasal sinuses. There is mild mucosal thickening in the right maxillary antrum. Trace mucosal thickening is seen in the left maxillary sinus and the frontal sinuses. The remaining paranasal sinuses are clear. There is trace left mastoid effusion. The right mastoid air cells are well pneumatized. The visualized calvarium and upper cervical spine are maintained. Partially imaged brain parenchyma is within normal limits. Sialolithiasis is noted in the left parotid gland. IMPRESSION: There is no evidence of facial bone fracture. ACT 112: Negative or not required by law. Electronically signed by: Lamonte Hunter M.D. 04/05/2025 3:[address] 04/05/25 13:47 CT head/brain wo con CLINICAL HISTORY: trauma. TECHNIQUE: Multiple axial CT images of the head were obtained without contrast. A dose lowering technique was utilized adhering to the principles of ALARA. COMPARISON: 01/22/2025 FINDINGS: There is motion artifact despite multiple acquisitions. Stable cavum septum pellucidum. Stable right craniotomy and left-sided matilde holes. Stable moderate chronic small vessel ischemic change. Stable mild prominence of the ventricles out of proportion to the sulci, cerebral atrophy versus normal pressure hydrocephalus. No intracranial hemorrhage seen. No mass effect or midline shift seen. No skull fracture seen. IMPRESSION: No acute findings seen. ACT 112: Negative or not required by law. The above report was generated using voice recognition software. It may contain grammatical, syntax or spelling errors. Electronically signed by: Dmitry Cortez M.D. 04/05/2025 2:43 PM Discharge Plan Visit Data Chief Complaint: Trauma Stated Complaint: AMS, fall, thinners, otilia ED Provider: Jose De Jesus Packer Discharge Problem: Acute alteration in mental status, Contusion of face, Fall, Accidental drug ingestion Patient Disposition: Being Evaluated by Hospitalist Condition: Fair Forms Stand Alone Forms: My [facility] Prescriptions Prescriptions: No Action albuterol sulfate 90 mcg/actuation HFA aerosol inhaler 2 puff INHALATION Q6 PRN (Reason: asthma/copd) Qty: 1 3RF Patient Comments: 04/05- no fill history unable to verify alfuzosin 10 mg tablet extended release 24 hr 10 mg PO QDB Qty: 90 3RF Rx Instructions: TAKE ONE TABLET BY MOUTH EVERY DAY after the same meal each day finasteride 5 mg tablet 5 mg PO HS Qty: 100 1RF atorvastatin 20 mg tablet 20 mg PO HS Qty: 100 1RF omega 8-hkf-vby-fish oil 1,000 (120-180) mg capsule 1 cap PO QAM Qty: 100 1RF cholecalciferol (vitamin D3) [Vitamin D3] 50 mcg (2,000 unit) capsule 0 mcg PO QAM Patient Comments: 04/05- otc unable to verify acetaminophen [Tylenol] 325 mg Tablet 650 mg PO Q4 PRN (Reason: Fever Or Pain) Patient Comments: 04/05- otc unable to verify aspirin 81 mg tablet,delayed release (DR/EC) 81 mg PO HS quetiapine 25 mg tablet 25 mg PO HS Rx Instructions: TAKE ONE TABLET BY MOUTH AT BEDTIME sennosides-docusate sodium [Senokot-S] 8.6-50 mg tablet 0 tab PO QAM Patient Comments: 04/05- otc unable to verify Referrals Referrals: Jonathan Altamirano CRNP [Primary Care Provider] -
[2025-04-05 14:14] LABS: Hematocrit (blood only) 37.2 % (42.0-52.0); Hemoglobin 12.6 g/dl (14.0-18.0); Immature Granulocytes # (auto) 0.02 K/uL (0.01-0.20); Immature Granulocytes % (auto) 0.4 %; Mean Corpuscular Hemoglobin 30.4 pg (25.0-34.0); Mean Corpuscular Volume 89.9 fL (80.0-100.0); Platelet Count 121 K/uL (130-400); RDW Standard Deviation 39.3 fL (36.4-46.3); Red Blood Count 4.14 M/uL (4.70-6.10); White Blood Count 5.25 K/ul (4.8-10.8)
--- NOTE | 2025-04-05 14:16 | XRay Report ---
XR chest 1V portable CLINICAL HISTORY: Trauma COMPARISON STUDY: 01/22/2025 FINDINGS: Stable cardiac valve repair. Inspiration is very shallow which limits the exam. There is mi ld cardiomegaly without pulmonary vascular congestion. There is stranding opacity at the left base. N o other consolidation or pleural effusion seen. No pneumothorax. IMPRESSION: Atelectasis versus pneumonia left lung base. ACT 112: Negative or not required by law. Electronically signed by: mDitry Cortez M.D. 04/05/2025 2:15 PM
[2025-04-05] MEDS: OPTIRAY 320 100ml IV ONE (14:20)
[2025-04-05 14:27] LABS: Alanine Aminotransferase 11 U/L (7-52); Albumin Globulin Ratio 1.5 (0.9-2); Albumin Level 3.8 gm/dl (3.4-5.0); Alkaline Phosphatase 72 U/L (34-104); Anion Gap 5 (3-11); Bilirubin,Total 0.8 mg/dl (0.2-1.0); Blood Urea Nitrogen 24 mg/dl (6-23); Calcium 8.7 mg/dl (8.6-10.3); Carbon Dioxide 29 mmol/L (21-32); Chloride 107 mmol/L (98-107); Creatine Kinase 61 U/L (30-223); Globulin 2.6 gm/dl (2.5-4.0); Glucose 106 mg/dl (70-99(Fasting)); Lipase 25 U/L (11-82); Magnesium 1.9 mg/dl (1.7-2.4); Potassium 4.3 mmol/L (3.5-5.1); Sodium 141 mmol/L (136-145); Total Protein 6.4 gm/dl (6.0-8.3)
[2025-04-05 14:33] LABS: INR 1.1 (0.9-1.1); Partial Thromboplastin Time 27 Seconds (21-31); Prothrombin Time 11.6 Seconds (9.0-12.0)
[2025-04-05 14:45] LABS: Acetaminophen < 3 ug/ml (10-30); Salicylate < 3.0 mg/dl (3.0-30)
--- NOTE | 2025-04-05 14:46 | CT Scan Report ---
CT head/brain wo con CLINICAL HISTORY: trauma. TECHNIQUE: Multiple axial CT images of the head were obtained without contrast. A dose lowering tech nique was utilized adhering to the principles of ALARA. COMPARISON: 01/22/2025 FINDINGS: There is motion artifact despite multiple acquisitions. Stable cavum septum pellucidum. Sta ble right craniotomy and left-sided matilde holes. Stable moderate chronic small vessel ischemic change. Stable mild prominence of the ventricles out of proportion to the sulci, cerebral atrophy versus nor mal pressure hydrocephalus. No intracranial hemorrhage seen. No mass effect or midline shift seen. No skull fracture seen. IMPRESSION: No acute findings seen. ACT 112: Negative or not required by law. The above report was generated using voice recognition software. It may contain grammatical, syntax o r spelling errors. Electronically signed by: Dmitry Cortez M.D. 04/05/2025 2:43 PM
--- NOTE | 2025-04-05 14:51 | CT Scan Report ---
CT SCAN OF THE CHEST, ABDOMEN, AND PELVIS WITH IV CONTRAST CLINICAL HISTORY: Trauma. COMPARISON STUDY: Chest CT dated 06/06/2021. Chest x-ray dated 04/05/2025. Abdominal CT dated 021. TECHNIQUE: Following the IV administration of 90 of Optiray 320, CT scan of the chest, abdomen, and p katelyn was performed from the thoracic inlet to the proximal femora. Images are reviewed in the axial, sagittal, and coronal planes. IV contrast was administered without complication. A dose lowering te chnique was utilized adhering to the principles of ALARA. The examinations are degraded by streak art ifact from the arms which could not be elevated of the chest or abdomen. There is also motion artifac t. FINDINGS: CHEST: Thyroid: Imaged portions of the thyroid gland are normal in size and attenuation. Thoracic aorta: There is atherosclerotic calcification of the thoracic aorta, which is normal in delgado tootie and demonstrates 4-vessel variant arch anatomy. No dissection is seen. Pulmonary vasculature: The pulmonary trunk is normal in caliber. There are no filling defects identif ied in the central pulmonary vessels to indicate pulmonary embolus. Note that this examination was no t protocoled for evaluation of the pulmonary arteries. Heart: The patient is status post midline sternotomy an aortic valve surgery. The heart is enlarged a nd without pericardial effusion. The coronary arteries are densely calcified. Lungs and pleural spaces: Evaluation of the lung parenchyma is degraded by motion artifact. No airspa ce consolidation or pneumothorax is seen. There are trace pleural effusions with dependent atelectasi s. The trachea and central airways are clear. Tiny pulmonary nodules seen previously are not well ass essed due to motion artifact. Mediastinum: There is no mediastinal hematoma or lymphadenopathy. Mira: Clear. Axillae: There is no axillary lymphadenopathy. Bony thorax: The skeletal structures are osteopenic. The bony thorax appears intact. No lytic or archie tic lesions are identified. ABDOMEN AND PELVIS: Liver: The contrast-enhanced liver is normal in size, contour, and attenuation. There is no intrahepa tic biliary ductal dilatation. The hepatic veins and portal veins are patent. Gallbladder: Unremarkable. Spleen: Normal in size and attenuation. Pancreas: Atrophic and grossly unremarkable. Adrenal glands: Unremarkable. Kidneys: The contrast enhanced kidneys demonstrate cortical atrophy and are without hydronephrosis. T he kidneys enhance symmetrically. Small renal cysts measure up to 1.6 cm. Additional subcentimeter co rtical hypodensities also likely represent cysts but are too small for definitive characterization. Abdominal vasculature: The abdominal aorta is normal in course and caliber noting moderate atheroscle rotic calcification. Stomach and bowel: There is a small hiatal hernia. There is mild colonic fecal retention. No bowel ob struction is seen. The appendix is normal as visualized. Peritoneum: There is no intraperitoneal free air or abdominal ascites. There is a fat-containing umbi lical hernia. Lymphadenopathy: None. Pelvic viscera: The prostate gland is enlarged and heterogeneous. The bladder is markedly distended, and the wall is thickened/trabeculated indicating chronic outlet obstruction. A 3.2 cm bladder divert iculum is seen on the left. There is a fat-containing left groin hernia. Skeletal structures: The skeletal structures are osteopenic. The lumbosacral spine, bony pelvis, and proximal femora appear intact. There is mild to moderate lumbosacral spondylosis. Degenerative change is noted in the sacroiliac joints. No lytic or blastic lesions are seen. IMPRESSION: 1. No acute posttraumatic intrathoracic abnormality is identified. 2. Cardiomegaly noting trace pleural effusions. 3. There is no airspace consolidation or pneumothorax. 4. There is no evidence of solid organ injury in the abdomen or pelvis. 5. Marked bladder distention with evidence of chronic outlet obstruction. 6. Additional findings as detailed above. ACT 112: Negative or not required by law. Electronically signed by: Lamonte Hunter M.D. 04/05/2025 2:50 PM
--- NOTE | 2025-04-05 14:52 | CT Scan Report ---
CT SCAN OF THE CERVICAL SPINE CLINICAL HISTORY: Trauma. COMPARISON STUDY: Cervical spine CT March 01, 2020. TECHNIQUE: CT scan of the cervical spine is performed from the skull base to the upper thoracic spine . Images are reviewed in the axial, sagittal, and coronal planes. IV contrast was not administered fo r this examination. A dose lowering technique was utilized adhering to the principles of ALARA. CT DOSE: 6176.74 mGy.cm FINDINGS: Skeletal structures: There is no evidence of fracture or subluxation involving the cervical spine. Ve rtebral body height and alignment are maintained. The odontoid process and lateral masses are intact . The atlantoaxial articulation is preserved. The spinous processes appear intact. There is moderate multilevel facet arthrosis and disc space narrowing with endplate osteophytosis within the cervical s pine. Soft tissues: The prevertebral and paraspinous soft tissues are within normal limits. Calvarium: The visualized calvarium at the skull base appears intact. Brain parenchyma: Partially visualized brain parenchyma at the skull base is within normal limits. Lung apices: Clear as visualized. IMPRESSION: No acute cervical spine fracture or subluxation. ACT 112: Negative or not required by law. Electronically signed by: Luigi Garcia M.D. 04/05/2025 2:51 PM
--- NOTE | 2025-04-05 15:05 | CT Scan Report ---
CT SCAN OF THE FACIAL BONES WITHOUT IV CONTRAST CLINICAL HISTORY: Trauma COMPARISON STUDY: CT of the brain dated 05/20/2024 TECHNIQUE: High-resolution CT scan of the facial bones is performed. Images are reviewed in the axia l, sagittal, and coronal planes. IV contrast was not administered for this examination. A dose lower ing technique was utilized adhering to the principles of ALARA. The examination is degraded by motion artifact. FINDINGS: The skeletal structures are osteopenic. There is no evidence of facial bone fracture. The b nick orbits are intact and the orbital contents are within normal limits. The zygomatic arches, nasal bones, and pterygoid plates are preserved. The maxilla and mandible are intact. The patient is edentu lous. There are no layering blood products within the paranasal sinuses. There is mild mucosal thicke junaid in the right maxillary antrum. Trace mucosal thickening is seen in the left maxillary sinus and the frontal sinuses. The remaining paranasal sinuses are clear. There is trace left mastoid effusion. The right mastoid air cells are well pneumatized. The visualized calvarium and upper cervical spine are maintained. Partially imaged brain parenchyma is within normal limits. Sialolithiasis is noted in the left parotid gland. IMPRESSION: There is no evidence of facial bone fracture. ACT 112: Negative or not required by law. Electronically signed by: Lamonte Hunter M.D. 04/05/2025 3:02 PM
--- NOTE | 2025-04-05 17:57 | History & Physical Report ---
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 Pt is brought to [facility] by EMS due to medication overdose, fall and confusion. #Accidental medication overdose - 2 tablets of allergy medication 10 mg each, 2 tablets of amlodipine 5 mg, 2 pills of baby aspirin 81 mg, 2 tabs of carvedilol 6.25 mg, 2 tablets of Duloxetine 60 mg, 2 tablets of Eliquis 5 mg, 2 tablets of Fish oil, 2 tablets of Omeprazole 40 mg, 2 tablets of Pregabalin 150 mg, and 2 tablets Gemtesa 75 mg - admit to PCU on tele - will need IVF (awake palomino placement first) - EKG - poison control aware- no acute intervention at this time, observe - aspiration / fall precautions - PT / INR wnl #Fall with head strike - trauma imaging negative for posttraumatic abnormalities - pt does have h/o SDH after hitting his head in 2019, given eliquis intake - will need to monitor with neuro checks #Bradycardia - due to extra dose of coreg - monitor on Tele #Delirium #h/o Cognitive impairment - suspect more from medication overdose but r/o UTI - pt is afebrile w/o leukocytosis - check UA / UCx but no indication for BCx at this time - hold off on abx until UA results - hold off on quetiapine #SATYA - CPAP prn - prn oxygen #BPH - s/p TURP 2021 - hold finasteride and alfuzosin - has urinary retention- CT showing marked bladder distension with evidence of chronic outlet obstruction - urology to place palomino #h/o SDH (b/l) - secondary to trauma, February 2020. - S/p left burhole and right mini craniotomy. - Complicated by seizure, had previously been on Keppra, has since been d/c'd. - Follows with neurosurgery at [facility]. - Has chronic mobility/weakness/dementia issues secondary to this. 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 Pt is brought to [facility] by EMS due to medication overdose, fall and confusion. Pt was last seen normal by his son around 7p on 04/04/25. Then around 9p, pt took double doses of his 's medications. He took an allergy medication 2 tablets of 10 mg each, 2 tablets of amlodipine 5 mg, 2 pills of baby aspirin 81 mg, 2 tabs of carvedilol 6.25 mg, 2 tablets of Duloxetine 60 mg, 2 tablets of Eliquis 5 mg, 2 tablets of Fish oil, 2 tablets of Omeprazole 40 mg, 2 tablets of Pregabalin 150 mg, and 2 tablets Gemtesa 75 mg. The morning of 04/05/25, he had a fall with head strike. Then as the day progressed, he became more and more confused. Thus his called for EMS to have him brought into the hospital. En route, pt wa noted to be bradycardic requiring atropine and pt has borderline low heart rate. Pt is currently delirious, but his son Rahul is at bedside. He stated that patient has very poor vision and likely accidentally took his 's medications as her name starts of similar to his (Pao). He also added that patient does not have a formal diagnosis of dementia, but he does get very confused when he has a UTI or has to stay in the hospital. He understood that delirium can take weeks to months to improve. ED team called poison control and was recommended to observe but no acute intervention needed at this time. Allergies Allergy/AdvReac Type Severity Reaction Status Date / Time No Known Allergies Allergy Verified 02/03/25 16:36 Home Medications Medication Instructions Recorded Confirmed Type acetaminophen 325 mg tablet 650 mg PO Q4 PRN Fever Or Pain 09/29/20 04/05/25 History (Tylenol) cholecalciferol (vitamin D3) 50 0 mcg PO QAM 03/07/23 04/05/25 History mcg (2,000 unit) capsule (Vitamin D3) albuterol sulfate 90 mcg/actuation 2 puff inhalation Q6 PRN 10/03/23 04/05/25 Rx aerosol inhaler asthma/copd #1 inhaler alfuzosin 10 mg tablet,extended 10 mg PO QDB #90 tabs 06/04/24 04/05/25 Rx release 24 hr atorvastatin 20 mg tablet 20 mg PO HS #100 tabs 09/22/24 04/05/25 Rx finasteride 5 mg tablet 5 mg PO HS #100 tabs 09/22/24 04/05/25 Rx omega 8-tsv-hzv-fish oil 1,000 mg 1 cap PO QAM #100 caps 09/22/24 04/05/25 Rx (120 mg-180 mg) capsule aspirin 81 mg tablet,delayed 81 mg PO HS 01/22/25 04/05/25 History release quetiapine 25 mg tablet 25 mg PO HS 01/22/25 04/05/25 History sennosides 8.6 mg-docusate sodium 0 tab PO QAM 01/22/25 04/05/25 History 50 mg tablet (Senokot-S) Past Med/Surg History Problem List (Updated 04/05/25 @ 17:00 by Jose De Jesus Packer DO) Accidental drug ingestion (Acute) Fall (Acute) Contusion of face (Acute) Acute alteration in mental status (Acute) Skin lesion of neck Restless legs Anxiety and depression Pulmonary nodules Incomplete bladder emptying B12 deficiency Sepsis Generalized weakness (Acute) COVID-19 (Acute) Ambulatory dysfunction (Acute) Aortic arch aneurysm BPH loc w urin obs/LUTS Hypercholesterolemia COPD (chronic obstructive pulmonary disease) mild. rarely uses inhaler. Coronary artery disease Microscopic hematuria Sensorineural hearing loss of both ears History of basal cell carcinoma (BCC) of skin Ambulatory dysfunction (Acute) Tobacco chew use (Acute) Constipation (Acute) Abnormal CT scan, lung Hydronephrosis, right Osteoarthritis Hypertension hx - no current medications Mild cognitive impairment Alert and Oriented x3 "most times". occasionally will forget names. Anemia Medical History Generalized tonic-clonic seizure (~03/2020) no problems since 03/2020 Tobacco user former tobacco use 20s-30s 1 ppd (does not recall exactly) Visual hallucinations Bilateral subdural hematomas Pneumonia hx ~2019. treated at [facility] Acute metabolic encephalopathy Generalized weakness Chronic back pain UTI (urinary tract infection) Thrombocytopenia Generalized weakness History of subdural hematoma (03/01/20) Hearing deficit History of rheumatic fever as a child Urinary retention Basal cell carcinoma (02/09/19) Left preauricular region: 02/09/2019 Surgical History History of craniotomy (03/01/20) left-sided matilde hole craniotomy and evacuation as well as a right-sided mini craniotomy for subdural evacuation Heart valve replaced bovine valve [facility] S/P Mohs surgery for basal cell carcinoma History of testicular surgery left History of colonoscopy with polypectomy History of tooth extraction all teeth H/O vasectomy History of open heart surgery (~2006) @ [facility] "valve replacement with cow valve and x1 vessel bypass surgery" Family History Mother Breast cancer Family history of diabetes mellitus Other H/O vasectomy History of open heart surgery Hypercholesterolemia No family history of adverse response to anesthesia Denies family history of Ovarian cancer Prostate cancer Diabetes Coronary heart disease Heart disease Myocardial infarction Lung cancer Colorectal cancer Social History Smoking Status: Former smoker Tobacco Type: Cigarettes and Smokeless Tobacco (Dip or Chew) Age Started Using Tobacco: 20; Age Quit Using Tobacco: 35; packs per day: 1; Second Hand Exposure: No; Do You Dip or Chew Tobacco: Yes; Hx Alcohol Use: No Hx Substance Use: No Preferred Language: Japanese Communication Ability: Effective Visual Impairment: Limited Hearing Ability: Normal 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 Beliefs That Will Affect Care: None marital status: Current Living Situation: Spouse Current Living Situation Comment: Home with current occupational status: retired How many Children do You have: 1 Feels Safe at Home: Yes Childhood Exposure to Second-Hand Smoke: No Diet: regular caffeine: No during the past year weight has: remained stable Dental Care, Regularly: No Physical Activity Frequency: Daily Seatbelt Use: always Sunscreen Use: No Assistive Devices: Cane and Walker Review of Systems Review of Systems: Pt unable to participate in ROS due to confusion Physical Exam Physical Exam: Gen: no acute distress HEENT: NC, trauma to the lips with bleeding, currently dry blood crusted in the mouth Lungs: nonlabored breathing, CTA anteriorly, snoring severely when sleeping CVS: s1s2nl, bradycardic Abd: nl bowel sounds, soft, NT / ND : no palomino Ext: no edema Neuro: confused, picking in the air and his gown Psych: restless but not agitated Results & Data Results & Data Vital Signs (Past 12 Hours) Vital Signs Temp Pulse Pulse Resp BP BP Pulse Ox 04/05/25 16:45 66 23 132/88 96 04/05/25 15:45 58 L 21 125/103 H 94 04/05/25 15:36 97 04/05/25 14:45 55 L 16 143/89 H 97 04/05/25 13:45 36.7 C 12 95 04/05/25 13:45 36.7 C 61 12 122/80 95 04/05/25 13:45 36.7 C 61 16 122/80 95 O2 Del Method O2 Flow Rate 04/05/25 16:45 Room Air 04/05/25 15:45 Room Air 04/05/25 15:36 Room Air 04/05/25 14:45 Room Air 04/05/25 13:45 Room Air 04/05/25 13:45 Room Air 0 04/05/25 13:45 Room Air PG Care Time/CCT Total # of Minutes Spent Total Time Spent with Patient: Total time spent is greater than 50% in coordination of care (as documented) at patient's floor/unit and/or counseling patient: Coding Level of Care Code 93384 INT INP/OBS CARE MIN Diagnoses Accidental drug ingestion T50.901A Fall W19.XXXA Contusion of face S00.83XA Acute alteration in mental status R41.82 Restless legs G25.81 Anxiety and depression F41.9; F32.A Incomplete bladder emptying R33.9 Ambulatory dysfunction R26.2 Hypercholesterolemia E78.00 Coronary artery disease I25.10 Sensorineural hearing loss of both ears H90.3 Tobacco chew use Z72.0
[2025-04-05 19:19] LABS: Appearance Urine Clear (Clear); Bacteria Urine Automated None Seen (None Seen); Cast Urine Automated 0-2 /lpf (0-2); Epithelial Cell Urine Auto 0-2 /hpf (0-2); Glucose Urine UA Negative (Negative); RBC Urine Automated >20 /hpf (0-2); WBC Urine Automated 0-5 /hpf (0-5)
--- NOTE | 2025-04-05 19:29 | Urology Consultation ---
Date of Consultation April 05, 2025 Assessment & Plan (1) Urinary retention: Afebrile 79M with chronic urinary retention massively distended bladder on ct with large diverticulum and difficult palomino placement. - maintain palomino do not remove without discussion with urology as placement fairly difficult - please cover patient empirically with at least single dose IV antibiotic due to extensive manipulation by myself and ED staff - start flomax when bp stable as per primary team - please monitor for postobstructive diuresis would check electrolytes in AM - will continue to follow History of Present Illness Reason for Consultation: disoriented gentleman seen after trauma noted to be in chronic urinary retention with highly distended bladder on CT Ed staff unable to place palomino as hit resistance in the mid urethra, requested palomino placement by hospitalist team for assessment possible UTI and management of retention Attending Physician: Gloria Gordon MD Allergies Allergy/AdvReac Type Severity Reaction Status Date / Time No Known Allergies Allergy Verified 02/03/25 16:36 Home Medications Medication Instructions Recorded Confirmed Type acetaminophen 325 mg tablet 650 mg PO Q4 PRN Fever Or Pain 09/29/20 04/05/25 History (Tylenol) cholecalciferol (vitamin D3) 50 0 mcg PO QAM 03/07/23 04/05/25 History mcg (2,000 unit) capsule (Vitamin D3) albuterol sulfate 90 mcg/actuation 2 puff inhalation Q6 PRN 10/03/23 04/05/25 Rx aerosol inhaler asthma/copd #1 inhaler alfuzosin 10 mg tablet,extended 10 mg PO QDB #90 tabs 06/04/24 04/05/25 Rx release 24 hr atorvastatin 20 mg tablet 20 mg PO HS #100 tabs 09/22/24 04/05/25 Rx finasteride 5 mg tablet 5 mg PO HS #100 tabs 09/22/24 04/05/25 Rx omega 7-zce-lvn-fish oil 1,000 mg 1 cap PO QAM #100 caps 09/22/24 04/05/25 Rx (120 mg-180 mg) capsule aspirin 81 mg tablet,delayed 81 mg PO HS 01/22/25 04/05/25 History release quetiapine 25 mg tablet 25 mg PO HS 01/22/25 04/05/25 History sennosides 8.6 mg-docusate sodium 0 tab PO QAM 01/22/25 04/05/25 History 50 mg tablet (Senokot-S) Patient History Medical History Generalized tonic-clonic seizure (~03/2020) no problems since 03/2020 Tobacco user former tobacco use 20s-30s 1 ppd (does not recall exactly) Visual hallucinations Bilateral subdural hematomas Pneumonia hx ~2019. [facility] [address] [facility] Acute metabolic encephalopathy Generalized weakness Chronic back pain UTI (urinary tract infection) Thrombocytopenia Generalized weakness History of subdural hematoma (03/01/20) Hearing deficit History of rheumatic fever as a child Urinary retention Basal cell carcinoma (02/09/19) Left preauricular region: 02/09/2019 Surgical History History of craniotomy (03/01/20) left-sided matilde hole craniotomy and evacuation as well as a right-sided mini craniotomy for subdural evacuation Heart valve replaced bovine valve [facility] S/P Mohs surgery for basal cell carcinoma History of testicular surgery left History of colonoscopy with polypectomy History of tooth extraction all teeth H/O vasectomy History of open heart surgery (~2006) @ [facility] "valve replacement with cow valve and x1 vessel bypass surgery" Family History Mother Breast cancer Family history of diabetes mellitus Other H/O vasectomy History of open heart surgery Hypercholesterolemia No family history of adverse response to anesthesia Denies family history of Ovarian cancer Prostate cancer Diabetes Coronary heart disease Heart disease Myocardial infarction Lung cancer Colorectal cancer Social History Smoking Status: Former smoker Tobacco Type: Cigarettes and Smokeless Tobacco (Dip or Chew) Age Started Using Tobacco: 20; Age Quit Using Tobacco: 35; packs per day: 1; Second Hand Exposure: No; Do You Dip or Chew Tobacco: Yes; Hx Alcohol Use: No Hx Substance Use: No Preferred Language: Kiswahili Communication Ability: Effective Visual Impairment: Limited Hearing Ability: Normal Combination Man Required: No Beliefs That Will Affect Care: None marital status: Current Living Situation: Spouse Current Living Situation Comment: Home with current occupational status: retired How many Children do You have: 1 Feels Safe at Home: Yes Childhood Exposure to Second-Hand Smoke: No Diet: regular caffeine: No during the past year weight has: remained stable Dental Care, Regularly: No Physical Activity Frequency: Daily Seatbelt Use: always Sunscreen Use: No Assistive Devices: Cane and Walker Physical Exam Physical Exam: Gen: NAD Psych: Disoriented Abd: Nontender distended : 20 fr coude catheter placement attempted hit brick wall resistance in mid urethra, 14 fr silicone placement attempted unsuccessful, sensor wire placed blindly advanced to bladder open ended catheter placed over wire urine returned wire replaced 16 fr [place] catheter placed over wire with return 1.8 L yellow urine Results & Data Vital Signs (Past 12 Hours) Vital Signs Temp Pulse Pulse Resp BP BP Pulse Ox 04/05/25 18:06 87 L 04/05/25 18:00 55 L 15 172/75 H 87 L 04/05/25 16:45 66 23 132/88 96 04/05/25 15:45 58 L 21 125/103 H 94 04/05/25 15:36 97 04/05/25 14:45 55 L 16 143/89 H 97 04/05/25 13:45 36.7 C 12 95 04/05/25 13:45 36.7 C 61 12 122/80 95 04/05/25 13:45 36.7 C 61 16 122/80 95 O2 Del Method O2 Flow Rate 04/05/25 18:06 Room Air 0 04/05/25 18:00 Room Air 04/05/25 16:45 Room Air 04/05/25 15:45 Room Air 04/05/25 15:36 Room Air 04/05/25 14:45 Room Air 04/05/25 13:45 Room Air 04/05/25 13:45 Room Air 0 04/05/25 13:45 Room Air PG Care Time/CCT Total # of Minutes Spent Total Time Spent with Patient: Total time spent is greater than 50% in coordination of care (as documented) at patient's floor/unit and/or counseling patient: Coding Level of Care Code 53363 IN/OBS CONSULT LVL 4,60M Diagnoses Urinary retention R33.9
[2025-04-05 19:55] LABS: Amphetamines+Metham, Urine Neg (Neg); MDMA (Ecstacy), Urine Neg (Neg); Marijuana, Urine Neg (Neg)
[2025-04-05] MEDS: cefTRIAXone SODIUM 2,000 MG/50 ML BAG IV STA (20:32)
[2025-04-06 06:36] LABS: Hematocrit (blood only) 37.6 % (42.0-52.0); Hemoglobin 12.7 g/dl (14.0-18.0); Immature Granulocytes # (auto) 0.03 K/uL (0.01-0.20); Immature Granulocytes % (auto) 0.3 %; Mean Corpuscular Hemoglobin 30.4 pg (25.0-34.0); Mean Corpuscular Volume 90.0 fL (80.0-100.0); Platelet Count 111 K/uL (130-400); RDW Standard Deviation 38.8 fL (36.4-46.3); Red Blood Count 4.18 M/uL (4.70-6.10); White Blood Count 9.86 K/ul (4.8-10.8)
[2025-04-06 07:01] LABS: INR 1.1 (0.9-1.1); Prothrombin Time 11.4 Seconds (9.0-12.0)
[2025-04-06 07:10] LABS: Alanine Aminotransferase 9.0 U/L (7-52); Albumin Globulin Ratio 1.7 (0.9-2); Albumin Level 4.0 gm/dl (3.4-5.0); Alkaline Phosphatase 76.0 U/L (34-104); Anion Gap 9.0 (3-11); Bilirubin,Total 1.1 mg/dl (0.2-1.0); Blood Urea Nitrogen 27.0 mg/dl (6-23); Calcium 8.7 mg/dl (8.6-10.3); Carbon Dioxide 25.0 mmol/L (21-32); Chloride 106.0 mmol/L (98-107); Creatinine Clr Calc Pharmacy 59.5 ml/min; Globulin 2.4 gm/dl (2.5-4.0); Glucose 141.0 mg/dl (70-99(Fasting)); Magnesium 1.8 mg/dl (1.7-2.4); Potassium 4.0 mmol/L (3.5-5.1); Sodium 140.0 mmol/L (136-145); Total Protein 6.4 gm/dl (6.0-8.3)
--- NOTE | 2025-04-06 07:32 | Hospitalist Progress Note ---
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 Pt is brought to [facility] by EMS due to medication overdose, fall and confusion. #Accidental medication overdose - 2 tablets of allergy medication 10 mg each, 2 tablets of amlodipine 5 mg, 2 pills of baby aspirin 81 mg, 2 tabs of carvedilol 6.25 mg, 2 tablets of Duloxetine 60 mg, 2 tablets of Eliquis 5 mg, 2 tablets of Fish oil, 2 tablets of Omeprazole 40 mg, 2 tablets of Pregabalin 150 mg, and 2 tablets Gemtesa 75 mg - cont PCU level of care - IVF not initiated given elevated BNP - EKG : HR 55bpm, QTc: 445ms , jn'l, repeat EKG showing sinus bradycardia - poison control aware- no acute intervention at this time, observe - aspiration / fall precautions - PT / INR wnl - UA negative #Fall with head strike - trauma imaging negative for posttraumatic abnormalities - pt does have h/o SDH after hitting his head in 2019, given eliquis intake- will need to monitor with neuro checks - given difficulty in assessing total neurological status, will obtain MRI brain (hopefully not too much motion degradation) - low threshold for repeat CT head during hospitalization given hx of traumatic SDH that developed 2 weeks after initial head trauma #Bradycardia - due to extra dose of coreg - monitor on Tele - rpt EKG #Elevated BNP - ECHO showing nl LV size,mild LVH, sigmoid septum, nl EF 55-60%. bioprosthetic AV valve functionally nl, no valvular leak #Delirium #h/o Cognitive impairment - suspect more from medication overdose but r/o UTI - pt is afebrile w/o leukocytosis - UA neg for UTI but no indication for BCx at this time - hold off on abx until UA results - hold off on quetiapine - REFERENCE ARCHIVIST and dietary consulted - NPO for now, however, if not improving mentation, consider gentle hydration as well as neurology eval #SATYA - CPAP prn - prn oxygen #BPH #Urinary retention - s/p TURP 2021 - hold finasteride and alfuzosin - has urinary retention- CT showing marked bladder distension with evidence of chronic outlet obstruction - urology palomino placement appreciated- difficult palomino placement, 1.8L removed at the time of placement, monitor for postobstructive diuresis and electrolyte disturbances, DO NOT remove palomino without urology clearance - UA neg, did receive 1 dose of Ceftriaxone on 04/05/25 #h/o SDH (b/l) - secondary to trauma, February 2020. - S/p left burhole and right mini craniotomy. - Complicated by seizure, had previously been on Keppra, has since been d/c'd. - Follows with neurosurgery at [place]. - Has chronic mobility/weakness/dementia issues secondary to this. #bioprosthetic aortic valve #CAD #HLD - hold aspirin, statin #Chewing tobacco use - nicotine patch when pt is awake and alert #Code status: full code #Dispo: admit to PCU #DVT ppx: SCDs 04/05: pt's nany Kay at bedside ([phone]) 04/06: updated pt's nany Kay Admission and Anticipated Discharge Date Admission Date: April 05, 2025 Subjective Pt remains confused but more awake than he was yesterday but still incoherent Review of Systems Review of Systems: Pt unable to participate in ROS due to confusion Physical Exam Physical Exam: Gen: no acute distress HEENT: NC, trauma to the lips with bleeding, currently dry blood crusted in the mouth Lungs: nonlabored breathing, CTA anteriorly, snoring severely when sleeping CVS: s1s2nl, bradycardic Abd: nl bowel sounds, soft, NT / ND : no palomino Ext: no edema Neuro: confused, picking in the air and his gown, but more awake today and not as sleepy Psych: restless but not agitated Results & Data Results & Data Vital Signs (Past 12 Hours) Vital Signs Temp Pulse Pulse Resp BP BP Pulse Ox 04/06/25 03:59 36.6 C 74 20 148/86 H 94 04/05/25 23:29 36.3 C L 58 L 20 138/97 95 04/05/25 22:08 57 L 04/05/25 19:45 36.3 C L 63 18 152/78 H 99 04/05/25 19:37 56 L O2 Del Method O2 Flow Rate 04/06/25 03:59 Room Air 04/05/25 23:29 Room Air 04/05/25 22:08 04/05/25 19:45 Nasal Cannula 2 04/05/25 19:37 PG Care Time/CCT Total # of Minutes Spent Total Time Spent with Patient: Total time spent is greater than 50% in coordination of care (as documented) at patient's floor/unit and/or counseling patient: Coding Level of Care Code 75647 SUB INP/OBS CARE 3/50MIN Diagnoses Accidental drug ingestion T50.901A Fall W19.XXXA Contusion of face S00.83XA Acute alteration in mental status R41.82 Restless legs G25.81 Anxiety and depression F41.9; F32.A Incomplete bladder emptying R33.9 Ambulatory dysfunction R26.2 Hypercholesterolemia E78.00 Coronary artery disease I25.10 Sensorineural hearing loss of both ears H90.3 Tobacco chew use Z72.0
--- NOTE | 2025-04-06 11:27 | Urology Progress Note ---
<Statement entered by Wilbur Heredia MD - 04/06/25 12:37> Chart reviewed plan reviewed and agree as written. Date of Service April 06, 2025 Assessment & Plan (1) Urinary retention: Plan 79yo male admitted with a medication overdose, fall, and confusion -Urology was consulted for urinary retention and difficult catheter placement. - Curtis catheter placed at bedside yesterday 04/[address] Heredia due to retention/severely distended bladder on CT imaging. - Catheter draining appropriately-urine is tasneem-colored. - He is afebrile with stable vitals at present. - Labs show no leukocytosis and normal creatinine. - He received a dose of ceftriaxone following catheter insertion yesterday. - Maintain Curtis catheter and do not remove without discussion with urology as placement was difficult. - Can start Flomax when BP stable as per primary team. - Continue management per primary team. - Will arrange follow-up with our service. - Urology will sign off, can recall as needed. Admission and Anticipated Discharge Date Admission Date: April 05, 2025 Subjective Patient was seen at bedside this morning. Awakened to name. Confused. Did not answer questions. Curtis draining tasneem-colored urine. Review of Systems Review of Systems: Unobtainable due to cognitive status Physical Exam Constitutional: no acute distress Respiratory: no respiratory distress Neurologic: awake confused Genitourinary: Curtis intact Results & Data Vital Signs (Past 12 Hours) Vital Signs Temp Pulse Pulse Resp BP BP Pulse Ox 04/06/25 10:48 36.1 C L 73 19 127/72 96 04/06/25 08:05 35.8 C L 60 15 148/85 H 94 04/06/25 07:00 57 L 04/06/25 03:59 36.6 C 74 20 148/86 H 94 04/05/25 23:29 36.3 C L 58 L 20 138/97 95 O2 Del Method 04/06/25 10:48 Room Air 04/06/25 08:05 Room Air 04/06/25 07:00 04/06/25 03:59 Room Air 04/05/25 23:29 Room Air PG Care Time/CCT Total # of Minutes Spent Total Time Spent with Patient: Total time spent is greater than 50% in coordination of care (as documented) at patient's floor/unit and/or counseling patient: Coding Level of Care Code 47881 SUB INP/OBS CARE 2MIN Diagnoses Urinary retention R33.9
--- NOTE | 2025-04-06 14:21 | XCELERA ---
[id number]
[2025-04-06] MEDS: LORazepam 0.5 MG TAB PO STA (20:43)
[2025-04-06] MEDS: LORazepam Inj 0.5 MG in SYRINGE 0.25 ML IV STA (20:52)
[2025-04-07] MEDS: PLASMA-LYTE A 1,000 ML IV STA (00:29)
[2025-04-07 06:30] LABS: Hematocrit (blood only) 35.6 % (42.0-52.0); Hemoglobin 12.6 g/dl (14.0-18.0); Mean Corpuscular Hemoglobin 31.7 pg (25.0-34.0); Mean Corpuscular Volume 89.7 fL (80.0-100.0); Platelet Count 106 K/uL (130-400); RDW Standard Deviation 38.8 fL (36.4-46.3); Red Blood Count 3.97 M/uL (4.70-6.10); White Blood Count 10.11 K/ul (4.8-10.8)
[2025-04-07 07:04] LABS: Alanine Aminotransferase 10.0 U/L (7-52); Albumin Globulin Ratio 1.3 (0.9-2); Albumin Level 3.5 gm/dl (3.4-5.0); Alkaline Phosphatase 69.0 U/L (34-104); Anion Gap 8.0 (3-11); Bilirubin,Total 1.3 mg/dl (0.2-1.0); Blood Urea Nitrogen 30.0 mg/dl (6-23); Calcium 8.6 mg/dl (8.6-10.3); Carbon Dioxide 26.0 mmol/L (21-32); Chloride 108.0 mmol/L (98-107); Creatinine Clr Calc Pharmacy 70.3 ml/min; Globulin 2.6 gm/dl (2.5-4.0); Glucose 119.0 mg/dl (70-99(Fasting)); Potassium 3.8 mmol/L (3.5-5.1); Sodium 142.0 mmol/L (136-145); Total Protein 6.1 gm/dl (6.0-8.3)
--- NOTE | 2025-04-07 16:49 | CT Scan Report ---
CT head without contrast History: AMS Comparison: None Technique: Using multidetector thin collimation helical acquisition technique, axial, coronal and sagittal CT images from the skull base to the vertex were obtained without intravenous contrast. Dose reduction techniques were achieved by using automatic exposure control and/or adjustment of mA and/or kV according to patient size and/or use of iterative reconstruction technique. Findings: No intracranial hemorrhage, mass-effect, or midline shift. The ventricles are proportionate to the cerebral sulci. The perez to white matter differentiation of the cerebral hemispheres is preserved. The basal cisterns are patent. The visualized paranasal sinuses are clear. Mastoid air cells are clear. Right frontal craniotomy. Impression: No acute intracranial pathology. Electronically signed by Yinka Novak 04-07-2025 4:49 PM
--- NOTE | 2025-04-07 19:15 | Hospitalist Progress Note ---
Date of Service April 07, 2025 Assessment & Plan (1) Accidental drug ingestion: (2) Fall: (3) Contusion of face: (4) Acute alteration in mental status: (5) Restless legs: (6) Anxiety and depression: (7) Incomplete bladder emptying: (8) Ambulatory dysfunction: (9) Hypercholesterolemia: (10) Coronary artery disease: (11) Sensorineural hearing loss of both ears: (12) Tobacco chew use: Plan 79 yr old M with PMHx of post traumatic SDH s/p craniotomy (03-01-2020) c/b seizures (not on any meds at this time), BPH s/p TURP 2021 w/ h/o urinary obstruction, HLD, b/l presbycusis, cognitive impairment, Aortic valve replacement, HTN, CAD, COPD, h/o visual hallucinations. Pt is brought to [facility] by EMS due to medication overdose, fall and confusion. #Accidental medication overdose - 2 tablets of allergy medication 10 mg each, 2 tablets of amlodipine 5 mg, 2 pills of baby aspirin 81 mg, 2 tabs of carvedilol 6.25 mg, 2 tablets of Duloxetine 60 mg, 2 tablets of Eliquis 5 mg, 2 tablets of Fish oil, 2 tablets of Omeprazole 40 mg, 2 tablets of Pregabalin 150 mg, and 2 tablets Gemtesa 75 mg Suspect mostly resolved from this at this time but also had lorazepam last night which may be effecting his cognition today. He is usually on Seroquel at night and plan on restarting his usual medications at this time. #Fall with head strike - repeat CT head today fortunately normal, ideally would get MRI brain once moving around less to rule out stroke #Bradycardia - due to extra dose of coreg, resolved #Elevated BNP - ECHO showing nl LV size,mild LVH, sigmoid septum, nl EF 55-60%. bioprosthetic AV valve functionally nl, no valvular leak #Delirium #h/o Cognitive impairment - suspect more from medication overdose but r/o UTI - pt is afebrile w/o leukocytosis - UA neg for UTI but no indication for BCx at this time - restart Seroquel - [employer] and dietary consulted - NPO for now, IV fluids, pending swallow eval tomorrow #SATYA - CPAP prn - prn oxygen #BPH #Urinary retention - s/p TURP 2021 - restart finasteride and alfuzosin - has urinary retention- CT showing marked bladder distension with evidence of chronic outlet obstruction - urology palomino placement appreciated- difficult palomino placement, 1.8L removed at the time of placement, monitor for postobstructive diuresis and electrolyte disturbances, DO NOT remove palomino without urology clearance - UA neg, did receive 1 dose of Ceftriaxone on 04/05/25 #h/o SDH (b/l) - secondary to trauma, February 2020. - S/p left burhole and right mini craniotomy. - Complicated by seizure, had previously been on Keppra, has since been d/c'd. - Follows with neurosurgery at [place]. - Has chronic mobility/weakness/dementia issues secondary to this. #bioprosthetic aortic valve #CAD #HLD - hold aspirin, statin #Chewing tobacco use - nicotine patch when pt is awake and alert #Dispo: continue on PCU #DVT ppx: SCDs Admission and Anticipated Discharge Date Admission Date: April 05, 2025 Subjective Still very confused although knows his name. Mumbling making it difficult to understand what he is saying but mostly not making sense. Moving all four extremities. Updated his over the phone Physical Exam Constitutional: WD/WN, vitals as above Eyes: Strabismus present, too confused for full vision exam Respiratory: normal respiratory effort, lungs clear to auscultation Cardiovascular: Rate/Rhythm: regular rate and regular rhythm Heart Sounds: + murmur Extremities: normal capillary refill; no calf tenderness Neurologic: moves all extremities, awake and + confused Speech / Cognition: + abnormal speech (mumbling, difficult to make sense) Results & Data Results & Data Vital Signs (Past 12 Hours) Vital Signs Temp Pulse Pulse Resp BP Pulse Ox O2 Del Method 04/07/25 16:45 35.9 C L 80 22 137/77 96 Room Air 04/07/25 15:25 57 L 04/07/25 10:25 37.2 C 73 15 137/77 97 Room Air 04/07/25 09:08 66 04/07/25 09:08 Room Air 04/07/25 08:00 36.6 C 95 H 23 131/79 96 Room Air PG Care Time/CCT Total # of Minutes Spent Total Time Spent with Patient: Total time spent is greater than 50% in coordination of care (as documented) at patient's floor/unit and/or counseling patient: Coding Level of Care Code 50967 SUB INP/OBS CARE 350MIN Diagnoses Accidental drug ingestion T50.901A Fall W19.XXXA Contusion of face S00.83XA Acute alteration in mental status R41.82 Restless legs G25.81 Anxiety and depression F41.9; F32.A Incomplete bladder emptying R33.9 Ambulatory dysfunction R26.2 Hypercholesterolemia E78.00 Coronary artery disease I25.10 Sensorineural hearing loss of both ears H90.3 Tobacco chew use Z72.0
[2025-04-07] MEDS: LACTATED RINGER'S 1,000 ML IV SCH (19:21)
[2025-04-07] MEDS: FINASTERIDE 5 MG TAB PO SCH (20:14)
[2025-04-08] MEDS: INFLUENZA VACC TS2025-26(65y+)/PF (IIV3) 0.5mL Syr IM ONE (05:21)
[2025-04-08] MEDS: TAMSULOSIN HCL 0.4 MG CAP PO SCH (09:44)
[2025-04-08 11:30] LABS: Alanine Aminotransferase 12.0 U/L (7-52); Albumin Globulin Ratio 1.3 (0.9-2); Albumin Level 3.5 gm/dl (3.4-5.0); Alkaline Phosphatase 65.0 U/L (34-104); Anion Gap 7.0 (3-11); Bilirubin,Total 1.3 mg/dl (0.2-1.0); Blood Urea Nitrogen 24.0 mg/dl (6-23); Calcium 8.7 mg/dl (8.6-10.3); Carbon Dioxide 27.0 mmol/L (21-32); Chloride 108.0 mmol/L (98-107); Creatinine Clr Calc Pharmacy 80.3 ml/min; Globulin 2.6 gm/dl (2.5-4.0); Glucose 94.0 mg/dl (70-99(Fasting)); Potassium 3.5 mmol/L (3.5-5.1); Sodium 142.0 mmol/L (136-145); Total Protein 6.1 gm/dl (6.0-8.3)
--- NOTE | 2025-04-08 11:39 | Fluoroscopy Report ---
MODIFIED BARIUM SWALLOW CLINICAL HISTORY: r/o aspiration COMPARISON STUDY: None. FLUOROSCOPY TIME: 1.05 minutes. Ka,r: 7.48 mGy TECHNIQUE: A modified barium swallow was performed in conjunction with Speech Pathology. The patient ingested varying consistencies of barium containing material. Video fluoroscopy was performed. FINDINGS: Penetration was noted with thin liquids by straw. However, there was no aspiration. No aspi ration was identified with pudding consistencies. Prolonged mastication was noted with cracker and pu dding consistencies. Only a small amount was swallowed without aspiration. IMPRESSION: 1. No tracheal aspiration identified, as described above. 2. Full recommendations by Speech pathology to follow. ACT 112: Negative or not required by law. Electronically signed by: Luigi Garcia M.D. 04/08/2025 11:37 AM
--- NOTE | 2025-04-08 14:16 | Magnetic Resonance Report ---
MRI OF THE BRAIN WITHOUT IV CONTRAST CLINICAL HISTORY: Confusion. History of subdural hematoma status post craniotomy. COMPARISON STUDY: Head CT April 07, 2025. MRI of the brain March 29, 2023. TECHNIQUE: MRI of the brain was performed utilizing various T1 and T2-weighted sequences in the axial , sagittal, and coronal planes. IV contrast was not administered for this examination. FINDINGS: This exam is mildly compromised by motion artifact although is diagnostic. There are no foc i of restricted diffusion to suggest acute infarct. No acute intracranial hemorrhage, midline shift o r mass effect is present. Cavum septum pellucidum is incidentally noted. Ventricular dilatation is un changed since earlier MRI of March 2023 and due to atrophy. Marked atrophy is again noted. White ma tter T2 hyperintense foci are similar to prior exam and favor small vessel disease. Prominence of the extra-axial spaces is due to atrophy. There is a small amount of fluid within left mastoid air cells . Right-sided craniotomy is noted. IMPRESSION: 1. No acute intracranial findings. No significant change in appearance of the brain since MRI of Octo 2022. 2. Atrophy and small vessel disease, as described above. ACT 112: Negative or not required by law. Electronically signed by: Luigi Garcia M.D. 04/08/2025 2:14 PM
--- NOTE | 2025-04-08 18:39 | Hospitalist Progress Note ---
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 Pt is brought to [facility] by EMS due to medication overdose, fall and confusion. #Accidental medication overdose - 2 tablets of allergy medication 10 mg each, 2 tablets of amlodipine 5 mg, 2 pills of baby aspirin 81 mg, 2 tabs of carvedilol 6.25 mg, 2 tablets of Duloxetine 60 mg, 2 tablets of Eliquis 5 mg, 2 tablets of Fish oil, 2 tablets of Omeprazole 40 mg, 2 tablets of Pregabalin 150 mg, and 2 tablets Gemtesa 75 mg Improved after restarting his usual Seroquel dosing PT/OT ordered #Bradycardia - due to extra dose of coreg, resolved #Delirium #h/o Cognitive impairment - possible just hospital delirium at this stage, repeat CT head and brain MRI negative for acute findings #BPH #Urinary retention - s/p TURP 2021 - restart finasteride and alfuzosin - has urinary retention- CT showing marked bladder distension with evidence of chronic outlet obstruction - urology palomino placement appreciated- difficult palomino placement, 1.8L removed at the time of placement, monitor for postobstructive diuresis and electrolyte disturbances, DO NOT remove palomino without urology clearance - UA neg, did receive 1 dose of Ceftriaxone on 04/05/25 #h/o SDH (b/l) - secondary to trauma, February 2020. - S/p left burhole and right mini craniotomy. - Complicated by seizure, had previously been on Keppra, has since been d/c'd. - Follows with neurosurgery at [place]. - Has chronic mobility/weakness/dementia issues secondary to this. #bioprosthetic aortic valve #CAD #HLD - hold aspirin, statin #Chewing tobacco use - nicotine patch when pt is awake and alert #SATYA - CPAP prn - prn oxygen #DVT ppx: Lovenox 40mg SQ daily, stop SCDs #Dispo: continue on PCU Admission and Anticipated Discharge Date Admission Date: April 05, 2025 Subjective Appears to be improved today but getting more agitated towards the end of the day but calm enough to get brain MRI. Orientated to person and place but not time. Physical Exam Constitutional: WD/WN, vitals as above Respiratory: normal respiratory effort, lungs clear to auscultation Cardiovascular: Rate/Rhythm: regular rate and regular rhythm Heart Sounds: + murmur Extremities: normal capillary refill; no calf tenderness Neurologic: moves all extremities, awake and + confused Speech / Cognition: + abnormal speech (mumbling, difficult to make sense) Psychiatric: Orientation: alert, oriented to person and oriented to place; + not oriented to time Results & Data Results & Data Vital Signs (Past 12 Hours) Vital Signs Temp Pulse Pulse Resp BP Pulse Ox O2 Del Method 04/08/25 09:30 120/69 04/08/25 07:57 36.9 C 52 L 15 95 Room Air 04/08/25 07:35 51 L PG Care Time/CCT Total # of Minutes Spent Total Time Spent with Patient: Total time spent is greater than 50% in coordination of care (as documented) at patient's floor/unit and/or counseling patient: Coding Level of Care Code 89428 SUB INP/OBS CARE 2/35MIN Diagnoses Accidental drug ingestion T50.901A Fall W19.XXXA Contusion of face S00.83XA Acute alteration in mental status R41.82 Restless legs G25.81 Anxiety and depression F41.9; F32.A Incomplete bladder emptying R33.9 Ambulatory dysfunction R26.2 Hypercholesterolemia E78.00 Coronary artery disease I25.10 Sensorineural hearing loss of both ears H90.3 Tobacco chew use Z72.0
[2025-04-08] MEDS: ENOXAPARIN INJ 40 MG/0.4 ML SYR SQ SCH (19:40)
--- NOTE | 2025-04-09 14:03 | Electrocardiogram Report ---
Test Reason : Blood Pressure : */* mmHG Vent. Rate : 59 BPM Atrial Rate : 59 BPM P-R Int : 150 ms QRS Dur : 74 ms QT Int : 440 ms P-R-T Axes : * 11 46 degrees QTcB Int : 435 ms Sinus bradycardia Septal infarct , age undetermined Abnormal ECG When compared with ECG of 22-Jan-2025 14:58, Septal infarct is now Present Nonspecific T wave abnormality now evident in Anterior leads Confirmed by Antione Singh ([id number]) on 04/09/2025 2:02:38 PM Referred By: REFERRED SELF Confirmed By: Antione Singh
--- NOTE | 2025-04-09 15:13 | Electrocardiogram Report ---
Test Reason : Blood Pressure : */* mmHG Vent. Rate : 55 BPM Atrial Rate : * BPM P-R Int : * ms QRS Dur : 88 ms QT Int : 466 ms P-R-T Axes : * -10 -11 degrees QTcB Int : 445 ms Poor data quality, interpretation may be adversely affected Sinus bradycardia Nonspecific ST and T wave abnormality Abnormal ECG When compared with ECG of 05-Apr-2025 13:49, (unconfirmed) HR has decreased Nonspecific T wave abnormality now evident in Inferior leads Confirmed by Antione Singh ([id number]) on 04/09/2025 3:12:59 PM Referred By: REFERRED SELF Confirmed By: Antione Singh
--- NOTE | 2025-04-09 15:30 | Electrocardiogram Report ---
Test Reason : Blood Pressure : */* mmHG Vent. Rate : 54 BPM Atrial Rate : 54 BPM P-R Int : 156 ms QRS Dur : 84 ms QT Int : 416 ms P-R-T Axes : 13 33 2 degrees QTcB Int : 394 ms Sinus bradycardia with sinus arrhythmia Nonspecific T wave abnormality Abnormal ECG When compared with ECG of 05-Apr-2025 17:59, (unconfirmed) No significant change Confirmed by Antione Singh ([id number]) on 04/09/2025 3:30:19 PM Referred By: REFERRED SELF Confirmed By: Antione Singh
--- NOTE | 2025-04-09 19:26 | Hospitalist Progress Note ---
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 Pt is brought to [facility] by EMS due to medication overdose, fall and confusion. #Altered mental state (delirium) / suspected dementia / Accidental medication overdose - 2 tablets of allergy medication 10 mg each, 2 tablets of amlodipine 5 mg, 2 pills of baby aspirin 81 mg, 2 tabs of carvedilol 6.25 mg, 2 tablets of Duloxetine 60 mg, 2 tablets of Eliquis 5 mg, 2 tablets of Fish oil, 2 tablets of Omeprazole 40 mg, 2 tablets of Pregabalin 150 mg, and 2 tablets Gemtes[address] head and brain MRI unremarkable for acute pathology will bring in hearing aids and dentures tomorrow as this is likely making him worse PT/OT Improved after restarting his usual Seroquel dosing but even at baseline his doesn't feel she can take care of him any longer and asking to look for placement #Bradycardia - due to extra dose of coreg, resolved #BPH #Urinary retention - s/p TURP 2021 - restart finasteride and alfuzosin - has urinary retention- CT showing marked bladder distension with evidence of chronic outlet obstruction - urology palomino placement appreciated- difficult palomino placement, 1.8L removed at the time of placement, monitor for postobstructive diuresis and electrolyte disturbances, DO NOT remove palomino without urology clearance - UA neg, did receive 1 dose of Ceftriaxone on 04/05/25 #h/o SDH (b/l) - secondary to trauma, February 2020. - S/p left burhole and right mini craniotomy. - Complicated by seizure, had previously been on Keppra, has since been d/c'd. - Follows with neurosurgery at [place]. - Has chronic mobility/weakness/dementia issues secondary to this. #bioprosthetic aortic valve #CAD #HLD - ok to restart aspirin and statin #Chewing tobacco use - consider nicotine patch if patient getting cravings #SATYA - CPAP prn - prn oxygen #DVT ppx: Lovenox 40mg SQ daily, stop SCDs #Dispo: stable for transfer to [facility] on med/surg to avoid delirium with double room Admission and Anticipated Discharge Date Admission Date: April 05, 2025 Subjective Patient on one to one but generally doing better. Out in chair. Making more sense with his speech today. No concerns or questions but also remains confused. Updated his over the phone. Physical Exam Constitutional: WD/WN, vitals as above Respiratory: normal respiratory effort, lungs clear to auscultation Cardiovascular: Rate/Rhythm: regular rate and regular rhythm Heart Sounds: + murmur Extremities: normal capillary refill; no calf tenderness Neurologic: moves all extremities, awake and + confused Speech / Cognition: + abnormal speech (mumbling, difficult to make sense) Psychiatric: Orientation: alert, oriented to person and oriented to place; + not oriented to time Results & Data Results & Data Vital Signs (Past 12 Hours) Vital Signs Temp Pulse Pulse Resp BP Pulse Ox O2 Del Method 04/09/25 16:22 36.8 C 68 127/76 97 Room Air 04/09/25 15:00 36.7 C 59 L 18 149/88 H 96 Room Air 04/09/25 09:37 36.7 C 53 L 52 L 21 136/79 97 Room Air PG Care Time/CCT Total # of Minutes Spent Total Time Spent with Patient: Total time spent is greater than 50% in coordination of care (as documented) at patient's floor/unit and/or counseling patient: Coding Level of Care Code 59496 SUB INP/OBS CARE 2/35MIN Diagnoses Accidental drug ingestion T50.901A Fall W19.XXXA Contusion of face S00.83XA Acute alteration in mental status R41.82 Restless legs G25.81 Anxiety and depression F41.9; F32.A Incomplete bladder emptying R33.9 Ambulatory dysfunction R26.2 Hypercholesterolemia E78.00 Coronary artery disease I25.10 Sensorineural hearing loss of both ears H90.3 Tobacco chew use Z72.0
--- NOTE | 2025-04-10 17:05 | Hospitalist Progress Note ---
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 Pt is brought to [facility] by EMS due to medication overdose, fall and confusion. #Altered mental state (delirium) / suspected dementia / Accidental medication overdose - 2 tablets of allergy medication 10 mg each, 2 tablets of amlodipine 5 mg, 2 pills of baby aspirin 81 mg, 2 tabs of carvedilol 6.25 mg, 2 tablets of Duloxetine 60 mg, 2 tablets of Eliquis 5 mg, 2 tablets of Fish oil, 2 tablets of Omeprazole 40 mg, 2 tablets of Pregabalin 150 mg, and 2 tablets Gemtes[address] head and brain MRI unremarkable for acute pathology PT/OT Improved after restarting his usual Seroquel dosing but even at baseline his doesn't feel she can take care of him any longer and asking to look for placement #Bradycardia - due to extra dose of coreg, resolved #BPH #Urinary retention - s/p TURP 2021 - restart finasteride and alfuzosin - has urinary retention- CT showing marked bladder distension with evidence of chronic outlet obstruction - urology palomino placement appreciated- difficult palomino placement, 1.8L removed at the time of placement, monitor for postobstructive diuresis and electrolyte disturbances, DO NOT remove palomino without urology clearance - UA neg, did receive 1 dose of Ceftriaxone on 04/05/25 #h/o SDH (b/l) - secondary to trauma, February 2020. - S/p left burhole and right mini craniotomy. - Complicated by seizure, had previously been on Keppra, has since been d/c'd. - Follows with neurosurgery at [place]. - Has chronic mobility/weakness/dementia issues secondary to this. #bioprosthetic aortic valve #CAD #HLD - ok to restart aspirin and statin #Chewing tobacco use - consider nicotine patch if patient getting cravings #SATYA - CPAP prn - prn oxygen #DVT ppx: Lovenox 40mg SQ daily #Dispo: medically stable for discharge pending placement Admission and Anticipated Discharge Date Admission Date: April 05, 2025 Subjective Continues to improve this morning, much more coherent speech and able to hold a conversation. Less so when I saw him in the afternoon when his arrived. Brought in glasses, hearing aids and dentures. Physical Exam Constitutional: WD/WN, vitals as above Respiratory: normal respiratory effort, lungs clear to auscultation Cardiovascular: Rate/Rhythm: regular rate and regular rhythm Heart Sounds: + murmur Extremities: normal capillary refill; no calf tenderness Neurologic: moves all extremities, awake and + confused Speech / Cognition: + abnormal speech (mumbling, difficult to make sense, waxing and waning throughout the day) Psychiatric: Orientation: alert, oriented to person and oriented to place; + not oriented to time Results & Data Results & Data Vital Signs (Past 12 Hours) Vital Signs Temp Pulse Resp BP BP Pulse Ox O2 Del Method 04/10/25 16:04 36.5 C 61 18 148/80 H 95 Room Air 04/10/25 10:08 36.7 C 56 L 16 154/87 H 96 Room Air PG Care Time/CCT Total # of Minutes Spent Total Time Spent with Patient: Total time spent is greater than 50% in coordination of care (as documented) at patient's floor/unit and/or counseling patient: Coding Level of Care Code 19340 SUB INP/OBS CARE 2/35MIN Diagnoses Accidental drug ingestion T50.901A Fall W19.XXXA Contusion of face S00.83XA Acute alteration in mental status R41.82 Restless legs G25.81 Anxiety and depression F41.9; F32.A Incomplete bladder emptying R33.9 Ambulatory dysfunction R26.2 Hypercholesterolemia E78.00 Coronary artery disease I25.10 Sensorineural hearing loss of both ears H90.3 Tobacco chew use Z72.0
[2025-04-10] MEDS: ATORVASTATIN 20 MG TAB PO SCH (19:21)
[2025-04-10] MEDS: ASPIRIN 81 MG ECTAB PO SCH (19:21)
[2025-04-11 10:10] LABS: Creatinine Clr Calc Pharmacy 77.3 ml/min
[2025-04-11] MEDS ORDERED: ACETAMINOPHEN 325 MG TAB PO PRN (18:26)
--- NOTE | 2025-04-11 18:34 | Hospitalist Progress Note ---
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 Pt is brought to [facility] by EMS due to medication overdose, fall and confusion. #Altered mental state (delirium) / suspected dementia / Accidental medication overdose - 2 tablets of allergy medication 10 mg each, 2 tablets of amlodipine 5 mg, 2 pills of baby aspirin 81 mg, 2 tabs of carvedilol 6.25 mg, 2 tablets of Duloxetine 60 mg, 2 tablets of Eliquis 5 mg, 2 tablets of Fish oil, 2 tablets of Omeprazole 40 mg, 2 tablets of Pregabalin 150 mg, and 2 tablets Gemtes[address] head and brain MRI unremarkable for acute pathology PT/OT Improved after restarting his usual Seroquel dosing but even at baseline his doesn't feel she can take care of him any longer and asking to look for placement #Bradycardia - due to extra dose of coreg, resolved #BPH #Urinary retention - s/p TURP 2021 - restart finasteride and alfuzosin - has urinary retention- CT showing marked bladder distension with evidence of chronic outlet obstruction - urology palomino placement appreciated- difficult palomino placement, 1.8L removed at the time of placement, monitor for postobstructive diuresis and electrolyte disturbances, DO NOT remove palomino without urology clearance - UA neg, did receive 1 dose of Ceftriaxone on 04/05/25 #h/o SDH (b/l) - secondary to trauma, February 2020. - S/p left burhole and right mini craniotomy. - Complicated by seizure, had previously been on Keppra, has since been d/c'd. - Follows with neurosurgery at [place]. - Has chronic mobility/weakness/dementia issues secondary to this. #bioprosthetic aortic valve #CAD #HLD - ok to restart aspirin and statin #Chewing tobacco use - consider nicotine patch if patient getting cravings #SATYA - CPAP prn - prn oxygen #DVT ppx: Lovenox 40mg SQ daily #Dispo: medically stable for discharge pending placement Admission and Anticipated Discharge Date Admission Date: April 05, 2025 Subjective No acute concerns or questions from patient. Physical Exam Constitutional: well developed; + not well nourished and no acute distress Respiratory: normal respiratory effort; no respiratory distress Results & Data Results & Data Vital Signs (Past 12 Hours) Vital Signs Temp Pulse Resp BP Pulse Ox O2 Del Method 04/11/25 15:21 36.6 C 57 L 20 150/78 H 96 Room Air PG Care Time/CCT Total # of Minutes Spent Total Time Spent with Patient: Total time spent is greater than 50% in coordination of care (as documented) at patient's floor/unit and/or counseling patient: Coding Level of Care Code 63363 SUB INP/OBS CARE 07/18MIN Diagnoses Accidental drug ingestion T50.901A Fall W19.XXXA Contusion of face S00.83XA Acute alteration in mental status R41.82 Restless legs G25.81 Anxiety and depression F41.9; F32.A Incomplete bladder emptying R33.9 Ambulatory dysfunction R26.2 Hypercholesterolemia E78.00 Coronary artery disease I25.10 Sensorineural hearing loss of both ears H90.3 Tobacco chew use Z72.0
[2025-04-12 09:55] LABS: Alanine Aminotransferase 15.0 U/L (7-52); Albumin Globulin Ratio 1.3 (0.9-2); Albumin Level 3.5 gm/dl (3.4-5.0); Alkaline Phosphatase 65.0 U/L (34-104); Anion Gap 8.0 (3-11); Bilirubin,Total 1.1 mg/dl (0.2-1.0); Blood Urea Nitrogen 16.0 mg/dl (6-23); Calcium 8.9 mg/dl (8.6-10.3); Carbon Dioxide 28.0 mmol/L (21-32); Chloride 105.0 mmol/L (98-107); Creatinine Clr Calc Pharmacy 78.3 ml/min; Globulin 2.8 gm/dl (2.5-4.0); Glucose 124.0 mg/dl (70-99(Fasting)); Potassium 3.5 mmol/L (3.5-5.1); Sodium 141.0 mmol/L (136-145); Total Protein 6.3 gm/dl (6.0-8.3)
--- NOTE | 2025-04-12 17:35 | Hospitalist Progress Note ---
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 Pt is brought to [facility] by EMS due to medication overdose, fall and confusion. #Altered mental state (delirium) / suspected dementia / Accidental medication overdose - 2 tablets of allergy medication 10 mg each, 2 tablets of amlodipine 5 mg, 2 pills of baby aspirin 81 mg, 2 tabs of carvedilol 6.25 mg, 2 tablets of Duloxetine 60 mg, 2 tablets of Eliquis 5 mg, 2 tablets of Fish oil, 2 tablets of Omeprazole 40 mg, 2 tablets of Pregabalin 150 mg, and 2 tablets Gemtesa [address] head and brain MRI unremarkable for acute pathology PT/OT Wacing and waning throughout admission, a little worse cognition today Improved after restarting his usual Seroquel dosing but even at baseline his doesn't feel she can take care of him any longer and asking to look for placement #Bradycardia - due to extra dose of coreg, resolved #BPH #Urinary retention - s/p TURP 2021 - restart finasteride and alfuzosin - has urinary retention- CT showing marked bladder distension with evidence of chronic outlet obstruction - urology palomino placement appreciated- difficult palomino placement, 1.8L removed at the time of placement, monitor for postobstructive diuresis and electrolyte disturbances, DO NOT remove palomino without urology clearance - UA neg, did receive 1 dose of Ceftriaxone on 04/05/25 #h/o SDH (b/l) - secondary to trauma, February 2020. - S/p left burhole and right mini craniotomy. - Complicated by seizure, had previously been on Keppra, has since been d/c'd. - Follows with neurosurgery at [place]. - Has chronic mobility/weakness/dementia issues secondary to this. #bioprosthetic aortic valve #CAD #HLD - ok to restart aspirin and statin #Chewing tobacco use - consider nicotine patch if patient getting cravings #SATYA - CPAP prn - prn oxygen #DVT ppx: Lovenox 40mg SQ daily #Dispo: medically stable for discharge pending placement Admission and Anticipated Discharge Date Admission Date: April 05, 2025 Subjective No acute concerns or questions from patient. Physical Exam Constitutional: well developed; + not well nourished and no acute distress Respiratory: normal respiratory effort, lungs clear to auscultation Cardiovascular: Rate/Rhythm: regular rate and regular rhythm Heart Sounds: + murmur Extremities: normal capillary refill; no calf tenderness and no pedal edema Gastrointestinal (Abdomen): normal bowel sounds, soft, nontender, no hepatosplenomegaly Results & Data Results & Data Vital Signs (Past 12 Hours) Vital Signs Temp Pulse Resp BP Pulse Ox O2 Del Method 04/12/25 14:15 36.6 C 58 L 16 143/84 H 95 Room Air 04/12/25 07:31 55 L 16 180/61 H 95 Room Air PG Care Time/CCT Total # of Minutes Spent Total Time Spent with Patient: Total time spent is greater than 50% in coordination of care (as documented) at patient's floor/unit and/or counseling patient: Coding Level of Care Code 97772 SUB INP/OBS CARE 2/35MIN Diagnoses Accidental drug ingestion T50.901A Fall W19.XXXA Contusion of face S00.83XA Acute alteration in mental status R41.82 Restless legs G25.81 Anxiety and depression F41.9; F32.A Incomplete bladder emptying R33.9 Ambulatory dysfunction R26.2 Hypercholesterolemia E78.00 Coronary artery disease I25.10 Sensorineural hearing loss of both ears H90.3 Tobacco chew use Z72.0
--- NOTE | 2025-04-13 16:51 | Hospitalist Progress Note ---
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 Pt is brought to [facility] by EMS due to medication overdose, fall and confusion. #Altered mental state (delirium) / suspected dementia / Accidental medication overdose - Took 2 tablets of allergy medication 10 mg each, 2 tablets of amlodipine 5 mg, 2 pills of baby aspirin 81 mg, 2 tabs of carvedilol 6.25 mg, 2 tablets of Duloxetine 60 mg, 2 tablets of Eliquis 5 mg, 2 tablets of Fish oil, 2 tablets of Omeprazole 40 mg, 2 tablets of Pregabalin 150 mg, and 2 tablets Gemtes[address] head and brain MRI unremarkable for acute pathology PT/OT Waxing and waning throughout admission Improved after restarting his usual Seroquel dosing but even at baseline his doesn't feel she can take care of him any longer and asking to look for placement #Bradycardia - due to extra dose of coreg, resolved #BPH #Urinary retention - s/p TURP 2021 - restart finasteride and alfuzosin - has urinary retention- CT showing marked bladder distension with evidence of chronic outlet obstruction - urology palomino placement appreciated- difficult palomino placement, 1.8L removed at the time of placement, monitor for postobstructive diuresis and electrolyte disturbances, DO NOT remove palomino without urology clearance - UA neg, did receive 1 dose of Ceftriaxone on 04/05/25 #h/o SDH (b/l) - secondary to trauma, February 2020. - S/p left burhole and right mini craniotomy. - Complicated by seizure, had previously been on Keppra, has since been d/c'd. - Follows with neurosurgery at [facility]. - Has chronic mobility/weakness/dementia issues secondary to this. #bioprosthetic aortic valve #CAD #HLD - Continue aspirin and statin #Chewing tobacco use - consider nicotine patch if patient getting cravings #SATYA - CPAP prn - prn oxygen #DVT ppx: Lovenox 40mg SQ daily #Dispo: medically stable for discharge pending placement Admission and Anticipated Discharge Date Admission Date: April 05, 2025 Subjective No acute concerns or questions from patient. Difficult to understand but appears to be in good spirits. Physical Exam Respiratory: normal respiratory effort, lungs clear to auscultation Cardiovascular: RRR, no murmur, no edema Gastrointestinal (Abdomen): normal bowel sounds, soft, nontender, no hepatosplenomegaly Psychiatric: Orientation: alert and oriented to person; + not oriented to place and + not oriented to time Results & Data Results & Data Vital Signs (Past 12 Hours) Vital Signs Temp Pulse Resp BP Pulse Ox O2 Del Method 04/13/25 14:12 36.7 C 70 16 125/83 95 Room Air 04/13/25 07:10 36.6 C 65 16 123/84 95 Room Air PG Care Time/CCT Total # of Minutes Spent Total Time Spent with Patient: Total time spent is greater than 50% in coordination of care (as documented) at patient's floor/unit and/or counseling patient: Coding Level of Care Code 71194 SUB INP/OBS CARE 07/18MIN Diagnoses Accidental drug ingestion T50.901A Fall W19.XXXA Contusion of face S00.83XA Acute alteration in mental status R41.82 Restless legs G25.81 Anxiety and depression F41.9; F32.A Incomplete bladder emptying R33.9 Ambulatory dysfunction R26.2 Hypercholesterolemia E78.00 Coronary artery disease I25.10 Sensorineural hearing loss of both ears H90.3 Tobacco chew use Z72.0
--- NOTE | 2025-04-14 10:37 | Hospitalist Progress Note ---
Date of Service April 14, 2025 Assessment & Plan (1) Accidental drug ingestion: (2) Fall: (3) Contusion of face: (4) Acute alteration in mental status: (5) Restless legs: (6) Anxiety and depression: (7) Incomplete bladder emptying: (8) Ambulatory dysfunction: (9) Hypercholesterolemia: (10) Coronary artery disease: (11) Sensorineural hearing loss of both ears: (12) Tobacco chew use: (13) History of subdural hematoma: (14) History of craniotomy: Plan 79yo male with h/o traumatic SDH s/p craniotomy (03-01-2020), seizures post-SDH (not on any meds at this time), BPH s/p TURP 2021 w/ h/o urinary obstruction, Hyperlipidemia, cognitive impairment, bioprosthetic AVR, HTN, CAD, COPD, h/o visual hallucinations. Patient was brought to [facility] by EMS due to medication overdose, a fall and confusion. #Toxic encephalopathy 2nd to accidental medication overdose in the setting of underlying cognitive impairment/suspected dementia - -by report took 2 tablets of allergy medication 10 mg each, 2 tablets of amlodipine 5 mg, 2 pills of baby aspirin 81 mg, 2 tabs of carvedilol 6.25 mg, 2 tablets of Duloxetine 60 mg, 2 tablets of Eliquis 5 mg, 2 tablets of Fish oil, 2 tablets of Omeprazole 40 mg, 2 tablets of Pregabalin 150 mg, and 2 tablets Gemtesa 75 mg at home -CT head and MRI brain negative for acute CVA, ICH, etc. -remains on seroquel 50mg HS and is pleasantly confused w/o agitation #Bradycardia - -2nd to extra dose of coreg at home -HRs now normal #BPH with LUTS / Urinary retention - -s/p TURP 2021 -cont finasteride and flomax -due to severe urinary retention palomino placed by Dr Heredia, urology, on 04/05 -1.8 liters of urine was obtained following palomino placement -palomino should not be removed unless done so by urology as it was a challenging placement -consider voiding trial next 3-5 days (that would be 2 weeks of palomino with flomax) #h/o SDH (b/l) - -traumatic; February 2020 -S/p left burhole and right mini craniotomy -Complicated by seizure, had previously been on Keppra but this has been d/c -Follows with neurosurgery at [facility] -Has chronic mobility/weakness/dementia issues due to prior traumatic brain injury #bioprosthetic aortic valve - -echo this admission with normal function #CAD - -no ischemic sx's at this time #Hyperlipidemia - -Continue aspirin and statin #Chewing tobacco use #SATYA #DVT ppx - -Lovenox 40mg SQ daily #constipation - -add senna -add miralax -if no improvement then dulcolax suppos x 1 #COPD - -no exacerbation at this time dispo - SNF placement referrals made to multiple facilities ([facility], [facility], [facility], etc) appreciate case management assistance Admission and Anticipated Discharge Date Admission Date: April 05, 2025 Subjective lying in bed watching TV difficult to understand his speech, but was smiling and in good spirits denies pain in any location eating fair per nursing flowsheets per staff no BM in 3-4 days Review of Systems Review of Systems: Unobtainable due to cognitive status Physical Exam Physical Exam: gen - NAD, pleasantly confused, lying in bed neck - no JVD mouth - MMM heart - RRR, s1 s2, no murmur lungs - CTA b/l abd - mildly distended but nontender, BS+, no HSM ext - no edema, pulses 2+ b/l psych - oriented to person only Results & Data Results & Data Vital Signs (Past 12 Hours) Vital Signs Temp Pulse Resp BP Pulse Ox O2 Del Method 04/14/25 08:26 36.6 C 62 16 132/87 95 Room Air Laboratory Results Laboratory Results - last 48 hr 04/14/25 09:58 Creatinine 0.96 Est Cr Clr Drug Dosing 64.4 eGFR 80.40 PG Care Time/CCT Total # of Minutes Spent Total Time Spent with Patient: Total time spent is greater than 50% in coordination of care (as documented) at patient's floor/unit and/or counseling patient: Coding Level of Care Code 90403 SUB INP/OBS CARE 07/18MIN Diagnoses Accidental drug ingestion T50.901A Fall W19.XXXA Contusion of face S00.83XA Acute alteration in mental status R41.82 Restless legs G25.81 Anxiety and depression F41.9; F32.A Incomplete bladder emptying R33.9 Ambulatory dysfunction R26.2 Hypercholesterolemia E78.00 Coronary artery disease I25.10 Sensorineural hearing loss of both ears H90.3 Tobacco chew use Z72.0 History of subdural hematoma Z86.79 History of craniotomy Z98.890
[2025-04-14 10:41] LABS: Creatinine Clr Calc Pharmacy 64.4 ml/min
[2025-04-14] MEDS: SENNA 8.6 MG TAB PO SCH (11:30)
[2025-04-14] MEDS: POLYETHYLENE (MIRALAX) 17 GM PACK PO SCH (11:30)
[2025-04-15 15:55] VITALS: TEMP 97.9
--- NOTE | 2025-04-15 19:54 | Hospitalist Progress Note ---
Date of Service April 15, 2025 Assessment & Plan (1) Accidental drug ingestion: (2) Fall: (3) Contusion of face: (4) Acute alteration in mental status: (5) Restless legs: (6) Anxiety and depression: (7) Incomplete bladder emptying: (8) Ambulatory dysfunction: (9) Hypercholesterolemia: (10) Coronary artery disease: (11) Sensorineural hearing loss of both ears: (12) Tobacco chew use: (13) History of subdural hematoma: (14) History of craniotomy: (15) Thrombocytopenia: Plan 79yo male with h/o traumatic SDH s/p craniotomy (03-01-2020), seizures post-SDH (not on any meds at this time), BPH s/p TURP 2021 w/ h/o urinary obstruction, Hyperlipidemia, cognitive impairment, bioprosthetic AVR, HTN, CAD, COPD, h/o visual hallucinations. Patient was brought to [facility] by EMS due to medication overdose, a fall and confusion. #Toxic encephalopathy 2nd to accidental medication overdose in the setting of underlying cognitive impairment/suspected dementia - -by report took 2 tablets of allergy medication 10 mg each, 2 tablets of amlodipine 5 mg, 2 pills of baby aspirin 81 mg, 2 tabs of carvedilol 6.25 mg, 2 tablets of Duloxetine 60 mg, 2 tablets of Eliquis 5 mg, 2 tablets of Fish oil, 2 tablets of Omeprazole 40 mg, 2 tablets of Pregabalin 150 mg, and 2 tablets Gemtesa 75 mg at home -CT head and MRI brain negative for acute CVA, ICH, etc. -remains on seroquel 50mg HS and is pleasantly confused w/o agitation #Bradycardia - -2nd to extra dose of coreg at home -HRs remain normal #BPH with LUTS / Urinary retention - -s/p TURP 2021 -cont finasteride and flomax -due to severe urinary retention palomino placed by Dr Heredia, urology, on 04/05 -1.8 liters of urine was obtained following palomino placement -palomino should not be removed unless done so by urology as it was a challenging p lacement -consider voiding trial next 3-5 days (that would be 2 weeks of palomino with flomax) or, if released to SNF, have f/u with urology shortly after d/c #h/o SDH (b/l) - -traumatic; February 2020 -S/p left burhole and right mini craniotomy -Complicated by seizure, had previously been on Keppra but this has been d/c -Follows with neurosurgery at [facility] -Has chronic mobility/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 #COPD - -no exacerbation at this time #thrombocytopenia - -appears chronic -ITP?? -check B12/folate to be complete -recheck CBC in am for stability of platelets dispo - SNF placement; apparently [facility] can offer bed tomorrow if insurance auth has been obtained?? left message for pt's son on his voicemail 04/15 attempted to call pt's - could not leave message Admission and Anticipated Discharge Date Admission Date: April 05, 2025 Subjective watching a TV documentary about Haroldo Thrasher during my visit no issues today ?BM earlier in the day? 75% of meals consumed cannot give any meaningful history 2nd dementia Review of Systems Review of Systems: Unobtainable due to cognitive status Physical Exam Physical Exam: gen - NAD, pleasantly confused, sitting in chair neck - no JVD mouth - MMM heart - RRR, s1 s2, no murmur lungs - CTA b/l abd - distension improved; nontender, BS+, no HSM ext - no edema, pulses 2+ b/l psych - oriented to person only neuro - speech difficult to understand (baseline) Results & Data Results & Data Vital Signs (Past 12 Hours) Vital Signs Temp Pulse Resp BP Pulse Ox O2 Del Method 04/15/25 15:54 36.6 C 87 16 125/78 95 Room Air PG Care Time/CCT Total # of Minutes Spent Total Time Spent with Patient: Total time spent is greater than 50% in coordination of care (as documented) at patient's floor/unit and/or counseling patient: Coding Level of Care Code 32073 SUB INP/OBS CARE 1/25MIN Diagnoses Accidental drug ingestion T50.901A Fall W19.XXXA Contusion of face S00.83XA Acute alteration in mental status R41.82 Restless legs G25.81 Anxiety and depression F41.9; F32.A Incomplete bladder emptying R33.9 Ambulatory dysfunction R26.2 Hypercholesterolemia E78.00 Coronary artery disease I25.10 Sensorineural hearing loss of both ears H90.3 Tobacco chew use Z72.0 History of subdural hematoma Z86.79 History of craniotomy Z98.890 Thrombocytopenia D69.6
[2025-04-15] MEDS: POLYETHYLENE (MIRALAX) 17 GM PACK PO ONE (21:03)
[2025-04-16 04:50] VITALS: BP 115/56; PULSE 61; RESP 18; O2SAT 97
[2025-04-16 07:21] LABS: Hematocrit (blood only) 36.3 % (42.0-52.0); Hemoglobin 12.8 g/dl (14.0-18.0); Immature Granulocytes # (auto) 0.03 K/uL (0.01-0.20); Immature Granulocytes % (auto) 0.4 %; Mean Corpuscular Hemoglobin 31.2 pg (25.0-34.0); Mean Corpuscular Volume 88.5 fL (80.0-100.0); Platelet Count 120 K/uL (130-400); RDW Standard Deviation 39.6 fL (36.4-46.3); Red Blood Count 4.10 M/uL (4.70-6.10); White Blood Count 6.73 K/ul (4.8-10.8)
[2025-04-16 07:43] LABS: Alanine Aminotransferase 23.0 U/L (7-52); Albumin Globulin Ratio 1.2 (0.9-2); Albumin Level 3.3 gm/dl (3.4-5.0); Alkaline Phosphatase 61.0 U/L (34-104); Anion Gap 7.0 (3-11); Bilirubin,Total 1.0 mg/dl (0.2-1.0); Blood Urea Nitrogen 35.0 mg/dl (6-23); Calcium 8.8 mg/dl (8.6-10.3); Carbon Dioxide 27.0 mmol/L (21-32); Chloride 107.0 mmol/L (98-107); Creatinine Clr Calc Pharmacy 56.7 ml/min; Globulin 2.8 gm/dl (2.5-4.0); Glucose 97.0 mg/dl (70-99(Fasting)); Potassium 3.8 mmol/L (3.5-5.1); Sodium 141.0 mmol/L (136-145); Total Protein 6.1 gm/dl (6.0-8.3)
[2025-04-16 08:02] LABS: Folate (Folic Acid),Ser orPlas 13.21 ng/ml (>5.38); Vitamin B12 499.0 pg/ml (180-914)
--- NOTE | 2025-04-16 11:34 | Discharge Summary ---
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 Patient was brought to [facility] by EMS due to medication overdose, a fall and confusion. #Toxic encephalopathy 2nd to accidental medication overdose in the setting of underlying cognitive impairment/suspected dementia - -by report took 2 tablets of allergy medication 10 mg each, 2 tablets of amlodipine 5 mg, 2 pills of baby aspirin 81 mg, 2 tabs of carvedilol 6.25 mg, 2 tablets of Duloxetine 60 mg, 2 tablets of Eliquis 5 mg, 2 tablets of Fish oil, 2 tablets of Omeprazole 40 mg, 2 tablets of Pregabalin 150 mg, and 2 tablets Gemtesa 75 mg at home -CT head and MRI brain negative for acute CVA, ICH, etc. -remains on seroquel 50mg HS and is pleasantly confused w/o agitation #Bradycardia - -2nd to extra dose of coreg at home -HRs remain normal #BPH with LUTS / Urinary retention - -s/p TURP 2021 -cont finasteride and flomax -due to severe urinary retention benítez placed by Dr Heredia, urology, on 04/05 -1.8 liters of urine was obtained following benítez placement -benítez should not be removed unless done so by urology as it was a challenging placement -consider voiding trial next 3-5 days (that would be 2 weeks of benítez with flomax) or, if released to SNF, have f/u with urology shortly after d/c #h/o SDH (b/l) - -traumatic; February 2020 -S/p left burhole and right mini craniotomy -Complicated by seizure, had previously been on Keppra but this has been d/c -Follows with neurosurgery at [place] -Has chronic mobility/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 #COPD - -no exacerbation at this time #thrombocytopenia - -appears chronic -ITP?? -check B12/folate to be complete -recheck CBC in am for stability of platelets dispo - SNF placement; apparently [facility] can offer bed tomorrow if insurance auth has been obtained?? left message for pt's son on his voicemail 04/15 attempted to call pt's - could not leave message Admission HPI Per Admitting Provider 79 yr old M with PMHx of post traumatic SDH s/p craniotomy (03-01-2020) c/b seizures (not on any meds at this time), BPH s/p TURP 2021 w/ h/o urinary obs truction, HLD, b/l presbycusis, cognitive impairment, Aortic valve replacement, HTN, CAD, COPD, h/o visual hallucinations. Pt is brought to [facility] by EMS due to medication overdose, fall and confusion. Pt was last seen normal by his son around 7p on 04/04/25. Then around 9p, pt took double doses of his 's medications. He took an allergy medication 2 tablets of 10 mg each, 2 tablets of amlodipine 5 mg, 2 pills of baby aspirin 81 mg, 2 tabs of carvedilol 6.25 mg, 2 tablets of Duloxetine 60 mg, 2 tablets of Eliquis 5 mg, 2 tablets of Fish oil, 2 tablets of Omeprazole 40 mg, 2 tablets of Pregabalin 150 mg, and 2 tablets Gemtesa 75 mg. The morning of 04/05/25, he had a fall with head strike. Then as the day progressed, he became more and more confused. Thus his called for EMS to have him brought into the hospital. En route, pt wa noted to be bradycardic requiring atropine and pt has borderline low heart rate. Pt is currently delirious, but his son Rahul is at bedside. He stated that patient has very poor vision and likely accidentally took his 's medications as her name starts of similar to his (Pao). He also added that patient does not have a formal diagnosis of dementia, but he does get very confused when he has a UTI or has to stay in the hospital. He understood that delirium can take weeks to months to improve. ED team called poison control and was recommended to observe but no acute intervention needed at this time. Discharge Exam gen - NAD, pleasantly confused, sitting in chair neck - no JVD mouth - MMM heart - RRR, s1 s2, no murmur lungs - CTA b/l abd - distension improved; nontender, BS+, no HSM ext - no edema, pulses 2+ b/l psych - oriented to person only neuro - speech difficult to understand (baseline) Discharge Plan Discharge Items Patient Disposition: Transfer Group Home Fac Reason For Visit: ACCIDENTAL MEDICATION OVERDOSE Discharge Diagnosis: (1) Accidental drug ingestion with resulting toxic encephalopathy - resolved (2) Fall with contusion of face (3) Underlying cognitive impairment/suspected dementia (4) Bradycardia - 2nd to extra coreg pre-admission - resolved (5) BPH with LUTS resulting in urinary retention - s/p benítez insertion this admission (6) Anxiety and depression (7) Incomplete bladder emptying 2nd to BPH (8) Ambulatory dysfunction (9) Hypercholesterolemia (10) Coronary artery disease - s/p 1 vessel CABG at time of valve replacement (11) Sensorineural hearing loss of both ears (12) Tobacco chew use (13) History of subdural hematoma - 2019 - s/p left burhole and right mini craniotomy (14) Chronic Thrombocytopenia - due to chronic ITP? (platelet count at baseline ~100-120 dating back to about 2021) (15) Bioprosthetic aortic valve (16) HTN (17) COPD (18) SATYA Activity: Resume your previous activity Non-emergency contact: Primary Care Provider and Urologist Call non-emergency contact if: you have any medication questions, your symptoms worsen and you have a fever Follow-up/Referrals: Jonathan Altamirano CRNP [Primary Care Provider] - Wilbur Heredia MD [Physician] - (1-2 weeks for benítez management. ) Diet: Regular Diet Texture: Easy to Chew Addtl Attending Provider Instructions: Mr Bruce was hospitalized due to toxic encephalopathy/altered mental status due to accidental overdose of multiple chronic medicines. He recovered well from this. He had fallen at home and underwent a trauma survey including CT head, CT chest, and CT abd/pelvis. All studies were negative for fractures, bleeding in the brain, or other internal injuries. He had severe urinary retention at time of admission. Benítez catheter insertion was very difficult, and [facility] was consulted for benítez placement on 04/05/25. He has had the benítez in place since that time. BENÍTEZ SHOULD REMAIN IN PLACE. DO NOT REMOVE. THIS WILL NEED TO BE MANAGED BY [facility] IN THE CLINIC. PT/OT both advised placement as he is not safe to return home. Thus, he is transferring to [facility] in [place]. Of note - patient's baseline speech is difficult to understand. Recommendations - 1. PT/OT - eval and Rx 2. Patient needs assistance with meals 3. Push oral fluids as much as possible 4. Benítez care/maintain benítez 5. Basic metabolic panel in 5-7 days for stability; results to medical technologist generalist 6. Follow-up with [facility] todd for benítez management 7. If patient has excess morning sedation from his bedtime quetiapine consider lowering his dose from 50mg HS to 37.5mg HS (or 25mg HS) It was our pleasure to care for Mr Bruce! -Matteo Liu Pending Studies at Discharge: No Stand-Alone Forms: My [facility] Skilled Items Patient informed of condition?: No DNR: No Discharge Level of Care: Skilled Communicable Disease: No Discharge Prognosis: Stable Lines: None Urinary Catheter: Yes (placed 04/05/25; DO NOT REMOVE; needs Urology follow-up for the benítez.) Medications and DC Order Prescriptions: New sennosides [Senna Lax] 8.6 mg Tablet 17.2 mg PO QAM Qty: 60 0RF polyethylene glycol 3350 [Miralax] 17 gram Powder In Packet 17 g PO DAILY Qty: 30 0RF thiamine HCl (vitamin B1) 100 mg tablet 200 mg PO BID 30 Days Qty: 120 0RF Continued acetaminophen [Tylenol] 325 mg Tablet 650 mg PO Q4 PRN (Reason: Fever Or Pain) Qty: 30 0RF atorvastatin 20 mg tablet 20 mg PO HS Qty: 30 3RF aspirin 81 mg tablet,delayed release (DR/EC) 81 mg PO HS Qty: 90 1RF albuterol sulfate 90 mcg/actuation HFA aerosol inhaler 2 puff INHALATION Q6 PRN (Reason: asthma/copd) Qty: 1 3RF finasteride 5 mg tablet 5 mg PO HS Qty: 30 3RF alfuzosin 10 mg tablet extended release 24 hr 10 mg PO QDB Qty: 30 3RF Rx Instructions: TAKE ONE TABLET BY MOUTH EVERY DAY after the same meal each day omega 0-raj-roa-fish oil 1,000 (120-180) mg capsule 1 cap PO QAM Qty: 30 3RF Changed quetiapine 25 mg tablet 50 mg PO HS Qty: 60 0RF Rx Instructions: TAKE ONE TABLET BY MOUTH AT BEDTIME cholecalciferol (vitamin D3) [Vitamin D3] 50 mcg (2,000 unit) capsule 2,000 mcg PO QAM Qty: 30 0RF Patient Comments: 04/05- otc unable to verify Discontinued sennosides-docusate sodium [Senokot-S] 8.6-50 mg tablet 0 tab PO QAM Patient Comments: 04/05- otc unable to verify Discharge Orders: Discharge Order (Routine); Ordered 04/16/25 Ordered By: Matteo Liu Admission Data Admit Date/Time: 04/05/25 17:35 Attending Provider: Matteo Liu Admit Provider: Gloria Gordon Primary Care Provider: Jonathan Altamirano Other Providers: Skip Jackson; Glroia Gordon; Wilbur Heredia Hospital Stay Data Consultations 04/05/25 16:30 ED Decision to Admit Stat 04/05/25 17:17 Consult Urology Stat Diagnostic Imagining Performed 04/05/25 13:47 CT abd pelvis IV con only Stat CT cervical spine wo con Stat CT chest diagnostic w con Stat CT facial bones wo con Stat CT head/brain wo con Stat 04/07/25 10:42 CT head/brain wo con Stat 04/08/25 10:00 FL video swallow Routine 04/08/25 12:42 MRI Brain [MR brain wo con] Urgent Pending Results Patient Have Any Pending Studies at Discharge: No Discharge Instructions Given to Patient (Per Discharging Provider) Mr Bruce was hospitalized due to toxic encephalopathy/altered mental status due to accidental overdose of multiple chronic medicines. He recovered well from this. He had fallen at home and underwent a trauma survey including CT head, CT chest, and CT abd/pelvis. All studies were negative for fractures, bleeding in the brain, or other internal injuries. He had severe urinary retention at time of admission. Benítez catheter insertion was very difficult, and [facility] was consulted for benítez placement on 04/05/25. He has had the benítez in place since that time. BENÍTEZ SHOULD REMAIN IN PLACE. DO NOT REMOVE. THIS WILL NEED TO BE MANAGED BY [facility] IN THE CLINIC. PT/OT both advised placement as he is not safe to return home. Thus, he is transferring to [facility] in [place]. Of note - patient's baseline speech is difficult to understand. Recommendations - 1. PT/OT - eval and Rx 2. Patient needs assistance with meals 3. Push oral fluids as much as possible 4. Benítez care/maintain benítez 5. Basic metabolic panel in 5-7 days for stability; results to medical technologist generalist 6. Follow-up with [facility] todd for benítez management 7. If patient has excess morning sedation from his bedtime quetiapine consider lowering his dose from 50mg HS to 37.5mg HS (or 25mg HS) It was our pleasure to care for Mr Bruce! -Matteo Liu Coding Diagnoses Accidental drug ingestion T50.901A Fall W19.XXXA Contusion of face S00.83XA Acute alteration in mental status R41.82 Restless legs G25.81 Anxiety and depression F41.9; F32.A Incomplete bladder emptying R33.9 Ambulatory dysfunction R26.2 Hypercholesterolemia E78.00 Coronary artery disease I25.10 Sensorineural hearing loss of both ears H90.3 Tobacco chew use Z72.0 History of subdural hematoma Z86.79 History of craniotomy Z98.890 Thrombocytopenia D69.6
== END 2025-04-16 12:50 ==
LOC: SUATTDRO → ED 13:39 → 2E 17:35 → SUATTDRO 17:35 → INTOOBSV 17:35 → 2E 18:15 → 3E 04-09 14:21